=== PATIENT | female | born 1945 | race Caucasian/White ===

== ENCOUNTER 2020-03-27 12:41 | Outpatient (CLI) | payer MEDICARE, MEDICAID, SELFPAY ==
[2020-03-27] MEDS: DENOSUMAB 60 MG/ML SYRINGE SUB-Q (13:00)
== END 2020-03-27 12:42 | disposition home or self-care (01) ==
LOC: CHSTREATRM 12:44
PROVIDERS: PCP Internal Medicine; Visit Provider Internal Medicine
DX: M81.0 Age-related osteoporosis without current pathological fracture (principal)
CPT/HCPCS: 96372; J0897

== ENCOUNTER 2020-07-29 11:09 | Outpatient (CLI) | payer MEDICARE, MEDICAID, SELFPAY ==
[2020-07-29 11:20] VITALS: BP 120/70; PULSE 72; RESP 14; TEMP 36.6; O2SAT 97
[2020-07-29] MEDS: DENOSUMAB 60 MG/ML SYRINGE SUB-Q (11:30)
--- NOTE | 2020-07-29 11:31 | PC.NURSE ---
Patient here for Prolia injection. Patient had this 6 months ago and did well with it. Prolia injection administered see DEC. Tolerated injection well. Encouraged to drink good amount of fluids next few days. Safe exit of hospital.
== END 2020-07-29 11:10 | disposition home or self-care (01) ==
PROVIDERS: PCP Internal Medicine; Visit Provider Internal Medicine
DX: M81.0 Age-related osteoporosis without current pathological fracture (principal)
CPT/HCPCS: 96372; J0897

== ENCOUNTER 2020-10-14 12:37 | Outpatient (CLI) | payer MEDICARE, SELFPAY ==
[2020-10-14 13:23] LABS: SARS-CoV-2 Ag Positive (Negative)
== END 2020-10-14 12:38 | disposition home or self-care (01) ==
LOC: CHSLAB 12:39
PROVIDERS: PCP Internal Medicine; Visit Provider Internal Medicine
DX: U07.1 COVID-19 (principal)
CPT/HCPCS: 87426

== ENCOUNTER 2020-12-21 08:03 | Outpatient (CLI) | payer MEDICARE, MEDICAID, SELFPAY ==
--- NOTE | ~2020-12-21 | MR_ITS ---
EXAMINATION: MR brain IAC wo con EXAM DATE: 12/21/2020 09:32 INDICATION: Left temporal headache for months. Dizziness. TECHNIQUE: Multi-sequential, multiplanar MR images of the brain, brainstem, internal auditory canals were obtained without contrast. Whole brain sagittal T1, axial diffusion, gradient echo (T2*), T1, T 2, FLAIR sequences obtained. High resolution coronal 3-D FIESTA, coronal T1 FSE, axial T1 FSPGR of t he internal auditory canals. There is no prior study for comparison. FINDINGS: No evidence of mastoid or middle ear opacification. The 7th/8th cranial nerve complexes a re symmetric, normal in course and caliber. No cerebellopontine angle masses. Posterior fossa unrem arkable. There are no areas of restricted diffusion to suggest acute infarction. There is no acute hemorrhage seen on the T2*, a hemosiderin sensitive sequence. No intraparenchymal brain mass lesion. There is mild periventricular and subcortical T2/FLAIR signal hyperintensity, nonspecific but probably related to small vessel ischemic disease (microangiopathy). There are no extra-axial collections. Flow vo ids are seen in the cerebral arteries on the T2-weighted sequences consistent with their expected pat ency. Patient has had bilateral ocular lens surgery. Soft tissue is unremarkable. IMPRESSION: 1. No acute intracranial findings. 2. Mild microangiopathy. Reviewed, dictated and finalized at location A. S SHOP SUPERVISOR
== END 2020-12-21 08:04 | disposition home or self-care (01) ==
LOC: CHSIMG 08:05
PROVIDERS: PCP Internal Medicine; Visit Provider Internal Medicine
DX: R42 Dizziness and giddiness (principal); R51.9 Headache, unspecified
CPT/HCPCS: 70551

== ENCOUNTER 2021-01-03 12:44 | Outpatient (CLI) | payer MEDICARE, MEDICAID, SELFPAY ==
--- NOTE | ~2021-01-03 | DEXA_ITS ---
Bone Density Report Name: Rhiannon Hurst Age: 75 Sex: Female Ethnicity: White Date of : 1945 Indication: postmenopausal osteoporosis; monitoring treatment; asthma or emphysema; hysterectomy; Referring Provider: Orly Coronado Study: Bone densitometry was performed. Exam Date: January 03, 2021 Accession number: [id number] Bone Density: Region BMD T-score Z-score Classification AP Spine(L2, L3, L4) 0.971 -1.0 1.5 Normal Femoral Neck (Left) 0.590 -2.3 -0.3 Osteopenia Total Hip (Left) 0.668 -2.2 -0.5 Osteopenia Femoral Neck (Right) 0.645 -1.8 0.2 Osteopenia Total Hip (Right) 0.655 -2.4 -0.6 Osteopenia Femoral Neck Mean 0.618 -2.1 0.0 Osteopenia Total Hip Mean 0.661 -2.3 -0.6 Osteopenia World Health Organization criteria for BMD impression classify patients as: Normal (T-score at or above -1.0), Osteopenia (T-score between -1.0 and -2.5), or Osteoporosis (T-score at or below -2.5). 10-year Fracture Risk: FRAX not reported because: Treated for osteoporosis Previous Exams: Region Exam Age BMD T-score BMD Change BMD Change Date g/cm2 vs Baseline vs Previous AP Spine (L2-L4) 01/03/2021 75 0.971 -1.0 0.025 (2.6%)# 0.002 (0.2%)# 11/11/2018 73 0.970 -1.0 0.023 (2.4%)*! -0.050 (-4.9%) 06/14/2015 69 1.020 -0.5 0.073 (7.7%)*! 0.143 (16.3%)* 11/25/2012 67 0.877 -1.8 -0.070 (-7.4%) 0.013 (1.5%) 05/16/2010 64 0.864 -2.0 -0.082 (-8.7%) -0.082 (-8.7%) 03/07/2007 61 0.947 -1.2 Total Hip(Left) 01/03/2021 75 0.668 -2.2 -0.011 (-1.6%) 0.022 (3.3%)# 11/11/2018 73 0.646 -2.4 -0.032 (-4.8%) -0.013 (-1.9%) 06/14/2015 69 0.659 -2.3 -0.020 (-2.9%) 0.044 (7.1%)* 11/25/2012 67 0.615 -2.7 -0.063 (-9.3%) -0.008 (-1.2%) 05/16/2010 64 0.623 -2.6 -0.056 (-8.2%) -0.056 (-8.2%) 03/07/2007 61 0.679 -2.2 Total Hip(Right) 01/03/2021 75 0.655 -2.4 0.020 (3.2%)# 0.070 (12.0%)# 11/11/2018 73 0.585 -2.9 -0.050 (-7.9%) -0.002 (-0.4%) 11/25/2012 67 0.587 -2.9 -0.048 (-7.5%) -0.007 (-1.2%) 05/16/2010 64 0.594 -2.9 -0.040 (-6.4%) -0.040 (-6.4%) 03/07/2007 61 0.635 -2.5 *Denotes significance at 95% confidence level, LSC for AP Spine = 0.022 g/cm2, LSC for Total Hip = 0.027 g/cm2 # Denotes dissimilar scan types or analysis methods Clinical Information Provided by Patient: Is being treated for osteoporosis Has used the following medications: Vitamin D Has the following medical conditions: Asthma or Emphysema, Hy
== END 2021-01-03 12:45 | disposition home or self-care (01) ==
LOC: CHSIMG 12:45
PROVIDERS: PCP Internal Medicine; Visit Provider Internal Medicine
DX: M81.0 Age-related osteoporosis without current pathological fracture (principal)
CPT/HCPCS: 77080

== ENCOUNTER 2021-02-13 12:17 | Outpatient (CLI) | payer MEDICARE, MEDICAID, SELFPAY ==
--- NOTE | ~2021-02-13 | MM_ITS ---
EXAMINATION: MM screening drew BI w rodriguez HISTORY: Screening mammogram TECHNIQUE: Craniocaudal and mediolateral oblique 3-D tomosynthesis images were obtained and synthetic 2-D images were generated. CAD analysis was submitted and interpreted. COMPARISON: 11/11/2018, 10/06/2016, 06/06/2015 bilateral digital screening mammogram examinations BREAST PARENCHYMAL COMPOSITION: There are scattered areas of fibroglandular density. FINDINGS: Stable benign circumscribed intramammary upper outer quadrant right lymph node since 019, stable circumscribed skin lesion at the posterior lower inner left breast diminished in size sin ce 10/14/2016. There is no evidence of suspicious mass, calcification, or architectural distortion to suggest malign marino in either breast. There has been no suspicious interval change. IMPRESSION: 1. No mammographic evidence of malignancy. 2. Recommend routine screening mammography in one year. BI-RADS Category 0: Incomplete: Needs additional imaging evaluation. Reviewed, dictated and finalized at location A.
[2021-02-13 12:52] VITALS: BMI 25.5
--- NOTE | 2021-02-13 12:53 | PC.NURSE ---
Patient here for q 6 month Prolia injection. Education on medication reviewed. No concerns. Safe exit of hospital.
[2021-02-13] MEDS: DENOSUMAB 60 MG/ML SYRINGE SUB-Q (13:00)
== END 2021-02-13 12:18 | disposition home or self-care (01) ==
PROVIDERS: PCP Internal Medicine; Visit Provider Internal Medicine
DX: M81.0 Age-related osteoporosis without current pathological fracture (principal); Z12.31 Encounter for screening mammogram for malignant neoplasm of breast
CPT/HCPCS: 77063; 77067; 96372; J0897

== ENCOUNTER 2021-04-05 18:40 | Emergency (ER) | payer MEDICARE, MEDICAID, SELFPAY ==
--- NOTE | ~2021-04-05 | XR_ITS ---
XR chest 2V DATE: 04/05/2021 19:13 INDICATION: Cough for one day. History of COPD. TECHNIQUE: 2 views COMPARISON: 10/13/2019 2 view chest FINDINGS: Normal heart size. Aortic arch calcification. No hilar or mediastinal mass lesion or lympha denopathy is evident. Mild bilateral hyperinflation. No pulmonary infiltrate or consolidation, pleural effusion or pulmonar y vascular congestion or pneumothorax. Diffuse osteopenia. IMPRESSION: Mild bilateral hyperinflation; no active cardiac pulmonary disease or significant change since 10/13/2019 Reviewed, dictated and finalized at location A.
--- NOTE | 2021-04-05 18:48 | ED.URI ---
HPI - URI/Sore Throat General Chief Complaint: Upper Respiratory Infection Stated Complaint: coughing Source: patient and RN notes reviewed Mode of arrival: ambulatory Limitations: no limitations History of Present Illness MD elicited complaint: cough Pertinent past history: COPD and other ( patient had COVID September 2020, has had 2 vaccinations for COVID also) Onset (ago): day(s) (1) Consistency: intermittent Severity: moderate Description of mucous: clear Able to tolerate fluids by mouth: Yes Exacerbating factors: exertion Relieving factors: nothing Associated symptoms: denies other symptoms Treatments prior to arrival: none Related Data Home Medications Medication Instructions Recorded Confirmed albuterol sulfate [ProAir HFA] 2 puff INHALATION Q4-6H PRN 10/13/19 04/05/21 aspirin 81 mg PO DAILY 10/13/19 04/05/21 cholecalciferol (vitamin D3) 1,000 unit PO DAILY 10/13/19 04/05/21 [Vitamin D3] fluticasone furoate-vilanterol 1 inh INHALATION DAILY 10/13/19 04/05/21 [Breo Ellipta] lisinopril-hydrochlorothiazide 1 tablet PO DAILY 10/13/19 04/05/21 montelukast 10 mg PO DAILY 10/13/19 04/05/21 potassium chloride 10 meq PO DAILY 10/13/19 04/05/21 Allergies Allergy/AdvReac Type Severity Reaction Status Date / Time No Known Allergies Allergy Verified 10/13/19 17:35 Review of Systems Review of Systems: All systems reviewed & are unremarkable except as noted in HPI and below Constitutional: Constitutional: Denies chills and Denies fever(s) Cardiovascular: Cardiovascular: Denies chest pain Respiratory: Respiratory: Reports chest congestion, Denies dyspnea and Reports wheezing Gastrointestinal: Gastrointestinal: Denies nausea and Denies vomiting PMF Past Medical History Medical History (Updated 04/05/21 @ 19:24 by Kev Christian MD) COPD (chronic obstructive pulmonary disease) Hypertension Surgical History Surgical History (Updated 04/05/21 @ 19:22 by Kev Christian MD) H/O: hysterectomy History of appendectomy Social History Social History (Updated 04/05/21 @ 19:03 by Kev Christian MD) Smoking status: Former smoker Alcohol intake: current Alcohol use details: occasional Substance use: never Exam Const: General: healthy appearing, no acute distress and alert Nutritional Appearance: well nourished Orientation/consciousness: patient oriented x3 HENMT: Head: normal to inspection Ears: external ears normal Eyes: Conjunctivae: conjunctivae normal Pupils: Equal, round and reactive pupils present EOM: EOMs intact bilaterally Neck: Neck: normal visual inspection Resp: Effort & Inspection: normal respiratory effort Auscultation: rhonchi right lower and wheezes expiratory wheezes, anterior, posterior and throughout Cardio: Rate: regular rate Rhythm: regular rhythm GI: GI Palp: Yes Soft to palpation and No Tenderness to palpation present (GI) Auscultation: normal bowel sounds Back/Spine/Pelvis: Cervical Spine: cervical ROM normal Thoracic/Lumbar Spine: thoraco-lumbar ROM normal Skin: General skin exam: normal color Rashes: no rashes Neuro: General: patient oriented x3, moves all extremities, no meningeal signs and no focal motor deficits Speech: normal speech Gait exam (Neuro): Normal gait present Extrem: General: normal to inspection and no clubbing, cyanosis or edema Psych: Appearance: grossly normal and well kempt Mental Status: mental status grossly normal Affect: normal affect Attitude: cooperative Thought content: Yes Normal thought content present Discharge Plan Discharge Clinical Impression: COPD (chronic obstructive pulmonary disease) Qualifiers: COPD type: COPD with acute exacerbation Qualified Code(s): J44.1 - Chronic obstructive pulmonary disease with (acute) exacerbation Patient Disposition: Home, Self-Care Condition: Improved Instructions: Antibiotic Form, COPD (Chronic Obstructive Pulmonary Disease) (ED) Additional Instructions: Co
[2021-04-05 18:54] VITALS: BP 139/73; PULSE 103; RESP 22; TEMP 37.7; O2SAT 94
[2021-04-05] MEDS: IPRATROPIUM 0.5 MG/ALBUTEROL SULFATE 2.5 MG AMPUL.NEB 3 ML INHALATION (19:13)
[2021-04-05 19:15] VITALS: PULSE 103; RESP 22; O2SAT 94
[2021-04-05 19:25] VITALS: PULSE 100; RESP 20; O2SAT 96
[2021-04-05] MEDS: methylPREDNISolone SOD SUCC 125 MG VIAL IM (19:25)
[2021-04-05 19:27] VITALS: PULSE 100; RESP 20; O2SAT 96
== END 2021-04-05 19:28 | disposition home or self-care (01) ==
PROVIDERS: Emergency Provider Emergency Medicine; PCP Internal Medicine
DX: J44.1 Chronic obstructive pulmonary disease with (acute) exacerbation (principal); I10 Essential (primary) hypertension
CPT/HCPCS: 71046; 94640; 96372; 99283; J2930

== ENCOUNTER 2021-05-15 00:34 | Day surgery (SDC) | payer MEDICARE, MEDICAID, SELFPAY ==
[2021-05-09 09:58] VITALS: BMI 25.0
[2021-05-15 08:37] VITALS: BP 149/73; PULSE 85; RESP 18; TEMP 36.6; O2SAT 97; BMI 24.5
[2021-05-15] MEDS: LACTATED RINGERS 1,000 ML 30 ML IV CONT (08:48)
--- NOTE | 2021-05-15 08:51 | WPDANESEPPF ---
Anes - Initial Pre Proc Eval Procedure: Operation Date: 05/15/21 09:00 Proposed Procedures p Colonoscopy - Amari Lugo DO Date/Time: 05/15/21 08:51 Surgeon: Amari Lugo DO Pre Op Diagnosis: melena Patient Data Age: 75 Gender: F Height: 1.6 m Weight: 62.9 kg Last Vital Signs Temp 36.6 C 05/15/21 08:37 Pulse 85 05/15/21 08:37 Resp 18 05/15/21 08:37 BP 149/73 H 05/15/21 08:37 Pulse Ox 97 05/15/21 08:37 Allergies Allergy/AdvReac Type Severity Reaction Status Date / Time No Known Allergies Allergy Verified 05/15/21 08:36 Home Medications Medication Instructions Recorded Confirmed Type albuterol sulfate [ProAir HFA] 2 puff INHALATION Q4-6H PRN 10/13/19 05/15/21 History aspirin 81 mg PO DAILY 10/13/19 05/09/21 History lisinopril-hydrochlorothiazide 1 tablet PO DAILY 10/13/19 05/09/21 History montelukast 10 mg PO DAILY 10/13/19 05/09/21 History potassium chloride 10 meq PO DAILY 10/13/19 05/09/21 History cholecalciferol (vitamin D3) 2,000 unit PO DAILY 05/09/21 05/09/21 History [Vitamin D3] denosumab [Prolia] 60 mg SUBCUT [id number] 05/09/21 05/09/21 History fluticasone furoate-vilanterol 1 inh INHALATION DAILY 05/09/21 05/09/21 History [Breo Ellipta] ipratropium-albuterol [Combivent 4 puff INHALATION QID 05/09/21 05/09/21 History Respimat] Patient hx anesthesia problems: none Family hx anesthesia problems: none PMFSH Past Medical History Medical History COPD (chronic obstructive pulmonary disease) Hypertension Surgical History Surgical History H/O: hysterectomy History of appendectomy Social History Social History Smoking packs per day: 1 Smoking cigarettes per day: 20.0 Years smoked: 49 Smoking pack-years: 49.00 Smoking status: Current every day smoker Tobacco type: cigarettes Alcohol intake: current Alcohol use details: occasional Substance use: never Substance use type: does not use Living arrangements: alone Spiritual care concerns: No Anes - Eval Final PreProcedure Day of Procedure 05/15/21 08:51 Patient weight: normal Heart: regular rate and rhythm Lungs: clear to auscultation Airway: Mallampati scale class II Neurological: alert and oriented Last oral intake: >/= 8 hours ASA classification: III Emergent: no Anesthetic plan: proceed Anesthesia type and monitoring: general GIVS and standard monitoring Informed Consent: The patient's anesthetic plan and its attendant risks and benefits were discussed with the patient/family/POA. Questions were solicited and answers provided to the satisfaction of the patient/family/POA.
--- NOTE | 2021-05-15 09:42 | PM.IMHP ---
H&P: HPI History of Present Illness Date/Time: 05/15/21 09:42 Chief Complaint: blood in stool Narrative: this is a 75-year-old woman who presents for colonoscopy. She has never had a colonoscopy before. She has noticed blood when wiping. She denies any blood mixed in stool or blood dripping into the toilet. There is no family history of colon cancer. Review of Systems Review of Systems: All systems reviewed & are unremarkable except as noted in HPI and below Constitutional: Constitutional: Denies chills, Denies fever(s), Denies headache(s) and Denies weight loss Eyes: Eyes: Denies change in vision ENT: Denies dizziness, Denies headache(s), Denies neck mass and Denies throat swelling Cardiovascular: Cardiovascular: Denies chest pain, Denies lightheadedness and Denies dyspnea Respiratory: Respiratory: Denies cough, Denies dyspnea and Denies wheezing Gastrointestinal: Gastrointestinal: Denies abdominal pain, Denies change in bowel habits, Denies nausea and Denies vomiting Genitourinary: Genitourinary: Denies hematuria and Denies dysuria Musculoskeletal: Musculoskeletal: Reports as per HPI Integumentary/Breasts: Skin/Breast: Reports as per HPI Neurologic: Denies dizziness and Denies headache(s) Allergic/Immunologic: Allergic/Immunologic: Denies throat swelling and Denies wheezing PMFSH Past Medical History Medical History COPD (chronic obstructive pulmonary disease) Hypertension Surgical History Surgical History H/O: hysterectomy History of appendectomy Social History Social History Smoking packs per day: 1 Smoking cigarettes per day: 20.0 Years smoked: 49 Smoking pack-years: 49.00 Smoking status: Current every day smoker Tobacco type: cigarettes Alcohol intake: current Alcohol use details: occasional Substance use: never Substance use type: does not use Living arrangements: alone Spiritual care concerns: No Meds Home Medications and Allergies Home Medications Medication Instructions Recorded Confirmed Type albuterol sulfate [ProAir HFA] 2 puff INHALATION Q4-6H PRN 10/13/19 05/15/21 History aspirin 81 mg PO DAILY 10/13/19 05/09/21 History lisinopril-hydrochlorothiazide 1 tablet PO DAILY 10/13/19 05/09/21 History montelukast 10 mg PO DAILY 10/13/19 05/09/21 History potassium chloride 10 meq PO DAILY 10/13/19 05/09/21 History cholecalciferol (vitamin D3) 2,000 unit PO DAILY 05/09/21 05/09/21 History [Vitamin D3] denosumab [Prolia] 60 mg SUBCUT [id number] 05/09/21 05/09/21 History fluticasone furoate-vilanterol 1 inh INHALATION DAILY 05/09/21 05/09/21 History [Breo Ellipta] ipratropium-albuterol [Combivent 4 puff INHALATION QID 05/09/21 05/09/21 History Respimat] Allergies Allergy/AdvReac Type Severity Reaction Status Date / Time No Known Allergies Allergy Verified 05/15/21 08:36 Vital Signs Vital Signs - 24 hr 05/15/21 08:37 Temperature 36.6 C Pulse Rate 85 Respiratory Rate 18 Blood Pressure 149/73 H Pulse Oximetry 97 Exam Const: General: no acute distress and alert Orientation/consciousness: patient oriented x3 HENMT: Head: normocephalic and atraumatic Ears: hearing grossly normal bilaterally General nose exam: Normal nares present Mouth: Yes Normal oral and palatal mucosa present Eyes: Periorbital: periorbital findings normal Sclera: sclerae normal EOM: EOMs intact bilaterally Neck: Neck: normal visual inspection, no lymphadenopathy and trachea midline Chest: Chest palpation & inspection: normal inspection of the chest Resp: Effort & Inspection: normal respiratory effort Auscultation: clear to auscultation bilaterally Cardio: Jugular venous distension: no JVD Rate: regular rate Rhythm: regular rhythm Heart sounds: S1 normal heart sound present and S2 normal hear
[2021-05-15 10:16] VITALS: BP 121/64; PULSE 75; RESP 19; O2SAT 100
[2021-05-15 10:26] VITALS: BP 123/78; PULSE 74; RESP 23; O2SAT 100
[2021-05-15 10:36] VITALS: BP 134/67; PULSE 72; RESP 19; O2SAT 100
== END 2021-05-15 10:48 | disposition home or self-care (01) ==
PROVIDERS: PCP Internal Medicine; Visit Provider Surgery
PROC: 0DJD8ZZ Inspection of Lower Intestinal Tract, Via Natural or Artificial Opening Endoscopic (ICD-10-PCS; CPT 45378; principal; 2021-05-15 09:00)
DX: K62.5 Hemorrhage of anus and rectum (principal); K57.30 Diverticulosis of large intestine without perforation or abscess without bleeding; J44.9 Chronic obstructive pulmonary disease, unspecified; I10 Essential (primary) hypertension; F17.210 Nicotine dependence, cigarettes, uncomplicated; Z79.51 Long term (current) use of inhaled steroids; Z79.82 Long term (current) use of aspirin
CPT/HCPCS: 45378; J7120

== ENCOUNTER 2021-08-13 11:05 | Outpatient (CLI) | payer MEDICARE, SELFPAY ==
[2021-08-13 12:14] LABS: SARS-CoV-2 RNA PCR Negative (Negative)
== END 2021-08-13 11:06 | disposition home or self-care (01) ==
LOC: CHSLAB 11:11
PROVIDERS: PCP Internal Medicine; Visit Provider Internal Medicine
DX: J06.9 Acute upper respiratory infection, unspecified (principal); Z20.822 Contact with and (suspected) exposure to COVID-19
CPT/HCPCS: C9803; U0003; U0005

== ENCOUNTER 2021-08-14 16:25 | Outpatient (CLI) | payer MEDICARE, SELFPAY ==
--- NOTE | ~2021-08-14 | XR_ITS ---
EXAMINATION: XR chest 2V 08/14/2021 16:46 INDICATION: Wheezing. Emphysema. PROCEDURE: 2 view chest COMPARISON: Comparison to multiple prior studies sequentially, with oldest reviewed study dated 12/29. FINDINGS: The lungs are clear. The cardiomediastinal silhouette is within normal limits. There are no pleural effusions. There is no pneumothorax suspected. IMPRESSION: 1: NO ACUTE CARDIOPULMONARY DISEASE. Reviewed, dictated and finalized at location A.
[2021-08-14 17:03] LABS: Basophils Absolute Auto 0.04 K/mm3 (0.00-0.10); Basophils Percent Auto 0.5 % (0.0-1.0); Eosinophils Absolute Auto 0.16 K/mm3 (0.02-0.50); Eosinophils Percent Auto 2.1 % (1.0-6.0); Hematocrit 42.4 % (35.0-42.0); Hemoglobin 14.2 g/dL (11.7-13.8); Immature Granulocyte Absolute 0.02 K/mm3 (0.00-0.00); Immature Granulocyte Percent A 0.3 % (0.0-0.0); Lymphocytes Absolute Auto 1.51 K/mm3 (1.10-4.50); Lymphocytes Percent Auto 19.7 % (18.0-42.0); Mean Corpuscular HGB Conc 33.5 g/dL (32.0-36.0); Mean Corpuscular Hemoglobin 29.7 pg (27.0-31.0); Mean Corpuscular Volume 88.7 fL (78.0-102.0); Mean Platelet Volume 9.1 fl (9.2-11.8); Monocytes Absolute Auto 0.77 K/mm3 (0.10-0.90); Monocytes Percent Auto 10.1 % (2.0-11.0); Neutrophils Absolute Auto 5.2 K/mm3 (1.7-7.2); Neutrophils Percent Auto 67.3 % (50.0-70.0); Platelet Count Result 260 K/mm3 (150-420); Red Blood Count 4.78 M/mm3 (4.20-5.40); Red Cell Distribution Width 13.2 % (11.6-14.4); White Blood Count 7.7 K/mm3 (4.8-10.8)
[2021-08-14 17:25] LABS: Alanine Aminotransferase 23 U/L (14-59); Albumin Level 4.4 g/dL (3.4-5.0); Alkaline Phosphatase 54 U/L (46-116); Anion Gap 11 mmol/L (8-16); Aspartate Amino Transferase 23 U/L (15-37); Bilirubin,Total 0.6 mg/dL (0.00-1.00); Blood Urea Nitrogen 15 mg/dL (7-18); Calcium 9.6 mg/dL (8.5-10.1); Carbon Dioxide 29 mmol/L (21-32); Chloride 96 mmol/L (98-108); Estimated Glomerular Filt Rate > 60; Glucose 95 mg/dL (70-99); Osmolality Calculated 282 mOsm/kg (285-295); Potassium 3.6 mmol/L (3.5-5.1); Sodium 136 mmol/L (136-145); Total Protein 7.3 g/dL (6.4-8.2)
== END 2021-08-14 16:26 | disposition home or self-care (01) ==
LOC: CHSLAB 16:27
PROVIDERS: PCP Internal Medicine; Visit Provider Internal Medicine
DX: J44.1 Chronic obstructive pulmonary disease with (acute) exacerbation (principal)
CPT/HCPCS: 36415; 71046; 80053; 85025

== ENCOUNTER 2021-08-26 17:12 | Emergency (ER) | payer OTHER, SELFPAY ==
--- NOTE | ~2021-08-26 | CT_ITS ---
EXAMINATION: CT abdomen pelvis w con EXAM DATE: 08/26/2021 19:28 INDICATION: Abdominal Pain central abd pain x 2 days with n/v/d. TECHNIQUE: Spiral CT of the abdomen and pelvis was performed following intravenous injection of 100 m L Omnipaque 350. Axial, coronal and sagittal images of the abdomen and pelvis were reviewed. The do se-length product (DLP) for this examination was 352.16 mGy-cm. The exposure was tailored according to patient size (auto mA exposure control), and iterative reconstruction (ASIR) was used as additiona l dose reduction technique. There is no prior study for comparison. FINDINGS: The liver, spleen, adrenal glands and pancreas are unremarkable. Gallbladder is unremarkab le. No biliary obstruction. Portal and splenic veins are patent. Kidneys enhance symmetrically. T here is no hydronephrosis. The uterus is not identified and has likely been surgically resected. T he bladder is unremarkable. There is no retroperitoneal or pelvic lymphadenopathy. There is modera te scattered arteriosclerotic disease. There are no findings to suggest appendicitis. There is moderate sigmoid predominant colonic divertic ulosis. There is no adjacent inflammatory change to suggest diverticulitis. The stomach and small arlet wel are unremarkable. There is expected amount of colonic stool. No free intraperitoneal gas. Th e heart is normal in size. There are no pericardial or pleural effusions. There is mild emphysema. T he lung bases are unremarkable. There are no osteoblastic or osteolytic lesions identified. IMPRESSION: 1. No acute intra-abdominal findings. 2. Moderate sigmoid predominant diverticulosis. 3. Mild emphysema. Reviewed, dictated and finalized at location A. PRODUCTION COOK
[2021-08-26 17:24] VITALS: BP 136/88; PULSE 88; RESP 16; TEMP 37; O2SAT 98
--- NOTE | 2021-08-26 17:31 | ED.ABDPAIN ---
HPI - Abdominal Pain General Chief Complaint: Abdominal Pain Stated Complaint: lower abd pain Time Seen by Provider: 08/26/21 17:31 Source: patient Mode of arrival: ambulatory Limitations: no limitations History of Present Illness HPI narrative: 76-year-old female, smoker with a history of hypertension, COPD with recent exacerbation for which she was on steroids and Zithromax, GI bleeding secondary to multiple diverticulosis presents to the ER with a 3 day history of -- abdominal pain. Pain is epigastric in location. It is intermittent. No exacerbating or relieving factors. -- Nausea with vomiting which resolved 2 days ago. -- Multiple soft bowel movements. No diarrhea. No hematemesis no melena. MD elicited complaint: abdominal pain Pertinent past history: diverticulitis ( History of diverticulosis.) Onset (ago): day(s) ( Started 3 days ago) Pain Consistency: intermittent Location: diffuse and epigastric Severity: moderate Pain scale (0-10): 7 Quality: aching Radiation: epigastric Migration to: no migration Exacerbating factors: nothing Relieving factors: nothing Associated symptoms: denies other symptoms Related Data Home Medications Medication Instructions Recorded Confirmed albuterol sulfate [ProAir HFA] 2 puff INHALATION Q4-6H PRN 10/13/19 08/26/21 aspirin 81 mg PO DAILY 10/13/19 08/26/21 lisinopril-hydrochlorothiazide 1 tablet PO DAILY 10/13/19 08/26/21 montelukast 10 mg PO DAILY 10/13/19 08/26/21 potassium chloride 10 meq PO DAILY 10/13/19 08/26/21 Breo Ellipta 1 inh INHALATION DAILY 05/09/21 08/26/21 Combivent Respimat 4 puff INHALATION QID 05/09/21 08/26/21 cholecalciferol (vitamin D3) 2,000 unit PO DAILY 05/09/21 08/26/21 [Vitamin D3] Allergies Allergy/AdvReac Type Severity Reaction Status Date / Time No Known Allergies Allergy Verified 05/15/21 08:36 Review of Systems Review of Systems: All systems reviewed & are unremarkable except as noted in HPI and below Constitutional: Constitutional: Reports as per HPI and Reports chills Eyes: Eyes: Reports as per HPI and Reports no additional eye complaints ENT: Reports system reviewed and no additional complaints, except as documented and Reports as per HPI Cardiovascular: Cardiovascular: Reports no additional cardiovascular complaints Respiratory: Respiratory: Reports cough, Reports dyspnea and Reports other ( has chronic cough and shortness of breath. Finished Zithromax 3 days ago) Gastrointestinal: Gastrointestinal: Reports abdominal pain, Reports tenesmus, Reports nausea and Reports vomiting Genitourinary: Genitourinary: Reports no additional female genitourinary complaints and Reports as per HPI Musculoskeletal: Musculoskeletal: Reports no additional musculoskeletal complaints Integumentary/Breasts: Skin/Breast: Reports system reviewed and no additional complaints, except as docu and Reports as per HPI Neurologic: Reports system reviewed and no additional complaints, except as documented and Reports as per HPI Psychiatric: Psychiatric: Reports no additional psychiatric complaints and Reports as per HPI Endocrine: Endocrine: Reports no additional endocrine complaints Hematologic/Lymphatic: Hematologic/Lymphatic: Reports no additional hematologic/lymphatic complaints and Reports as per HPI Allergic/Immunologic: Allergic/Immunologic: Reports no additional allergic/immunologic complaints PMF Past Medical History Medical History (Updated 08/26/21 @ 17:43 by Servando Biswas MD) COPD (chronic obstructive pulmonary disease) Diverticulosis Hypertension Surgical History Surgical History H/O: hysterectomy History of appendectomy Social History Social History Smoking packs per day: 1 Smoking cigarettes per day: 20.0 Years smoked: 49 Smoking pack-years: 49.00 Smoking status: Current every day smoker Tobacco type:
[2021-08-26 18:00] LABS: Basophils Absolute Auto 0.05 K/mm3 (0.00-0.10); Basophils Percent Auto 0.4 % (0.0-1.0); Eosinophils Absolute Auto 0.26 K/mm3 (0.02-0.50); Eosinophils Percent Auto 1.9 % (1.0-6.0); Hematocrit 41.6 % (35.0-42.0); Hemoglobin 13.8 g/dL (11.7-13.8); Immature Granulocyte Absolute 0.08 K/mm3 (0.00-0.00); Immature Granulocyte Percent A 0.6 % (0.0-0.0); Lymphocytes Absolute Auto 1.54 K/mm3 (1.10-4.50); Lymphocytes Percent Auto 11.4 % (18.0-42.0); Mean Corpuscular HGB Conc 33.2 g/dL (32.0-36.0); Mean Corpuscular Hemoglobin 29.6 pg (27.0-31.0); Mean Corpuscular Volume 89.1 fL (78.0-102.0); Mean Platelet Volume 9.1 fl (9.2-11.8); Monocytes Absolute Auto 0.81 K/mm3 (0.10-0.90); Neutrophils Absolute Auto 10.8 K/mm3 (1.7-7.2); Neutrophils Percent Auto 79.7 % (50.0-70.0); Platelet Count Result 256 K/mm3 (150-420); Red Blood Count 4.67 M/mm3 (4.20-5.40); Red Cell Distribution Width 13.8 % (11.6-14.4); White Blood Count 13.5 K/mm3 (4.8-10.8)
[2021-08-26 18:14] LABS: Prothrombin Time 10.4 Seconds (9.50-12.10)
[2021-08-26 18:23] LABS: Alanine Aminotransferase 18 U/L (14-59); Albumin Level 3.7 g/dL (3.4-5.0); Alkaline Phosphatase 60 U/L (46-116); Anion Gap 5 mmol/L (8-16); Aspartate Amino Transferase 11 U/L (15-37); Bilirubin Direct 0.1 mg/dL (0-0.2); Bilirubin,Total 0.4 mg/dL (0.00-1.00); Blood Urea Nitrogen 21 mg/dL (7-18); Calcium 9.5 mg/dL (8.5-10.1); Carbon Dioxide 31 mmol/L (21-32); Chloride 102 mmol/L (98-108); Estimated CRCL calculation 40 ml/min; Estimated Glomerular Filt Rate 59; Glucose 137 mg/dL (70-99); Lipase 125 U/L (73-393); Osmolality Calculated 291 mOsm/kg (285-295); Potassium 3.8 mmol/L (3.5-5.1); Sodium 138 mmol/L (136-145); Total Protein 6.1 g/dL (6.4-8.2); Troponin I 6.1 ng/L (0.00-60.4)
--- NOTE | 2021-08-26 18:38 | PC.NURSE ---
requested two more times for UA, patient cont to refuse to try, states I don't need to.
[2021-08-26] MEDS: LACTATED RINGERS 1,000 ML 999 ML IV CONT (19:27)
[2021-08-26] MEDS: PANTOPRAZOLE SODIUM IV 40 MG VIAL IV PUSH (19:28)
[2021-08-26] MEDS: ONDANSETRON INJ 4 MG/2 ML VIAL IV PUSH (19:28)
--- NOTE | 2021-08-26 20:26 | PC.NURSE ---
cont to decline to give UA
[2021-08-26 20:36] VITALS: BP 120/80; PULSE 70; RESP 18; TEMP 36.4; O2SAT 98
== END 2021-08-26 20:37 | disposition home or self-care (01) ==
PROVIDERS: Emergency Provider Internal Medicine Critical Care Medicine; PCP Internal Medicine
DX: K57.90 Diverticulosis of intestine, part unspecified, without perforation or abscess without bleeding (principal); R10.9 Unspecified abdominal pain; J44.9 Chronic obstructive pulmonary disease, unspecified; I10 Essential (primary) hypertension; F17.200 Nicotine dependence, unspecified, uncomplicated
CPT/HCPCS: 36415; 74177; 80048; 80076; 83605; 83690; 84484; 85025; 85610; 96361; 96374; 96375; 99283; 99284; C9113; J2405; J7120; Q9967

== ENCOUNTER 2021-12-16 10:18 | Outpatient (CLI) | payer OTHER, SELFPAY ==
[2021-12-16 10:29] VITALS: BMI 24.0
[2021-12-16 10:30] VITALS: BP 112/57; PULSE 87; RESP 18; TEMP 35.9; O2SAT 96
[2021-12-16] MEDS: DENOSUMAB 60 MG/ML SYRINGE SUB-Q (10:32)
--- NOTE | 2021-12-16 10:40 | PC.NURSE ---
pt here for Prolia injection (had previous), tolerated well, no concerns voiced. Safe exit out of hospital.
== END 2021-12-16 10:19 | disposition home or self-care (01) ==
LOC: CHSTREATRM 10:20
PROVIDERS: PCP Internal Medicine; Visit Provider Internal Medicine
DX: M81.0 Age-related osteoporosis without current pathological fracture (principal)
CPT/HCPCS: 96372; J0897

== ENCOUNTER 2022-05-06 13:14 | Outpatient (CLI) | payer OTHER, SELFPAY ==
[2022-05-06 14:13] LABS: SARS-CoV-2 RNA PCR Positive (Negative)
== END 2022-05-06 13:15 | disposition home or self-care (01) ==
LOC: CHSLAB 13:16
PROVIDERS: PCP Internal Medicine; Visit Provider Internal Medicine
DX: U07.1 COVID-19 (principal)
CPT/HCPCS: C9803; U0003; U0005

== ENCOUNTER 2022-07-08 10:01 | Outpatient (CLI) | payer OTHER, SELFPAY ==
[2022-07-08 10:15] VITALS: BMI 24.0
[2022-07-08 10:16] VITALS: BP 126/69; PULSE 70; RESP 14; TEMP 35.7; O2SAT 96
[2022-07-08] MEDS: DENOSUMAB 60 MG/ML SYRINGE SUB-Q (10:18)
--- NOTE | 2022-07-08 10:26 | PC.NURSE ---
patient here for her every 6 month Prolia injection, reports no problems with the last one, Prolia injection administrated See MAR, tolerated well, safe exit out of the hospital.
== END 2022-07-08 10:02 | disposition home or self-care (01) ==
LOC: CHSTREATRM 10:05
PROVIDERS: PCP Internal Medicine; Visit Provider Internal Medicine
DX: M81.0 Age-related osteoporosis without current pathological fracture (principal)
CPT/HCPCS: 96372; J0897

== ENCOUNTER 2022-09-16 11:49 | Outpatient (CLI) | payer OTHER, SELFPAY ==
--- NOTE | ~2022-09-16 | XR_ITS ---
EXAMINATION: XR chest 2V 09/16/2022 12:09 INDICATION: Wheezing. PROCEDURE: 2 view chest COMPARISON: Comparison to multiple prior studies sequentially, with oldest reviewed study dated 01/05. FINDINGS: The lungs are clear. The cardiomediastinal silhouette is within normal limits. There are no pleural effusions. There is no pneumothorax suspected. IMPRESSION: 1: NO ACUTE CARDIOPULMONARY DISEASE. Reviewed, dictated and finalized at location A. DIRECTOR INTELLIGENCE OFFICER
--- NOTE | ~2022-09-16 | MM_ITS ---
EXAMINATION: MM screening [facility] BI w rodriguez HISTORY: Screening mammogram TECHNIQUE: Craniocaudal and mediolateral oblique 3-D tomosynthesis images were obtained and synthetic 2-D images were generated. CAD analysis was submitted and interpreted. COMPARISON: 02/13/2021, 11/11/2018, 10/14/2016 BREAST PARENCHYMAL COMPOSITION: There are scattered areas of fibroglandular density. FINDINGS: No suspicious mass, calcification, or architectural distortion are identified in either jamila ast to suggest malignancy. There has been no suspicious interval change. IMPRESSION: 1. No mammographic evidence of malignancy. 2. Recommend routine screening mammography in one year. BI-RADS Category 1: Negative Reviewed, dictated and finalized at location A. RATORY SUPERVISOR
== END 2022-09-16 11:50 | disposition home or self-care (01) ==
LOC: CHSIMG 11:52
PROVIDERS: PCP Internal Medicine; Visit Provider Internal Medicine
DX: R06.2 Wheezing (principal); Z12.31 Encounter for screening mammogram for malignant neoplasm of breast
CPT/HCPCS: 71046; 77063; 77067

== ENCOUNTER 2022-09-18 11:40 | Outpatient (CLI) | payer OTHER, SELFPAY ==
[2022-09-18 12:01] LABS: Basophils Absolute Auto 0.05 K/mm3 (0.00-0.10); Basophils Percent Auto 0.4 % (0.0-1.0); Eosinophils Absolute Auto 0.12 K/mm3 (0.02-0.50); Hematocrit 39.2 % (35.0-42.0); Hemoglobin 12.8 g/dL (11.7-13.8); Immature Granulocyte Absolute 0.04 K/mm3 (0.00-0.00); Immature Granulocyte Percent A 0.3 % (0.0-0.0); Lymphocytes Absolute Auto 1.26 K/mm3 (1.10-4.50); Lymphocytes Percent Auto 10.8 % (18.0-42.0); Mean Corpuscular HGB Conc 32.7 g/dL (32.0-36.0); Mean Corpuscular Hemoglobin 29.4 pg (27.0-31.0); Mean Corpuscular Volume 89.9 fL (78.0-102.0); Mean Platelet Volume 8.9 fl (9.2-11.8); Monocytes Absolute Auto 0.91 K/mm3 (0.10-0.90); Monocytes Percent Auto 7.8 % (2.0-11.0); Neutrophils Absolute Auto 9.3 K/mm3 (1.7-7.2); Neutrophils Percent Auto 79.7 % (50.0-70.0); Platelet Count Result 251 K/mm3 (150-420); Red Blood Count 4.36 M/mm3 (4.20-5.40); Red Cell Distribution Width 13.9 % (11.6-14.4); White Blood Count 11.7 K/mm3 (4.8-10.8)
[2022-09-18 12:36] LABS: Influenza A QL RT-PCR Negative (Negative); Influenza B QL RT-PCR Negative (Negative); SARS-CoV-2 RNA PCR Negative (Negative)
== END 2022-09-18 11:41 | disposition home or self-care (01) ==
LOC: CHSLAB 11:42
PROVIDERS: PCP Internal Medicine; Visit Provider Internal Medicine
DX: R05.1 Acute cough (principal)
CPT/HCPCS: 36415; 85025; 87636

== ENCOUNTER 2022-10-28 18:54 | Emergency (ER) | payer OTHER, SELFPAY ==
--- NOTE | ~2022-10-28 | XR_ITS ---
EXAMINATION: XR chest 2V Exam Date/Time: 10/28/2022 20:05 ROUTE INSPECTOR HISTORY: increased cough, sob, sore throat today hx COPD Comparison: 09/16/2022. RESULT: Lines, tubes, and devices: None. Lungs and pleura: Clear. Senescent change. Cardiomediastinal silhouette: Stable. Dilated central pulmonary arteries as can be seen with pulmona ry arterial hypertension Other: No acute osseous or upper abdominal finding. IMPRESSION: No acute cardiopulmonary process. Reviewed, dictated and finalized at location K. E INSPECTOR
[2022-10-28 19:07] VITALS: BP 135/75; PULSE 110; RESP 18; TEMP 37.9; O2SAT 95
[2022-10-28 19:08] VITALS: BP 135/75; PULSE 117; RESP 20; TEMP 37.9; O2SAT 95
--- NOTE | 2022-10-28 19:37 | ED.SOB ---
HPI - SOB/Dyspnea General Chief Complaint: Shortness of Breath/Dyspnea Stated Complaint: trouble breathing Time Seen by Provider: 10/28/22 19:25 History of Present Illness HPI Narrative: 77-year-old female pressure with known history of COPD and hypertension is here with complaints of sore throat and nasal congestion that started around 3:00 p.m. today and has been progressively getting worse. She has not noticed any fever or chills. She has had a little bit more cough than usual. Patient has taken her breathe well uptight as well as her routine medications. She has not felt the need to increase the rescue inhaler use age. She is fully vaccinated for COVID and reports no known exposure. Patient has been an ex-smoker and has not smoked for the last 10 years. Related Data Home Medications Medication Instructions Recorded Confirmed albuterol sulfate 90 mcg/actuation 2 puff inhalation Q4-6H PRN 10/13/19 07/08/22 aerosol inhaler (ProAir HFA) Shortness Of Breath aspirin 81 mg tablet,delayed 81 mg PO DAILY 10/13/19 07/08/22 release lisinopril 20 1 tablet PO DAILY 10/13/19 07/08/22 mg-hydrochlorothiazide 25 mg tablet montelukast 10 mg tablet 10 mg PO DAILY 10/13/19 07/08/22 potassium chloride 10 mEq 10 meq PO DAILY 10/13/19 07/08/22 capsule,extended release cholecalciferol (vitamin D3) 25 2,000 unit PO DAILY 05/09/21 07/08/22 mcg (1,000 unit) capsule (Vitamin D3) fluticasone furoate 200 1 inh inhalation DAILY 05/09/21 07/08/22 mcg-vilanterol 25 mcg/dose inhalation powder (Breo Ellipta) ipratropium 20 mcg-albuterol 100 4 puff inhalation QID 05/09/21 07/08/22 mcg/actuation mist for inhalation (Combivent Respimat) Allergies Allergy/AdvReac Type Severity Reaction Status Date / Time No Known Allergies Allergy Verified 05/15/21 08:36 Review of Systems Review of Systems: All systems reviewed & are unremarkable except as noted in HPI and below Constitutional: Constitutional: Reports no additional constitutional complaints, Denies chills, Denies fatigue, Denies fever(s) and Denies weakness Eyes: Eyes: Reports no additional eye complaints ENT: Reports system reviewed and no additional complaints, except as documented Cardiovascular: Cardiovascular: Reports no additional cardiovascular complaints Respiratory: Respiratory: Denies chest congestion, Reports cough, Denies dyspnea and Denies wheezing Gastrointestinal: Gastrointestinal: Reports no additional gastrointestinal complaints Genitourinary: Genitourinary: Reports no additional female genitourinary complaints Musculoskeletal: Musculoskeletal: Reports no additional musculoskeletal complaints Integumentary/Breasts: Skin/Breast: Reports system reviewed and no additional complaints, except as docu Neurologic: Reports system reviewed and no additional complaints, except as documented Psychiatric: Psychiatric: Reports no additional psychiatric complaints Endocrine: Endocrine: Reports no additional endocrine complaints Hematologic/Lymphatic: Hematologic/Lymphatic: Reports no additional hematologic/lymphatic complaints Allergic/Immunologic: Allergic/Immunologic: Reports no additional allergic/immunologic complaints PMF Past Medical History Medical History COPD (chronic obstructive pulmonary disease) Diverticulosis Hypertension Surgical History Surgical History H/O: hysterectomy History of appendectomy Social History Social History (Updated 10/28/22 @ 20:46 by Thelma Zamora MD) Smoking packs per day: 1 Smoking cigarettes per day: 20.0 Years smoked: 49 Smoking pack-years: 49.00 Smoking status: Former smoker Tobacco type: cigarettes Smoking end date: 11/13/11 Alcohol intake: current Alcohol use details: occasional Substance use: never Substance use type: does not use Spiritual care concerns: No Exam Titi
[2022-10-28 20:25] LABS: Strep Group A RT-PCR NOT DETECTED (Negative)
[2022-10-28 20:35] VITALS: BP 145/77; PULSE 96; RESP 20; TEMP 37.8; O2SAT 95
[2022-10-28 20:36] LABS: Influenza A QL RT-PCR Positive (Negative); Influenza B QL RT-PCR Negative (Negative); RSV RNA, RT-PCR Negative (Negative); SARS-CoV-2 RNA PCR Negative (Negative)
[2022-10-28] MEDS: ACETAMINOPHEN 325 MG TABLET 650 MG PO (20:56)
[2022-10-28 21:06] VITALS: BP 139/89; PULSE 69; RESP 20; TEMP 37.6; O2SAT 100
== END 2022-10-28 21:11 | disposition home or self-care (01) ==
PROVIDERS: Emergency Provider Emergency Medicine; PCP Internal Medicine
DX: J10.1 Influenza due to other identified influenza virus with other respiratory manifestations (principal); J44.9 Chronic obstructive pulmonary disease, unspecified; I10 Essential (primary) hypertension; Z87.891 Personal history of nicotine dependence; Z79.82 Long term (current) use of aspirin; Z79.51 Long term (current) use of inhaled steroids; Z20.822 Contact with and (suspected) exposure to COVID-19
CPT/HCPCS: 71046; 87637; 87651; 99283; A9270

== ENCOUNTER 2022-11-03 14:04 | Outpatient (CLI) | payer OTHER, SELFPAY ==
[2022-11-03 15:01] LABS: NT Pro B Type Natriuretic Pept 174 pg/mL (0-450)
== END 2022-11-03 14:05 | disposition home or self-care (01) ==
LOC: CHSLAB 14:06
PROVIDERS: PCP Internal Medicine; Visit Provider Internal Medicine
DX: R06.09 Other forms of dyspnea (principal)
CPT/HCPCS: 36415; 83880

== ENCOUNTER 2023-01-05 08:48 | Outpatient (CLI) | payer OTHER, SELFPAY ==
[2023-01-05 08:54] VITALS: BMI 24.0
[2023-01-05 08:56] VITALS: BP 135/89; PULSE 80; RESP 14; TEMP 36.6; O2SAT 97
[2023-01-05] MEDS: DENOSUMAB 60 MG/ML SYRINGE SUB-Q (09:03)
--- NOTE | 2023-01-05 09:04 | PC.NURSE ---
Patient here for q 6 month Prolia injection. Reports no problems with getting Prolia injections. Education given. No concerns voiced. Prolia injection administered. SEE MAR. Tolerated well. Safe exit of hospital. Will return have to return around for next injection. Will need new order and auth approval prior.
== END 2023-01-05 08:49 | disposition home or self-care (01) ==
LOC: CHSTREATRM 08:50
PROVIDERS: PCP Internal Medicine; Visit Provider Internal Medicine
DX: M81.0 Age-related osteoporosis without current pathological fracture (principal)
CPT/HCPCS: 96372; J0897

== ENCOUNTER 2023-02-22 12:19 | Outpatient (CLI) | payer OTHER, SELFPAY ==
--- NOTE | ~2023-02-22 | DEXA_ITS ---
Bone Density Report Name: DELMAR ZAPATA Age: 77 Sex: Female Ethnicity: White Date of : 1945 Indication: postmenopausal; screening for osteoporosis; height loss; asthma or emphysema; hysterectomy; Referring Provider: Orly Coronado Study: Bone densitometry was performed. Exam Date: February 22, 2023 Accession number: [id number] Bone Density: Region BMD T-score Z-score Classification AP Spine(L2, L3, L4) 1.018 -0.6 2.0 Normal Femoral Neck (Left) 0.621 -2.1 0.1 Osteopenia Total Hip (Left) 0.685 -2.1 -0.2 Osteopenia Femoral Neck (Right) 0.646 -1.8 0.3 Osteopenia Total Hip (Right) 0.665 -2.3 -0.4 Osteopenia Femoral Neck Mean 0.634 -1.9 0.2 Osteopenia Total Hip Mean 0.675 -2.2 -0.3 Osteopenia World Health Organization criteria for BMD impression classify patients as: Normal (T-score at or above -1.0), Osteopenia (T-score between -1.0 and -2.5), or Osteoporosis (T-score at or below -2.5). 10-year Fracture Risk: FRAX not reported because: Treated for osteoporosis Clinical Information Provided by Patient: Is being treated for osteoporosis Has used the following medications: Fosamax (i.e. alendronate), Prolia (i.e. denosumab), Vitamin D Has the following medical conditions: Asthma or Emphysema, Hysterectomy Patient maximum height was 64 Menopause Age: 51 No regular weight bearing exercise Drinks caffeinated beverages Onset of menses at age 16 Number of children 5 Impression: The patient has low bone mass, based on the Right Total Hip T-score. Discussion: It is important to ask patients whether they are taking their medications and to encourage continued and appropriate compliance with their osteoporosis therapies to reduce fracture risk. It is also important to review their risk factors and encourage appropriate calcium and vitamin D intakes, exercise, fall prevention and other lifestyle measures. Follow-Up: Consider a repeat BMD and Vertebral Fracture Assessment (VFA) exam in 2 years or sooner if medically necessary, to reassess this patient's status. Reported by: Dr. Torin Armijo on 02/22/2023 12:44:00 PM. Reviewed, dictated and finalized at location Marie MEYERS
== END 2023-02-22 12:20 | disposition home or self-care (01) ==
LOC: CHSIMG 12:20
PROVIDERS: PCP Internal Medicine; Visit Provider Internal Medicine
DX: Z78.0 Asymptomatic menopausal state (principal); M85.89 Other specified disorders of bone density and structure, multiple sites
CPT/HCPCS: 77080

== ENCOUNTER 2023-06-17 07:43 | Emergency (ER) | payer OTHER, SELFPAY ==
[2023-06-17 07:43] VITALS: BP 148/70; PULSE 81; RESP 20; TEMP 37.2; O2SAT 97
--- NOTE | 2023-06-17 08:03 | ECG_ITS ---
Measurements Intervals [place] Rate: 63 P: 80 ME: 162 QRS: 74 QRSD: 111 T: 72 QT: 402 QTc: 413 Interpretive Statements SINUS RHYTHM INCOMPLETE RIGHT BUNDLE BRANCH BLOCK [90+ ms QRS DURATION, TERMINAL R IN V1/V2, 40+ ms S IN I/aVL/V4/V5/V6] ABNORMAL ECG NO PREVIOUS ECG AVAILABLE FOR COMPARISON Electronically Signed On 06-17-2023 9:46:30 CDT by David Cruz M.D.
--- NOTE | 2023-06-17 08:08 | ED.CHESTPAIN ---
HPI - Chest Pain General Chief Complaint: Shortness of Breath/Dyspnea Stated Complaint: shortness of breath Time Seen by Provider: 06/17/23 07:55 Source: patient Mode of arrival: ambulatory Limitations: no limitations History of Present Illness HPI narrative: This is a 77-year-old female with history of COPD states that she was having chest pain earlier this morning after she did some heavy lifting the pain is reproducible left upper chest area with palpation currently the pain has resolved patient states that it is aggravated with movement and palpation, does have a history of COPD, but currently not short of breath no cough no wheezing no nausea or vomiting no diaphoresis no history of CAD or heart disease. MD complaint: chest discomfort Pertinent past history: other Onset (ago): hour(s) Timing of current episode: now resolved Prior episodes: No Onset: during exertion Pain location: left chest Related Data Home Medications Medication Instructions Recorded Confirmed albuterol sulfate 90 mcg/actuation 2 puff inhalation Q4-6H PRN 10/13/19 01/05/23 aerosol inhaler (ProAir HFA) Shortness Of Breath aspirin 81 mg tablet,delayed 81 mg PO DAILY 10/13/19 01/05/23 release lisinopril 20 1 tablet PO DAILY 10/13/19 01/05/23 mg-hydrochlorothiazide 25 mg tablet montelukast 10 mg tablet 10 mg PO DAILY 10/13/19 01/05/23 potassium chloride 10 mEq 10 meq PO DAILY 10/13/19 01/05/23 capsule,extended release cholecalciferol (vitamin D3) 25 2,000 unit PO DAILY 05/09/21 01/05/23 mcg (1,000 unit) capsule (Vitamin D3) fluticasone furoate 200 1 inh inhalation DAILY 05/09/21 01/05/23 mcg-vilanterol 25 mcg/dose inhalation powder (Breo Ellipta) ipratropium 20 mcg-albuterol 100 4 puff inhalation QID 05/09/21 01/05/23 mcg/actuation mist for inhalation (Combivent Respimat) Allergies Allergy/AdvReac Type Severity Reaction Status Date / Time No Known Allergies Allergy Verified 05/15/21 08:36 Review of Systems Review of Systems: All systems reviewed & are unremarkable except as noted in HPI and below PMFSH Past Medical History Medical History COPD (chronic obstructive pulmonary disease) Diverticulosis Hypertension Surgical History Surgical History H/O: hysterectomy History of appendectomy Social History Social History Smoking packs per day: 1 Smoking cigarettes per day: 20.0 Years smoked: 49 Smoking pack-years: 49.00 Smoking status: Former smoker Tobacco type: cigarettes Smoking end date: 11/13/11 Alcohol intake: current Alcohol use details: occasional Substance use: never Substance use type: does not use Living arrangements: alone Spiritual care concerns: No Exam Const: General: healthy appearing Nutritional Appearance: well nourished Orientation/consciousness: patient oriented x3 Limitations: no limitations HENMT: Head: normal to inspection Eyes: Conjunctivae: conjunctivae normal EOM: EOMs intact bilaterally Neck: Neck: normal visual inspection Resp: Effort & Inspection: normal respiratory effort Auscultation: clear to auscultation bilaterally Cardio: Rate: regular rate Rhythm: regular rhythm GI: GI Palp: Yes Soft to palpation Auscultation: normal bowel sounds Skin: General skin exam: normal color Rashes: no rashes Wounds: no wounds Neuro: General: patient oriented x3, moves all extremities and no meningeal signs Extrem: Other: Reproducible chest pain with palpation Psych: Mental Status: mental status grossly normal Course Course Emergency Course: EKG and troponin both reviewed and within normal limits the patient symptoms have subsequently resolved currently no chest pain, it is reproducible with palpation to the left upper chest area with no shortness of breath her lungs ar
[2023-06-17 08:41] LABS: Troponin I 4.1 ng/L (0.00-60.4)
[2023-06-17 09:05] VITALS: BP 120/63; PULSE 65; RESP 18; TEMP 36.6; O2SAT 97
== END 2023-06-17 09:02 | disposition home or self-care (01) ==
PROVIDERS: Emergency Provider Emergency Medicine; PCP Internal Medicine
DX: R07.89 Other chest pain (principal); J44.9 Chronic obstructive pulmonary disease, unspecified; I10 Essential (primary) hypertension; Z87.891 Personal history of nicotine dependence
CPT/HCPCS: 36415; 84484; 93005; 99283

== ENCOUNTER 2023-07-20 09:52 | Outpatient (CLI) | payer OTHER, SELFPAY ==
[2023-07-20 10:13] VITALS: BP 103/69; PULSE 78; RESP 14; TEMP 36.6; O2SAT 97; BMI 21.9
[2023-07-20] MEDS: DENOSUMAB 60 MG/ML SYRINGE SUB-Q (10:17)
--- NOTE | 2023-07-20 10:20 | PC.NURSE ---
Patient here for q 6 month Prolia injection. Education given. No concerns voiced. Has been getting this for years now without problems. Injection administered see MAR. Tolerated well. Safe exit of hospital. Will return in 6 mon for next injection. Will call patient closer to time.
== END 2023-07-20 09:53 | disposition home or self-care (01) ==
PROVIDERS: PCP Internal Medicine; Visit Provider Internal Medicine
DX: M81.0 Age-related osteoporosis without current pathological fracture (principal)
CPT/HCPCS: 96372; J0897

== ENCOUNTER 2023-09-17 12:31 | Outpatient (CLI) | payer OTHER, SELFPAY ==
--- NOTE | ~2023-09-17 | MM_ITS ---
EXAMINATION: MM screening [place] BI w rodriguez HISTORY: Screening mammogram TECHNIQUE: Craniocaudal and mediolateral oblique 3-D tomosynthesis images were obtained and synthetic 2-D images were generated. CAD analysis was submitted and interpreted. COMPARISON: 09/16/2022, 02/13/2021, 11/11/2018 bilateral screening mammogram examinations BREAST PARENCHYMAL COMPOSITION: There are scattered areas of fibroglandular density. FINDINGS: There is no evidence of suspicious mass, calcification, or architectural distortion to sugg est malignancy in either breast. There has been no suspicious interval change. IMPRESSION: 1. No mammographic evidence of malignancy. 2. Recommend routine screening mammography in one year. BI-RADS Category 1: Negative Reviewed, dictated and finalized at location A. REPAIRER
== END 2023-09-17 12:32 | disposition home or self-care (01) ==
LOC: CHSIMG 12:32
PROVIDERS: PCP Internal Medicine; Visit Provider Internal Medicine
DX: Z12.31 Encounter for screening mammogram for malignant neoplasm of breast (principal)
CPT/HCPCS: 77063; 77067

== ENCOUNTER 2023-11-25 16:15 | Outpatient (CLI) | payer OTHER, SELFPAY ==
--- NOTE | ~2023-11-25 | XR_ITS ---
EXAMINATION: XR chest 2V DATE: 11/25/2023 16:44 INDICATION: Cough TECHNIQUE: Frontal and lateral views of the chest are obtained COMPARISON: 10/28/2022 FINDINGS: The lungs are free of acute opacities. No pleural effusion or pneumothorax. The cardiomedia stinal silhouette is normal. There is mild thoracic spondylosis. IMPRESSION: 1. No acute cardiopulmonary abnormality. Reviewed, dictated and finalized at location L. DING DISMANTLER
[2023-11-25 16:44] LABS: Basophils Absolute Auto 0.05 K/mm3 (0.00-0.10); Basophils Percent Auto 0.7 % (0.0-1.0); Eosinophils Absolute Auto 0.12 K/mm3 (0.02-0.50); Eosinophils Percent Auto 1.8 % (1.0-6.0); Hematocrit 38.9 % (35.0-42.0); Hemoglobin 12.8 g/dL (11.7-13.8); Immature Granulocyte Absolute 0.01 K/mm3 (0.00-0.00); Immature Granulocyte Percent A 0.1 % (0.0-0.0); Lymphocytes Percent Auto 11.9 % (18.0-42.0); Mean Corpuscular HGB Conc 32.9 g/dL (32.0-36.0); Mean Corpuscular Hemoglobin 28.9 pg (27.0-31.0); Mean Corpuscular Volume 87.8 fL (78.0-102.0); Mean Platelet Volume 9.1 fl (9.2-11.8); Monocytes Absolute Auto 0.67 K/mm3 (0.10-0.90); Neutrophils Absolute Auto 5.1 K/mm3 (1.7-7.2); Neutrophils Percent Auto 75.5 % (50.0-70.0); Platelet Count Result 231 K/mm3 (150-420); Red Blood Count 4.43 M/mm3 (4.20-5.40); Red Cell Distribution Width 13.9 % (11.6-14.4); White Blood Count 6.7 K/mm3 (4.8-10.8)
[2023-11-25 17:01] LABS: Alanine Aminotransferase 19 U/L (14-59); Alkaline Phosphatase 44 U/L (46-116); Anion Gap 8 mmol/L (8-16); Aspartate Amino Transferase 19 U/L (15-37); Bilirubin,Total 0.5 mg/dL (0.00-1.00); Blood Urea Nitrogen 17 mg/dL (7-18); Calcium 9.8 mg/dL (8.5-10.1); Carbon Dioxide 32 mmol/L (21-32); Chloride 100 mmol/L (98-108); Estimated Glomerular Filt Rate > 60; Glucose 96 mg/dL (70-99); Osmolality Calculated 291 mOsm/kg (285-295); Potassium 3.7 mmol/L (3.5-5.1); Sodium 140 mmol/L (136-145); Total Protein 6.9 g/dL (6.4-8.2)
[2023-11-25 17:12] LABS: Strep Group A RT-PCR Not Detected (Negative)
[2023-11-25 17:26] LABS: Influenza A QL RT-PCR Negative (Negative); Influenza B QL RT-PCR Negative (Negative); RSV RNA, RT-PCR Negative (Negative); SARS-CoV-2 RNA PCR Negative (Negative)
== END 2023-11-25 16:16 | disposition home or self-care (01) ==
LOC: CHSLAB 16:17
PROVIDERS: PCP Internal Medicine; Visit Provider Internal Medicine
DX: R05.9 Cough, unspecified (principal); J45.909 Unspecified asthma, uncomplicated
CPT/HCPCS: 36415; 71046; 80053; 85025; 87637; 87651

== ENCOUNTER 2023-12-06 15:42 | Outpatient (CLI) | payer OTHER, SELFPAY ==
--- NOTE | ~2023-12-06 | XR_ITS ---
EXAMINATION: XR chest 2V Exam Date/Time: 12/06/2023 15:48 HUMAN RESOURCES CONSULTANT HISTORY: COPD exacerbation dyspnea Comparison: 11/25/2023. RESULT: Lines, tubes, and devices: None. Lungs and pleura: Clear. Cardiomediastinal silhouette: Stable. Other: No acute osseous or upper abdominal finding. IMPRESSION: No acute cardiopulmonary process. Reviewed, dictated and finalized at location K. N RESOURCES CONSULTANT
[2023-12-06 16:20] LABS: Basophils Absolute Auto 0.06 K/mm3 (0.00-0.10); Basophils Percent Auto 0.5 % (0.0-1.0); Eosinophils Absolute Auto 0.24 K/mm3 (0.02-0.50); Eosinophils Percent Auto 2.1 % (1.0-6.0); Hematocrit 42.4 % (35.0-42.0); Immature Granulocyte Absolute 0.04 K/mm3 (0.00-0.00); Immature Granulocyte Percent A 0.3 % (0.0-0.0); Lymphocytes Absolute Auto 1.42 K/mm3 (1.10-4.50); Lymphocytes Percent Auto 12.3 % (18.0-42.0); Mean Corpuscular Hemoglobin 29.2 pg (27.0-31.0); Mean Corpuscular Volume 88.5 fL (78.0-102.0); Mean Platelet Volume 8.8 fl (9.2-11.8); Monocytes Absolute Auto 0.99 K/mm3 (0.10-0.90); Monocytes Percent Auto 8.6 % (2.0-11.0); Neutrophils Absolute Auto 8.8 K/mm3 (1.7-7.2); Neutrophils Percent Auto 76.2 % (50.0-70.0); Platelet Count Result 314 K/mm3 (150-420); Red Blood Count 4.79 M/mm3 (4.20-5.40); Red Cell Distribution Width 14.2 % (11.6-14.4); White Blood Count 11.5 K/mm3 (4.8-10.8)
[2023-12-06 16:26] LABS: D Dimer 0.45 mg/L (0.19-0.50)
[2023-12-06 16:33] LABS: Alanine Aminotransferase 16 U/L (14-59); Albumin Level 3.9 g/dL (3.4-5.0); Alkaline Phosphatase 56 U/L (46-116); Anion Gap 9 mmol/L (8-16); Aspartate Amino Transferase 16 U/L (15-37); Bilirubin,Total 0.5 mg/dL (0.00-1.00); Blood Urea Nitrogen 14 mg/dL (7-18); Calcium 8.7 mg/dL (8.5-10.1); Carbon Dioxide 28 mmol/L (21-32); Chloride 101 mmol/L (98-108); Estimated Glomerular Filt Rate > 60; Glucose 98 mg/dL (70-99); Osmolality Calculated 286 mOsm/kg (285-295); Potassium 3.6 mmol/L (3.5-5.1); Sodium 138 mmol/L (136-145)
== END 2023-12-06 15:43 | disposition home or self-care (01) ==
LOC: CHSLAB 15:43
PROVIDERS: PCP Internal Medicine; Visit Provider Internal Medicine
DX: J44.1 Chronic obstructive pulmonary disease with (acute) exacerbation (principal); R06.00 Dyspnea, unspecified
CPT/HCPCS: 36415; 71046; 80053; 85025; 85380

== ENCOUNTER 2024-02-08 09:10 | Outpatient (CLI) | payer OTHER, SELFPAY ==
[2024-02-08 09:23] VITALS: BP 137/71; PULSE 78; RESP 16; TEMP 36.5; O2SAT 98; BMI 22.6
[2024-02-08] MEDS: DENOSUMAB 60 MG/ML SYRINGE SUB-Q (09:32)
--- NOTE | 2024-02-08 09:33 | PC.NURSE ---
Patient here for Prolia injection. Education given. No concerns voiced. Reports has had this many times without problems. Injection administered. SEE MAR. Tolerated well. Safe exit of hospital per self/ambulatory.
== END 2024-02-08 09:37 | disposition home or self-care (01) ==
PROVIDERS: PCP Internal Medicine; Visit Provider Internal Medicine
DX: M81.0 Age-related osteoporosis without current pathological fracture (principal)
CPT/HCPCS: 96372; J0897

== ENCOUNTER 2024-03-17 21:58 | Observation (INO) | payer OTHER, SELFPAY ==
[2024-03-17] VITALS (14 sets, daily range): BP systolic 120–168; BP diastolic 65–92; PULSE 98–129; RESP 20–26; TEMP 36.4; O2SAT 89–97
--- NOTE | ~2024-03-17 | XR_ITS ---
EXAMINATION: XR chest 1V portable Exam Date/Time: 03/17/2024 22:10 CDT HISTORY: sob/HX OF COPD Comparison: 12/06/2023. RESULT: Lines, tubes, and devices: None. Lungs and pleura: Emphysematous changes, otherwise clear. Cardiomediastinal silhouette: Stable. Other: No acute osseous or upper abdominal finding. IMPRESSION: No acute cardiopulmonary process. Reviewed, dictated and finalized at location K.
--- NOTE | 2024-03-17 22:01 | ECG_ITS ---
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 Measurements Intervals [place] Rate: 103 P: 83 [place]: 166 QRS: 77 QRSD: 97 T: 77 QT: 311 QTc: 407 Interpretive Statements SINUS TACHYCARDIA INCOMPLETE RIGHT BUNDLE BRANCH BLOCK [90+ ms QRS DURATION, TERMINAL R IN V1/V2, 40+ ms S IN I/aVL/V4/V5/V6] MODERATE ST DEPRESSION [0.05+ mV ST DEPRESSION] INTERPRETATION BASED ON A DEFAULT AGE OF 40 YEARS No previous ECG available for comparison Electronically Signed On 03-21-2024 14:10:31 CDT by Dav Bess M.D.
--- NOTE | 2024-03-17 22:03 | ED.SOB ---
HPI - SOB/Dyspnea General Chief Complaint: Shortness of Breath/Dyspnea Stated Complaint: SOB Time Seen by Provider: 03/17/24 22:00 Source: patient Mode of arrival: ambulatory Limitations: no limitations History of Present Illness HPI Narrative: Patient is a 78-year-old female with shortness of breath and COPD known as a baseline. This started last night. She has had a relatively good day that is turned worse this evening with shortness of breath. No particular chest pain. MD elicited complaint: shortness of breath Pertinent past history: COPD Onset (ago): day(s) (1) Context: other ( Patient stop smoking cigarettes 10 years ago) Timing: intermittent Severity: moderate Exacerbating factors: exertion Relieving factors: nothing Known history of: COPD Associated symptoms: denies other symptoms Treatment prior to arrival: bronchodilator Related Data Home oxygen amount: none Home Medications Medication Instructions Recorded Confirmed albuterol sulfate 90 mcg/actuation 2 puff inhalation Q4-6H PRN 10/13/19 03/17/24 aerosol inhaler (ProAir HFA) Shortness Of Breath aspirin 81 mg tablet,delayed 81 mg PO DAILY 10/13/19 03/17/24 release lisinopril 20 1 tablet PO DAILY 10/13/19 03/17/24 mg-hydrochlorothiazide 25 mg tablet montelukast 10 mg tablet 10 mg PO DAILY 10/13/19 03/17/24 potassium chloride 10 mEq 10 meq PO DAILY 10/13/19 03/17/24 capsule,extended release cholecalciferol (vitamin D3) 25 2,000 unit PO DAILY 05/09/21 03/17/24 mcg (1,000 unit) capsule (Vitamin D3) fluticasone furoate 200 1 inh inhalation DAILY 05/09/21 03/17/24 mcg-vilanterol 25 mcg/dose inhalation powder (Breo Ellipta) ipratropium 20 mcg-albuterol 100 4 puff inhalation QID 05/09/21 03/17/24 mcg/actuation mist for inhalation (Combivent Respimat) Allergies Allergy/AdvReac Type Severity Reaction Status Date / Time No Known Allergies Allergy Verified 05/15/21 08:36 Review of Systems Review of Systems: All systems reviewed & are unremarkable except as noted in HPI and below Constitutional: Constitutional: Reports no additional constitutional complaints Eyes: Eyes: Reports no additional eye complaints ENT: Reports system reviewed and no additional complaints, except as documented Cardiovascular: Cardiovascular: Reports no additional cardiovascular complaints Respiratory: Respiratory: Reports no additional respiratory complaints Gastrointestinal: Gastrointestinal: Reports no additional gastrointestinal complaints Genitourinary: Genitourinary: Reports no additional female genitourinary complaints Musculoskeletal: Musculoskeletal: Reports no additional musculoskeletal complaints Integumentary/Breasts: Skin/Breast: Reports system reviewed and no additional complaints, except as docu Neurologic: Reports system reviewed and no additional complaints, except as documented Psychiatric: Psychiatric: Reports no additional psychiatric complaints Endocrine: Endocrine: Reports no additional endocrine complaints Hematologic/Lymphatic: Hematologic/Lymphatic: Reports no additional hematologic/lymphatic complaints Allergic/Immunologic: Allergic/Immunologic: Reports no additional allergic/immunologic complaints PMFSH Past Medical History Medical History COPD (chronic obstructive pulmonary disease) Diverticulosis Hypertension Surgical History Surgical History H/O: hysterectomy History of appendectomy Social History Social History Smoking packs per day: 1 Smoking cigarettes per day: 20.0 Years smoked: 49 Smoking pack-years: 49.00 Smoking status: Former smoker Tobacco type: cigarettes Smoking end date: 11/13/11 Alcohol intake: current Alcohol use details: occasional Substance use: never Substance use type: does not use Living arrangements:
[2024-03-17] MEDS: IPRATROPIUM 0.5 MG/ALBUTEROL SULFATE 2.5 MG AMPUL.NEB 3 ML INHALATION (22:09)
--- NOTE | 2024-03-17 22:09 | PC.NURSE ---
Cardiopulmonary at the bedside. Lab at the bedside. Xray at the bedside
[2024-03-17 22:25] LABS: Basophils Absolute Auto 0.02 K/mm3 (0.00-0.10); Basophils Percent Auto 0.2 % (0.0-1.0); Eosinophils Absolute Auto 0.03 K/mm3 (0.02-0.50); Eosinophils Percent Auto 0.2 % (1.0-6.0); Hematocrit 37.5 % (35.0-42.0); Hemoglobin 12.3 g/dL (11.7-13.8); Immature Granulocyte Absolute 0.06 K/mm3 (0.00-0.00); Immature Granulocyte Percent A 0.5 % (0.0-0.0); Lymphocytes Absolute Auto 0.74 K/mm3 (1.10-4.50); Lymphocytes Percent Auto 5.7 % (18.0-42.0); Mean Corpuscular HGB Conc 32.8 g/dL (32-36); Mean Corpuscular Hemoglobin 29.4 pg (27.0-31.0); Mean Corpuscular Volume 89.5 fL (78.0-102.0); Mean Platelet Volume 8.9 fl (9.2-11.8); Monocytes Percent Auto 6.9 % (2.0-11.0); Neutrophils Absolute Auto 11.21 K/mm3 (1.70-7.20); Neutrophils Percent Auto 86.5 % (50.0-70.0); Platelet Count Result 222 K/mm3 (150-420); Red Blood Count 4.19 M/mm3 (4.20-5.40); Red Cell Distribution Width 13.9 % (11.6-14.4)
[2024-03-17] MEDS: methylPREDNISolone SOD SUCC 125 MG VIAL IV PUSH (22:29)
[2024-03-17] MEDS: SODIUM CHLORIDE 0.9% IV 1,000 ML 999 ML IV CONT (22:29)
[2024-03-17] MEDS: CEFEPIME 2 GM/NS 50 ML 2 GM/50 ML BAG IVPB (22:36)
[2024-03-17 22:44] LABS: Lactic Acid Reflex 1.4 mmol/L (0.4-2.0)
[2024-03-17 22:45] LABS: Alanine Aminotransferase 12 U/L (14-59); Albumin Level 3.9 g/dL (3.4-5.0); Alkaline Phosphatase 55 U/L (46-116); Anion Gap 10 mmol/L (4-12); Aspartate Amino Transferase 15 U/L (15-37); Bilirubin,Total 0.9 mg/dL (0.00-1.00); Blood Urea Nitrogen 14 mg/dL (7-18); Calcium 9.6 mg/dL (8.5-10.1); Carbon Dioxide 29 mmol/L (21-32); Chloride 96 mmol/L (98-108); Estimated CRCL calculation 47 ml/min; Estimated Glomerular Filt Rate > 60; Glucose 130 mg/dL (70-99); NT Pro B Type Natriuretic Pept 741 pg/mL (0-450); Osmolality Calculated 282 mOsm/kg (285-295); Potassium 3.4 mmol/L (3.5-5.1); Sodium 135 mmol/L (136-145); Troponin I 14.1 ng/L (0.00-60.4)
--- NOTE | 2024-03-17 22:50 | PC.NURSE ---
family member went home. patient requested that the lights be turned off. im gonna try and get some sleep . call light in reach.
--- NOTE | 2024-03-17 23:10 | PC.NURSE ---
patient reports that she is starting to feel better. oxygen turned off at this time. wob non labored. call light in reach
[2024-03-17] MEDS: POTASSIUM CHLORIDE 20 MEQ ER TABLET 40 MEQ PO (23:34)
--- NOTE | 2024-03-17 23:48 | PC.NURSE ---
ER provider notified of sspo2 reading of 90%. ER provider wants patient placed back on 2 liters. done
[2024-03-18] VITALS (12 sets, daily range): BP systolic 108–142; BP diastolic 51–80; PULSE 74–96; RESP 16–18; TEMP 36.1–36.7; O2SAT 93–98; BMI 22.9
--- NOTE | 2024-03-18 00:52 | ECG_ITS ---
[address] Test Date: 2024-03-18 Pat Name: Rhiannon Hurst Department: Room: Gender: F Drafter Tool Design: PONCE : 1945 Requested By: Gibson Tripp Order Number: [id number] Reading MD: Dav Bess M.D. Measurements Intervals [place] Rate: 92 P: 84 ND: 157 QRS: 79 QRSD: 109 T: 78 QT: 349 QTc: 433 Interpretive Statements SINUS RHYTHM INCOMPLETE RIGHT BUNDLE BRANCH BLOCK [90+ ms QRS DURATION, TERMINAL R IN V1/V2, 40+ ms S IN I/aVL/V4/V5/V6] INTERPRETATION BASED ON A DEFAULT AGE OF 40 YEARS No previous ECG available for comparison Electronically Signed On 03-18-2024 14:13:18 CDT by Dav Bess M.D.
--- NOTE | 2024-03-18 01:34 | PC.NURSE ---
floor notified of admission
--- NOTE | 2024-03-18 01:53 | PC.NURSE ---
Report received from Emma by this nurse. Awaiting patient arrival.
[2024-03-18 02:15] LABS: Troponin I 19.7 ng/L (0.00-60.4)
[2024-03-18] MEDS: SODIUM CHLORIDE 0.9% IV 1,000 ML 100 ML IV CONT (03:00)
[2024-03-18] MEDS: methylPREDNISolone SOD SUCC 125 MG VIAL 80 MG IV PUSH (05:24)
[2024-03-18 05:53] LABS: Basophils Absolute Auto 0.02 K/mm3 (0.00-0.10); Basophils Percent Auto 0.1 % (0.0-1.0); Hematocrit 35.9 % (35.0-42.0); Hemoglobin 11.6 g/dL (11.7-13.8); Immature Granulocyte Absolute 0.08 K/mm3 (0.00-0.00); Immature Granulocyte Percent A 0.6 % (0.0-0.0); Lymphocytes Absolute Auto 0.49 K/mm3 (1.10-4.50); Lymphocytes Percent Auto 3.5 % (18.0-42.0); Mean Corpuscular HGB Conc 32.3 g/dL (32-36); Mean Corpuscular Hemoglobin 29.2 pg (27.0-31.0); Mean Corpuscular Volume 90.4 fL (78.0-102.0); Mean Platelet Volume 8.9 fl (9.2-11.8); Monocytes Absolute Auto 0.23 K/mm3 (0.10-0.90); Monocytes Percent Auto 1.7 % (2.0-11.0); Neutrophils Absolute Auto 13.06 K/mm3 (1.70-7.20); Neutrophils Percent Auto 94.1 % (50.0-70.0); Platelet Count Result 203 K/mm3 (150-420); Red Blood Count 3.97 M/mm3 (4.20-5.40); Red Cell Distribution Width 13.8 % (11.6-14.4); White Blood Count 13.9 K/mm3 (4.8-10.8)
[2024-03-18] MEDS: IPRATROPIUM 0.5 MG/ALBUTEROL SULFATE 2.5 MG AMPUL.NEB 3 ML INHALATION ×2 (05:59→08:51)
[2024-03-18 06:09] LABS: Alanine Aminotransferase 11 U/L (14-59); Albumin Level 3.4 g/dL (3.4-5.0); Alkaline Phosphatase 42 U/L (46-116); Anion Gap 9 mmol/L (4-12); Aspartate Amino Transferase 13 U/L (15-37); Bilirubin,Total 0.7 mg/dL (0.00-1.00); Blood Urea Nitrogen 13 mg/dL (7-18); Calcium 9.1 mg/dL (8.5-10.1); Carbon Dioxide 28 mmol/L (21-32); Chloride 101 mmol/L (98-108); Estimated CRCL calculation 45 ml/min; Estimated Glomerular Filt Rate > 60; Glucose 186 mg/dL (70-99); Osmolality Calculated 291 mOsm/kg (285-295); Potassium 4.4 mmol/L (3.5-5.1); Sodium 138 mmol/L (136-145); Total Protein 6.7 g/dL (6.4-8.2)
[2024-03-18 06:38] LABS: Troponin I 15.3 ng/L (0.00-60.4)
--- NOTE | 2024-03-18 08:20 | PM.SD2 ---
Same Day Admit/Disch: HPI History of Present Illness Chief complaint: PNA HYPOXIA COPD EX Narrative: Rhiannon Hurst is a 78 year old female \[place] [address] Emergency Room Visit Note Signed Patient: Rhiannon Hurst MR#: [id number] : 1945 Acct:[id number] Age: 78 ADM Date: 03/17/24 Loc: [facility] Attending Dr: cc: Orly Coronado MD; Gibson Graves MD~ HPI - SOB/Dyspnea General Chief Complaint: Shortness of Breath/Dyspnea Stated Complaint: SOB Time Seen by Provider: 03/17/24 22:00 Source: patient Mode of arrival: ambulatory Limitations: no limitations History of Present Illness HPI Narrative: ? Patient is a 78-year-old female with shortness of breath and COPD known as a baseline.? This started last night.? She has had a relatively good day that is turned worse this evening with shortness of breath.? No particular chest pain. MD elicited complaint: shortness of breath Pertinent past history: COPD Onset (ago): day(s) (1) Context: other (? Patient stop smoking cigarettes 10 years ago) Timing: intermittent Severity: moderate Exacerbating factors: exertion Relieving factors: nothing Known history of: COPD Associated symptoms: denies other symptoms Treatment prior to arrival: bronchodilator Related Data Home oxygen amount: none PMFSH Past Medical History Medical History COPD (chronic obstructive pulmonary disease) Diverticulosis Hypertension Surgical History Surgical History H/O: hysterectomy History of appendectomy Social History Social History Smoking packs per day: 2 Smoking cigarettes per day: 40.0 Years smoked: 45 Smoking pack-years: 90.00 Smoking status: Former smoker Tobacco type: cigarettes Second hand tobacco smoke exposure: No Smoking end date: 10/18/13 Alcohol intake: former Alcohol use details: occasional Substance use: never Substance use type: does not use Do You Feel Safe in your Home?: Yes Lack of Transportation: No Lack of Food: Never True Current Housing: I Have Housing Concerned About Future Housing: No Difficulty Paying Gas/Electric Bills: No Difficulty Paying for Meds: No Currently Unemployed: No Education: Grade School Difficulty w/ Childcare or Family Care: No Living arrangements: alone Spiritual care concerns: No Same Day Admit/Disch: Med Pre-admit Medications Home Medications Medication Instructions Recorded Confirmed Type albuterol sulfate 90 mcg/actuation 2 puff inhalation Q4-6H PRN 10/13/19 03/17/24 History aerosol inhaler (ProAir HFA) Shortness Of Breath aspirin 81 mg tablet,delayed 81 mg PO DAILY 10/13/19 03/17/24 History release lisinopril 20 1 tablet PO DAILY 10/13/19 03/17/24 History mg-hydrochlorothiazide 25 mg tablet montelukast 10 mg tablet 10 mg PO DAILY 10/13/19 03/17/24 History potassium chloride 10 mEq 10 meq PO DAILY 10/13/19 03/17/24 History capsule,extended release cholecalciferol (vitamin D3) 25 2,000 unit PO DAILY 05/09/21 03/17/24 History mcg (1,000 unit) capsule (Vitamin D3) fluticasone furoate 200 1 inh inhalation DAILY 05/09/21 03/17/24 History mcg-vilanterol 25 mcg/dose inhalation powder (Breo Ellipta) ipratropium 20 mcg-albuterol 100 4 puff inhalation QID 05/09/21 03/17/24 History mcg/actuation mist for inhalation (Combivent Respimat) azithromycin 250 mg tablet See Rx Instructions PO .COMPLEX #6 03/18/24 Rx (Zithromax) tabs methylprednisolone 4 mg tablets in See Rx Instructions PO .COMPLEX 03/18/24 Rx a dose pack (Medrol (John)) #21 ea Review of Systems Review of Systems shortness of breath All systems reviewed & are unremarkable except as noted
[2024-03-18] MEDS: MONTELUKAST SODIUM 10 MG TABLET PO (08:51)
[2024-03-18] MEDS: POTASSIUM CHLORIDE 10 MEQ ER TABLET PO (08:51)
[2024-03-18] MEDS: ASPIRIN 81 MG ENTERIC TABLET PO (08:51)
[2024-03-18] MEDS: hydroCHLOROthiazide 25 MG TABLET PO (08:51)
[2024-03-18] MEDS: lisinopriL 20 MG TABLET PO (08:51)
--- NOTE | 2024-03-18 10:35 | PC.NURSE ---
Discharge instructions reviewed with patient and her daughter. all questions answered. Pt ambuulated independently out of hospital.
[2024-03-19 05:30] VITALS: O2SAT 97
--- NOTE | 2024-03-21 09:21 | PC.NURSE ---
Discharge call back completed, doing well, got inhaler and antibiotic
== END 2024-03-18 10:35 | disposition home or self-care (01) ==
LOC: CHSED 03-18 01:22 → CHS2ND 03-18 08:26
PROVIDERS: Admitting Provider Internal Medicine; Emergency Provider Emergency Medicine; PCP Internal Medicine; Visit Provider Internal Medicine
DX: J44.0 Chronic obstructive pulmonary disease with (acute) lower respiratory infection (principal); J18.9 Pneumonia, unspecified organism; J44.1 Chronic obstructive pulmonary disease with (acute) exacerbation; I10 Essential (primary) hypertension; Z87.891 Personal history of nicotine dependence; Z79.51 Long term (current) use of inhaled steroids; Z79.82 Long term (current) use of aspirin
CPT/HCPCS: 36415; 71045; 80053; 83605; 83880; 84484; 85025; 87040; 93005; 94640; 96365; 96375; 96376; 99285; A9270; G0378; J0692; J2919; J7030

== ENCOUNTER 2024-07-25 16:10 | Outpatient (CLI) | payer OTHER, SELFPAY ==
[2024-07-25 16:57] LABS: SARS-CoV-2 RNA PCR Negative (Negative)
[2024-07-25 16:58] LABS: Influenza A QL RT-PCR Negative (Negative); Influenza B QL RT-PCR Negative (Negative); RSV RNA, RT-PCR Negative (Negative)
== END 2024-07-25 16:11 | disposition home or self-care (01) ==
PROVIDERS: PCP Internal Medicine; Visit Provider Internal Medicine
DX: J06.9 Acute upper respiratory infection, unspecified (principal)
CPT/HCPCS: 87637

== ENCOUNTER 2024-07-29 17:28 | Emergency (ER) | payer OTHER, SELFPAY ==
[2024-07-29] VITALS (13 sets, daily range): BP systolic 132–188; BP diastolic 80–92; PULSE 95–114; RESP 17–22; TEMP 36.7; O2SAT 91–100
--- NOTE | 2024-07-29 17:33 | ED.SOB ---
HPI - SOB/Dyspnea General Chief Complaint: Shortness of Breath/Dyspnea Stated Complaint: SOB Time Seen by Provider: 07/29/24 17:32 Source: patient Mode of arrival: wheelchair Limitations: no limitations History of Present Illness HPI Narrative: This is a 78-year-old female, with history of COPD and hypertension, who presents to the emergency department complaining of shortness of breath for the past week, worsened in the past day. The patient states she was recently on a cruise, when she developed a cough. She was seen by her primary care doctor approximately 5 days ago and started a Zithromax. In the past day, her shortness of breath has worsened though her cough has improved. This has persisted despite use of home albuterol and nebulizers. She has no other complaints at this time. Related Data Home Medications Medication Instructions Recorded Confirmed albuterol sulfate 90 mcg/actuation 2 puff inhalation Q4-6H PRN 10/13/19 07/29/24 aerosol inhaler (ProAir HFA) Shortness Of Breath aspirin 81 mg tablet,delayed 81 mg PO DAILY 10/13/19 07/29/24 release lisinopril 20 1 tablet PO DAILY 10/13/19 07/29/24 mg-hydrochlorothiazide 25 mg tablet montelukast 10 mg tablet 10 mg PO DAILY 10/13/19 07/29/24 potassium chloride 10 mEq 10 meq PO DAILY 10/13/19 07/29/24 capsule,extended release cholecalciferol (vitamin D3) 25 2,000 unit PO DAILY 05/09/21 07/29/24 mcg (1,000 unit) capsule (Vitamin D3) fluticasone furoate 200 1 inh inhalation DAILY 05/09/21 07/29/24 mcg-vilanterol 25 mcg/dose inhalation powder (Breo Ellipta) ipratropium 20 mcg-albuterol 100 4 puff inhalation QID 05/09/21 07/29/24 mcg/actuation mist for inhalation (Combivent Respimat) Allergies Allergy/AdvReac Type Severity Reaction Status Date / Time No Known Allergies Allergy Verified 07/29/24 17:35 Review of Systems Review of Systems: All systems reviewed & are unremarkable except as noted in HPI and below PMFSH Past Medical History Medical History COPD (chronic obstructive pulmonary disease) Diverticulosis Hypertension Surgical History Surgical History H/O: hysterectomy History of appendectomy Social History Social History Smoking packs per day: 2 Smoking cigarettes per day: 40.0 Years smoked: 45 Smoking pack-years: 90.00 Smoking status: Former smoker Tobacco type: cigarettes Second hand tobacco smoke exposure: No Smoking end date: 10/18/13 Alcohol intake: former Alcohol use details: occasional Substance use: never Substance use type: does not use Do You Feel Safe in your Home?: Yes Lack of Transportation: No Lack of Food: Never True Current Housing: I Have Housing Concerned About Future Housing: No Difficulty Paying Gas/Electric Bills: No Difficulty Paying for Meds: No Currently Unemployed: No Education: Grade School Difficulty w/ Childcare or Family Care: No Living arrangements: alone Spiritual care concerns: No Exam Narrative: GENERAL: Well-developed, well-nourished, and in no acute distress. HEAD: Normocephalic, atraumatic. EYES: PERRLA and EOMI. CHEST: Diminished aeration with expiratory wheeze noted in the bilateral posterior lung ramírez. No respiratory distress. No rales or rhonchi HEART: Regular rate and rhythm. No murmur heard. Normal peripheral pulses. ABDOMEN: Soft, nontender, nondistended, normal active bowel sounds. EXTREMITIES: Normal range of motion. No edema. SKIN: Warm, dry, no rash. NEURO: Alert and oriented x3. No focal deficit. Moving all 4 limbs spontaneously PSYCH: Normal mood and affect. Course Course Emergency Course: 18:08 - On re-evaluation after DuoNeb, the patient states she feels improved and is interested in discharge. An ambulation trial, though elicited wheezi
[2024-07-29] MEDS: IPRATROPIUM 0.5 MG/ALBUTEROL SULFATE 2.5 MG AMPUL.NEB 3 ML 6 ML INHALATION (17:36)
[2024-07-29] MEDS: predniSONE 20 MG TABLET 60 MG PO (17:39)
[2024-07-29] MEDS: ALBUTEROL SULFATE NEB 2.5 MG/3 ML INH 10 MG INHALATION (18:11)
--- NOTE | 2024-07-30 10:43 | PC.NURSE ---
PER Dr. De Los Santos report, patient is to have round of steroids. medication was not ordered. Per Dr. Dumont prescription for prednisone 40mg 1 tablet by mouth daily x5 days. #5, 0 refill. Prescription sent to pharmacy of patients choosing. Prescription called to [facility].
== END 2024-07-29 20:00 | disposition home or self-care (01) ==
PROVIDERS: Emergency Provider Preventive Medicine Aerospace Medicine; PCP Internal Medicine
DX: J44.1 Chronic obstructive pulmonary disease with (acute) exacerbation (principal); I10 Essential (primary) hypertension; Z79.899 Other long term (current) drug therapy; Z87.891 Personal history of nicotine dependence
CPT/HCPCS: 94640; 99283; J7512

== ENCOUNTER 2024-08-04 19:31 | Inpatient (IN) | payer OTHER, SELFPAY ==
[2024-08-04] VITALS (10 sets, daily range): BP systolic 147–160; BP diastolic 84–95; PULSE 95–108; RESP 14–22; TEMP 36.6–36.7; O2SAT 91–96; BMI 21.7
--- NOTE | ~2024-08-04 | XR_ITS ---
XR chest 1V portable Ordering provider: Aura Clifton MD History: 78 years Female with . COUGHING. SHORTNESS OF BREATH. . Comparison: March 17, 2024 FINDINGS: MEDIASTINUM: The cardiac silhouette is not enlarged. LUNGS: No effusions or pneumothorax. Prominent markings seen in the perihilar areas and in the lower lobes with possible infiltrate suggestive of early pneumonia. Follow-up advised. OTHER: No free air under the diaphragm. IMPRESSION: Prominent markings in the lower lobes with minimal infiltrate suggestive of early bronchopneumonia. F ollow-up advised. Reviewed, dictated and finalized at location A. IMPRESSION: Prominent markings in the lower lobes with minimal infiltrate suggestive of ear ly bronchopneumonia. Follow-up advised.
--- NOTE | 2024-08-04 19:39 | ECG_ITS ---
Test Date: 2024-08-04 19:52:58 Measurements Intervals [place] Rate: 99 P: 86 NH: 140 QRS: 70 QRSD: 88 T: 72 QT: 328 QTc: 423 Interpretive Statements SINUS RHYTHM INCOMPLETE RIGHT BUNDLE BRANCH BLOCK RIGHT ATRIAL ENLARGEMENT ABNORMAL ECG Compared to ECG 03/18/2024 01:06:25 NO DIFFERENCE Electronically Signed On 08-05-2024 09:54:07 CDT by Khalif Castaneda M.D.
--- NOTE | 2024-08-04 19:40 | ED.SOB ---
HPI - SOB/Dyspnea General Chief Complaint: Shortness of Breath/Dyspnea Stated Complaint: short of breath Time Seen by Provider: 08/04/24 19:38 Source: patient Mode of arrival: ambulatory Limitations: no limitations History of Present Illness HPI Narrative: 78 YEARS OLD WHITE FEMALE DROVE HERSELF TO THE EMERGENCY ROOM COMPLAINING OF SHORTNESS OF BREATH ON EXERTION FOR THE LAST 6 DAYS. PATIENT REPORTS FLU-LIKE SYMPTOMS 2 WEEKS AGO WAS SEEN BY HER FAMILY PHYSICIAN AT THAT TIME. THEN WAS SEEN BY ANOTHER PHYSICIAN 6 DAYS AGO AND STARTED ON PREDNISONE AND BREATHING TREATMENT. WITHOUT IMPROVEMENT. HISTORY OF COPD, NOT ON OXYGEN. PATIENT REPORT PRODUCTIVE COUGH OF CLEAR SPUTUM , A RASPY VOICE, POSTNASAL DISCHARGE, PATIENT WAS TESTED NEGATIVE FOR COVID, FLU AND RSV 6 DAYS AGO CURRENTLY SHE DENIES ANY FEVER OR CHILLS. Pertinent past history: COPD Related Data Home Medications Medication Instructions Recorded Confirmed albuterol sulfate 90 mcg/actuation 2 puff inhalation Q4-6H PRN 10/13/19 08/04/24 aerosol inhaler (ProAir HFA) Shortness Of Breath aspirin 81 mg tablet,delayed 81 mg PO DAILY 10/13/19 08/04/24 release lisinopril 20 1 tablet PO DAILY 10/13/19 08/04/24 mg-hydrochlorothiazide 25 mg tablet montelukast 10 mg tablet 10 mg PO DAILY 10/13/19 08/04/24 potassium chloride 10 mEq 10 meq PO DAILY 10/13/19 08/04/24 capsule,extended release cholecalciferol (vitamin D3) 25 2,000 unit PO DAILY 05/09/21 08/04/24 mcg (1,000 unit) capsule (Vitamin D3) fluticasone furoate 200 1 inh inhalation DAILY 05/09/21 08/04/24 mcg-vilanterol 25 mcg/dose inhalation powder (Breo Ellipta) ipratropium 20 mcg-albuterol 100 4 puff inhalation QID 05/09/21 08/04/24 mcg/actuation mist for inhalation (Combivent Respimat) Allergies Allergy/AdvReac Type Severity Reaction Status Date / Time No Known Allergies Allergy Verified 07/29/24 17:35 Review of Systems Review of Systems: All systems reviewed & are unremarkable except as noted in HPI and below PMFSH Past Medical History Medical History COPD (chronic obstructive pulmonary disease) Diverticulosis Hypertension Surgical History Surgical History H/O: hysterectomy History of appendectomy Social History Social History Smoking packs per day: 2 Smoking cigarettes per day: 40.0 Years smoked: 45 Smoking pack-years: 90.00 Smoking status: Former smoker Tobacco type: cigarettes Second hand tobacco smoke exposure: No Smoking end date: 10/18/13 Alcohol intake: former Alcohol use details: occasional Substance use: never Substance use type: does not use Do You Feel Safe in your Home?: Yes Lack of Transportation: No Lack of Food: Never True Current Housing: I Have Housing Concerned About Future Housing: No Difficulty Paying Gas/Electric Bills: No Difficulty Paying for Meds: No Currently Unemployed: No Education: Grade School Difficulty w/ Childcare or Family Care: No Living arrangements: alone Spiritual care concerns: No Exam Narrative: GENERAL APPEARANCE: WELL-DEVELOPED, WELL-NOURISHED SKIN: NORMAL COLOR HEAD: NORMOCEPHALIC, NONTRAUMATIC EYES: CLEAR CONJUNCTIVA ENT: OROPHARYNX NORMAL, EARS NORMAL, NOSE NORMAL NECK: SUPPLE, NONTENDER CHEST AND RESPIRATORY: AIRWAY PATENT, SLIGHT LABORED BREATHING, SCATTERED RHONCHI AND WHEEZING BILATERALLY HEART: REGULAR RATE/RHYTHM ABDOMEN: SOFT, NONTENDER, NO ORGANOMEGALY, QUIET BOWEL SOUNDS VASCULAR: NORMAL PERIPHERAL PULSES, NORMAL CAPILLARY REFILL. MUSCULOSKELETAL: NORMAL RANGE OF MOTION, NONTENDER BACK NEUROLOGIC: ALERT AND ORIENTED ?3, INFRASTRUCTURE TECHNICIAN IS NORMAL TESTED, NO GROSS MOTOR DEFICIT
[2024-08-04 19:57] LABS: Basophils Absolute Auto 0.03 K/mm3 (0.00-0.10); Basophils Percent Auto 0.2 % (0.0-1.0); Hematocrit 42.6 % (35.0-42.0); Hemoglobin 14.6 g/dL (11.7-13.8); Immature Granulocyte Absolute 0.09 K/mm3 (0.00-0.00); Immature Granulocyte Percent A 0.6 % (0.0-0.0); Lymphocytes Absolute Auto 1.03 K/mm3 (1.10-4.50); Lymphocytes Percent Auto 6.3 % (18.0-42.0); Mean Corpuscular HGB Conc 34.3 g/dL (32-36); Mean Corpuscular Hemoglobin 29.5 pg (27.0-31.0); Mean Corpuscular Volume 86.1 fL (78.0-102.0); Mean Platelet Volume 8.3 fl (9.2-11.8); Monocytes Absolute Auto 0.89 K/mm3 (0.10-0.90); Monocytes Percent Auto 5.5 % (2.0-11.0); Neutrophils Absolute Auto 14.25 K/mm3 (1.70-7.20); Neutrophils Percent Auto 87.4 % (50.0-70.0); Platelet Count Result 477 K/mm3 (150-420); Red Blood Count 4.95 M/mm3 (4.20-5.40); White Blood Count 16.3 K/mm3 (4.8-10.8)
[2024-08-04 19:58] LABS: Base Excess ABG 3.8 mmol/L (0-2); Device ROOM AIR; HCO3 ABG 27.2 mmol/L (23-29); Modified Allen's Test Pass; Oxygen Content ABG 19.3 %vol (16.0-22.0); Oxygen Saturation ABG 90.7 % (95-97); PCO2 ABG 37.3 mmHg (35-45); PO2 ABG 57.2 mmHg (75-85); Site Drawn RIGHT RADIAL; pH ABG 7.48 (7.35-7.45)
[2024-08-04] MEDS: IPRATROPIUM 0.5 MG/ALBUTEROL SULFATE 2.5 MG AMPUL.NEB 3 ML INHALATION ×3 (20:06→20:20)
[2024-08-04 20:17] LABS: Lactic Acid Reflex 0.8 mmol/L (0.4-2.0)
[2024-08-04 20:24] LABS: Partial Thromboplastin Time 27.7 Sec (23.9-30.70); Prothrombin Time 10.5 Seconds (9.50-12.1)
[2024-08-04 20:26] LABS: Alanine Aminotransferase 14 U/L (14-59); Albumin Level 4.2 g/dL (3.4-5.0); Alkaline Phosphatase 63 U/L (46-116); Anion Gap 11 mmol/L (4-12); Aspartate Amino Transferase 14 U/L (15-37); Bilirubin,Total 0.6 mg/dL (0.00-1.00); Blood Urea Nitrogen 23 mg/dL (7-18); Calcium 10.5 mg/dL (8.5-10.1); Carbon Dioxide 30 mmol/L (21-32); Chloride 93 mmol/L (98-108); Estimated CRCL calculation 41 ml/min; Estimated Glomerular Filt Rate > 60; Glucose 118 mg/dL (70-99); Magnesium 2.2 mg/dL (1.8-2.4); NT Pro B Type Natriuretic Pept 160 pg/mL (0-450); Osmolality Calculated 282 mOsm/kg (285-295); Potassium 3.9 mmol/L (3.5-5.1); Sodium 134 mmol/L (136-145); Total Protein 7.5 g/dL (6.4-8.2); Troponin I 6.8 ng/L (0.00-60.4)
[2024-08-04] MEDS: methylPREDNISolone SOD SUCC 125 MG VIAL IV PUSH (20:37)
--- NOTE | 2024-08-04 20:53 | PC.NURSE ---
Pt resting and states she is feeling better after neb tx, still noted some tachypnea at rest, VSS. POC for admit discussed w/ pt by ERP Dr Clifton.
[2024-08-04] MEDS: AZITHROMYCIN 500 MG/NS 250 ML 500 MG/250 ML BAG 250 MG IVPB (21:22)
--- NOTE | 2024-08-04 21:29 | PC.NURSE ---
Call placed to floor, spoke w/ slot technician Miguel, pt will go to Rm [id number]
[2024-08-04] MEDS: SODIUM CHLORIDE 0.9% IV 1,000 ML 100 ML IV CONT (21:42)
--- NOTE | 2024-08-04 22:50 | ADMGEN ---
This patient, Rhiannon Hurst, was admitted to 2nd Floor Room 226-1. Patient/family oriented to hospital policies and general routines including ID bracelet, bed and alarms, visiting hours, pain management, procedures, bathroom and other care routines, personal items, smoking policy, room service/diet, and visiting hours. Information on how to activate the Rapid Response Team has been discussed. Patient/Family are encouraged to report perceived risks to care and to ask questions if they do not understand what they are told or what they should do.
[2024-08-05] VITALS (12 sets, daily range): BP systolic 125–154; BP diastolic 65–91; PULSE 92–113; RESP 16–19; TEMP 36.2–36.5; O2SAT 95–100
[2024-08-05] MEDS: IPRATROPIUM 0.5 MG/ALBUTEROL SULFATE 2.5 MG AMPUL.NEB 3 ML INHALATION ×3 (00:16→11:52)
[2024-08-05] MEDS: SALMET XINAFT/FLUTIC PROPIN 500 MCG/50 MCG INH CAP 1 PUFF INHALATION ×2 (06:17→17:40)
[2024-08-05] MEDS: SODIUM CHLORIDE 0.9% IV 1,000 ML 100 ML IV CONT (07:15)
--- NOTE | 2024-08-05 07:35 | PM.IMHP ---
H&P: HPI History of Present Illness Date/Time: 08/05/24 07:35 Chief Complaint: shortness of breaths Narrative: this is a 78-year-old female with a past medical history significant for COPD not on oxygen, hypertension, and diverticulosis who presented to the emergency room with complaints of shortness of breath over the last 1 week. The patient provides the following history. Last Wednesday she was seen in the emergency room for complaints of shortness of breath. she was treated with nebulizers and discharged home with a course of prednisone for presumed COPD exacerbation. The patient states she took 5 days of prednisone and was feeling pretty well until she finished her prescription. She then had increased shortness of breath, increased cough, and increased sputum production of clear white sputum. She denies fever, chills, chest pain, abdominal pain, nausea, vomiting, diarrhea, or constipation. She does report some lightheadedness with position changes and she has had a poor appetite as of the last week. In the emergency room labs were significant for leukocytosis 16.3, hemoglobin 14.6, sodium 134, calcium 10.5, and a negative quad viral screen. ABG showed a pH of 7.48 with pCO2 37.3, PO2 57.2, and HC03 27.2. BNP was normal at 160 and lactic acid normal 0.8. Vitals on arrival showed a tachycardia of 114, respiratory rate 18, pulse ox 92% on room air, and blood pressure 150/90. Chest x-ray showed prominent markings in the lower lobes with minimal infiltrate suggestive of early bronchopneumonia. Blood cultures were drawn and are pending. EKG showed a sinus rhythm rate of 99. The patient was admitted in this setting for further observation workup respiratory symptoms. Review of Systems Review of Systems: All systems reviewed & are unremarkable except as noted in HPI and below PMFSH Past Medical History Medical History COPD (chronic obstructive pulmonary disease) Diverticulosis Hypertension Surgical History Surgical History H/O: hysterectomy History of appendectomy Social History Social History Smoking packs per day: 1 Smoking cigarettes per day: 20.0 Years smoked: 40 Smoking pack-years: 40.00 Smoking status: Former smoker Tobacco type: cigarettes Second hand tobacco smoke exposure: No Smoking end date: 10/18/12 Alcohol intake: former Alcohol use details: occasional Substance use: never Substance use type: does not use Do You Feel Safe in your Home?: Yes Lack of Transportation: No Lack of Food: Never True Current Housing: I Have Housing Concerned About Future Housing: No Difficulty Paying Gas/Electric Bills: No Difficulty Paying for Meds: No Currently Unemployed: No Education: Grade School Difficulty w/ Childcare or Family Care: No Living arrangements: alone Spiritual care concerns: No Meds Home Medications and Allergies Home Medications Medication Instructions Recorded Confirmed Type albuterol sulfate 90 mcg/actuation 2 puff inhalation Q4-6H PRN 10/13/19 08/04/24 History aerosol inhaler (ProAir HFA) Shortness Of Breath aspirin 81 mg tablet,delayed 81 mg PO DAILY 10/13/19 08/04/24 History release lisinopril 20 1 tablet PO DAILY 10/13/19 08/04/24 History mg-hydrochlorothiazide 25 mg tablet montelukast 10 mg tablet 10 mg PO DAILY 10/13/19 08/04/24 History potassium chloride 10 mEq 10 meq PO DAILY 10/13/19 08/04/24 History capsule,extended release cholecalciferol (vitamin D3) 25 2,000 unit PO DAILY 05/09/21 08/04/24 History mcg (1,000 unit) capsule (Vitamin D3) fluticasone furoate 200 1 inh inhalation DAILY 05/09/21 08/04/24 History mcg-vilanterol 25 mcg/dose inhalation powder (Breo Ellipta) ipratropium 20 mcg-albuterol 100 4 puff inhalation QID 05/09/21 08/04/24 Hist
[2024-08-05 08:12] LABS: Basophils Absolute Auto 0.01 K/mm3 (0.00-0.10); Basophils Percent Auto 0.1 % (0.0-1.0); Hematocrit 37.7 % (35.0-42.0); Hemoglobin 12.6 g/dL (11.7-13.8); Immature Granulocyte Absolute 0.08 K/mm3 (0.00-0.00); Immature Granulocyte Percent A 0.7 % (0.0-0.0); Lymphocytes Absolute Auto 0.65 K/mm3 (1.10-4.50); Lymphocytes Percent Auto 5.7 % (18.0-42.0); Mean Corpuscular HGB Conc 33.4 g/dL (32-36); Mean Corpuscular Hemoglobin 28.8 pg (27.0-31.0); Mean Corpuscular Volume 86.1 fL (78.0-102.0); Mean Platelet Volume 8.3 fl (9.2-11.8); Monocytes Absolute Auto 0.37 K/mm3 (0.10-0.90); Monocytes Percent Auto 3.2 % (2.0-11.0); Neutrophils Absolute Auto 10.31 K/mm3 (1.70-7.20); Neutrophils Percent Auto 90.3 % (50.0-70.0); Platelet Count Result 376 K/mm3 (150-420); Red Blood Count 4.38 M/mm3 (4.20-5.40); White Blood Count 11.4 K/mm3 (4.8-10.8)
[2024-08-05] MEDS: CHOLECALCIFEROL 1,000 UNITS TABLET 2000 UNITS PO (08:12)
[2024-08-05] MEDS: methylPREDNISolone SOD SUCC 125 MG VIAL 62.5 MG IV PUSH ×3 (08:12→17:43)
[2024-08-05] MEDS: ASPIRIN 81 MG ENTERIC TABLET PO (08:13)
[2024-08-05] MEDS: MONTELUKAST SODIUM 10 MG TABLET PO (08:13)
[2024-08-05] MEDS: lisinopriL 20 MG TABLET PO (08:13)
[2024-08-05] MEDS: POTASSIUM CHLORIDE 10 MEQ ER TABLET PO (08:13)
[2024-08-05] MEDS: hydroCHLOROthiazide 25 MG TABLET PO (08:13)
[2024-08-05 08:40] LABS: Alanine Aminotransferase 12 U/L (14-59); Albumin Level 3.5 g/dL (3.4-5.0); Alkaline Phosphatase 48 U/L (46-116); Anion Gap 10 mmol/L (4-12); Aspartate Amino Transferase 10 U/L (15-37); Bilirubin,Total 0.5 mg/dL (0.00-1.00); Blood Urea Nitrogen 18 mg/dL (7-18); Calcium 9.2 mg/dL (8.5-10.1); Carbon Dioxide 28 mmol/L (21-32); Chloride 97 mmol/L (98-108); Estimated CRCL calculation 50 ml/min; Estimated Glomerular Filt Rate > 60; Glucose 147 mg/dL (70-99); Osmolality Calculated 284 mOsm/kg (285-295); Potassium 3.7 mmol/L (3.5-5.1); Sodium 135 mmol/L (136-145); Total Protein 6.3 g/dL (6.4-8.2)
[2024-08-05] MEDS: ENOXAPARIN 40 MG/0.4 ML SYRINGE SUB-Q (10:33)
[2024-08-05] MEDS: SODIUM CHLORIDE 0.9% IV 1,000 ML 75 ML IV CONT (17:43)
[2024-08-05] MEDS: guaiFENesin 12 HR 600 MG TABCR 1200 MG PO (20:45)
[2024-08-05] MEDS: AZITHROMYCIN 500 MG/NS 250 ML 500 MG/250 ML BAG 250 MG IVPB (21:48)
[2024-08-06] VITALS: BP 166/89; PULSE 96; RESP 20; TEMP 36.2
[2024-08-06 04:00] VITALS: PULSE 90
[2024-08-06] MEDS: SALMET XINAFT/FLUTIC PROPIN 500 MCG/50 MCG INH CAP 1 PUFF INHALATION ×2 (05:58→17:39)
[2024-08-06 07:17] LABS: Basophils Absolute Auto 0.02 K/mm3 (0.00-0.10); Basophils Percent Auto 0.2 % (0.0-1.0); Hematocrit 41.8 % (35.0-42.0); Hemoglobin 13.2 g/dL (11.7-13.8); Immature Granulocyte Absolute 0.12 K/mm3 (0.00-0.00); Immature Granulocyte Percent A 0.9 % (0.0-0.0); Lymphocytes Absolute Auto 0.84 K/mm3 (1.10-4.50); Lymphocytes Percent Auto 6.4 % (18.0-42.0); Mean Corpuscular HGB Conc 31.6 g/dL (32-36); Mean Corpuscular Hemoglobin 29.5 pg (27.0-31.0); Mean Corpuscular Volume 93.3 fL (78.0-102.0); Mean Platelet Volume 9.6 fl (9.2-11.8); Monocytes Absolute Auto 0.75 K/mm3 (0.10-0.90); Monocytes Percent Auto 5.7 % (2.0-11.0); Neutrophils Absolute Auto 11.37 K/mm3 (1.70-7.20); Neutrophils Percent Auto 86.8 % (50.0-70.0); Platelet Count Result 133 K/mm3 (150-420); Red Blood Count 4.48 M/mm3 (4.20-5.40); Red Cell Distribution Width 14.6 % (11.6-14.4); White Blood Count 13.1 K/mm3 (4.8-10.8)
[2024-08-06 07:27] LABS: Alanine Aminotransferase 14 U/L (14-59); Albumin Level 3.4 g/dL (3.4-5.0); Alkaline Phosphatase 48 U/L (46-116); Anion Gap 9 mmol/L (4-12); Aspartate Amino Transferase 17 U/L (15-37); Bilirubin,Total 0.6 mg/dL (0.00-1.00); Blood Urea Nitrogen 19 mg/dL (7-18); Carbon Dioxide 27 mmol/L (21-32); Chloride 99 mmol/L (98-108); Estimated CRCL calculation 52 ml/min; Estimated Glomerular Filt Rate > 60; Glucose 107 mg/dL (70-99); Osmolality Calculated 282 mOsm/kg (285-295); Potassium 4.1 mmol/L (3.5-5.1); Sodium 135 mmol/L (136-145); Total Protein 5.9 g/dL (6.4-8.2)
[2024-08-06 08:00] VITALS: BP 157/76; PULSE 86; PULSE 88; PULSE 90; RESP 17; RESP 20; TEMP 36.2; O2SAT 99
[2024-08-06] MEDS: guaiFENesin 12 HR 600 MG TABCR 1200 MG PO ×2 (08:06→20:44)
[2024-08-06] MEDS: lisinopriL 20 MG TABLET PO (08:06)
[2024-08-06] MEDS: methylPREDNISolone SOD SUCC 125 MG VIAL 62.5 MG IV PUSH (08:06)
[2024-08-06] MEDS: CHOLECALCIFEROL 1,000 UNITS TABLET 2000 UNITS PO (08:06)
[2024-08-06] MEDS: hydroCHLOROthiazide 25 MG TABLET PO (08:06)
[2024-08-06] MEDS: MONTELUKAST SODIUM 10 MG TABLET PO (08:06)
[2024-08-06] MEDS: POTASSIUM CHLORIDE 10 MEQ ER TABLET PO (08:06)
[2024-08-06] MEDS: ASPIRIN 81 MG ENTERIC TABLET PO (08:06)
[2024-08-06] MEDS: ENOXAPARIN 40 MG/0.4 ML SYRINGE SUB-Q (08:07)
[2024-08-06] MEDS: SODIUM CHLORIDE 0.9% IV 1,000 ML 75 ML IV CONT ×2 (08:10→21:52)
--- NOTE | 2024-08-06 10:51 | PM.IMPN ---
Progress Note: A&P Assessment and Plan (1) COPD (chronic obstructive pulmonary disease): Qualifiers: COPD type: COPD with acute lower respiratory infection Qualified Code(s): J44.0 - Chronic obstructive pulmonary disease with (acute) lower respiratory infection Code(s): J44.9 - Chronic obstructive pulmonary disease, unspecified Status: Acute Assessment and Plan: patient has history of COPD not on oxygen at baseline. She presented to the emergency room with complaints of shortness of breath and worsening dyspnea with exertion accompanied by increased sputum production of clear, white sputum. she has recently been treated for with 5 days of prednisone and 5 days of azithromycin. White blood cell count elevated at 16 on arrival. Elevation could be from her recent prednisone use but she also has a questionable developing pneumonia. Given her lack of improvement with outpatient steroids and azithromycin will treat this as a COPD exacerbation with likely bacterial pneumonia underlying. Patient was started on DuoNebs scheduled q.6 patient received methylprednisone 125 mg once and was started on IV meth Pred 62.5 mg t.i.d.. decrease IV steroids to 40 mg t.i.d.. She was started on Rocephin and azithromycin Blood cultures With no growth to date, urine Legionella and pneumococcal antigen pending, mycoplasma IgM pending quad viral screen was negative Mucinex b.i.d., montelukast daily continue home inhaler sinus tachycardia on telemetry. tachycardia could be from albuterol. Currently not hypoxic and on room air so suspicion for PE is low. If she develops hypoxia will obtain CTA PE. (2) Pneumonia: Qualifiers: Lung location: lower lobe of lung Pneumonia type: due to unspecified organism Code(s): J18.9 - Pneumonia, unspecified organism Status: Acute Assessment and Plan: see above Plan anticipate discharge tomorrow Subjective Date/time seen: 08/06/24 10:51 Interval history: no acute events overnight. She feels like her breathing is about the same but her exam is improving. She has less expiratory wheeze. She states yesterday she desaturated with ambulation. Nursing reports oxygen dropped to 88% with activity but improved to greater than 90% with deep inspiration. Review of Systems Review of Systems: All systems reviewed & are unremarkable except as noted in HPI and below Exam Narrative: General: appears comfortable, in no acute distress On room air Respiratory: breathing is unlabored with even chest rise/fall, lungs with Resolving expiratory wheeze. wheezing more prevalent To bilateral lower lobe. Cardiovascular: Rate and rhythm regular, normal s1s2, no murmur, tachycardic rate of 100 With occasional PVC Abdomen: Soft, round, non-tender, active bowel sounds Extremities: No cyanosis, edema, clubbing. Pulses 2/2 Neuro: A&O x 4 Skin: Warm, dry, intact Objective Data Vital Signs Vital Signs: Vital Signs - 24 hr 08/05/24 11:50 08/05/24 12:08 08/05/24 12:00 Temperature Pulse Rate 97 98 94 Respiratory Rate 18 18 Blood Pressure Pulse Oximetry 95 100 Oxygen Delivery Oxygen Flow Rate 0 0 08/05/24 16:00 08/05/24 16:00 08/05/24 20:00 Temperature 97.7 F Pulse Rate 97 97 106 H Respiratory Rate 17 Blood Pressure 125/65 Pulse Oximetry 95 Oxygen Delivery Room Air Oxygen Flow Rate 08/06/24 00:00 08/06/24 00:00 08/06/24 04:00 Temperature 97.2 F L Pulse Rate 96 96 90 Respiratory Rate 20 Blood Pressure 166/89 H Pulse Oximetry Oxygen Delivery Room Air Oxygen Flow Rate 08/06/24 08:00 08/06/24 08:00 08/06/24 08:00 Temperature 97.1 F L Pulse Rate 88 90 86 Respiratory Rate 20 17 Blood Pressure 157/76 H Pulse Oximetry 99 99 Oxygen Delivery Room Air Room Air Oxygen Flow Rate Intake/Output Intake/Output: Intake & Output 08/03/24 08/04/24 08/05/24
[2024-08-06 12:00] VITALS: PULSE 90
[2024-08-06] MEDS: methylPREDNISolone SOD SUCC 40 MG VIAL IV PUSH ×2 (12:03→17:39)
[2024-08-06 16:00] VITALS: BP 177/91; PULSE 88; RESP 17; TEMP 36.1; O2SAT 97
[2024-08-06 19:24] VITALS: PULSE 90
[2024-08-06] MEDS: AZITHROMYCIN 500 MG/NS 250 ML 500 MG/250 ML BAG 250 MG IVPB (21:55)
[2024-08-07] VITALS (12 sets, daily range): BP systolic 157–162; BP diastolic 73–89; PULSE 79–101; RESP 18; TEMP 36–36.6; O2SAT 94–97
[2024-08-07 05:22] LABS: Basophils Absolute Auto 0.01 K/mm3 (0.00-0.10); Basophils Percent Auto 0.1 % (0.0-1.0); Hematocrit 38.2 % (35.0-42.0); Hemoglobin 12.6 g/dL (11.7-13.8); Immature Granulocyte Absolute 0.11 K/mm3 (0.00-0.00); Lymphocytes Absolute Auto 0.74 K/mm3 (1.10-4.50); Lymphocytes Percent Auto 6.7 % (18.0-42.0); Mean Platelet Volume 8.6 fl (9.2-11.8); Monocytes Absolute Auto 0.78 K/mm3 (0.10-0.90); Monocytes Percent Auto 7.1 % (2.0-11.0); Neutrophils Absolute Auto 9.37 K/mm3 (1.70-7.20); Neutrophils Percent Auto 85.1 % (50.0-70.0); Platelet Count Result 343 K/mm3 (150-420); Red Blood Count 4.34 M/mm3 (4.20-5.40); Red Cell Distribution Width 14.2 % (11.6-14.4)
[2024-08-07 05:41] LABS: Alanine Aminotransferase 15 U/L (14-59); Albumin Level 3.2 g/dL (3.4-5.0); Alkaline Phosphatase 43 U/L (46-116); Anion Gap 7 mmol/L (4-12); Aspartate Amino Transferase < 10 U/L (15-37); Bilirubin,Total 0.5 mg/dL (0.00-1.00); Blood Urea Nitrogen 20 mg/dL (7-18); Calcium 8.8 mg/dL (8.5-10.1); Carbon Dioxide 29 mmol/L (21-32); Chloride 100 mmol/L (98-108); Estimated CRCL calculation 53 ml/min; Estimated Glomerular Filt Rate > 60; Glucose 105 mg/dL (70-99); Osmolality Calculated 284 mOsm/kg (285-295); Potassium 3.5 mmol/L (3.5-5.1); Sodium 136 mmol/L (136-145); Total Protein 5.8 g/dL (6.4-8.2)
[2024-08-07] MEDS: SALMET XINAFT/FLUTIC PROPIN 500 MCG/50 MCG INH CAP 1 PUFF INHALATION (05:53)
[2024-08-07] MEDS: ENOXAPARIN 40 MG/0.4 ML SYRINGE SUB-Q (08:04)
[2024-08-07] MEDS: hydroCHLOROthiazide 25 MG TABLET PO (08:05)
[2024-08-07] MEDS: POTASSIUM CHLORIDE 10 MEQ ER TABLET PO (08:05)
[2024-08-07] MEDS: ASPIRIN 81 MG ENTERIC TABLET PO (08:05)
[2024-08-07] MEDS: lisinopriL 20 MG TABLET PO (08:05)
[2024-08-07] MEDS: CHOLECALCIFEROL 1,000 UNITS TABLET 2000 UNITS PO (08:06)
[2024-08-07] MEDS: MONTELUKAST SODIUM 10 MG TABLET PO (08:06)
[2024-08-07] MEDS: guaiFENesin 12 HR 600 MG TABCR 1200 MG PO (08:06)
[2024-08-07] MEDS: AZITHROMYCIN 250 MG TABLET 500 MG PO (08:19)
--- NOTE | 2024-08-07 08:47 | PC.NURSE ---
Telemetry monitoring and IV access discontinued in anticipation of discharge.
--- NOTE | 2024-08-07 08:54 | PM.DS ---
DS: Admitting Diagnosis Discharge Date 08/07 Admitting Diagnosis Shortness a breath DS: Discharge Diagnosis Discharge Diagnosis (1) COPD (chronic obstructive pulmonary disease): Qualifiers: COPD type: COPD with acute lower respiratory infection Qualified Code(s): J44.0 - Chronic obstructive pulmonary disease with (acute) lower respiratory infection Code(s): J44.9 - Chronic obstructive pulmonary disease, unspecified Status: Acute Assessment and Plan: patient has history of COPD not on oxygen at baseline. She presented to the emergency room with complaints of shortness of breath and worsening dyspnea with exertion accompanied by increased sputum production of clear, white sputum. she has recently been treated for with 5 days of prednisone and 5 days of azithromycin. White blood cell count elevated at 16 on arrival. Elevation could be from her recent prednisone use but she also has a questionable developing pneumonia. Given her lack of improvement with outpatient steroids and azithromycin will treat this as a COPD exacerbation with likely bacterial pneumonia underlying. Patient was started on DuoNebs scheduled q.6 patient received methylprednisone 125 mg once and was started on IV meth Pred 62.5 mg t.i.d.. decrease IV steroids to 40 mg t.i.d.. She was started on Rocephin and azithromycin Blood cultures With no growth to date, urine Legionella and pneumococcal antigen pending, mycoplasma IgM pending quad viral screen was negative Mucinex b.i.d., montelukast daily continue home inhaler sinus tachycardia on telemetry. tachycardia could be from albuterol. Currently not hypoxic and on room air so suspicion for PE is low. If she develops hypoxia will obtain CTA PE. (2) Pneumonia: Qualifiers: Lung location: lower lobe of lung Pneumonia type: due to unspecified organism Code(s): J18.9 - Pneumonia, unspecified organism Status: Acute Assessment and Plan: see above Plan anticipate discharge tomorrow DS: Summary Hospital Course Reason for hospitalization: COPD exacerbation, pneumonia Hospital Course: this is a pleasant 78-year-old female with a past medical history significant for COPD not on oxygen, hypertension, and diverticulosis who presented to the emergency room with complaints of shortness of breath over the last 1 week. The patient provides the following history. Last Wednesday she was seen in the emergency room for complaints of shortness of breath. she was treated with nebulizers and discharged home with a course of prednisone for presumed COPD exacerbation. The patient states she took 5 days of prednisone and was feeling pretty well until she finished her prescription. She then had increased shortness of breath, increased cough, and increased sputum production of clear white sputum. She denies fever, chills, chest pain, abdominal pain, nausea, vomiting, diarrhea, or constipation. She does report some lightheadedness with position changes and she has had a poor appetite as of the last week. In the emergency room labs were significant for leukocytosis 16.3, hemoglobin 14.6, sodium 134, calcium 10.5, and a negative quad viral screen. ABG showed a pH of 7.48 with pCO2 37.3, PO2 57.2, and HC03 27.2. BNP was normal at 160 and lactic acid normal 0.8. Vitals on arrival showed a tachycardia of 114, respiratory rate 18, pulse ox 92% on room air, and blood pressure 150/90. Chest x-ray showed prominent markings in the lower lobes with minimal infiltrate suggestive of early bronchopneumonia. Blood cultures were drawn and are pending. EKG showed a sinus rhythm rate of 99. The patient was admitted in this setting for further observation workup respiratory symptoms. during her hospitalization she received IV steroids, nebulizer treatments, and IV antibiotics for community-acquired pneumonia superimposed on COPD exacerbation. On these therapies he
--- NOTE | 2024-08-07 09:57 | HOMEO2EVAL ---
Evaluation was performed at [facility] Home Oxygen Evaluation RC: Home Oxygen (O2) Evaluation Start: 08/07/24 08:54 Freq: ONCE Status: Active Protocol: RPE Activity Type Activity Date Activity User E-sign Co-sign Detail Recorded Client Recorded Date Recorded By Document 08/07/24 09:34 RES [id number] 08/07/24 09:51 RES Document 08/07/24 09:35 RES [id number] 08/07/24 09:53 RES Document 08/07/24 09:36 RES [id number] 08/07/24 09:53 RES Document 08/07/24 09:37 RES [id number] 08/07/24 09:57 RES Document 08/07/24 09:38 RES [id number] 08/07/24 09:57 RES Document 08/07/24 09:39 RES [id number] 08/07/24 09:57 RES Document 08/07/24 09:40 RES [id number] 08/07/24 09:57 RES Document 08/07/24 09:41 RES [id number] 08/07/24 09:57 RES Document 08/07/24 09:42 RES [id number] 08/07/24 09:57 RES Document 08/07/24 09:43 RES [id number] 08/07/24 09:57 RES 08/07/24 08/07/24 08/07/24 09:34 09:35 09:36 Home O2 Evaluation [Oxygen] -Test Phase Resting Exercise Exercise -Oxygen Delivery Room Air Room Air Room Air -Fraction of Inspired Oxygen (%) [Pulse Oximetry] -Pulse Oximetry (90-100 %) 95 97 96 [Pulse Rate] -Pulse Rate (60-100 beats/min) 94 92 96 [Evaluation] -Activity Tolerance Good Good Good -Rating of Perceived Dyspnea (PD) +1 Mild, +1 Mild, +1 Mild, Noticeable to Noticeable to Noticeable to the Participant the Participant the Participant but Not to an but Not to an but Not to an Observer Observer Observer -Rate of Perceived Exertion (PE) 6 Very, very 6 Very, very 6 Very, very Query Text:Click the Protocol Button light light light to View the RPE Scale [Exercise] -Ambulation Distance (feet) 800 -Ambulation Distance (meters) 243.82 [Charges] -Evaluation Charges O2 Evaluation Charge 08/07/24 08/07/24 08/07/24 09:37 09:38 09:39 Home O2 Evaluation [Oxygen] -Test Phase Exercise Exercise Exercise -Oxygen Delivery Room Air Room Air Room Air -Fraction of Inspired Oxygen (%) [Pulse Oximetry] -Pulse Oximetry (90-100 %) 94 95 96 [Pulse Rate] -Pulse Rate (60-100 beats/min) 89 98 97 [Evaluation] -Activity Tolerance Good Good Good -Rating of Perceived Dyspnea (PD) +1 Mild, +1 Mild, +1 Mild, Noticeable to Noticeable to Noticeable to the Participant the Participant the Participant but Not to an but Not to an but Not to an Observer Observer Observer -Rate of Perceived Exertion (PE) 6 Very, very 6 Very, very 6 Very, very Query Text:Click the Protocol Button light light light to View the RPE Scale [Exercise] -Ambulation Distance (feet) -Ambulation Distance (meters) [Charges] -Evaluation Charges 08/07/24 08/07/24 08/07/24 09:40 09:41 09:42 Home O2 Evaluation [Oxygen] -Test Phase Exercise Exercise Exercise -Oxygen Delivery Room Air Room Air Room Air -Fraction of Inspired Oxygen (%) [Pulse Oximetry] -Pulse Oximetry (90-100 %) 96 95 95 [Pulse Rate] -Pulse Rate (60-100 beats/min) 97 98 101 H [Evaluation] -Activity Tolerance Good Good Good -Rating of Perceived Dyspnea (PD) +1 Mild, +1 Mild, +1 Mild, Noticeable to Noticeable to Noticeable to the Participant the Participant the Participant but Not to an but Not to an but Not to an Observer Observer Observer -Rate of Perceived Exertion (PE) 6 Very, very 6 Very, very 6 Very, very Query Text:Click the Protocol Button light light light to View the RPE Scale [Exercise] -Ambulation Distance (feet) -Ambulation Distance (meters) [Charges] -Evaluation Charges 08/07/24 09:43 Home O2 Evaluation [Oxygen] -Test Phase Resting -Oxygen Delivery Room Air -Fraction of Inspired Oxygen (
[2024-08-07] MEDS: AMOXICILLIN/CLAVULANATE K 875-125 MG TAB 1 TABLET PO (10:38)
--- NOTE | 2024-08-07 11:10 | PC.NURSE ---
Discharge instructions given to patient and patient voiced understanding. Personal items sent home with patient. Patient left unit in w/c, accompanied by nurse. Patient left hospital grounds in privately owned vehicle.
--- NOTE | 2024-08-08 09:07 | PC.NURSE ---
Discharge call back completed, doing real well, taking meds as prescribed, no questions regarding dc instructions
[2024-08-09 16:33] LABS: Pneumococcal Antigen Urine DETECTED
[2024-08-10 00:59] LABS: Legionella pneumophila Ag Ur NOT DETECTED
[2024-08-11 17:13] LABS: Mycoplasma IgM Antibody Titer 63 U/mL
== END 2024-08-07 11:10 | disposition home or self-care (01) | DRG 190 ==
LOC: CHSED 20:31 → CHS2ND 21:30
PROVIDERS: Nurse Practitioner Acute Care; Admitting Provider Internal Medicine; Emergency Provider Emergency Medicine; PCP Internal Medicine; Visit Provider Internal Medicine
DX: J18.9 Pneumonia, unspecified organism (principal); J44.0 Chronic obstructive pulmonary disease with (acute) lower respiratory infection; J96.01 Acute respiratory failure with hypoxia; I10 Essential (primary) hypertension; K57.30 Diverticulosis of large intestine without perforation or abscess without bleeding; Z87.891 Personal history of nicotine dependence; Z79.82 Long term (current) use of aspirin; J44.1 Chronic obstructive pulmonary disease with (acute) exacerbation
CPT/HCPCS: 36415; 36600; 71045; 80053; 82805; 83605; 83735; 83880; 84484; 85018; 85025; 85610; 85730; 86738; 87040; 87449; 87899; 93005; 94618; 94640; 94667; 97161; 97165; 99291; A9270; J0456; J0696; J1650; J2919; J7030

== ENCOUNTER 2024-08-29 09:00 | Outpatient (CLI) | payer OTHER, SELFPAY ==
[2024-08-29 09:13] VITALS: BP 144/74; PULSE 100; RESP 16; TEMP 36.4; O2SAT 97; BMI 21.7
[2024-08-29] MEDS: DENOSUMAB 60 MG/ML SYRINGE SUB-Q (09:15)
--- NOTE | 2024-08-29 09:22 | PC.NURSE ---
Patient here for Prolia injection. Education given. Reports been getting this last few years and haven't had problems. Prolia administered. SEE MAR/patient care notes.
== END 2024-08-29 09:01 | disposition home or self-care (01) ==
PROVIDERS: PCP Internal Medicine; Visit Provider Internal Medicine
DX: M81.0 Age-related osteoporosis without current pathological fracture (principal)
CPT/HCPCS: 96372; J0897

== ENCOUNTER 2024-09-27 11:21 | Outpatient (CLI) | payer OTHER, SELFPAY ==
--- NOTE | ~2024-09-27 | XR_ITS ---
EXAMINATION: XR chest 2V 09/27/2024 11:43 INDICATION: COPD exacerbation. Wheezing, shortness of breath and cough PROCEDURE: 2 view chest COMPARISON: Comparison to multiple prior studies sequentially, with oldest reviewed study dated 07/18. FINDINGS: Right basilar atelectasis. The cardiomediastinal silhouette is within normal limits. There is a small right pleural effusion. The lungs are hyperinflated which is consistent with, but not octavio gnostic of chronic obstructive pulmonary disease. There is no pneumothorax suspected. IMPRESSION: 1: Small right pleural effusion. Underlying compressive atelectasis. Reviewed, dictated and finalized at location B. RMATION SECURITY CONSULTANT
[2024-09-27 11:40] LABS: Basophils Absolute Auto 0.04 K/mm3 (0.00-0.10); Basophils Percent Auto 0.6 % (0.0-1.0); Eosinophils Absolute Auto 0.19 K/mm3 (0.02-0.50); Eosinophils Percent Auto 2.8 % (1.0-6.0); Hematocrit 37.3 % (35.0-42.0); Hemoglobin 12.4 g/dL (11.7-13.8); Immature Granulocyte Absolute 0.01 K/mm3 (0.00-0.00); Immature Granulocyte Percent A 0.1 % (0.0-0.0); Lymphocytes Absolute Auto 0.92 K/mm3 (1.10-4.50); Lymphocytes Percent Auto 13.5 % (18.0-42.0); Mean Corpuscular HGB Conc 33.2 g/dL (32-36); Mean Corpuscular Hemoglobin 29.3 pg (27.0-31.0); Mean Corpuscular Volume 88.2 fL (78.0-102.0); Mean Platelet Volume 8.8 fl (9.2-11.8); Monocytes Absolute Auto 0.62 K/mm3 (0.10-0.90); Monocytes Percent Auto 9.1 % (2.0-11.0); Neutrophils Absolute Auto 5.04 K/mm3 (1.70-7.20); Neutrophils Percent Auto 73.9 % (50.0-70.0); Platelet Count Result 246 K/mm3 (150-420); Red Blood Count 4.23 M/mm3 (4.20-5.40); Red Cell Distribution Width 14.4 % (11.6-14.4); White Blood Count 6.8 K/mm3 (4.8-10.8)
[2024-09-27 12:49] LABS: Anion Gap 12 mmol/L (4-12); Blood Urea Nitrogen 8 mg/dL (7-18); Calcium 8.8 mg/dL (8.5-10.1); Carbon Dioxide 25 mmol/L (21-32); Chloride 102 mmol/L (98-108); Estimated Glomerular Filt Rate > 60; Glucose 86 mg/dL (70-99); Osmolality Calculated 285 mOsm/kg (285-295); Potassium 3.8 mmol/L (3.5-5.1); Sodium 139 mmol/L (136-145)
== END 2024-09-27 11:22 | disposition home or self-care (01) ==
PROVIDERS: PCP Internal Medicine; Visit Provider Nurse Practitioner Family
DX: J44.1 Chronic obstructive pulmonary disease with (acute) exacerbation (principal); R06.2 Wheezing; J90 Pleural effusion, not elsewhere classified; J98.11 Atelectasis
CPT/HCPCS: 36415; 71046; 80048; 80053; 85025

== ENCOUNTER 2024-10-12 10:42 | Outpatient (CLI) | payer OTHER, SELFPAY ==
--- NOTE | ~2024-10-12 | XR_ITS ---
XR chest 2V Ordering provider: Estelle Chambers, LINUX CONSULTANT History: 79 years Female with . COPD, SOB, Pneumonia F/U X 1 month ago . Comparison: September 27, 2024 FINDINGS: MEDIASTINUM: The cardiac silhouette is not enlarged. LUNGS: No infiltrates, effusions or pneumothorax. OTHER: No free air under the diaphragm. IMPRESSION: No acute cardiopulmonary pathology. Reviewed, dictated and finalized at location A. RITY INFRASTRUCTURE ENGINEER
== END 2024-10-12 10:43 | disposition home or self-care (01) ==
LOC: CHSIMG 10:46
PROVIDERS: PCP Internal Medicine; Visit Provider Nurse Practitioner Family
DX: J44.9 Chronic obstructive pulmonary disease, unspecified (principal)
CPT/HCPCS: 71046

== ENCOUNTER 2024-10-19 13:13 | Outpatient (CLI) | payer OTHER, SELFPAY ==
--- NOTE | ~2024-10-19 | MM_ITS ---
EXAMINATION: MM screening drew BI w rodriguez HISTORY: Screening mammogram, family history of breast cancer in her daughter. TECHNIQUE: Craniocaudal and mediolateral oblique 3-D tomosynthesis images were obtained and synthetic 2-D images were generated. CAD analysis was submitted and interpreted. COMPARISON: 09/17/2023: 3022, 02/04/2021 BREAST PARENCHYMAL COMPOSITION:Not Dense. There are scattered areas of fibroglandular density. FINDINGS: No suspicious mass, calcification, or architectural distortion are identified in either jamila ast to suggest malignancy. There has been no suspicious interval change. IMPRESSION: No mammographic evidence of malignancy. Recommend routine screening mammography in one year. BI-RADS Category 1: Negative Reviewed, dictated and finalized at location . ER FITTER HELPER
== END 2024-10-19 13:14 | disposition home or self-care (01) ==
LOC: CHSIMG 13:15
PROVIDERS: PCP Internal Medicine; Visit Provider Internal Medicine
DX: Z12.31 Encounter for screening mammogram for malignant neoplasm of breast (principal)
CPT/HCPCS: 77063; 77067

== ENCOUNTER 2024-11-07 14:43 | Outpatient (CLI) | payer OTHER, SELFPAY ==
--- NOTE | ~2024-11-07 | XR_ITS ---
EXAMINATION: XR chest 2V 11/07/2024 15:08 INDICATION: COPD exacerbation. PROCEDURE: 2 view chest COMPARISON: Comparison to multiple prior studies sequentially, with oldest reviewed study dated 03/17. FINDINGS: The lungs are clear. The cardiomediastinal silhouette is within normal limits. There are no pleural effusions. There is no pneumothorax suspected. The lungs are hyperinflated which is cons istent with, but not diagnostic of chronic obstructive pulmonary disease. IMPRESSION: 1: NO ACUTE CARDIOPULMONARY DISEASE. Reviewed, dictated and finalized at location A. TS BROADCASTING INTERNSHIP
[2024-11-07 15:01] LABS: Basophils Absolute Auto 0.05 K/mm3 (0.00-0.10); Basophils Percent Auto 0.3 % (0.0-1.0); Eosinophils Absolute Auto 0.02 K/mm3 (0.02-0.50); Eosinophils Percent Auto 0.1 % (1.0-6.0); Hematocrit 40.8 % (35.0-42.0); Hemoglobin 13.2 g/dL (11.7-13.8); Immature Granulocyte Absolute 0.05 K/mm3 (0.00-0.00); Immature Granulocyte Percent A 0.3 % (0.0-0.0); Lymphocytes Absolute Auto 1.25 K/mm3 (1.10-4.50); Lymphocytes Percent Auto 8.1 % (18.0-42.0); Mean Corpuscular HGB Conc 32.4 g/dL (32-36); Mean Corpuscular Hemoglobin 27.2 pg (27.0-31.0); Mean Corpuscular Volume 84.1 fL (78.0-102.0); Mean Platelet Volume 8.9 fl (9.2-11.8); Monocytes Absolute Auto 1.24 K/mm3 (0.10-0.90); Neutrophils Percent Auto 83.2 % (50.0-70.0); Platelet Count Result 368 K/mm3 (150-420); Red Blood Count 4.85 M/mm3 (4.20-5.40); Red Cell Distribution Width 13.7 % (11.6-14.4); White Blood Count 15.4 K/mm3 (4.8-10.8)
[2024-11-07 15:25] LABS: Alanine Aminotransferase 14 U/L (14-59); Albumin Level 3.8 g/dL (3.4-5.0); Alkaline Phosphatase 67 U/L (46-116); Anion Gap 7 mmol/L (4-12); Aspartate Amino Transferase 12 U/L (15-37); Bilirubin,Total 0.9 mg/dL (0.00-1.00); Blood Urea Nitrogen 17 mg/dL (7-18); Calcium 9.5 mg/dL (8.5-10.1); Carbon Dioxide 31 mmol/L (21-32); Chloride 93 mmol/L (98-108); Estimated Glomerular Filt Rate 50; Glucose 108 mg/dL (70-99); Osmolality Calculated 274 mOsm/kg (285-295); Potassium 3.2 mmol/L (3.5-5.1); Sodium 131 mmol/L (136-145); Total Protein 7.1 g/dL (6.4-8.2)
[2024-11-07 15:33] LABS: Strep Group A RT-PCR NOT DETECTED (Negative)
[2024-11-07 15:39] LABS: SARS-CoV-2 RNA PCR Negative (Negative)
[2024-11-07 15:42] LABS: Influenza A QL RT-PCR Negative (Negative); Influenza B QL RT-PCR Negative (Negative); RSV RNA, RT-PCR Negative (Negative)
== END 2024-11-07 14:44 | disposition home or self-care (01) ==
PROVIDERS: PCP Internal Medicine; Visit Provider Internal Medicine
DX: J44.1 Chronic obstructive pulmonary disease with (acute) exacerbation (principal)
CPT/HCPCS: 36415; 71046; 80053; 85025; 87637; 87651

== ENCOUNTER 2024-11-15 14:48 | Outpatient (CLI) | payer OTHER, SELFPAY ==
--- NOTE | ~2024-11-15 | DEXA_ITS ---
Bone Density Report Name: DELMAR ZAPATA Age: 79 Sex: Female Ethnicity: White Date of : 1945 Indication: osteopenia; monitoring treatment; height loss; asthma or emphysema; Referring Provider: Orly Coronado Study: Bone densitometry was performed. Exam Date: November 15, 2024 Accession number: [id number] Bone Density: Region BMD T-score Z-score Classification AP Spine(L2, L3, L4) 1.072 -0.1 2.6 Normal Femoral Neck (Left) 0.605 -2.2 0.0 Osteopenia Total Hip (Left) 0.741 -1.6 0.3 Osteopenia Femoral Neck (Right) 0.666 -1.7 0.6 Osteopenia Total Hip (Right) 0.735 -1.7 0.3 Osteopenia Femoral Neck Mean 0.635 -1.9 0.3 Osteopenia Total Hip Mean 0.738 -1.7 0.3 Osteopenia World Health Organization criteria for BMD impression classify patients as: Normal (T-score at or above -1.0), Osteopenia (T-score between -1.0 and -2.5), or Osteoporosis (T-score at or below -2.5). 10-year Fracture Risk: FRAX not reported because: Treated for osteoporosis Previous Exams: Region Exam Age BMD T-score BMD Change BMD Change Date g/cm2 vs Baseline vs Previous AP Spine (L2-L4) 11/15/2024 79 1.072 -0.1 0.101 (10.4%)* 0.101 (10.4%)* 01/03/2021 75 0.971 -1.0 Total Hip(Left) 11/15/2024 79 0.741 -1.6 0.073 (11.0%)* 0.073 (11.0%)* 01/03/2021 75 0.668 -2.2 Total Hip(Right) 11/15/2024 79 0.735 -1.7 0.070 (10.5%)* 0.070 (10.5%)* 02/22/2023 77 0.665 -2.3 *Denotes significance at 95% confidence level, LSC for AP Spine = 0.022 g/cm2, LSC for Total Hip = 0.027 g/cm2 Clinical Information Provided by Patient: Is being treated for osteoporosis Has used the following medications: Prolia (i.e. denosumab), Vitamin D, multivitamins Has the following medical conditions: Asthma or Emphysema Patient maximum height was 64 Menopause Age: 51 No regular weight bearing exercise Does not regularly consume dairy products Drinks caffeinated beverages Onset of menses at age 17 Number of children 5 Impression: The patient has low bone mass, based on the Left Femoral Neck T-score. No significant bone loss was observed. Discussion: PATIENT UNDER TREATMENT WITH NO SIGNIFICANT BMD LOSS SINCE LAST EXAM. In an untreated patient, BMD typically declines with age. A lack of decline or gain is usually a sign that treatment is efficacious and fracture risk is reduced. It is important to ask patients whether they are taking their medications and to encourage continued and appropriate compliance with their osteoporosis therapies to reduce fracture risk. It is also important to review their risk factors and encourage appropriate calcium and vitamin D intakes, exercise, fall prevention and other lifestyle measures. Follow-Up: Consider a repeat BMD and Vertebral Fracture Assessment (VFA) exam in 2 years or sooner if medically necessary, to reassess this patient's status. Reported by: VANESSA on 11/15/2024 3:11:00 PM. Reviewed, dictated and finalized at location A.
--- OUTSIDE RECORDS SUMMARY | 2024-11-15 15:34 | XMS_ITS | Encounter Summary ---
Author Organization [facility] Address [address] [place] [address]. [place] [address] [place] [address] Care Team Providers Care Ballroom Dance Instructor Name Role Phone Orly Coronado MD Primary Care Provider [phone] Encounter Details Date Type Department Care Team (Late st Contact Info) Description 01/01/2018 Abstract [facility] CONVERSION [address] [place] [address] , Generic Conversion, Social History Tobacco Use Types Packs/Day Years Used Date Smoking Tobacco: Never Assessed Comments Unknown Sex and Gender Information Value Date Recorded Sex Assigned at Not on file Legal Sex Female 1:26 AM CDT Gender Identity Not on file Sexual Orientation Not on file documented as of this encounter Plan of Treatment Not on file documented as of this encounter Visit Diagnoses Not on filedocumented in this encounter Care Teams Ballroom Dance Instructor Relationship Specialty Start Date End Date Orly Coronado MD [address] [place] [address] PCP - General INTERNAL MEDICINE 10/22/20 documented as of this encounter
--- OUTSIDE RECORDS SUMMARY | 2024-11-15 15:34 | XMS_ITS | Clinical Summary ---
Author Organization [facility] Address [address] [place] [address]. [place] [address] [place] [address] Care Team Providers Care Vehicle Safety Inspector Name Role Phone Orly Coronado MD Primary Care Provider [phone] Allergies No known active allergies Medications albuterol sulfate HFA (PROAIR HFA) 108 (90 Base) MCG/ACT inhaler Inhale 2 puffs into the lungs every 6 (six) hours as needed for Wheezing. Active ipratropium-alb uterol 20-100 MCG/ACT inhaler Inhale 1 puff into the lungs 4 (four) times daily. Please provide assembled. Active fluticasone furoate-vilante rol 100-25 MCG/INH inhaler Inhale 1 puff into the lungs daily. Active lisinopril-hydr oCHLOROthiazide 20-12.5 MG tablet Take 1 tablet by mouth daily. Active vitamin D3, cholecalciferol , 5000 UNITS capsule Take 1 capsule by mouth daily. Active potassium chloride CR 10 MEQ tablet Take by mouth daily. Active aspirin 81 MG chewable tablet Chew 81 mg by mouth daily. Active montelukast 10 MG tablet Take 10 mg by mouth nightly at bedtime. Active Family History Medical History Relation Comments Heart Disease Brother Hyperlipidemia Brother Hypertension Brother Liver Disease Father Heart Disease Mother Hyperlipidemia Mother Hypertension Mother Heart Disease Sister Hyperlipidemia Sister Hypertension Sister Relation Status Comments Brother Father Mother Sister Social History Tobacco Use Types Packs/Day Years Used Date Smoking Tobacco: Former Cigarettes Q uit: 2010 Smokeless Tobacco: Never Alcohol Use Standard Drinks/Week Comments Not Currently 0 (1 standard drink = 0.6 oz pur e alcohol) Comments No Sex and Gender Information Value Date Recorded Sex Assigned at Not on file Legal Sex Female 1:26 AM CDT Gender Identity Not on file Sexual Orientation Not on file Last Filed Vital Signs Vital Sign Reading Time Taken Comments Blood Pressure 110/83 10/23/2020 12:30 AM MACHINE MAINTENANCE REPAIRER Pulse 70 10/23/2020 12:30 AM MACHINE MAINTENANCE REPAIRER Temperature 36.1 ??C (97 ??F) 10/23/2020 12:17 AM MACHINE MAINTENANCE REPAIRER Respiratory Rate 13 10/23/2020 12:30 AM MACHINE MAINTENANCE REPAIRER Oxygen Saturation 94% 10/23/2020 12:30 AM MACHINE MAINTENANCE REPAIRER Inhaled Oxygen Concentration - - Weight 65.3 kg (144 lb) 10/22/2020 9:24 PM MACHINE MAINTENANCE REPAIRER Height 162.6 cm (5' 4 ) 10/22/2020 9:24 PM MACHINE MAINTENANCE REPAIRER Body Mass Index 24.72 10/22/2020 9:24 PM MACHINE MAINTENANCE REPAIRER Plan of Treatment Health Maintenance Due Date Last Done Comments Hepatitis C 1963 DTaP, Tdap and Td Vaccines ( 1 - Tdap) 1964 Annual Medicare Wellness Visit 2011 Dexa Scan (General) 2011 Zoster Vaccines (2 of 3) 03/02/2013 01/05/2013 Pneumococcal Vaccine: 65+ Ye ars (2 of 2 - PPSV23 or PCV20) 04/15/2016 04/15/2015 RSV Immunization or 60+ Years (1 - 1-dose 75+ series) 2021 COVID-19 Vaccine ( - 2023-2 5 season) 2024 Influenza Adult (#1) 2024 Meningococcal B Vaccine Aged Out No l onger eligible based on patient's age to complete this topic Meningococcal Vaccine Aged Out No zara nito eligible based on patient's age to complete this topic RSV Immunizations Under 20 Months Aged Out No longer eligible based on patient's age to complete this topic Insurance MEDICARE MEDICAID Care Teams Vehicle Safety Inspector Relationship Specialty Start Date End Date Orly Coronado MD [address] [place] [id number] PCP - General INTERNAL MEDICINE 10/22/20
== END 2024-11-15 14:49 | disposition home or self-care (01) ==
LOC: CHSIMG 14:50
PROVIDERS: PCP Internal Medicine; Visit Provider Internal Medicine
DX: Z78.0 Asymptomatic menopausal state (principal); M85.89 Other specified disorders of bone density and structure, multiple sites
CPT/HCPCS: 77080

== ENCOUNTER 2024-11-24 08:52 | Emergency (ER) | payer OTHER, SELFPAY ==
[2024-11-24 09:00] VITALS: BP 156/72; PULSE 79; RESP 16; TEMP 37; O2SAT 100
--- NOTE | 2024-11-24 09:05 | ED.GENADULT ---
HPI - General Adult General Chief complaint: Shortness of Breath/Dyspnea Stated complaint: sob Time Seen by Provider: 11/24/24 09:05 History of Present Illness HPI narrative: 79 years old white female came to the ED by ambulance from home because was not able to cough up her phlegm. Patient is telling me she keep temperature inside her house at 76 degree, no hematuria 5 year, was diagnosed of COPD exacerbation 1 week ago and started on prednisone and antibiotic, patient is telling me that her coughing is getting better but this morning was talking to her daughter on the phone and coughing at the same time. Her daughter got anxious and called 911. On arrival to the ED patient feeling much better, denying any Fever, chills, nausea, vomiting, chest pain, shortness of breath or even coughing. Related Data Home Medications ?Medication ?Instructions ?Recorded ?Confirmed ?Last Taken ?Type albuterol sulfate 90 mcg/actuation 2 puff inhalation Q4-6H PRN 10/13/19 08/29/24 05/14/21 History aerosol inhaler (ProAir HFA) Shortness Of Breath aspirin 81 mg tablet,delayed 81 mg PO DAILY 10/13/19 08/29/24 Unknown History release lisinopril 20 1 tablet PO DAILY 10/13/19 08/29/24 Unknown History mg-hydrochlorothiazide 25 mg tablet montelukast 10 mg tablet 10 mg PO DAILY 10/13/19 08/29/24 Unknown History potassium chloride 10 mEq 10 meq PO DAILY 10/13/19 08/29/24 Unknown History capsule,extended release cholecalciferol (vitamin D3) 25 2,000 unit PO DAILY 05/09/21 08/29/24 Unknown History mcg (1,000 unit) capsule (Vitamin D3) fluticasone furoate 200 1 inh inhalation DAILY 05/09/21 08/29/24 Unknown History mcg-vilanterol 25 mcg/dose inhalation powder (Breo Ellipta) ipratropium 20 mcg-albuterol 100 4 puff inhalation QID 05/09/21 08/29/24 Unknown History mcg/actuation mist for inhalation (Combivent Respimat) Allergies Allergy/AdvReac Type Severity Reaction Status Date / Time No Known Allergies Allergy Verified 07/29/24 17:35 Review of Systems Review of Systems: All systems reviewed & are unremarkable except as noted in HPI and below PMFSH Past Medical History Medical History Diverticulosis Hypertension COPD (chronic obstructive pulmonary disease) Surgical History Surgical History History of appendectomy H/O: hysterectomy Social History Social History Smoking packs per day: 1 Smoking cigarettes per day: 20.0 Years smoked: 40 Smoking pack-years: 40.00 Smoking status: Former smoker Tobacco type: cigarettes Second hand tobacco smoke exposure: No Smoking end date: 10/18/12 Alcohol intake: former Alcohol use details: occasional Substance use: never Substance use type: does not use Do You Feel Safe in your Home?: Yes Lack of Transportation: No Lack of Food: Never True Current Housing: I Have Housing Concerned About Future Housing: No Difficulty Paying Gas/Electric Bills: No Difficulty Paying for Meds: No Currently Unemployed: No Education: Grade School Difficulty w/ Childcare or Family Care: No Living arrangements: alone Spiritual care concerns: No Exam Narrative: General appearance: Well-developed, well-nourished Skin: Normal color Head: Normocephalic, nontraumatic Eyes: Clear conjunctiva ENT: Oropharynx normal, ears normal, nose normal Neck: Supple, nontender Chest and respiratory: Airway patent, no respiratory distress, no accessory muscle use Heart: Regular rate/rhythm Abdomen: Soft, nontender, no organomegaly, quiet bowel sounds Musculoskeletal: Normal range of motion, nontender back Neurologic: Alert and oriented ?3, MANAGER STATISTICAL PROGRAMMING is normal as tested, no gross motor deficit Medical Decision Making MDM Narrative Medical decision making narrative: Patient have excessive coughing today to get rid of her dry phlegm. Got better on arrival to the ED. discharged home, continue home medication, get a humidifier air to keep the inside the house moist No labs or imaging are required at this time diagnosis Dry phlegm cough Critical Care Time Critical Care Time Critical Care Time: No Discharge Plan Discharge Clinical Impression: Cough Patient Disposition: Home, Self-Care Condition: Stable Instructions: Chronic Cough (ED) Additional Instructions: discharge instructions, Return if symptoms are worsening , call your family physician for appointment, take Tylenol as as needed for aches and pain, continue home medications. Get a humidifier Air to keep the air moist In case of another episode of dry phlegm cough inhale hot water vapor Patient Language: Turkish Prescriptions: No Action potassium chloride 10 mEq Capsule, Extended Release 10 meq PO DAILY Patient Comments: Does not know dose of medication aspirin 81 mg tablet,delayed release (DR/EC) 81 mg PO DAILY lisinopril-hydrochlorothiazide 20-25 mg Tablet 1 tablet PO DAILY montelukast 10 mg tablet 10 mg PO DAILY albuterol sulfate [ProAir HFA] 90 mcg/actuation HFA aerosol inhaler 2 puff INHALATION Q4-6H PRN (Reason: Shortness Of Breath) guaifenesin [Mucus Relief ER] 600 mg Tablet Extended Release 12hr 600 mg PO Q12HR Qty: 10 0RF cholecalciferol (vitamin D3) [Vitamin D3] 25 mcg (1,000 unit) Capsule 2,000 unit PO DAILY fluticasone furoate-vilanterol [Breo Ellipta] 200-25 mcg/dose blister with device 1 inh INHALATION DAILY Combivent Respimat 20-100 mcg/actuation mist 4 puff INHALATION QID Patient Comments: TAKES USUALLY UP TO 2 TIMES A DAY-SELDOM NEEDS MORE Follow-up/Referrals: Orly Coronado MD [Primary Care Provider] -
--- OUTSIDE RECORDS SUMMARY | 2024-11-24 09:12 | XMS_ITS | Clinical Summary ---
Author Organization [facility] Address [facility] [place] [address] Care Team Providers Care Storage Garage Manager Name Role Phone Orly Coronado MD Primary Care Provider [phone] Allergies No known active allergies Medications albuterol [...] Comments Blood Pressure 110/83 10/23/2020 12:30 AM CABLE TOOL OPERATOR Pulse 70 10/23/2020 12:30 AM CABLE TOOL OPERATOR Temperature 36.1 C (97 F) 10/23/2020 12:17 AM CABLE TOOL OPERATOR Respiratory Rate 13 10/23/2020 12:30 AM CABLE TOOL OPERATOR Oxygen Saturation 94% 10/23/2020 12:30 AM CABLE TOOL OPERATOR Inhaled Oxygen Concentration - - Weight 65.3 kg (144 lb) 10/22/2020 9:24 PM CABLE TOOL OPERATOR Height 162.6 cm (5' 4 ) 10/22/2020 9:24 PM CABLE TOOL OPERATOR Body Mass Index 24.72 10/22/2020 9:24 PM CABLE TOOL OPERATOR Plan of Treatment Health Maintenance Due Date [...] - 1-dose 75+ series) 2021 COVID-19 Vaccine (1 - 2023-2 5 season) 2024 Influenza Adult [...] this topic Insurance MEDICARE MEDICAID Care Teams Storage Garage Manager Relationship Specialty Start Date End Date Orly Coronado MD [address] [place] [id number] PCP - General INTERNAL MEDICINE 10/22/20
--- OUTSIDE RECORDS SUMMARY | 2024-11-24 09:12 | XMS_ITS | Encounter Summary ---
Author Organization [facility] Address [facility] [place] [address] Care Team Providers Care Replenishment Analyst Name Role Phone Orly Coronado MD Primary Care Provider [phone] Encounter Details Date Type Department Care Team (Late st Contact Info) Description 01/01/2018 Abstract [facility] CONVERSION [address] [place] [address] , Generic Conversion, Social History Tobacco Use [...] on filedocumented in this encounter Care Teams Replenishment Analyst Relationship Specialty Start Date End Date Orly Coronado MD [address] [place] [address] PCP - General INTERNAL MEDICINE 10/22/20 documented as of this encounter
--- OUTSIDE RECORDS SUMMARY | 2024-11-24 10:03 | XMS_ITS | Encounter Summary ---
Author Organization [facility] Address [facility] [place] [address] Care Team Providers Care Rn Digestive Name Role Phone Orly Coronado MD Primary Care Provider [phone] Encounter Details Date Type Department Care Team (Late st Contact Info) Description 01/01/2018 Abstract [facility] CONVERSION [address] [place] [address] , Generic Conversion, Social History Tobacco Use [...] on filedocumented in this encounter Care Teams Rn Digestive Relationship Specialty Start Date End Date Orly Coronado MD [address] [place] [address] PCP - General INTERNAL MEDICINE 10/22/20 documented as of this encounter
--- OUTSIDE RECORDS SUMMARY | 2024-11-24 10:03 | XMS_ITS | Clinical Summary ---
Author Organization [facility] Address [facility] [place] [address] Care Team Providers Care Electrolysis Operator Name Role Phone Orly Coronado MD Primary Care Provider [phone] Allergies No known active allergies Medications albuterol [...] Comments Blood Pressure 110/83 10/23/2020 12:30 AM VULCANIZING MACHINE OPERATOR Pulse 70 10/23/2020 12:30 AM VULCANIZING MACHINE OPERATOR Temperature 36.1 C (97 F) 10/23/2020 12:17 AM VULCANIZING MACHINE OPERATOR Respiratory Rate 13 10/23/2020 12:30 AM VULCANIZING MACHINE OPERATOR Oxygen Saturation 94% 10/23/2020 12:30 AM VULCANIZING MACHINE OPERATOR Inhaled Oxygen Concentration - - Weight 65.3 kg (144 lb) 10/22/2020 9:24 PM VULCANIZING MACHINE OPERATOR Height 162.6 cm (5' 4 ) 10/22/2020 9:24 PM VULCANIZING MACHINE OPERATOR Body Mass Index 24.72 10/22/2020 9:24 PM VULCANIZING MACHINE OPERATOR Plan of Treatment Health Maintenance Due [...] this topic Insurance MEDICARE MEDICAID Care Teams Electrolysis Operator Relationship Specialty Start Date End Date Orly Coronado MD [address] [place] [id number] PCP - General INTERNAL MEDICINE 10/22/20
== END 2024-11-24 09:32 | disposition home or self-care (01) ==
LOC: CHSED 09:30
PROVIDERS: Emergency Provider Emergency Medicine; PCP Internal Medicine
DX: R05.9 Cough, unspecified (principal); I10 Essential (primary) hypertension; J44.9 Chronic obstructive pulmonary disease, unspecified; Z87.891 Personal history of nicotine dependence
CPT/HCPCS: 99281

== ENCOUNTER 2024-12-14 14:16 | Outpatient (CLI) | payer OTHER, SELFPAY ==
[2024-12-14 14:47] LABS: Basophils Absolute Auto 0.07 K/mm3 (0.00-0.10); Basophils Percent Auto 0.9 % (0.0-1.0); Eosinophils Absolute Auto 0.16 K/mm3 (0.02-0.50); Eosinophils Percent Auto 2.1 % (1.0-6.0); Hematocrit 41.4 % (35.0-42.0); Hemoglobin 13.2 g/dL (11.7-13.8); Immature Granulocyte Absolute 0.03 K/mm3 (0.00-0.00); Immature Granulocyte Percent A 0.4 % (0.0-0.0); Lymphocytes Absolute Auto 1.22 K/mm3 (1.10-4.50); Lymphocytes Percent Auto 16.1 % (18.0-42.0); Mean Corpuscular HGB Conc 31.9 g/dL (32-36); Mean Corpuscular Volume 84.7 fL (78.0-102.0); Mean Platelet Volume 8.9 fl (9.2-11.8); Monocytes Absolute Auto 0.63 K/mm3 (0.10-0.90); Monocytes Percent Auto 8.3 % (2.0-11.0); Neutrophils Absolute Auto 5.46 K/mm3 (1.70-7.20); Neutrophils Percent Auto 72.2 % (50.0-70.0); Platelet Count Result 353 K/mm3 (150-420); Red Blood Count 4.89 M/mm3 (4.20-5.40); Red Cell Distribution Width 16.3 % (11.6-14.4); White Blood Count 7.6 K/mm3 (4.8-10.8)
[2024-12-14 15:06] LABS: Alanine Aminotransferase 19 U/L (14-59); Alkaline Phosphatase 74 U/L (46-116); Anion Gap 11 mmol/L (4-12); Aspartate Amino Transferase 16 U/L (15-37); Bilirubin,Total 0.4 mg/dL (0.00-1.00); Blood Urea Nitrogen 12 mg/dL (7-18); Calcium 9.1 mg/dL (8.5-10.1); Carbon Dioxide 28 mmol/L (21-32); Chloride 102 mmol/L (98-108); Estimated Glomerular Filt Rate > 60; Glucose 102 mg/dL (70-99); NT Pro B Type Natriuretic Pept 130 pg/mL (0-450); Osmolality Calculated 291 mOsm/kg (285-295); Potassium 3.6 mmol/L (3.5-5.1); Sodium 141 mmol/L (136-145)
[2024-12-14 15:10] LABS: RSV RNA, RT-PCR Negative (Negative)
== END 2024-12-14 14:17 | disposition home or self-care (01) ==
LOC: CHSLAB 14:17
PROVIDERS: PCP Internal Medicine; Visit Provider Internal Medicine
DX: R06.00 Dyspnea, unspecified (principal); R05.9 Cough, unspecified
CPT/HCPCS: 36415; 71046; 80053; 83880; 85025; 87634

== ENCOUNTER 2024-12-25 15:34 | Outpatient (CLI) | payer OTHER, SELFPAY ==
--- NOTE | ~2024-12-25 | XR_ITS ---
EXAMINATION: XR foot LT min 3V DATE: 12/25/2024 16:11 INDICATION: Left foot pain. TECHNIQUE: 4 views of left foot were obtained. COMPARISON: None. FINDINGS: Alignment is normal. No fracture. There is mild osteoarthritis of first metatarsophalangeal joint and some of the interphalangeal joints. There are enthesophytes at the posterior and plantar a spects of calcaneal tuberosity. IMPRESSION: 1. Mild polyarticular osteoarthritis. Reviewed, dictated and finalized at location B.
--- NOTE | ~2024-12-25 | XR_ITS ---
EXAMINATION: XR foot RT min 3V DATE: 12/25/2024 16:11 INDICATION: Right foot pain. TECHNIQUE: 4 views of right foot were obtained. COMPARISON: None. FINDINGS: Alignment is normal. No fracture. There is mild osteoarthritis of some of the interphalange al joints. There are enthesophytes at the posterior and plantar aspects of calcaneal tuberosity. IMPRESSION: 1. Mild polyarticular osteoarthritis. Reviewed, dictated and finalized at location B.
[2024-12-25 15:53] LABS: Basophils Absolute Auto 0.06 K/mm3 (0.00-0.10); Basophils Percent Auto 0.5 % (0.0-1.0); Eosinophils Absolute Auto 0.29 K/mm3 (0.02-0.50); Eosinophils Percent Auto 2.2 % (1.0-6.0); Hematocrit 39.8 % (35.0-42.0); Hemoglobin 12.5 g/dL (11.7-13.8); Immature Granulocyte Absolute 0.06 K/mm3 (0.00-0.00); Immature Granulocyte Percent A 0.5 % (0.0-0.0); Lymphocytes Absolute Auto 1.18 K/mm3 (1.10-4.50); Mean Corpuscular HGB Conc 31.4 g/dL (32-36); Mean Corpuscular Hemoglobin 26.6 pg (27.0-31.0); Mean Corpuscular Volume 84.7 fL (78.0-102.0); Mean Platelet Volume 8.5 fl (9.2-11.8); Monocytes Absolute Auto 0.89 K/mm3 (0.10-0.90); Monocytes Percent Auto 6.8 % (2.0-11.0); Platelet Count Result 388 K/mm3 (150-420); Red Cell Distribution Width 16.6 % (11.6-14.4); White Blood Count 13.1 K/mm3 (4.8-10.8)
[2024-12-25 16:22] LABS: Anion Gap 7 mmol/L (4-12); Blood Urea Nitrogen 12 mg/dL (7-18); CRP 6.1 mg/dL (0.0-0.9); Carbon Dioxide 33 mmol/L (21-32); Chloride 102 mmol/L (98-108); Estimated Glomerular Filt Rate > 60; Glucose 101 mg/dL (70-99); NT Pro B Type Natriuretic Pept 364 pg/mL (0-450); Osmolality Calculated 293 mOsm/kg (285-295); Potassium 3.6 mmol/L (3.5-5.1); Sodium 142 mmol/L (136-145)
[2024-12-25 16:40] LABS: Rheumatoid Factor Screen Negative (Negative)
[2024-12-25 16:54] LABS: Erythrocyte Sedimentation Rate 16 mm/hr (0-20)
--- OUTSIDE RECORDS SUMMARY | 2024-12-25 18:14 | XMS_ITS | Data Portability ---
Author Organization [facility], Main Office Address [address] [place] [address] Care Team Providers Care Asbestos Microscopist Name Role Phone LUCINA RYAN Primary Care Provider Assessment No assessment recorded. Plan of Treatment Reminders Order Date Submit Date Provider Last Modified By Organization Details Last Modified Time Details Appointments None record ed. Lab None record ed. Referral None record ed. Procedures None record ed. Surgeries None record ed. Imaging None record ed. Medication Orders None record ed. Patient TargetsNo targets recorded. Patient Instructions Encounter Date Encounter Id Patient Instructions Last Modified By Organization Details Last Modified Time 11/02/2024 [id number] she has improved and will return as needed [email or web address] Not available 11/02/2024 14:50:07 Reason for Referral None Reported. Problems Name Problem SNOMED Code Status Onset Date Resolution Date Notes Provider Name and Address Organization Details Recorded Time Dysphonia 07191138 Active 025 Ras Roa MD [address] [place] [address], [phone] , [facility] [employer] 14:50:00 Problem Notes None recorded. Procedures Surgical History Date Name Laterality Status Provider Name and Address Organization Details Recorded Time Appendectomy completed Sobeida mack RN [facility] [employer] 11/02/2024 08:59:48 Hysterectomy completed Sobeida mack RN [place] [employer] 11/02/2024 08:59:55 Imaging Results None recorded. Procedure Notes None recorded. Medical Equipment None Reported. Allergies No known drug allergies Medications Name Sig Start Date Stop Date Status Note LastModified by Organization Details LastModified Time fluconazole 100 mg tablet active Not Available Not Available Not Available clotrimazol e 10 mg pooja Take 1 tablet 5 times a day by oral route. active Not Available Not Available No t Available nystatin 100,000 unit/mL oral suspension Take 5 mL 4 times a day by oral route. active Not Available Not Available No t Available prednisone 10 mg tablet 11/02 completed Not Available Not Available Not Available ipratropium 0.5 mg-albutero l 3 mg (2.5 mg base)/3 mL nebulizatio n soln Inhale 3 mL 4 times a day by nebulizat ion route. active Not Available Not Available No t Available azithromyci n 250 mg tablet active Not Available Not Available Not Available lisinopril 20 mg tablet Take 1 tablet every day by oral route. active Not Available Not Available No t Available prednisone 20 mg tablet active Not Available Not Available Not Available potassium chloride ER 10 mEq tablet,exte nded release active Not Available Not Available Not Available alprazolam 0.25 mg tablet Take 1 tablet 3 times a day by oral route. active Not Available Not Available No t Available prednisone 50 mg tablet active Not Available Not Available Not Available indapamide 1.25 mg tablet active Not Available Not Available Not Available lisinopril 20 mg-hydrochl orothiazide 25 mg tablet active Not Available Not Available Not Available montelukast 10 mg tablet Take 1 tablet every day by oral route. active Not Available Not Available No t Available levofloxaci n 500 mg tablet active Not Available Not Available Not Available methylpredn isolone 4 mg tablets in a dose pack active Not Available Not Available Not Available albuterol sulfate HFA 90 mcg/actuati on aerosol inhaler active Not Available Not Available Not Available losartan 100 mg tablet active Not Available Not Available Not Available fluticasone propionate 50 mcg/actuati on nasal spray,suspe nsion [place] 1 spray every day by intranasa l route. active Not Available Not Available No t Available amoxicillin 875 mg-potassiu m clavulanate 125 mg tablet active Not Available Not Available Not Available Mucinex 600 mg tablet, extended release active Not Available Not Available Not Available cetirizine- pseudoephed rine active Not Available Not Available Not Available Prolia 60 mg/mL subcutaneou s syringe Inject 1 mL by subcutane ous route. active Not Available Not Available No t Available Combivent Respimat 20 mcg-100 mcg/actuati on solution for inhalation Inhale 1 puff 4 times a day by inhalatio n route. active Not Available Not Available No t Available albuterol sulfate 90 mcg/actuati on breath activated powder inhaler Inhale 2 puffs every 4 hours by inhalatio n route. active Not Available Not Available No t Available Breo Ellipta 200 mcg-25 mcg/dose powder for inhalation Inhale 1 puff every day by inhalatio n route. active Not Available Not Available No t Available Vitals Date Recorded Body height Body mass index (BMI) Body weight Body temperature Provider Name and Address Organization Details Last Updated DateTime 11/02/2024 162.56 cm 21.3 kg/m2 14092.17 g 97.9 [degF] Sobeida Dexter RN [facility] [employer] 11/02/2024 14:46:11 Social History Question Answer Notes LastModified by Organizat ion Details LastModified Time Tobacco Smoking Status Never Smoker QUIT 11 YEARS AGO Sobeida Dexter RN null, [employer] 11/02/2024 14:45:08 What Is Your Level Of Alcohol Consumption? Occasional [email or web address] Information not available 11/02/2024 Sex: Unknown Functional Status None recorded. Mental Status None recorded. Family History Nothing Reported Notes:NO ENT Medical History Condition Response COPD Y HYPERTENSION Y HIGH CHOLESTEROL / HYPERLIPIDEMIA Y Gynecological HistoryNo gynecological history recorded. Obstetrics History GPAL:G 0 P 0 0 0 0 Past Encounters Encounter ID Performer Location Encounter Start Date Encounter Closed Date Diagnosis/Indication Diagnosis SNOMED-CT Code Diagnosis ICD10 Code Diagnosis Note [id number] Ras Roa MD [facility] [place] [address] [place] [address] 11/02/2024 14:33:38 11/03/2024 09:51:16 Dysphonia 00283864 R49.9 Health Concerns Section Related Observation LastModified by Organization Detai ls LastModified Time None Recorded Concern Status LastModified by Organization Details LastModified Time None Recorded Advance Directives Directive None Recorded Payers Encounter Date Sequence Insurance Name Policy Number Policy Meza Covered Member ID Meza Member ID Guarantor Name 11/02/2024 1 [facility] ON OR AFTER 04/17/21 (MEDICAID REPLACEMENT - HMO) [id number] Rhiannon Hurst [id number] Rhiannon Hurst Notes Date Note Type Note Provider Name and Address Organization Details Recorded Time 11/02/2024 text/html patient had some rhinitis and dysphonia but reports that she has spontaneously improved on feeling well she is on Flonase Atrovent and montelukast Ras Roa MD [address] [place] [address], [place], [address], [place] [facility] [employer] 11/02/2024 14:50:29 OBGyn Episode No OBEpisode recorded.
--- OUTSIDE RECORDS SUMMARY | 2024-12-25 18:14 | XMS_ITS | Encounter Summary ---
Author Organization [facility] Address [facility] [place] [address] Care Team Providers Care Waste Oil Pumper Name Role Phone Orly Coronado MD Primary Care Provider [phone] Encounter Details Date Type Department Care Team (Late st Contact Info) Description 01/01/2018 Abstract [facility] CONVERSION [address] [place] [address] , Generic Conversion, Social History Tobacco Use [...] on filedocumented in this encounter Care Teams Waste Oil Pumper Relationship Specialty Start Date End Date Orly Coronado MD [address] [place] [address] PCP - General INTERNAL MEDICINE 10/22/20 documented as of this encounter
--- OUTSIDE RECORDS SUMMARY | 2024-12-25 18:14 | XMS_ITS | Clinical Summary ---
Author Organization [facility] Address [facility] [place] [address] Care Team Providers Care Literacy Education Professor Name Role Phone Orly Coronado MD Primary Care Provider [phone] Allergies No known active allergies Medications albuterol [...] Comments Blood Pressure 110/83 10/23/2020 12:30 AM HEEL VARNISHER Pulse 70 10/23/2020 12:30 AM HEEL VARNISHER Temperature 36.1 C (97 F) 10/23/2020 12:17 AM HEEL VARNISHER Respiratory Rate 13 10/23/2020 12:30 AM HEEL VARNISHER Oxygen Saturation 94% 10/23/2020 12:30 AM HEEL VARNISHER Inhaled Oxygen Concentration - - Weight 65.3 kg (144 lb) 10/22/2020 9:24 PM HEEL VARNISHER Height 162.6 cm (5' 4 ) 10/22/2020 9:24 PM HEEL VARNISHER Body Mass Index 24.72 10/22/2020 9:24 PM HEEL VARNISHER Plan of Treatment Health Maintenance Due Date [...] this topic Insurance MEDICARE MEDICAID Care Teams Literacy Education Professor Relationship Specialty Start Date End Date Orly Coronado MD [address] [place] [id number] PCP - General INTERNAL MEDICINE 10/22/20
[2024-12-27 17:03] LABS: Cyclic Citrullinated Peptide <16 UNITS
== END 2024-12-25 15:35 | disposition home or self-care (01) ==
PROVIDERS: PCP Internal Medicine; Visit Provider Internal Medicine
DX: M79.671 Pain in right foot (principal); M79.672 Pain in left foot; R06.00 Dyspnea, unspecified; M79.89 Other specified soft tissue disorders; I73.9 Peripheral vascular disease, unspecified; M19.072 Primary osteoarthritis, left ankle and foot; M19.071 Primary osteoarthritis, right ankle and foot
CPT/HCPCS: 36415; 73630; 80048; 83880; 84550; 85025; 85652; 86140; 86200; 86430

== ENCOUNTER 2024-12-28 13:44 | Outpatient (CLI) | payer OTHER, SELFPAY ==
--- NOTE | ~2024-12-28 | US_ITS ---
EXAMINATION: US arterial ankle brachial ind DATE: 12/28/2024 14:14 INDICATION: Peripheral arterial disease. TECHNIQUE: Segmental pressures and plethysmographic and Doppler waveforms of the brachial and lower e xtremity arteries were obtained. COMPARISON: None. FINDINGS: Right and left brachial artery pressures of 145 mm Hg and 137 mm Hg, respectively, are concordant (no rmal difference <= 30 mmHg). The right ankle-brachial index (ANNE-MARIE) is 1.10 (normal >= 0.9-1.0). The right great toe-brachial index (TBI) is 0.54 (normal >= 0.65). Arterial Doppler waveforms are monophasic at the ankle. The left ANNE-MARIE is 1.10. The left TBI is 0.46. Arterial Doppler waveforms are monophasic in dorsalis ped is and biphasic in posterior tibial artery. IMPRESSION: 1. Decreased TBIs and normal ABIs, consistent with arterial occlusive disease. Note that ABIs may be overestimated if arteries are calcified. Reviewed, dictated and finalized at location L.
--- OUTSIDE RECORDS SUMMARY | 2024-12-28 15:29 | XMS_ITS | Encounter Summary ---
Author Organization [facility] Address [facility] [place] [address] Care Team Providers Care Data Center Engineer Name Role Phone Orly Coronado MD Primary Care Provider [phone] Encounter Details Date Type Department Care Team (Late st Contact Info) Description 01/01/2018 Abstract [facility] CONVERSION [address] [place] [address] , Generic Conversion, Social History Tobacco Use [...] on filedocumented in this encounter Care Teams Data Center Engineer Relationship Specialty Start Date End Date Orly Coronado MD [address] [place] [address] PCP - General INTERNAL MEDICINE 10/22/20 documented as of this encounter
--- OUTSIDE RECORDS SUMMARY | 2024-12-28 15:29 | XMS_ITS | Clinical Summary ---
Author Organization [facility] Address [facility] [place] [address] Care Team Providers Care Cash Posting Specialist Name Role Phone Orly Coronado MD Primary Care Provider [phone] Allergies No known active allergies Medications albuterol [...] Comments Blood Pressure 110/83 10/23/2020 12:30 AM ADMINISTRATIVE RESIDENT Pulse 70 10/23/2020 12:30 AM ADMINISTRATIVE RESIDENT Temperature 36.1 C (97 F) 10/23/2020 12:17 AM ADMINISTRATIVE RESIDENT Respiratory Rate 13 10/23/2020 12:30 AM ADMINISTRATIVE RESIDENT Oxygen Saturation 94% 10/23/2020 12:30 AM ADMINISTRATIVE RESIDENT Inhaled Oxygen Concentration - - Weight 65.3 kg (144 lb) 10/22/2020 9:24 PM ADMINISTRATIVE RESIDENT Height 162.6 cm (5' 4 ) 10/22/2020 9:24 PM ADMINISTRATIVE RESIDENT Body Mass Index 24.72 10/22/2020 9:24 PM ADMINISTRATIVE RESIDENT Plan of Treatment Health Maintenance Due Date [...] this topic Insurance MEDICARE MEDICAID Care Teams Cash Posting Specialist Relationship Specialty Start Date End Date Orly Coronado MD [address] [place] [phone] PCP - General INTERNAL MEDICINE 10/22/20
== END 2024-12-28 13:45 | disposition home or self-care (01) ==
LOC: CHSIMG 13:45
PROVIDERS: PCP Internal Medicine; Visit Provider Internal Medicine
DX: M79.672 Pain in left foot (principal); M79.671 Pain in right foot; I73.9 Peripheral vascular disease, unspecified
CPT/HCPCS: 93922

== ENCOUNTER 2025-01-02 08:33 | Outpatient (CLI) | payer OTHER, SELFPAY ==
[2025-01-02] VITALS (9 sets, daily range): PULSE 111–124; O2SAT 91–96
--- NOTE | ~2025-01-02 | CT_ITS ---
CT Scan of the Chest without Contrast: Clinical Indication: Chronic cough, dyspnea Technique: Contiguous sections were acquired throughout the chest without intravenous contrast. Dose reduction technique was used on this scan by utilizing automated exposure control and iterative recon struction technique. The dose-length product (DLP) was 134.63 mGy-cm. Findings: There is no evidence of any significant mediastinal, hilar or axillary lymphadenopathy. There are ext ensive atherosclerotic calcifications aorta and coronary. There is no evidence of pleural or pericardial effusion. 4 mm right upper lobe pulmonary nodule present with adjacent scarring. There is moderate to advanced emphysema. Patchy bibasilar consolidation suspicious for pneumonia. Images through the upper abdomen reveal no abnormalities. Impression: Patchy bibasilar consolidation is suspicious for pneumonia. Follow-up exam after interval therapy rec ommended. 4 mm right upper lobe pulmonary nodule. Moderate to advanced emphysema. Reviewed, dictated and finalized at [facility]. Impression: Patchy bibasilar consolidation is suspicious for pneumonia. Follow-up exam afte r interval therapy recommended. 4 mm right upper lobe pulmonary nodule. Moderate to advanced emphysema.
--- NOTE | ~2025-01-02 | CT_ITS ---
Procedure: CTA abd aorta runoff Ordering provider: Orly Coronado MD History: . PA, tachycardia,BLE SWELLING, SMOKER . Comparison: None. Technique: CT angiogram abdomen and pelvis was performed following timed intravenous injection of con trast. Thin slice axial images and reformatted coronal images were obtained. Three dimensional reform atted images were also obtained using a Vitrea workstation. Radiation reduction technique utilized.The dose-length product was 580.92 mGy-cm. FINDINGS: Visualized lower chest: Bilateral basal atelectasis versus pneumonia seen posteriorly. UPPER ABDOMINAL ORGANS: Liver: Fat infiltration. Gallbladder: Normal. Spleen: Normal. Stomach: Normal. Pancreas: Normal. Adrenals: Normal. Kidneys: Left kidney upper pole simple cyst measuring 1.2 cm. PELVIC ORGANS: The bladder is normal. BOWEL AND MESENTERY: Colon: No evidence of diverticulitis. Appendix is not demonstrated. Small Bowel: Normal. No obstruction. Peritoneum/mesentery: No free air or free fluid. No mesenteric lymphadenopathy. RETROPERITONEUM: No retroperitoneal lymphadenopathy. ABDOMINAL AORTA: Atherosclerotic changes. Normal in caliber. No dissection. ILIAC ARTERIES AND BRANCHING VESSELS: Atherosclerotic changes with mild stenosis. RENAL ARTERIES: Atherosclerotic changes with severe narrowing of the origin of the left renal artery. OTHER BRANCHING VESSELS OF THE ABDOMINAL AORTA AND THE MESENTERIC ARTERIES: Shows atherosclerotic remy nges at the origin. The superficial soft tissues of the abdomen and pelvis are normal. Age appropriate degenerative browne es of the spine. LOWER EXTREMITIES: COMMON FEMORAL ARTERIES: Atherosclerotic changes with mild stenosis. FEMORAL ARTERIES: Atherosclerotic changes with moderate narrowing distally in both sides.. BILATERAL PROFUNDA FEMORA: Atherosclerotic changes with moderate to severe stenosis bilaterally. POPLITEAL ARTERIES: Atherosclerotic changes with slight narrowing on the right side TRIFURCATION AND THE POSTERIOR/ANTERIOR TIBIAL AND PERONEAL ARTERIES: Atherosclerotic changes. FLOW TO THE FOOT: Patent dorsalis pedis. Flow demonstrated within the anterior and posterior tibial a rteries below the ankle. BONES AND SOFT TISSUES: Unremarkable. IMPRESSION: Moderate narrowing of the distal SFA bilaterally. Moderate to severe narrowing of the profunda femoris arteries. Severe narrowing at the origin of the left renal artery. Reviewed, dictated and finalized at location A.
--- OUTSIDE RECORDS SUMMARY | 2025-01-02 08:50 | XMS_ITS | Encounter Summary ---
Author Organization [facility] Address [facility] [place] [address] Care Team Providers Care Ring Attacher Name Role Phone Orly Coronado MD Primary Care Provider [phone] Encounter Details Date Type Department Care Team (Late st Contact Info) Description 01/01/2018 Abstract [facility] CONVERSION [address] [place] [address] , Generic Conversion, Social History Tobacco Use [...] on filedocumented in this encounter Care Teams Ring Attacher Relationship Specialty Start Date End Date Orly Coronado MD [address] [place] [address] PCP - General INTERNAL MEDICINE 10/22/20 documented as of this encounter
--- OUTSIDE RECORDS SUMMARY | 2025-01-02 08:50 | XMS_ITS | Data Portability ---
Author Organization [facility], Main Office Address [address] [place] [address] Care Team Providers Care Hair Spring Winder Name Role Phone LUCINA RYAN Primary Care [...] By Organization Details Last Modified Time 11/02/2024 [id number] she has improved and will return as needed [email or web address] Not available 11/02/2024 14:50:07 Reason for Referral None Reported. Problems Name Problem SNOMED Code Status Onset Date Resolution Date Notes Provider Name and Address Organization Details Recorded Time Dysphonia 82538515 Active 025 Ras Roa MD [address] [place] [address], [phone] , [facility] [email or web address] 14:50:00 Problem Notes None recorded. Procedures Surgical History Date Name Laterality Status Provider Name and Address Organization Details Recorded Time Appendectomy completed Sobeida mack RN [facility] [employer] 11/02/2024 08:59:48 Hysterectomy completed Sobeida mack RN CT [email or web address] 11/02/2024 08:59:55 Imaging Results None recorded. Procedure [...] propionate 50 mcg/actuati on nasal spray,suspe nsion [place] 1 spray every day by intranasa l [...] Updated DateTime 11/02/2024 162.56 cm 21.3 kg/m2 74698.17 g 97.9 [degF] Sobeida Dexter RN [facility] [employer] 11/02/2024 14:46:11 Social History Question Answer Notes LastModified by Organizat ion Details LastModified Time Tobacco Smoking Status Never Smoker QUIT 11 YEARS AGO Sobeida Dexter RN null, [facility] [employer] 11/02/2024 14:45:08 What Is Your Level Of Alcohol Consumption? Occasional [email or web address] Information not available 11/02/2024 Sex: Unknown Functional Status None recorded. Mental Status None recorded. Family History Nothing Reported Notes:NO ENT Medical History Condition Response HYPERTENSION Y COPD Y HIGH CHOLESTEROL / HYPERLIPIDEMIA Y Gynecological HistoryNo gynecological history recorded. Obstetrics History GPAL:G 0 P 0 0 0 0 Past Encounters Encounter ID Performer Location Encounter Start Date Encounter Closed Date Diagnosis/Indication Diagnosis SNOMED-CT Code Diagnosis ICD10 Code Diagnosis Note [id number] Ras Roa MD [facility] [place] [address] [place] [address] 11/02/2024 14:33:38 11/03/2024 09:51:16 Dysphonia 45002489 R49.9 Health Concerns Section Related Observation LastModified by Organization Detai ls LastModified Time None Recorded Concern Status LastModified by Organization Details LastModified Time None Recorded Advance Directives Directive None Recorded Payers Encounter Date Sequence Insurance Name Policy Number Policy Meza Covered Member ID Meza Member ID Guarantor Name 11/02/2024 1 [facility] ON OR AFTER 04/17/21 (MEDICAID REPLACEMENT - HMO) [id number] Rhiannon Hurst [id number] Rhiannon Hurst Notes Date Note Type Note Provider Name and Address Organization Details Recorded Time 11/02/2024 text/html patient had some rhinitis and dysphonia but reports that she has spontaneously improved on feeling well she is on Flonase Atrovent and montelukast Ras Roa MD [address] [place] [address], [place], [address], [place] [facility] [employer] 11/02/2024 14:50:29 OBGyn Episode No OBEpisode recorded.
--- OUTSIDE RECORDS SUMMARY | 2025-01-02 08:50 | XMS_ITS | Clinical Summary ---
Author Organization [facility] Address [facility] [place] [address] Care Team Providers Care Metal Molder Name Role Phone Orly Coronado MD Primary Care Provider [phone] Allergies No known active allergies Medications albuterol [...] Comments Blood Pressure 110/83 10/23/2020 12:30 AM TRACK LAMINATING MACHINE TENDER Pulse 70 10/23/2020 12:30 AM TRACK LAMINATING MACHINE TENDER Temperature 36.1 C (97 F) 10/23/2020 12:17 AM TRACK LAMINATING MACHINE TENDER Respiratory Rate 13 10/23/2020 12:30 AM TRACK LAMINATING MACHINE TENDER Oxygen Saturation 94% 10/23/2020 12:30 AM TRACK LAMINATING MACHINE TENDER Inhaled Oxygen Concentration - - Weight 65.3 kg (144 lb) 10/22/2020 9:24 PM TRACK LAMINATING MACHINE TENDER Height 162.6 cm (5' 4 ) 10/22/2020 9:24 PM TRACK LAMINATING MACHINE TENDER Body Mass Index 24.72 10/22/2020 9:24 PM TRACK LAMINATING MACHINE TENDER Plan of Treatment Health Maintenance Due Date [...] this topic Insurance MEDICARE MEDICAID Care Teams Metal Molder Relationship Specialty Start Date End Date Orly Coronado MD [address] [place] [phone] PCP - General INTERNAL MEDICINE 10/22/20
--- NOTE | 2025-01-02 11:05 | HOMEO2EVAL ---
Evaluation was performed at [facility] Home Oxygen Evaluation RC: Home Oxygen (O2) Evaluation Start: 01/02/25 10:40 Freq: Status: Active Protocol: RPE Activity Type Activity Date Activity User E-sign Co-sign Detail Recorded Client Recorded Date Recorded By Document 01/02/25 09:19 RES [id number] 01/02/25 10:53 RES Document 01/02/25 09:20 RES [id number] 01/02/25 10:53 RES Document 01/02/25 09:21 RES [id number] 01/02/25 10:53 RES Document 01/02/25 09:22 RES [id number] 01/02/25 10:53 RES Document 01/02/25 09:23 RES [id number] 01/02/25 11:05 RES Document 01/02/25 09:24 RES [id number] 01/02/25 11:05 RES Document 01/02/25 09:25 RES [id number] 01/02/25 11:05 RES Document 01/02/25 09:26 RES [id number] 01/02/25 11:05 RES Document 01/02/25 09:27 RES [id number] 01/02/25 11:05 RES 01/02/25 01/02/25 01/02/25 09:19 09:20 09:21 Home O2 Evaluation [Oxygen] -Test Phase Resting Resting Exercise -Oxygen Delivery Room Air Room Air Room Air -Fraction of Inspired Oxygen (%) 21 21 21 [Pulse Oximetry] -Pulse Oximetry (90-100 %) 93 95 96 [Pulse Rate] -Pulse Rate (60-100 beats/min) 111 H 118 H 112 H [Evaluation] -Activity Tolerance Good Good Good -Rating of Perceived Dyspnea (PD) +2 Mild, Some +2 Mild, Some +2 Mild, Some Difficulty, Difficulty, Difficulty, Noticeable to Noticeable to Noticeable to the Observer the Observer the Observer -Rate of Perceived Exertion (PE) 9 Very light 9 Very light 9 Very light Query Text:Click the Protocol Button to View the RPE Scale [Exercise] -Ambulation Distance (feet) -Ambulation Distance (meters) [Charges] -Evaluation Charges O2 Evaluation Charge 01/02/25 01/02/25 01/02/25 09:22 09:23 09:24 Home O2 Evaluation [Oxygen] -Test Phase Exercise Exercise Exercise -Oxygen Delivery Room Air Room Air Room Air -Fraction of Inspired Oxygen (%) 21 21 21 [Pulse Oximetry] -Pulse Oximetry (90-100 %) 94 93 92 [Pulse Rate] -Pulse Rate (60-100 beats/min) 119 H 120 H 118 H [Evaluation] -Activity Tolerance Good Good Good -Rating of Perceived Dyspnea (PD) +2 Mild, Some +2 Mild, Some +2 Mild, Some Difficulty, Difficulty, Difficulty, Noticeable to Noticeable to Noticeable to the Observer the Observer the Observer -Rate of Perceived Exertion (PE) 11 Fairly light 12 12 Query Text:Click the Protocol Button to View the RPE Scale [Exercise] -Ambulation Distance (feet) -Ambulation Distance (meters) [Charges] -Evaluation Charges 01/02/25 01/02/25 01/02/25 09:25 09:26 09:27 Home O2 Evaluation [Oxygen] -Test Phase Exercise Exercise Resting -Oxygen Delivery Room Air Room Air Room Air -Fraction of Inspired Oxygen (%) 21 21 21 [Pulse Oximetry] -Pulse Oximetry (90-100 %) 91 92 91 [Pulse Rate] -Pulse Rate (60-100 beats/min) 121 H 124 H 118 H [Evaluation] -Activity Tolerance Good Good Good -Rating of Perceived Dyspnea (PD) +2 Mild, Some +2 Mild, Some +2 Mild, Some Difficulty, Difficulty, Difficulty, Noticeable to Noticeable to Noticeable to the Observer the Observer the Observer -Rate of Perceived Exertion (PE) 12 12 11 Fairly light Query Text:Click the Protocol Button to View the RPE Scale [Exercise] -Ambulation Distance (feet) 600 -Ambulation Distance (meters) 182.87 [Charges] -Evaluation Charges
--- NOTE | 2025-01-02 14:52 | ECHO_ITS ---
Patient Info Name: Rhiannon Hurst Age: 79 years : 1945 Gender: Female Ht: 64 in Wt: 117 lbs BSA: 1.55 m2 HR: 87 bpm BP: 138 / 73 mmHg Heart Rhythm: Sinus Rhythm Technical Quality: Fair Exam Date: 01/02/2025 2:12 PM Exam Location: Echo Lab Patient Status: Outpatient Admit Date: 01/02/2025 Staff Ordering Physician: Orly Coronado MD Supportability Engineer: Lamar Michelle RDCS Attending Provider: Orly Coronado MD Referring Physician: Cliff DIEHL; Exam Type: CA echo doppler color flow Study Info Indications - Tachycardia - Dyspnea - Cough Complete two-dimensional, color flow and Doppler transthoracic echocardiogram is performed. Summary 1. Complete two-dimensional, color flow and Doppler transthoracic echocardiogram is performed. 2. Left ventricular chamber dimension is normal. 3. Left ventricular systolic function is normal, estimated at 60-65%. 4. The left ventricular diastolic function is abnormal. 5. E/e' 15 is elevated. 6. Left atrial chamber dimension is mildly enlarged. 7. The aortic valve is not well visualized. Cannot determine number of aortic valve leaflets. 8. There is mild aortic valve stenosis based on a peak velocity of 195 cm/s, mean gradient of 9 mmHg, and aortic valve area of 1.7 cm2. 9. There is moderate aortic valve sclerosis. 10. The mitral valve has moderately calcified annulus. 11. There is mild mitral valve regurgitation. 12. There is trace tricuspid valve regurgitation. 13. No pulmonary hypertension, estimated pulmonary arterial systolic pressure is 27 mmHg. Left Ventricle E/e' 15 is elevated. Left ventricular chamber dimension is normal. Left ventricular systolic function is normal, estimated at 60-65%. The left ventricular diastolic function is abnormal. Right Ventricle Right ventricular systolic function is normal and with normal TAPSE 2.3 cm. Right ventricular chamber dimension is normal. Left Atria Left atrial chamber dimension is mildly enlarged. Right Atria Right atrial chamber dimension is normal. Aortic Valve The aortic valve is not well visualized. Cannot determine number of aortic valve leaflets. There is mild aortic valve stenosis based on a peak velocity of 195 cm/s, mean gradient of 9 mmHg, and aortic valve area of 1.7 cm2. There is moderate aortic valve sclerosis. There is no aortic valve regurgitation. Pulmonic Valve There is no pulmonic regurgitation. Mitral Valve The mitral valve has moderately calcified annulus. There is no mitral valve stenosis. There is mild mitral valve regurgitation. Tricuspid Valve There is trace tricuspid valve regurgitation. No pulmonary hypertension, estimated pulmonary arterial systolic pressure is 27 mmHg. Pericardium/Pleural There is no pericardial effusion. Inferior Vena Cava Normal inferior vena cava with >50% collapse upon inspiration consistent with normal right atrial pressure, 5 mmHg. Aorta The aortic root size at the sinus of Valsalva is normal. Left Ventricular Outflow Tract Name Value Normal LVOT 2D LVOT Diameter 2.0 cm LVOT Doppler LVOT Peak Velocity 123 cm/s LVOT Peak Gradient 6 mmHg LVOT Mean Gradient 0 mmHg LVOT VTI 26 cm LVOT VTI/AV VTI Ratio 0.6 LVOT Stroke Volume 77 ml Pulmonic Valve Name Value Normal RVOT Doppler RVOT Peak Gradient 2 mmHg PV Doppler PV Peak Velocity 98 cm/s PV Peak Gradient 4 mmHg Mitral Valve Name Value Normal MV Doppler MV Decel [place] 531 cm/s2 MV PHT 57 ms MV Area (PHT) 3.9 cm2 4.0-5.0 MV Diastolic Function MV E Peak Velocity 105 cm/s MV A Peak Velocity 99 cm/s MV E/A 1.1 MV Decel Time 197 ms Tricuspid Valve Name Value Normal TV Regurgitation Doppler TR Peak Velocity 232 cm/s TR Peak Gradient 19 mmHg Estimated PAP/RSVP RA Pressure 5 mmHg <=5 PA Systolic Pressure 27 mmHg <36 RV Systolic Pressure 27 mmHg <36 Aortic Valve Name Value Normal AV Doppler AV Peak Velocity 195 cm/s AV Peak Gradient 15 mmHg AV Mean Gradient 9 mmHg AV VTI 45 cm AV Area (Cont Eq VTI) 1.7 cm2 >=3.0 AV Area (Cont Eq Domingo) 1.9 cm2 AV V1/V2 Ratio 0.63 AV Regurgitation 2D LVOT Area 3.0 cm2 Ventricles Name Value Normal LV Dimensions 2D/MM IVS Diastolic Thickness (2D) 1.0 cm 0.6-1.0 LVID Diastole (2D) 3.8 cm 3.8-5.2 LVIW Diastolic Thickness (2D) 1.1 cm 0.6-0.9 LVID Systole (2D) 2.4 cm 2.2-3.5 LVOT Diameter 2.0 cm LV Mass (2D Cubed) 121.23 g 67.00-162.00 LV Mass Index (2D Cubed) 78 g/m2 43-95 Relative Wall Thickness (2D) 0.58 LV Fractional Shortening/Ejection Fraction 2D/MM LV Fractional Shortening (2D) 37 % 27-45 LV EF (2D Teicholz) 68 % 54-74 LV Diastolic Volume (4C MOD) 78 ml LV EF (4C MOD) 62 % LV Diastolic Volume (2C MOD) 108 ml LV EF (2C MOD) 69 % LV Diastolic Volume (BP MOD) 102 ml 46-106 LV Diastolic Volume Index (BP MOD) 66 ml/m2 29-61 LV Systolic Volume (BP MOD) 35 ml 14-42 LV Systolic Volume Index (BP MOD) 22 ml/m2 8-24 LV EF (BP MOD) 66 % 54-74 LV Diastolic Length (4C) 6.1 cm LV Systolic Length (4C) 5.0 cm LV Stroke Volume (4C MOD) 49 ml Atria Name Value Normal LA Dimensions LA Volume (4C A-L) 55 ml LA Volume (BP A-L) 56 ml RA Dimensions RA Area (4C) 11.7 cm2 <=18.0 Report Signatures
== END 2025-01-02 08:34 | disposition home or self-care (01) ==
PROVIDERS: PCP Internal Medicine; Visit Provider Internal Medicine
DX: I73.9 Peripheral vascular disease, unspecified (principal); R05.9 Cough, unspecified; R06.00 Dyspnea, unspecified; R00.0 Tachycardia, unspecified; I08.0 Rheumatic disorders of both mitral and aortic valves; R91.8 Other nonspecific abnormal finding of lung field; J43.9 Emphysema, unspecified
CPT/HCPCS: 71250; 75635; 93306; 94060; 94618; 94726; 94729; Q9967

== ENCOUNTER 2025-01-03 08:20 | Outpatient (CLI) | payer OTHER, SELFPAY ==
--- NOTE | ~2025-01-03 | CT_ITS ---
CT scan of the Neck Technique: 2.5 mm axial scans were obtained through the neck after intravenous administration of 75 c c Omnipaque 350. Coronal and sagittal reconstructions of the neck were obtained. Dose reduction techn ique was used on this scan by utilizing automated exposure control and iterative reconstruction techn ique. The dose-length product (DLP) was 279.55 mGy-cm. Clinical History: Laryngitis Findings: There is no evidence of any significant cervical lymphadenopathy. Several small, nonenlarged jugulo- digastric and posterior cervical lymph nodes are noted bilaterally. Parapharyngeal spaces appear norm al bilaterally. The parotid and submandibular glands appear normal. The pharyngeal mucosal spaces appear normal. No soft tissue masses are seen in the neck. The thyroid gland appears normal. Images of the lung apices reveal moderate to advanced emphysema. Th ere is degenerative spondylosis of the cervical spine with mild reversal normal cervical lordosis. Impression: Moderate to advanced emphysema at the lung apices. No other significant abnormality seen in the neck. Reviewed, dictated and finalized at [facility]. Impression: Moderate to advanced emphysema at the lung apices. No other significant abnormality seen in the neck.
--- OUTSIDE RECORDS SUMMARY | 2025-01-03 08:41 | XMS_ITS | Encounter Summary ---
Author Organization [facility] Address [facility] [place] [address] Care Team Providers Care Rn Acls Name Role Phone Orly Coronado MD Primary Care Provider [phone] Encounter Details Date Type Department Care Team (Late st Contact Info) Description 01/01/2018 Abstract SJS CONVERSION [address] [place] [address] , Generic Conversion, Social History Tobacco Use [...] filedocumented in this encounter Care Teams Rn Acls Relationship Specialty Start Date End Date Orly Coronado MD [address] [place] [address] PCP - General INTERNAL MEDICINE 10/22/20 documented as of this encounter
--- OUTSIDE RECORDS SUMMARY | 2025-01-03 08:41 | XMS_ITS | Clinical Summary ---
Author Organization [facility] Address Formerly [facility] [place] [address] Care Team Providers Care Documentation Specialist Name Role Phone Orly Coronado MD Primary Care Provider [phone] Allergies No known active allergies Medications albuterol [...] Comments Blood Pressure 110/83 10/23/2020 12:30 AM WIRE DRAWER Pulse 70 10/23/2020 12:30 AM WIRE DRAWER Temperature 36.1 C (97 F) 10/23/2020 12:17 AM WIRE DRAWER Respiratory Rate 13 10/23/2020 12:30 AM WIRE DRAWER Oxygen Saturation 94% 10/23/2020 12:30 AM WIRE DRAWER Inhaled Oxygen Concentration - - Weight 65.3 kg (144 lb) 10/22/2020 9:24 PM WIRE DRAWER Height 162.6 cm (5' 4 ) 10/22/2020 9:24 PM WIRE DRAWER Body Mass Index 24.72 10/22/2020 9:24 PM WIRE DRAWER Plan of Treatment Health Maintenance Due Date [...] this topic Insurance MEDICARE MEDICAID Care Teams Documentation Specialist Relationship Specialty Start Date End Date Orly Coronado MD [address] [place] [id number] PCP - General INTERNAL MEDICINE 10/22/20
== END 2025-01-03 08:21 | disposition home or self-care (01) ==
LOC: CHSIMG 08:22
PROVIDERS: PCP Internal Medicine; Visit Provider Internal Medicine
DX: R49.0 Dysphonia (principal); J43.9 Emphysema, unspecified
CPT/HCPCS: 70491; Q9967

== ENCOUNTER 2025-01-19 10:43 | Outpatient (CLI) | payer OTHER, SELFPAY ==
--- NOTE | ~2025-01-19 | XR_ITS ---
Left ankle Technique: AP, oblique, and lateral views were obtained. Clinical History: Pain Findings: No acute fracture or dislocation is seen. Osseous alignment is anatomic. Ankle mortise and other visualized joint spaces are preserved. Soft tissues are otherwise unremarkable. Impression: Unremarkable left ankle. Reviewed, dictated and finalized at location . Impression: Unremarkable left ankle.
[2025-01-19 11:13] LABS: Hematocrit 37.8 % (35.0-42.0); Hemoglobin 11.7 g/dL (11.7-13.8); Mean Corpuscular Hemoglobin 25.4 pg (27.0-31.0); Mean Corpuscular Volume 82.2 fL (78.0-102.0); Mean Platelet Volume 8.5 fl (9.2-11.8); Platelet Count Result 434 K/mm3 (150-420); Red Cell Distribution Width 16.1 % (11.6-14.4)
--- OUTSIDE RECORDS SUMMARY | 2025-01-19 11:25 | XMS_ITS | Encounter Summary ---
Author Organization [facility] Address [facility] [place] [address] Care Team Providers Care Barrel Assembler Helper Name Role Phone Orly Coronado MD Primary Care Provider [phone] Encounter Details Date Type Department Care Team (Late st Contact Info) Description 01/01/2018 Abstract SJS CONVERSION [address] [place] [address] , Generic Conversion, Social History Tobacco Use [...] on filedocumented in this encounter Care Teams Barrel Assembler Helper Relationship Specialty Start Date End Date Orly Coronado MD [address] [place] [address] PCP - General INTERNAL MEDICINE 10/22/20 documented as of this encounter
--- OUTSIDE RECORDS SUMMARY | 2025-01-19 11:26 | XMS_ITS | Clinical Summary ---
Author Organization [facility] Address [facility] [place] [address] Care Team Providers Care Central Aisle Cashier Name Role Phone Orly Coronado MD Primary Care Provider Allergies No known active allergies Medications albuterol [...] Comments Blood Pressure 110/83 10/23/2020 12:30 AM HOUSE CARPENTER Pulse 70 10/23/2020 12:30 AM HOUSE CARPENTER Temperature 36.1 C (97 F) 10/23/2020 12:17 AM HOUSE CARPENTER Respiratory Rate 13 10/23/2020 12:30 AM HOUSE CARPENTER Oxygen Saturation 94% 10/23/2020 12:30 AM HOUSE CARPENTER Inhaled Oxygen Concentration - - Weight 65.3 kg (144 lb) 10/22/2020 9:24 PM HOUSE CARPENTER Height 162.6 cm (5' 4 ) 10/22/2020 9:24 PM HOUSE CARPENTER Body Mass Index 24.72 10/22/2020 9:24 PM HOUSE CARPENTER Plan of Treatment Health Maintenance Due Date [...] Vaccine (1 - 2023-2 5 season) 2024 Meningococcal B Vaccine Aged Out No l onger eligible based on patient's age to complete this topic Meningococcal Vaccine Aged Out No zara nito eligible based on patient's age to complete this topic RSV Immunizations Under 20 Months Aged Out No longer eligible based on patient's age to complete this topic Insurance MEDICARE MEDICAID Care Teams Central Aisle Cashier Relationship Specialty Start Date End Date Orly Coronado MD [address] [place] [address] PCP - General INTERNAL MEDICINE 10/22/20
[2025-01-19 11:30] LABS: Anion Gap 11 mmol/L (4-12); Blood Urea Nitrogen 13 mg/dL (7-18); Carbon Dioxide 25 mmol/L (21-32); Chloride 100 mmol/L (98-108); Estimated Glomerular Filt Rate > 60; Glucose 92 mg/dL (70-99); Osmolality Calculated 282 mOsm/kg (285-295); Potassium 4.2 mmol/L (3.5-5.1); Sodium 136 mmol/L (136-145); Uric Acid 3.8 mg/dL (2.6-6.0)
[2025-01-19 11:38] LABS: Band Neutrophils Percent 2 % (0-6); Basophils Absolute Manual 0.11 K/mm3 (0-0.1); Basophils Percent Manual 1 % (0-1); Eosinophils Absolute Manual 0.22 K/mm3 (0.02-0.50); Eosinophils Percent Manual 2 % (1-6); Lymphocytes Percent Manual 10 % (18-44); Monocytes Absolute Manual 0.55 K/mm3 (0.1-0.90); Monocytes Percent Manual 5 % (3-9); Neutrophils Absolute Manual 9.02 K/mm3 (1.7-7.2); Neutrophils Percent Manual 80 % (46-73); Total Cells Counted 100
[2025-01-19 11:39] LABS: Anisocytosis 1+; Hypochromasia 1+; Microcytosis 1+ (NORMAL); Platelet Estimate Increased (Adequate); Schistocytes None Seen
[2025-01-19 11:54] LABS: Rheumatoid Factor Screen Negative (Negative)
[2025-01-19 12:16] LABS: Erythrocyte Sedimentation Rate 21 mm/hr (0-20)
[2025-01-22 17:09] LABS: Cyclic Citrullinated Peptide <16 UNITS
== END 2025-01-19 10:44 | disposition home or self-care (01) ==
PROVIDERS: PCP Internal Medicine; Visit Provider Internal Medicine
DX: M79.672 Pain in left foot (principal)
CPT/HCPCS: 36415; 73610; 73630; 80048; 84550; 85025; 85652; 86140; 86200; 86430

== ENCOUNTER 2025-01-24 14:54 | Outpatient (CLI) | payer OTHER, SELFPAY ==
--- NOTE | 2025-01-24 15:00 | ECG_ITS ---
Test Date: 2025-01-24 15:18:52 Measurements Intervals [place] Rate: 90 P: 84 RI: 147 QRS: 80 QRSD: 97 T: 82 QT: 336 QTc: 412 Interpretive Statements SINUS RHYTHM WITH SINUS ARRHYTHMIA INCOMPLETE RIGHT BUNDLE BRANCH BLOCK BASELINE ARTIFACT- I, AVL BORDERLINE ECG Compared to ECG 08/04/2024 19:52:58 NO SIGNIFICANT CHANGE Electronically Signed On 01-24-2025 15:36:30 CDT by Boogie Cardona D.O.
--- OUTSIDE RECORDS SUMMARY | 2025-01-24 16:26 | XMS_ITS | Encounter Summary ---
Author Organization [facility] Address [facility] [place] [address] Care Team Providers Care Manager Ship Name Role Phone Orly Coronado MD Primary Care Provider [phone] Encounter Details Date Type Department Care Team (Late st Contact Info) Description 01/01/2018 Abstract SJS CONVERSION [address] [place] [address] , Generic Conversion, Social History Tobacco Use [...] on filedocumented in this encounter Care Teams Manager Ship Relationship Specialty Start Date End Date Orly Coronado MD [address] [place] [address] PCP - General INTERNAL MEDICINE 10/22/20 documented as of this encounter
--- OUTSIDE RECORDS SUMMARY | 2025-01-24 16:26 | XMS_ITS | Clinical Summary ---
Author Organization [facility] Address [facility] [place] [address] Care Team Providers Care Dead Mail Checker Name Role Phone Orly Coronado MD Primary Care Provider [phone] Allergies No known active allergies Medications albuterol [...] Comments Blood Pressure 110/83 10/23/2020 12:30 AM PHOTOTYPESETTING EQUIPMENT MONITOR Pulse 70 10/23/2020 12:30 AM PHOTOTYPESETTING EQUIPMENT MONITOR Temperature 36.1 C (97 F) 10/23/2020 12:17 AM PHOTOTYPESETTING EQUIPMENT MONITOR Respiratory Rate 13 10/23/2020 12:30 AM PHOTOTYPESETTING EQUIPMENT MONITOR Oxygen Saturation 94% 10/23/2020 12:30 AM PHOTOTYPESETTING EQUIPMENT MONITOR Inhaled Oxygen Concentration - - Weight 65.3 kg (144 lb) 10/22/2020 9:24 PM PHOTOTYPESETTING EQUIPMENT MONITOR Height 162.6 cm (5' 4 ) 10/22/2020 9:24 PM PHOTOTYPESETTING EQUIPMENT MONITOR Body Mass Index 24.72 10/22/2020 9:24 PM PHOTOTYPESETTING EQUIPMENT MONITOR Plan of Treatment Health Maintenance Due Date [...] this topic Insurance MEDICARE MEDICAID Care Teams Dead Mail Checker Relationship Specialty Start Date End Date Orly Coronado MD [address] [place] [address] PCP - General INTERNAL MEDICINE 10/22/20
--- OUTSIDE RECORDS SUMMARY | 2025-01-24 16:26 | XMS_ITS | Clinical Summary ---
Author Organization [facility] Address [address] [facility] [place] [address] Care Team Providers Care Chief Meter Reader Name Role Phone Orly Coronado MD Primary Care Provider [phone] Social History Tobacco Use Types Packs/Day Years Used Date Smoking Tobacco: Never Assessed Comments Unknown Sex and Gender Information Value Date Recorded Sex Assigned at Not on file Legal Sex Female 11:30 AM CDT Gender Identity Not on file Sexual Orientation Not on file Plan of Treatment Upcoming Encounters Date Type Department Care Team (Late st Contact Info) Description 02/20/2025 3:30 PM CDT Office Visit [facility] - Cardiology [facility] [address] [place] [id number] Stuart Ruiz MD [address] [address] Health Maintenance Due Date Last Done Comments DEXA Bone Density 1945 Hepatitis C Virus (HCV) Screening 1945 Zoster Immunization (2 of 3) 03/02/2013 01/05/2013 SARS-COV-2 Immunization ( season) 2025 07/06/2024, 08/27/2023, 08/04/2021, Additional history exists Pneumococcal Immunization (50+ years) Completed 11/17/2018, 04/15/2015 TdaP Immunization Completed 04/02/2022 Respiratory Syncytial Virus (RSV) Immunization (Adult) Completed 11/10/2023 Influenza Immunization Completed , 08/03/2023, 08/03/2022, Additional history exists Hepatitis B Immunization Aged Out No longer eligible based on patient's age to complete this topic Meningococcal Immunization (ACWY) Aged Out No longer eligible based on patient's age to complete this topic Rotavirus Immunization Aged Out No lo nger eligible based on patient's age to complete this topic Insurance MEDICARE [facility] Care Teams Chief Meter Reader Relationship Specialty Start Date End Date Orly Coronado MD [address] [place] [address] PCP - General Internal Medicine 01/19/25
--- OUTSIDE RECORDS SUMMARY | 2025-01-24 16:26 | XMS_ITS | Data Portability ---
Author Organization [email or web address], Main Office Address [address] [place] [address] Care Team Providers Care Water Plant Pump Operator Supervisor Name Role Phone LUCINA RYAN Primary Care [...] By Organization Details Last Modified Time 11/02/2024 [id number] she has improved and will return as needed [email or web address] Not available 11/02/2024 14:50:07 Reason for Referral None Reported. Problems Name Problem SNOMED Code Status Onset Date Resolution Date Notes Provider Name and Address Organization Details Recorded Time Dysphonia [id number] Active 025 Ras Roa MD [address] [place] [address], [id number] , [facility] [employer] 14:50:00 Problem Notes None recorded. Procedures Surgical History Date Name Laterality Status Provider Name and Address Organization Details Recorded Time Appendectomy completed Sobeida mack RN [facility] [employer] 11/02/2024 08:59:48 Hysterectomy completed Sobeida mack RN [place] [employer] 11/02/2024 08:59:55 Imaging Results None recorded. Procedure [...] propionate 50 mcg/actuati on nasal spray,suspe nsion [place] 1 spray every day by intranasa l [...] Updated DateTime 11/02/2024 162.56 cm 21.3 kg/m2 84873.17 g 97.9 [degF] Sobeida Dexter RN [facility] [employer] 11/02/2024 14:46:11 Social History Question Answer Notes LastModified by Organizat ion Details LastModified Time Tobacco Smoking Status Never Smoker QUIT 11 YEARS AGO Sobeida Dexter RN null, [employer] 11/02/2024 14:45:08 What Is Your Level Of [...] SNOMED-CT Code Diagnosis ICD10 Code Diagnosis Note [id number] Ras Roa MD [facility] [place] [address] [place] [address] 11/02/2024 14:33:38 11/03/2024 09:51:16 Dysphonia [id number] R49.9 Health Concerns Section Related Observation LastModified by Organization Detai ls LastModified Time None Recorded Concern Status LastModified by Organization Details LastModified Time None Recorded Advance Directives Directive None Recorded Payers Encounter Date Sequence Insurance Name Policy Number Policy Meza Covered Member ID Meza Member ID Guarantor Name 11/02/2024 1 [facility] ON OR AFTER 04/17/21 (MEDICAID REPLACEMENT - HMO) [id number] Rhiannon Hurst [id number] Rhiannon Hurst Notes Date Note Type Note Provider Name and Address Organization Details Recorded Time 11/02/2024 text/html patient had some rhinitis and dysphonia but reports that she has spontaneously improved on feeling well she is on Flonase Atrovent and montelukast Ras Roa MD [address] [place] [address], [place], [address], [place] [facility] [employer] 11/02/2024 14:50:29 OBGyn Episode No OBEpisode recorded.
== END 2025-01-24 14:55 | disposition home or self-care (01) ==
PROVIDERS: PCP Internal Medicine; Visit Provider Internal Medicine
DX: R00.2 Palpitations (principal); I49.8 Other specified cardiac arrhythmias; I45.19 Other right bundle-branch block
CPT/HCPCS: 93005; 93246

== ENCOUNTER 2025-03-01 09:03 | Outpatient (CLI) | payer OTHER, SELFPAY ==
--- OUTSIDE RECORDS SUMMARY | 2025-03-01 09:10 | XMS_ITS | Data Portability ---
Author Organization [employer], Main Office Address [address] [place] [address] Care Team Providers Care Licensed Psychologist Name Role Phone LUCINA RYAN Primary Care Provider [phone] Assessment No assessment recorded. Plan of Treatment [...] By Organization Details Last Modified Time 11/02/2024 [id number] she has improved and will return as needed [email or web address] Not available 11/02/2024 14:50:07 Reason for Referral None Reported. Problems Name Problem SNOMED Code Status Onset Date Resolution Date Notes Provider Name and Address Organization Details Recorded Time Dysphonia 78805920 Active 025 Ras Roa MD [address] [place] [address], [id number] , [facility] 14:50:00 Problem Notes None recorded. Procedures Surgical History Date Name Laterality Status Provider Name and Address Organization Details Recorded Time Appendectomy completed Sobeida mack RN [facility] 11/02/2024 08:59:48 Hysterectomy completed Sobeida mack RN PA [email or web address] 11/02/2024 08:59:55 Imaging Results None recorded. Procedure [...] propionate 50 mcg/actuati on nasal spray,suspe nsion Irmo 1 spray every day by intranasa l [...] Updated DateTime 11/02/2024 162.56 cm 21.3 kg/m2 38803.17 g 97.9 [degF] Sobeida [place] RN [place] [facility] 11/02/2024 14:46:11 Social History None recorded. Functional Status Question Answer Note LastModified by Organizat ion Details LastModified Time What is your level of alcohol consumption? Occasional [email or web address] Information not available 11/02/2024 Mental Status None recorded. Family History Nothing Reported Notes:NO ENT Medical History Condition Response COPD Y HYPERTENSION Y HIGH CHOLESTEROL / HYPERLIPIDEMIA Y Gynecological HistoryNo gynecological history recorded. Obstetrics History GPAL:G 0 P 0 0 0 0 Past Encounters Encounter ID Performer Location Encounter Start Date Encounter Closed Date Diagnosis/Indication Diagnosis SNOMED-CT Code Diagnosis ICD10 Code Diagnosis Note [id number] Ras Roa MD [facility] [place] [address] [place] [address] 11/02/2024 14:33:38 11/03/2024 09:51:16 Dysphonia 29910120 R49.9 Health Concerns Section Related Observation LastModified by Organization Detai ls LastModified Time None Recorded Concern Status LastModified by Organization Details LastModified Time None Recorded Advance Directives Directive None Recorded Payers Encounter Date Sequence Insurance Name Policy Number Policy Meza Covered Member ID Meza Member ID Guarantor Name 11/02/2024 1 [facility] ON OR AFTER 04/17/21 (MEDICAID REPLACEMENT - HMO) [id number] Rhiannon Hurst [id number] Rhiannon Hurst Notes Date Note Type Note Provider Name and Address Organization Details Recorded Time 11/02/2024 text/html patient had some rhinitis and dysphonia but reports that she has spontaneously improved on feeling well she is on Flonase Atrovent and montelukast Ras Roa MD [address] [facility], [facility] [address], [place], [address], [place] [facility] 11/02/2024 14:50:29 OBGyn Episode No OBEpisode recorded.
--- OUTSIDE RECORDS SUMMARY | 2025-03-01 09:10 | XMS_ITS | Clinical Summary ---
Author Organization [facility] Address [address] [place] [address] Care Team Providers Care Tube Cutter Operator Name Role Phone Orly Coronado MD Primary Care Provider [phone] Ernesto Milton MD Unavailable Stuart Ruiz MD Unavailable [phone] Allergies No known active allergies Medications Denosumab (Prolia) 60 MG/ML Solution Prefilled Syringe 60 mg by Subcutaneous route once. Active Ipratropium-Al buterol (COMBIVENT IN) take by inhalation. Active montelukast (SINGULAIR) 10 MG Tablet Take 10 mg by mouth every evening. Active ALBUTEROL IN take by inhalation. Active Fluticasone Furoate-Vilant ross (Breo Ellipta) 200-25 MCG/ACT AEROSOL POWDER, BREATH ACTIVATED take 1 Puff by inhalation daily. Active ipratropium-al buterol (DUO-NEB) 0.5-2.5 (3) MG/3ML Solution by Nebulization route 4 times daily. Active amLODIPine (NORVASC) 10 MG Tablet Take 10 mg by mouth daily. Active cilostazol (PLETAL) 50 MG Tablet Take 100 mg by mouth 2 times daily. Active ARLENE ASPIRIN PO Take 81 mg by mouth once. Active VITAMIN D PO Take by mouth. Ac tive Multiple Vitamins-Insulation Batting Machine Operator als (CENTRUM PO) Take by mouth. Activ e spironolactone (ALDACTONE) 50 MG Tablet Take 50 mg by mouth daily. Active nystatin (MYCOSTATIN) 943462 UNIT/ML Suspension Take 5 mL by mouth 4 times daily. Apply to inside of each cheek. Discontin ued(Med List Clean Up) ALPRAZolam (XANAX) 0.25 MG Tablet Take 0.25 mg by mouth. Discontin ued(Med List Clean Up) fluticasone (FLONASE) 50 MCG/ACT Suspension 1 [place] by Nasal route daily. Use in each nostril as directed. Discontin ued(Med List Clean Up) losartan (COZAAR) 100 MG Tablet Take 100 mg by mouth daily. Discontin ued(Med List Clean Up) potassium chloride SA (KLORCON M) 10 MEQ Tablet Controlled Release Take 10 mEq by mouth daily. Discontin ued(Med List Clean Up) Active Problems Problem Noted Date Diagnosed Date Other emphysema 02/20/2025 Encounters Date Type Department Care Team Description 02/20/2025 3:30 PM CDT Office Visit [facility] Medical [facility] - Cardiology [facility] [address] [place] [address] Stuart Ruiz MD Nonrheumatic aortic valve stenosis (Primary Dx); Bilateral carotid bruits; Other emphysema (HCC); SOB (shortness of breath); Primary hypertension; PAD (peripheral artery disease) (HCC); Dyslipidemia Discharge Disposition: Discharged to home or Selfcare 02/20/2025 2:00 PM CDT Office Visit [facility] - Pulmonology & Sleep Medicine [facility] [address] [place] [address] Ernesto Milton MD Other emphysema (HCC) (Primary Dx); Nodule of upper lobe of right lung; Personal history of tobacco use, presenting hazards to health Discharge Disposition: Discharged to home or Selfcare 02/20/2025 Travel from Last 3 Months Social History Tobacco Use Types Packs/Day Years Used Date Smoking Tobacco: Former Cigarettes Smokeless Tobacco: Never Tobacco Cessation:Counseling Given: Not Answered Alcohol Use Standard Drinks/Week Comments Not Currently 0 (1 standard drink = 0.6 oz pur e alcohol) Comments Unknown Sex and Gender Information Value Date Recorded Sex Assigned at Not on file Legal Sex Female 11:30 AM CDT Gender Identity Not on file Sexual Orientation Not on file Last Filed Vital Signs Vital Sign Reading Time Taken Comments Blood Pressure 130/58 02/20/2025 3:33 PM CDT Pulse 102 02/20/2025 3:33 PM CDT Temperature 36.3 C (97.3 F) 02/20/2025 3:33 PM CDT Respiratory Rate 16 02/20/2025 3:33 PM CDT Oxygen Saturation 89% 02/20/2025 3:33 PM CDT Inhaled Oxygen Concentration - - Weight 54.9 kg (121 lb) 02/20/2025 3:33 PM CDT Height 161.3 cm (5' 3.5 ) 02/20/2025 3:33 PM CDT Body Mass Index 21.1 02/20/2025 3:33 PM CDT Plan of Treatment Upcoming Encounters Date Type Department Care Team (Late st Contact Info) Description 03/07/2025 9:00 AM CDT Appointment [facility] [address] [place] [address] Stuart Ruiz MD [address] [address] Discharge Disposition: Discharged to home or Selfcare 03/07/2025 9:15 AM CDT Appointment [facility] Nuclear Medicine [address] [place] [address] Stuart Ruiz MD [address] [address] Discharge Disposition: Discharged to home or Selfcare 03/07/2025 9:30 AM CDT Appointment [facility] Cardiology [facility] [address] [place] [address] Stuart Ruiz MD [address] [address] Discharge Disposition: Discharged to home or Selfcare 03/07/2025 10:00 AM CDT Appointment [facility] [address] [place] [address] Stuart Ruiz MD [address] [place] [address] Discharge Disposition: Discharged to home or Selfcare 03/21/2025 11:30 AM CDT Office Visit [facility] - Cardiology - [place] [address] [facility] [place] [phone] Frances Berrios APRN, ANALYTICAL SCIENCES DIRECTOR [address] [place] [address] 05/22/2025 10:30 AM CDT [facility] [address] [facility] [place] [address] Ernesto Milton MD [address] [place] [address] Health Maintenance Due Date Last Done Comments [...] on patient's age to complete this topic Human Papillomavirus (HPV) Immunization Aged Out No longer eligible based on patient's age to complete this topic Meningococcal Immunization (ACWY) Aged Out No longer eligible based on patient's age to complete this topic Rotavirus Immunization Aged Out No lo nger eligible based on patient's age to complete this topic Insurance MEDICARE C [facility] Care Teams Tube Cutter Operator Relationship Specialty Start Date End Date Orly Coronado MD [address] [place] [address] PCP - General Internal Medicine 01/19/25 Ernesto Milton MD [address] [place] [address] Consulting Physician Pulmonary Disease 02/20/25 Stuart Ruiz MD [address] [address] Consulting Physician Interventional Cardiology 02/21/25
--- OUTSIDE RECORDS SUMMARY | 2025-03-01 09:10 | XMS_ITS | Clinical Summary ---
Author Organization [facility] Address [facility] [place] [address] Care Team Providers Care Patternmaker All Around Name Role Phone Orly Coronado MD Primary [...] Comments Blood Pressure 110/83 10/23/2020 12:30 AM MIXING OPERATOR Pulse 70 10/23/2020 12:30 AM MIXING OPERATOR Temperature 36.1 C (97 F) 10/23/2020 12:17 AM MIXING OPERATOR Respiratory Rate 13 10/23/2020 12:30 AM MIXING OPERATOR Oxygen Saturation 94% 10/23/2020 12:30 AM MIXING OPERATOR Inhaled Oxygen Concentration - - Weight 65.3 kg (144 lb) 10/22/2020 9:24 PM MIXING OPERATOR Height 162.6 cm (5' 4 ) 10/22/2020 9:24 PM MIXING OPERATOR Body Mass Index 24.72 10/22/2020 9:24 PM MIXING OPERATOR Plan of Treatment Health Maintenance Due Date Last Done Comments Hepatitis C 1963 DTaP, Tdap and Td Vaccines ( 1 - Tdap) 1964 Annual Medicare Wellness Visit 2011 Dexa Scan (General) 2011 Zoster Vaccines (2 of 3) 03/02/2013 01/05/2013 Pneumococcal Vaccine: 50+ Ye ars (2 of 2 - PPSV23) 04/15/2016 04/15/2015 RSV Immunization or 60+ Years [...] this topic Insurance MEDICARE MEDICAID Care Teams Patternmaker All Around Relationship Specialty Start Date End Date Orly Coronado MD [address] [place] [phone] PCP - General INTERNAL MEDICINE 10/22/20
--- OUTSIDE RECORDS SUMMARY | 2025-03-01 09:10 | XMS_ITS | Encounter Summary ---
Author Organization [facility] Address [facility] [place] [address] Care Team Providers Care Automatic Typewriter Inspector Name Role Phone Orly Coronado MD Primary Care Provider [phone] Encounter Details Date Type Department Care Team (Late st Contact Info) Description 01/01/2018 Abstract [facility] CONVERSION [address] [place] [address] , Generic Conversion, Social History Tobacco Use [...] on filedocumented in this encounter Care Teams Automatic Typewriter Inspector Relationship Specialty Start Date End Date Orly Coronado MD [address] [place] [address] PCP - General INTERNAL MEDICINE 10/22/20 documented as of this encounter
[2025-03-01 09:45] LABS: Cholesterol 146 mg/dL (0-200); HDL Direct 66 mg/dL; LDL Cholesterol Calculated 63 mg/dL (<130); Triglycerides 86 mg/dL (<150)
== END 2025-03-01 09:04 | disposition home or self-care (01) ==
PROVIDERS: PCP Internal Medicine
DX: E78.5 Hyperlipidemia, unspecified (principal)
CPT/HCPCS: 36415; 80061

== ENCOUNTER 2025-03-16 10:03 | Outpatient (CLI) | payer OTHER, SELFPAY ==
[2025-03-16 10:15] VITALS: BP 130/78; PULSE 92; RESP 16; TEMP 36.4; O2SAT 97; BMI 19.8
--- OUTSIDE RECORDS SUMMARY | 2025-03-16 10:16 | XMS_ITS | Clinical Summary ---
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 Active ARLENE ASPIRIN PO Take 81 mg by mouth once. Active VITAMIN D PO Take by mouth. Ac tive Multiple Vitamins-Lytle als (CENTRUM PO) Take by mouth. Activ e spironolactone (ALDACTONE) 50 MG Tablet Take 50 mg by mouth daily. Active metoprolol Succinate (TOPROL-XL) 25 MG TABLET SR 24 HR 5 Active cilostazol (PLETAL) 50 MG Tablet Take 50 mg by mouth 2 times daily. Active atorvastatin (LIPITOR) 40 MG Tablet Take 1 Tablet by mouth daily for 90 days. 90 Tablet 5 025 Active clopidogrel (PLAVIX) 75 MG Tablet Take 1 Tablet by mouth daily. 90 Tablet 5 Active nystatin (MYCOSTATIN) 050649 UNIT/ML Suspension Take 5 mL by mouth 4 times daily. Apply to inside of each cheek. 025 Discontin ued(Med List Clean Up) ALPRAZolam (XANAX) 0.25 MG Tablet Take 0.25 mg by mouth. 025 Discontin ued(Med List Clean Up) fluticasone (FLONASE) 50 MCG/ACT Suspension 1 [place] by Nasal route daily. Use in each nostril as directed. 025 Discontin ued(Med List Clean Up) losartan (COZAAR) 100 MG Tablet Take 100 mg by mouth daily. 025 Discontin ued(Med List Clean Up) potassium chloride SA (KLORCON M) 10 MEQ Tablet Controlled Release Take 10 mEq by mouth daily. 025 Discontin ued(Med List Clean Up) cilostazol (PLETAL) 50 MG Tablet Take 100 mg by mouth 2 times daily. 025 Discontin ued(Dose adjustmen t) Active Problems Problem Noted Date Diagnosed Date CAD (coronary artery disease) 03/08/2025 Other emphysema 02/20/2025 Nonrheumatic aortic (valve) stenosis Hypertension Chronic obstructive pulmonary disease (COPD) Resolved Problems Problem Noted Date Diagnosed Date Resolved Date Unstable angina 03/07/2025 03/08/2025 Encounters Date Type Department Care Team Description 03/08/2025 11:10 AM CDT - 03/08/2025 12:35 PM CDT Surgery [facility] Cardiac Dog Behaviorist [address] [place] [phone] Yeny Thomason MD CARDIAC CATH 03/08/2025 [facility] - [place] [address] [place] [phone] Ernesto Milton MD 03/07/2025 11:37 AM CDT - 03/08/2025 6:54 PM CDT Hospital Encounter [facility] Med Surg [address] [address] Jr Rees MD Patel, Satyen V, MD Unstable angina (HCC) Discharge Disposition: Discharged to home or Selfcare 03/07/2025 9:15 AM CDT - 03/07/2025 11:36 AM CDT Hospital Encounter [facility] Nuclear Medicine [address] [place] [address] Stuart Ruiz MD Discharge Disposition: Discharged to home or Selfcare 03/07/2025 9:00 AM CDT - 03/07/2025 9:14 AM CDT Hospital Encounter [facility] Nuclear Medicine [address] [place] [phone] Stuart Ruiz MD Discharge Disposition: Discharged to home or Selfcare 03/07/2025 8:51 AM CDT - 03/07/2025 8:59 AM CDT Hospital Encounter [facility] Cardiology Stress [address] [place] [address] Stuart Ruiz MD Discharge Disposition: Discharged to home or Selfcare 03/07/2025 Travel 02/20/2025 3:30 PM CDT Office Visit [facility] Medical [facility] - Cardiology [facility] [address] [place] [address] Stuart Ruiz MD Nonrheumatic aortic valve stenosis (Primary Dx); Bilateral carotid bruits; Other emphysema (HCC); SOB (shortness of breath); Primary hypertension; PAD (peripheral artery disease) (HCC); Dyslipidemia Discharge Disposition: Discharged to home or Selfcare 02/20/2025 2:00 PM CDT Office Visit [facility] - Pulmonology & Sleep Medicine [facility] [address] [place] [phone] Ernesto Milton MD Other emphysema (HCC) (Primary [...] drink = 0.6 oz pur e alcohol) [facility] Utilities Answer Date Recorded In the past 12 months has e electric, gas, oil, or water [employer] threatened to shut off services in your home? Patient declined 03/07/2025 Social Connection and Isolation Panel [NHANES] A nswer Date Recorded In a typical week, how many times do you talk on the phone with family, friends, or neighbors? Patient declined 03/07/2025 How often do you get togethe r with friends or relatives? Patient declined 03/07/2025 How often do you attend judaism or adventism serv ices? Patient declined 03/07/2025 Do you belong to any clubs o r organizations such as judaism groups, unions, fraternal or athletic groups, or school groups? Patient declined 03/07/2025 How often do you attend meet ings of the clubs or organizations you belong to? Patient declined 03/07/2025 Are you , , di vorced, , never , or living with a partner? Patient declined 03/07/2025 AUDIT-C Answer Date Recorded Q1: How often do you have a drink containing alc ohol? Patient declined 03/07/2025 Q2: How many drinks containi ng alcohol do you have on a typical day when you are drinking? Patient declined 03/07/2025 Q3: How often do you have si x or more drinks on one occasion? Patient declined 03/07/2025 Overall Financial Resource Strain (CARDIA) Answe r Date Recorded How hard is it for you to pa y for the very basics like food, housing, medical care, and heating? Patient declined 03/07/2025 [facility] Occupat ional Health - Occupational Stress Questionnaire Answer Date Recorded Do you feel stress - tense, restless, nervous, or anxious, or unable to sleep at night because your mind is troubled all the time - these days? Patient declined 03/07/2025 Exercise Vital Sign Answer Date Recorde d On average, how many days pe r week do you engage in moderate to strenuous exercise (like a brisk walk)? Patient declined On average, how many minutes do you engage in exercise at this level? Patient declined 03/07/2025 Hunger Vital Sign Answer Date Recorded Within the past 12 months, y ou worried that your food would run out before you got the money to buy more. Patient declined Within the past 12 months, t he food you bought just didn't last and you didn't have money to get more. Patient declined PRAPARE - Transportation Answer Date Re corded In the past 12 months, has l ack of transportation kept you from medical appointments or from getting medications? Patient declined 03/07/2025 In the past 12 months, has l ack of transportation kept you from meetings, work, or from getting things needed for daily living? Patient declined 03/07/2025 Housing Stability Vital Sign Answer Alcides e Recorded In the last 12 months, was t here a time when you were not able to pay the mortgage or rent on time? Patient declined 03/07/20 25 In the past 12 months, how m any times have you moved where you were living? 0 03/07/2025 At any time in the past 12 m [facility], were you homeless or living in a alf (including now)? Patient declined 03/07/2025 Comments No Sex and Gender Information Value Date Recorded Sex Assigned at Not on file Legal Sex Female 11:30 AM CDT Gender Identity Not on file Sexual Orientation Not on file Last Filed Vital Signs Vital Sign Reading Time Taken Comments Blood Pressure 168/80 03/08/2025 4:00 PM CDT Pulse 86 03/08/2025 12:30 PM CDT Temperature 36.4 C (97.5 F) 03/08/2025 4:00 PM CDT Respiratory Rate 18 03/08/2025 4:00 PM CDT Oxygen Saturation 95% 03/08/2025 4:00 PM CDT Inhaled Oxygen Concentration - - Weight 53.1 kg (117 lb) 03/07/2025 5:07 PM CDT Height 160 cm (5' 3) 03/07/2025 5:07 PM CDT Body Mass Index 20.73 03/07/2025 5:07 PM CDT Plan of Treatment Upcoming Encounters Date Type Department Care Team (Late st Contact Info) Description 03/21/2025 11:30 AM CDT Office Visit [facility] Medical Group - Cardiology - [place] [address] [place] [phone] Frances Berrios APRN, [employer] [address] [place] [phone] 05/22/2025 10:30 AM CDT Office Visit [facility] Medical [facility] - Pulmonology & Sleep Medicine - [place] [address] [place] [address] Ernesto Milton MD [address] [place] [address] Health Maintenance Due Date Last Done Comments [...] on patient's age to complete this topic Procedures Procedure Name Priority Date/Time Associated Diagnosis Comments ADULT TRANS THORACIC ECHO 2D COMPLETE Routine 03/08/2025 2:19 PM CDT CARDIAC CATH Routine 03/08/2025 12:25 PM CDT CBC WITH AUTO DIFFERENTIAL Routine 03/08/2025 5:05 AM CDT COMPLETE BLOOD COUNT (CBC) WITH DIFF Routine 03/08/2025 5:05 AM CDT BASIC METABOLIC PANEL W/ CALCIUM TOTAL Routine 03/08/2025 5:05 AM CDT MDI TREATMENT RT-INITIAL Routine 03/08/2025 1:03 AM CDT AEROSOL NEBULIZER-INITIAL Routine 03/08/2025 1:03 AM CDT RHYTHM STRIP 03/08/2025 12:00 AM CDT RHYTHM STRIP 03/08/2025 12:00 AM CDT LIPID PANEL Routine 03/07/2025 2:13 PM CDT TROPONIN I, HIGH SENSITIVITY (HSTRP) STAT 03/07/2025 2:13 PM CDT XR CHEST SINGLE VIEW PORTABLE STAT 03/07/2025 12:06 PM CDT CBC WITH AUTO DIFFERENTIAL STAT 03/07/2025 11:50 AM CDT APTT (PTT) STAT 03/07/2025 11:50 AM CDT PROTIME (PT) (PROTHROMBIN TIME) STAT 03/07/2025 11:50 AM CDT B-TYPE NATRIURETIC PEPTIDE (BNP) STAT 03/07/2025 11:50 AM CDT TROPONIN I, HIGH SENSITIVITY (HSTRP) STAT 03/07/2025 11:50 AM CDT CMP (COMPREHENSIVE METABOLIC PANEL) STAT 03/07/2025 11:50 AM CDT COMPLETE BLOOD COUNT (CBC) WITH DIFF STAT 03/07/2025 11:50 AM CDT EKG 12 LEAD STAT 03/07/2025 11:37 AM CDT ADULT CV STRESS PHARMACOLOGIC W NUC MED Routine 03/07/2025 11:31 AM CDT SOB (shortness of breath) NM CARD MULTI SPECT WITH WALL MOTION AND EJECTION FRACTION Routine 03/07/2025 9:30 AM CDT SOB (shortness of breath) RHYTHM STRIP 03/07/2025 12:00 AM CDT RHYTHM STRIP 03/07/2025 12:00 AM CDT EKG SCAN 03/07/2025 12:00 AM CDT from Last 3 Months Results * ADULT TRANS THORACIC ECHO 2D COMPLETE (03/08/2025 2:19 PM CDT) AV Peak Grad mmHg 15.84 mmHg RESULTING AGENCY Mean Aortic Valve Gradient (MAVG) 8 mmHg RESULTING AGENCY LV end octavio diam cm 4.8 cm RESULTING AGENCY LV end sys diam cm 3 cm RESULTING AGENCY Aortic Root Diam cm 3.1 cm RESULTING AGENCY LA vol index ml/m2 30 ml/m2 RESULTING AGENCY LVOT Peak Domingo m/sec 1.18 m/sec RESULTING AGENCY AV Peak Domingo m/sec 1.99 m/sec RESULTING AGENCY MV Mean Grad mmHg 3 mmHg RESULTING AGENCY E/A Ratio 0.95 RESULTING AGENCY E/E' 8 RESULTING AGENCY AV Area (VTI) cm2 1.59 cm2 RESULTING AGENCY SEPTUM DIASTOLIC CM 0.9 cm RESULTING AGENCY PW DIASTOLIC CM 0.8 cm RESU LTING AGENCY LA VOLUME 45.7 ml RESULTING AGENCY LV EF(estimated)% 53 RESULTING AGENCY Anatomical Region Laterality Modality CARDIO N/A Ultrasound Narrative 03/08/2025 7:01 PM CDT Transthoracic Echocardiography Report (TTE) Patient name JODI JACOBSEN Dorothy 1945 Patient ID (UPI) [id number] Indications: Abnormal Stress Test and Chest pain. Study Date03/08/2025 Technical quality: Adequate Limitation Reason: COPD/Emphysema Type of Study: TTE procedure: Adult Trans Thoracic Echo 2D Complete. Priority:RoutineHR: 85 bpmBP: 111/76 mmHg Conclusions Summary The left ventricle is normal in size. Wall thickness is normal. LV function is normal. There are no regional wall motion abnormalities. LV EF 50-55%. Grade I diastolic dysfunction. The aortic valve is trileaflet with normal leaflet excursion. Mild aortic stenosis. There is no significant aortic valve insufficiency. Findings Mitral Valve The mitral valve is normal. There is no evidence of mitral stenosis. Mild mitral regurgitation is present. Aortic Valve The aortic valve is trileaflet with normal leaflet excursion. Mild aortic stenosis. There is no significant aortic valve insufficiency. Tricuspid Valve The tricuspid valve is normal. There is no evidence of tricuspid stenosis. There is no significant tricuspid regurgitation. There is no evidence of pulmonary hypertension. Pulmonic Valve The pulmonic valve structure appears normal. There is no evidence of pulmonic stenosis. There is no significant pulmonic valve regurgitation. Left Atrium The left atrium size is normal. Left Ventricle The left ventricle is normal in size. Wall thickness is normal. LV function is normal. There are no regional wall motion abnormalities. LV EF 50-55%. Grade I diastolic dysfunction. Right Atrium The right atrium size is normal. Right Ventricle Normal right ventricular cavity size and normal systolic function. Pericardial Effusion The pericardium is normal. There is no pericardial effusion visualized. Miscellaneous Aortic root and proximal ascending aorta are normal in size. Atrial septum appears intact. IVC is normal in size and respiratory response. Aortic arch appears normal. Valves Mitral Valve Peak E-Wave: 1.18 m/s Area (continuity): 2.08 cm^2 Peak A-Wave: 1.24 m/s Mean Velocity: 0.83 m/s Peak Gradient: 5.57 mmHg Mean Gradient: 3 mmHg Deceleration Time: 165 msec Tissue Doppler E' Velocity: 0.08 m/s E/E':8 E/A Ratio: 0.95 E/Lat E': 8 E/Med E':14.3 Aortic Valve Area (continuity): 1.59 cm^2 Mean Velocity: 1.34 m/s Area (VTI):1.73 cm^2 Mean Gradient: 8 mmHg Peak Velocity: 1.99 m/s AV VTI: 43 cm Peak Gradient: 15.84 mmHg Tricuspid Valve Peak E-Wave: 0.59 m/s Peak Gradient: 1.42 mmHg Pulmonic Valve Peak Velocity: 1.21 m/s Mean Velocity: 0.84 m/s Peak Gradient: 5.86 mmHg Mean Gradient: 3 mmHg LVOT Peak Velocity: 1.18 m/s Mean Velocity: 0.81 m/s Peak Gradient: 6 mmHg Mean Gradient: 3 mmHg LVOT Diameter: 1.9 cm LVOT VTI: 26.3 cm Stroke Volume: 75 ml Stroke Volume Index: 48.7 ml/m^2 Structures Left Ventricle Diastolic Dimension: 4.8 cm Systolic Dimension: 3 cm Septum Diastolic: 0.9 cm Septum Systolic: 1.1 cm PW Diastolic: 0.8 cm PW Systolic: 1.2 cm Diastolic Length: 21.5 cm Systolic Length: 9.96 cm CO: 6.34 l/min CI: 4.12 l/min*m^2 RWT: 0.33 FS: 37.5 % LV EDV: 73.1 ml LV Length: 6.44 cm LV EDV Index: 47 m^2 LVOT Diameter: 1.9 cm Right Ventricle RVOT (PLAX) diameter:2.8 cm Tissue Doppler RV S': 15.3 TAPSE: 2.05 cm Left Atrium LA Systolic Pressure: 12.03 mmHg LA Area: 21 cm^2 LA Volume: 45.7 ml LA Index: 30ml/m^2 Right Atrium RA Area: 10.1 cm^2 Great Vessels Aorta Ascending Aorta: 2.7 cm Aorta Root:3.1 cm Ascending Aorta Index:1.75 cm/m^2 Demographics Age 79 Gender Female Race Height 62.99 in. Weight 117.07 lbs. BMI (BSA) 20.74 kg/m^2 (1.54 m^2) Manufacturing Maintenance Technician Eduardo Haylie R Room 240-01 Interpreting Paddy Referring Physician Yeny Physician Procedure Note Yeny Thomason MD - 03/08/2025 Transthoracic Echocardiography Report (TTE) Patient name JODI De La Cruz 1945 Patient ID (UP) [id number] Indications: Abnormal Stress Test and Chest pain. Study Date03/08/2025 Technical quality: Adequate Limitation Reason: COPD/Emphysema Type of Study: TTE procedure: Adult Trans Thoracic Echo 2D Complete. Priority:RoutineHR: 85 bpmBP: 111/76 mmHg Conclusions Summary The left ventricle is normal in size. Wall thickness is normal. LV function is normal. There are no regional wall motion abnormalities. LV EF 50-55%. Grade I diastolic dysfunction. The aortic valve is trileaflet with normal leaflet excursion. Mild aortic stenosis. There is no significant aortic valve insufficiency. Findings Mitral Valve The mitral valve is normal. There is no evidence of mitral stenosis. Mild mitral regurgitation is present. Aortic Valve The aortic valve is trileaflet with normal leaflet excursion. Mild aortic stenosis. There is no significant aortic valve insufficiency. Tricuspid Valve The tricuspid valve is normal. There is no evidence of tricuspid stenosis. There is no significant tricuspid regurgitation. There is no evidence of pulmonary hypertension. Pulmonic Valve The pulmonic valve structure appears normal. There is no evidence of pulmonic stenosis. There is no significant pulmonic valve regurgitation. Left Atrium The left atrium size is normal. Left Ventricle The left ventricle is normal in size. Wall thickness is normal. LV function is normal. There are no regional wall motion abnormalities. LV EF 50-55%. Grade I diastolic dysfunction. Right Atrium The right atrium size is normal. Right Ventricle Normal right ventricular cavity size and normal systolic function. Pericardial Effusion The pericardium is normal. There is no pericardial effusion visualized. Miscellaneous Aortic root and proximal ascending aorta are normal in size. Atrial septum appears intact. IVC is normal in size and respiratory response. Aortic arch appears normal. Valves Mitral Valve Peak E-Wave: 1.18 m/s Area (continuity): 2.08 cm^2 Peak A-Wave: 1.24 m/s Mean Velocity: 0.83 m/s Peak Gradient: 5.57 mmHg Mean Gradient: 3 mmHg Deceleration Time: 165 msec Tissue Doppler E' Velocity: 0.08 m/s E/E':8 E/A Ratio: 0.95 E/Lat E': 8 E/Med E':14.3 Aortic Valve Area (continuity): 1.59 cm^2 Mean Velocity: 1.34 m/s Area (VTI):1.73 cm^2 Mean Gradient: 8 mmHg Peak Velocity: 1.99 m/s AV VTI: 43 cm Peak Gradient: 15.84 mmHg Tricuspid Valve Peak E-Wave: 0.59 m/s Peak Gradient: 1.42 mmHg Pulmonic Valve Peak Velocity: 1.21 m/s Mean Velocity: 0.84 m/s Peak Gradient: 5.86 mmHg Mean Gradient: 3 mmHg LVOT Peak Velocity: 1.18 m/s Mean Velocity: 0.81 m/s Peak Gradient: 6 mmHg Mean Gradient: 3 mmHg LVOT Diameter: 1.9 cm LVOT VTI: 26.3 cm Stroke Volume: 75 ml Stroke Volume Index: 48.7 ml/m^2 Structures Left Ventricle Diastolic Dimension: 4.8 cm Systolic Dimension: 3 cm Septum Diastolic: 0.9 cm Septum Systolic: 1.1 cm PW Diastolic: 0.8 cm PW Systolic: 1.2 cm Diastolic Length: 21.5 cm Systolic Length: 9.96 cm CO: 6.34 l/min CI: 4.12 l/min*m^2 RWT: 0.33 FS: 37.5 % LV EDV: 73.1 ml LV Length: 6.44 cm LV EDV Index: 47 m^2 LVOT Diameter: 1.9 cm Right Ventricle RVOT (PLAX) diameter:2.8 cm Tissue Doppler RV S': 15.3 TAPSE: 2.05 cm Left Atrium LA Systolic Pressure: 12.03 mmHg LA Area: 21 cm^2 LA Volume: 45.7 ml LA Index: 30ml/m^2 Right Atrium RA Area: 10.1 cm^2 Great Vessels Aorta Ascending Aorta: 2.7 cm Aorta Root:3.1 cm Ascending Aorta Index:1.75 cm/m^2 Demographics Age 79 Gender Female Race Height 62.99 in. Weight 117.07 lbs. BMI (BSA) 20.74 kg/m^2 (1.54 m^2) Manufacturing Maintenance Technician Eduardo Stallings Room 240-01 Interpreting Paddy Referring Physician Yeny Physician Frances Berrios APRN, CNP IMG ECHO ORDER LIZZ Edited Result - Final * CARDIAC CATH (03/08/2025 12:25 PM CDT) Anatomical Region Laterality Modality CARDIO N/A X-Ray Angiograph y Addenda Addendum by Yeny Thomason MD on 03/09/2025 10:50 PM CDT Date of procedure was 03/08/2025 Narrative 03/09/2025 10:48 PM CDT Cardiac Catheterization intervention Post-procedure note Date of Procedure: 03/07/25 Surgeon(s): Yeny Thomason MD Procedure(s): Cardiac Cath Pre-operative Diagnosis: Progressive angina Post-operative Diagnosis: Severe 2 vessel disease Access: radial Estimated Blood Loss: Minimal Procedure details: Access obtained from the right radial artery with a 6 Montenegrin sheath. Heparin and Nitroglycerine was used for anticoagulation and as an antispasmodic. A JR4 catheter was passed into the left ventricle across aortic valve. LVEDP was documented. The catheter was then pulled back and placed in the right coronary artery. Angiographic report contrast injection in multiple planes. The catheter was then removed and a JL 3.5 catheter was placed at the left coronary ostium. Angiography performed in multiple planes. The catheter was then removed. Sedation: 18 minutes(1153 to 1211) of moderate sedation was provided under my direct supervision by a trained observer in the manager cardiac cath. Findings: Hemodynamics: Heart rate: 97 , BPM Blood pressure:146/77 mmHg, LVEDP: 12 mmHg Coronary anatomy: Left main: Ostial LM has 40-50% stenosis and distal LM has 60% stenosis with aneurysmal dilation at the bifurcation. Leison is Minor (1,1,0-LM, LAD, Lcx) LAD: ostial to proximal LAD has eccentric 90% calcified stenosis. Otherwise tortuous and mild diffuse disease was noted. Left circumflex: Large caliber artery. Proximal Lcx-OM bifurcation has 90% calcified stenosis (Minor 1,1,1) RCA: Relatively medium caliber but dominant without any significant stenosis. Dominance: Right Sedation: 1 mg Versed, 50 Mcg Fentanyl. Fluroscopy: Air Kerma: 83 mgy. Fluoro time: 3 Min Contrast Use: 45 Ml Complications: None Impression/assessment /plan Severe 2 vessel coronary artery disease with Syntax score of 25 (LM-LAD and Lcx as mentioned above) CABG vs high risk PCI discussion with patient and family. Outpatient discussion and intervention. Continue with aspirin 81 mg daily Continue with high intensity statin Plan was discussed with Dr. Ruiz(primary senior clinical data manager) Signed: Yeny Thomason MD, 03/09/2025, 10:38 PM CDT us Yeny Thomason MD IMG CARDIAC CATH Edited Resu lt - Final * (ABNORMAL) CBC with Auto Differential (03/08/2025 5:05 AM CDT) Only the most recent of2 resultswithin the time period is included. WBC 6.08 4.00 - 12.00 10(3)/mcL 03/08/2025 5:14 AM CDT [facility] RBC 4.25 3.80 - 5.30 10(6)/mcL 03/08/2025 5:14 AM CDT [facility] HEMOGLOBIN (HGB) 10.9(L) 12.0 - 15.8 g/dL 03/08/2025 5:14 AM CDT [facility] HEMATOCRIT (HCT) 34.5(L) 36.0 - 47.0 % 03/08/2025 5:14 AM CDT [facility] MCV 81.2(L) 82.0 - 96.0 fL 03/08/2025 5:14 AM CDT [facility] MCH 25.6(L) 26.0 - 34.0 pg 03/08/2025 5:14 AM CDT [facility] MCHC 31.6 31.0 - 36.0 g/dL 03/08/2025 5:14 AM CDT [facility] PLATELET COUNT 264 140 - 440 10(3)/mcL 03/08/2025 5:14 AM CDT [facility] RDW 15.6(H) 11.8 - 15.5 % 03/08/2025 5:14 AM CDT [facility] MPV 8.7(L) 9.7 - 12.4 fL 03/08/2025 5:14 AM CDT [facility] NEUTROPHILS 66.6 47.0 - 73.0 % 03/08/2025 5:14 AM CDT [facility] LYMPHOCYTES 14.8(L) 18.0 - 42.0 % 03/08/2025 5:14 AM CDT [facility] MONOCYTES 10.7 4.0 - 12.0 % 03/08/2025 5:14 AM CDT [facility] EOSINOPHILS 6.7(H) 0.0 - 5.0 % 03/08/2025 5:14 AM CDT [facility] BASOPHIL[facility] 1.2(H) 0.0 - 1.0 % 03/08/2025 5:14 AM CDT [facility] ABSOLUTE NEUTROPHILS 4.05 1.60 - 7.70 10(3)/mcL 03/08/2025 5:14 AM CDT [facility] ABSOLUTE LYMPHOCYTES 0.90(L) 1.30 - 3.20 10(3)/mcL 03/08/2025 5:14 AM CDT [facility] ABSOLUTE MONOCYTES 0.65 0.20 - 1.00 10(3)/mcL 03/08/2025 5:14 AM CDT [facility] ABSOLUTE EOSINOPHIL 0.41(H) 0.00 - 0.40 10(3)/[facility] 03/08/2025 5:14 AM CDT [facility] ABSOLUTE BASOPHILS 0.07 0.00 - 0.10 10(3)/[facility] 03/08/2025 5:14 AM CDT [facility] NRBC PER 100 WBC 0 03/08/20 5:14 AM CDT [facility] Blood Venipuncture / Unknown 03/08/2025 5:05 AM CDT 03/08/2025 5:11 AM CDT us Payal Stone MD HEMATOLOGY ORDERABLES Final R esult [facility] [address] [place] [address] * (ABNORMAL) BMP with Ca, Total (03/08/2025 5:05 AM CDT) SODIUM 138 136 - 145 mmol/L 03/08/2025 5:41 AM CDT [facility] POTASSIUM 3.6 3.5 - 5.1 mmol/L 03/08/2025 5:41 AM CDT [facility] CHLORIDE 109(H) 98 - 107 mmol/L 03/08/2025 5:41 AM CDT [facility] CO2, VENOUS 20(L) 22 - 30 mmol/L 03/08/2025 5:41 AM CDT [facility] ANION GAP 12.6 <18.0 mmol/L 03/08/2025 5:41 AM CDT [facility] GLUCOSE 85 70 - 99 mg/dL 03/08/2025 5:41 AM CDT [facility] BUN 12 10 - 20 mg/dL 03/08/2025 5:41 AM CDT [facility] CREATININE, BLOOD 0.58(L) 0.60 - 1.00 mg/dL 03/08/2025 5:41 AM CDT [facility] BUN/CREATININE RATIO 21(H) 12 - 20 ratio 03/08/2025 5:41 AM CDT [facility] CALCIUM 8.8 8.7 - 10.5 mg/dL 03/08/2025 5:41 AM CDT [facility] GFR, ESTIMATED >60 >=60 03/08/2025 5:41 AM CDT [facility] Comment: Creatinine Clearance is the preferred criteria for selecting drug dose adjustments in renally impaired patients. The GFR is provided as additional pertinent clinical information. GFR is reported in mL/min/1.73 sq m. Calculation based on the Chronic Kidney Disease Epidemiology Collaboration (CKD- EPI) equation refit without adjustment for race. GFR, EST. >60 >=60 025 5:41 AM CDT [facility] GFR, EST. NONAFRICAN >60 >=60 03/08/2025 5:41 AM CDT [facility] Blood Venipuncture / Unknown 03/08/2025 5:05 AM CDT 03/08/2025 5:11 AM CDT us Payal Stone MD CHEMISTRY ORDERABLES Final Re sult Performing Organization Address City/[facility]/ZIP Co de Phone Number [facility] [address] [place] [address] * RHYTHM STRIP (03/08/2025 12:00 AM CDT) Only the most recent of4 resultswithin the time period is included. 03/08/2025 us Provider Scan IMG ECG ORDERABLES Final Result RESULTING AGENCY * TROPONIN I, HIGH SENSITIVITY (HSTRP) (03/07/2025 2:13 PM CDT) Only the most recent of2 resultswithin the time period is included. TROPONIN I, HIGH SENSITIVITY- [place] 3 <=14 ng/L 03/07/2025 2:55 PM CDT [facility] Comment: High-sensitivity troponin I results are reported in ng/L making the result appear to be 1,000 times higher than the contemporary troponin I value which is reported in ng/ml. Results from [place]. Blood Venipuncture / Unknown 03/07/2025 2:13 PM CDT 03/07/2025 2:19 PM CDT us Jr Rees MD CHEMISTRY ORDERABLES Veronica l Result Performing Organization Address City/State/[facility] Co de Phone Number [facility] [address] [place] [address] * Lipid Panel (03/07/2025 2:13 PM CDT) Pathologist [facility] CHOLESTEROL 157 <200 mg/dL 03/07/2025 9:05 PM CDT [facility] TRIGLYCERIDES 94 <150 mg/dL 03/07/2025 9:05 PM CDT [facility] HDL CHOLESTEROL 52 >40 mg/dL 9:05 PM CDT [facility] LDL 86 <130 mg/dL 03/07/2025 9:05 PM CDT [facility] VLDL 19 10 - 50 mg/dL 03/07/2025 9:05 PM CDT [facility] CHOL/HDL RATIO 3.0 0.0 - 4.4 03/07/2025 9:05 PM CDT [facility] NON-HDL CHOLESTEROL 105 <130 mg/dL 03/07/2025 9:05 PM CDT [facility] Blood Venipuncture / Unknown 03/07/2025 2:13 PM CDT 03/07/2025 2:19 PM CDT us Frances Berrios APRN, CARLOS CHEMISTRY ORDE RABLES Final Result [facility] [address] [place] [address] * XR CHEST SINGLE VIEW PORTABLE (03/07/2025 12:06 PM CDT) Anatomical Region Laterality Modality Chest N/A Digital Radiogra phy 03/07/2025 1:30 PM CDT Impressions 03/07/2025 1:33 PM CDT IMPRESSION: No acute cardiopulmonary abnormality. Narrative 03/07/2025 1:33 PM CDT EXAM DESCRIPTION: XR CHEST SINGLE VIEW PORTABLE REASON FOR STUDY: sob and copd. TECHNIQUE: 1 radiographic view(s) of the chest. COMPARISON: None FINDINGS: LUNGS: No focal opacity, pleural effusion, or pneumothorax. HEART/MEDIASTINUM: Cardiac silhouette normal in size. Mediastinal and hilar contours appear normal. LINES/TUBES: None. BONES: No acute osseous abnormality. THIS IS AN ELECTRONICALLY VERIFIED FINAL REPORT 03/07/2025 1:30 PM - Electronically signed by Filiberto Schafer M.D. MM: MM Report ID: [id number] Reading Location: [id number] Procedure Note Filiberto Schafer MD - 03/07/2025 EXAM DESCRIPTION: XR CHEST SINGLE VIEW PORTABLE REASON FOR STUDY: sob and copd. TECHNIQUE: 1 radiographic view(s) of the chest. COMPARISON: None FINDINGS: LUNGS: No focal opacity, pleural effusion, or pneumothorax. HEART/MEDIASTINUM: Cardiac silhouette normal in size. Mediastinal and hilar contours appear normal. LINES/TUBES: None. BONES: No acute osseous abnormality. THIS IS AN ELECTRONICALLY VERIFIED FINAL REPORT 03/07/2025 1:30 PM - Electronically signed by Filiberto Schafer M.D. MM: MM Report ID: [id number] Reading Location: [id number] IMPRESSION: No acute cardiopulmonary abnormality. us Jr Rees MD IMG DIAGNOSTIC ORDERABLES Final Result * APTT (PTT) (03/07/2025 11:50 AM CDT) PTT 31 24 - 36 sec 03/07/2025 12:38 PM CDT [facility] Blood Venipuncture / Unknown 03/07/2025 11:50 AM CDT 03/07/2025 12:14 PM CDT Narrative [facility] - 03/07/2025 12:38 PM CDT Therapeutic range for unfractionated heparin at 0.3-0.7 U/mL is an aPTT value in the range of 71-100 seconds. Critical value for the PTT test is >= 122 seconds. Jr Rees MD HEMATOLOGY ORDERABLES Fin al Result Performing Organization Address [facility] Co de Phone Number [facility] [address] [place] [address] * PT / INR (03/07/2025 11:50 AM CDT) PROTIME-PATIENT 12.4 11.6 - 14.8 sec 03/07/2025 12:38 PM CDT [facility] INR 0.9 0.9 - 1.2 03/07/2025 12:38 PM CDT [facility] Comment: Therapeutic Ranges INR = 2.0-3.0: Venous thromb, atrial fib, pul embolism, tissue heart valve, ami. INR = 2.5-3.5: Mechanical heart valve Critical value for INR is >/= 4.5 Blood Venipuncture / Unknown 03/07/2025 11:50 AM CDT 03/07/2025 12:14 PM CDT Jr Rees MD HEMATOLOGY ORDERABLES Fin al Result Performing Organization Address City/[facility]/ZIP Co de Phone Number [facility] [address] [place] [address] * CMP (Comprehensive Metabolic Panel) (03/07/2025 11:50 AM CDT) SODIUM 138 136 - 145 mmol/L 03/07/2025 12:37 PM CDT [facility] POTASSIUM 4.6 3.5 - 5.1 mmol/L 03/07/2025 12:37 PM CDT [facility] CHLORIDE 106 98 - 107 mmol/L 03/07/2025 12:37 PM CDT [facility] CO2, VENOUS 22 22 - 30 mmol/L 03/07/2025 12:37 PM CDT [facility] ANION GAP 14.6 <18.0 mmol/L 03/07/2025 12:37 PM CDT [facility] GLUCOSE 96 70 - 99 mg/dL 03/07/2025 12:37 PM CDT [facility] BUN 10 10 - 20 mg/dL 03/07/2025 12:37 PM CDT [facility] CREATININE, BLOOD 0.62 0.60 - 1.00 mg/dL 03/07/2025 12:37 PM CDT [facility] BUN/CREATININE RATIO 16 12 - 20 ratio 03/07/2025 12:37 PM CDT [facility] TOTAL PROTEIN 7.7 6.0 - 8.0 g/dL 03/07/2025 12:37 PM CDT [facility] ALBUMIN 4.5 3.5 - 5.0 g/dL 03/07/2025 12:37 PM CDT [facility] A/G RATIO 1.4 1.0 - 2.2 03/07/2025 12:37 PM CDT [facility] CALCIUM 9.5 8.7 - 10.5 mg/dL 03/07/2025 12:37 PM CDT [facility] T BILI 0.6 0.2 - 1.2 mg/dL 03/07/2025 12:37 PM CDT [facility] SGOT (AST) 38 <43 U/L 03/07/2025 12:37 PM CDT [facility] Comment: Specimen is hemolyzed. In vitro hemolysis could affect results. Clinical correlation advised. SGPT (ALT) 13 <56 U/L 03/07/2025 12:37 PM CDT [facility] ALKALINE PHOSPHATASE 50 40 - 150 U/L 03/07/2025 12:37 PM CDT [facility] GFR, ESTIMATED >60 >=60 03/07/2025 12:37 PM CDT [facility] Comment: Creatinine Clearance is the preferred criteria for selecting drug dose adjustments in renally impaired patients. The GFR is provided as additional pertinent clinical information. GFR is reported in mL/min/1.73 sq m. Calculation based on the Chronic Kidney Disease Epidemiology Collaboration (CKD- EPI) equation refit without adjustment for race. GFR, EST. >60 >=60 025 12:37 PM CDT [facility] GFR, EST. NONAFRICAN >60 >=60 03/07/2025 12:37 PM CDT [facility] Blood Venipuncture / Unknown 03/07/2025 11:50 AM CDT 03/07/2025 12:14 PM CDT Jr Rees MD CHEMISTRY ORDERABLES Veronica l Result Performing Organization Address City/[facility] Co de Phone Number [facility] [address] [place] [address] * (ABNORMAL) B-Type Natriuretic Peptide (BNP) (03/07/2025 11:50 AM CDT) B TYPE NATRIURETIC PEPTIDE 325(H) <100 pg/mL 03/07/2025 12:56 PM CDT [facility] Blood Venipuncture / Unknown 03/07/2025 11:50 AM CDT 03/07/2025 12:14 PM CDT Jr Rees MD CHEMISTRY ORDERABLES Veronica l Result Performing Organization Address City/State/[facility] Co de Phone Number [facility] [place] [address] * EKG 12 LEAD (03/07/2025 11:37 AM CDT) Ventricular Rate 87 BPM EXTERNAL EKG Atrial Rate 87 BPM EXTERNAL EKG P-R Interval 142 ms EXTERNAL EKG QRS Duration 94 ms EXTERNAL EKG Q-T Duration 366 ms EXTERNAL EKG QTC CALCULATION 440 ms EXTERNAL EKG P [place] -18 degrees EXTERNAL EKG R [place] 3 degrees EXTERNAL EKG T [place] -6 degrees EXTERNAL EKG 03/07/2025 11:3 7 AM CDT Impressions EXTERNAL EKG - 03/07/2025 10:27 PM CDT Normal sinus rhythm Inferior infarct , age undetermined Abnormal ECG No previous ECGs available Confirmed by YENY THOMASON ([id number]) on 03/07/2025 10:27:37 PM Narrative Procedure Note Yeny Thomason MD - 03/07/2025 IMPRESSION: Normal sinus rhythm Inferior infarct , age undetermined Abnormal ECG No previous ECGs available Confirmed by YENY THOMASON ([id number]) on 03/07/2025 10:27:37 PM us Jr Rees MD IMG ECG ORDERABLES Final Result Performing Organization Address [facility] Co de Phone Number EXTERNAL EKG * ADULT CV STRESS PHARMACOLOGIC W NUC MED (03/07/2025 11:31 AM CDT) Anatomical Region Laterality Modality CARDIO N/A Electrocardiogra phy Narrative 03/08/2025 11:11 AM CDT Non-Imaging Stress Test Patient Name JODI JACOBSEN Dorothy 1945 Patient ID (I) [id number] Indications: Chest pain. Study Date03/07/2025 Type of Study: Non-Imaging Stress Test: Pharmacological. Conclusions Summary - Positive for stress induced ischemia as per EKG criteria. - Nuclear images are reported separately. Rest ECG Normal sinus rhythm. Normal ST segment response without evidence of ischemia. No ectopy or arrhythmia. Standing HR:74 bpmStanding BP:155/76 mmHg Results ECG Normal sinus rhythm. ST depression of lead II, III, aVF, V3-V6 with aVR ST elevation Symptoms Shortness of breath. chest pain Stress Stress Type - Protocol:Pharmacologic - Lexiscan Protocol Peak HR: 103 bpm [id number] Peak BP: 169/82 mmHg Predicted HR: 142 bpm % of predicted HR: 73 Test Duration: 23:25 min Reason for Termination: Chest pain Stress Protocol:Pharmacologic - Lexiscan Protocol +-----+--------+-----+------+-----+ +------+--------+--+--------+----+- ----- + !Stage!Stage !Time !Dosage!Heart!Other !Dosage!Blood !CP!Pain !Pain!Pain ! !# !Name ! ! !Rate !Medication! !Pressure! !Location!Type!Action! +-----+--------+-----+------+-----+ +------+--------+--+--------+----+- ----- + !0.0 !PREINFSN!23:25! !78 ! ! !155/76 ! ! ! ! ! ! !SUPINE ! ! ! ! ! ! ! ! ! ! ! +-----+--------+-----+------+-----+ +------+--------+--+--------+----+- ----- + !1.0 !INFUSION!03:00! !101 ! ! !168/86 ! ! ! ! ! ! !DOSE 1 ! ! ! ! ! ! ! ! ! ! ! +-----+--------+-----+------+-----+ +------+--------+--+--------+----+- ----- + !2.0 !INFUSION!06:00! !94 ! ! !161/81 ! ! ! ! ! ! !DOSE 2 ! ! ! ! ! ! ! ! ! ! ! +-----+--------+-----+------+-----+ +------+--------+--+--------+----+- ----- + !3.0 !INFUSION!09:00! !93 ! ! !161/81 ! ! ! ! ! ! !DOSE 3 ! ! ! ! ! ! ! ! ! ! ! +-----+--------+-----+------+-----+ +------+--------+--+--------+----+- ----- + !4.0 !INFUSION!12:00! !98 ! ! ! ! ! ! ! ! ! !DOSE 4 ! ! ! ! ! ! ! ! ! ! ! +-----+--------+-----+------+-----+ +------+--------+--+--------+----+- ----- + !5.0 !INFUSION!15:00! !90 ! ! !166/86 ! ! ! ! ! ! !DOSE 5 ! ! ! ! ! ! ! ! ! ! ! +-----+--------+-----+------+-----+ +------+--------+--+--------+----+- ----- + !6.0 !INFUSION!18:00! !86 ! ! !166/86 ! ! ! ! ! ! !DOSE 6 ! ! ! ! ! ! ! ! ! ! ! +-----+--------+-----+------+-----+ +------+--------+--+--------+----+- ----- + !7.0 !INFUSION!21:00! !88 ! ! !169/82 ! ! ! ! ! ! !DOSE 7 ! ! ! ! ! ! ! ! ! ! ! +-----+--------+-----+------+-----+ +------+--------+--+--------+----+- ----- + !8.0 !INFUSION!22:16! !87 ! ! ! ! ! ! ! ! ! !DOSE 8 ! ! ! ! ! ! ! ! ! ! ! +-----+--------+-----+------+-----+ +------+--------+--+--------+----+- ----- + Demographics Age 79 Gender Female Race Height 63 in. Weight 121 lbs. BMI 21.43 kg/m^2 Stress Hired Hand Nurse Chris Norris Physician Yeny Physician Procedure Note Yeny Thomason MD - 03/08/2025 Non-Imaging Stress Test Patient Name JODI Rivas.O.B. 1945 Patient ID ([facility]) [id number] Indications: Chest pain. Study Date03/07/2025 Type of Study: Non-Imaging Stress Test: Pharmacological. Conclusions Summary - Positive for stress induced ischemia as per EKG criteria. - Nuclear images are reported separately. Rest ECG Normal sinus rhythm. Normal ST segment response without evidence of ischemia. No ectopy or arrhythmia. Standing HR:74 bpmStanding BP:155/76 mmHg Results ECG Normal sinus rhythm. ST depression of lead II, III, aVF, V3-V[address] elevation Symptoms Shortness of breath. chest pain Stress Stress Type - Protocol:Pharmacologic - Lexiscan Protocol Peak HR: 103 bpm [id number] Peak BP: 169/82 mmHg Predicted HR: 142 bpm % of predicted HR: 73 Test Duration: 23:25 min Reason for Termination: Chest pain Stress Protocol:Pharmacologic - Lexiscan Protocol +-----+--------+-----+------+-----+ +------+--------+--+--------+----+- ----- + !Stage!Stage !Time !Dosage!Heart!Other !Dosage!Blood !CP!Pain!Pain!Pain ! !# !Name ! ! !Rate !Medication! !Pressure!!Location!Type!Action! +-----+--------+-----+------+-----+ +------+--------+--+--------+----+- ----- + !0.0 !PREINFSN!23:25! !78 ! ! !155/76 ! ! !! ! ! !SUPINE ! ! ! ! ! ! ! ! !! ! +-----+--------+-----+------+-----+ +------+--------+--+--------+----+- ----- + !1.0 !INFUSION!03:00! !101 ! ! !168/86 ! ! !! ! ! !DOSE 1 ! ! ! ! ! ! ! ! !! ! +-----+--------+-----+------+-----+ +------+--------+--+--------+----+- ----- + !2.0 !INFUSION!06:00! !94 ! ! !161/81 ! ! !! ! ! !DOSE 2 ! ! ! ! ! ! ! ! !! ! +-----+--------+-----+------+-----+ +------+--------+--+--------+----+- ----- + !3.0 !INFUSION!09:00! !93 ! ! !161/81 ! ! !! ! ! !DOSE 3 ! ! ! ! ! ! ! ! !! ! +-----+--------+-----+------+-----+ +------+--------+--+--------+----+- ----- + !4.0 !INFUSION!12:00! !98 ! ! ! ! ! !! ! ! !DOSE 4 ! ! ! ! ! ! ! ! !! ! +-----+--------+-----+------+-----+ +------+--------+--+--------+----+- ----- + !5.0 !INFUSION!15:00! !90 ! ! !166/86 ! ! !! ! ! !DOSE 5 ! ! ! ! ! ! ! ! !! ! +-----+--------+-----+------+-----+ +------+--------+--+--------+----+- ----- + !6.0 !INFUSION!18:00! !86 ! ! !166/86 ! ! !! ! ! !DOSE 6 ! ! ! ! ! ! ! ! !! ! +-----+--------+-----+------+-----+ +------+--------+--+--------+----+- ----- + !7.0 !INFUSION!21:00! !88 ! ! !169/82 ! ! !! ! ! !DOSE 7 ! ! ! ! ! ! ! ! !! ! +-----+--------+-----+------+-----+ +------+--------+--+--------+----+- ----- + !8.0 !INFUSION!22:16! !87 ! ! ! ! ! !! ! ! !DOSE 8 ! ! ! ! ! ! ! ! !! ! +-----+--------+-----+------+-----+ +------+--------+--+--------+----+- ----- + Demographics Age 79 Gender Female Race Height 63 in. Weight 121 lbs. BMI 21.43 kg/m^2 Stress Hired Hand Nurse Chris Hensley Interpreting Thomason Referring Sara Norris Physician Yeny Physician Stuart Ruiz MD IMG STRESS Final Result * NM CARD MULTI SPECT WITH WALL MOTION AND EJECTION FRACTION (03/07/2025 9:30 AM CDT) Anatomical Region Laterality Modality CARDIO N/A Nuclear Medicine 03/07/2025 12:1 4 PM CDT Impressions 03/07/2025 12:17 PM CDT IMPRESSION: 1. Rest only imaging demonstrating a 20% mild severity septal defect. 2. Post-stress imaging not performed. Narrative 03/07/2025 12:17 PM CDT EXAM DESCRIPTION: NM CARD MULTI SPECT WITH WALL MOTION AND EJECTION FRACTION REASON FOR STUDY: Chest pain and shortness of breath and high heart rate for few months. RADIOPHARMACEUTICAL: Rest: 11.2 mCi Tc-99m tetrofosmin via a left antecubital IV site. Stress: 33.4 mCi Tc-99m tetrofosmin via a left antecubital IV site. COMPARISON: None. TECHNIQUE: Standard myocardial perfusion SPECT images were obtained after resting tracer injection. Cardiac stress was performed with the dose of 0.4 mg Lexiscan and a post stress radiotracer dose was injected, however post-stress imaging was not performed as by report the patient had EKG changes and was sent to the ER. FINDINGS: Image quality is adequate at rest. On the rest images there is a 20% mild severity septal defect of uncertain significance. Cardiac post-stress imaging not performed. Gated imaging not performed. THIS IS AN ELECTRONICALLY VERIFIED FINAL REPORT 03/07/2025 12:14 PM - Electronically signed by Jorge Blevins M.D. CH: DIONNE Report ID: [id number] Reading Location: [id number] Procedure Note Jorge Blevins Jr., MD - 03/07/2025 EXAM DESCRIPTION: NM CARD MULTI SPECT WITH WALL MOTION AND EJECTION FRACTION REASON FOR STUDY: Chest pain and shortness of breath and high heart rate for few months. RADIOPHARMACEUTICAL: Rest: 11.2 mCi Tc-99m tetrofosmin via a left antecubital IV site. Stress: 33.4 mCi Tc-99m tetrofosmin via a left antecubital IV site. COMPARISON: None. TECHNIQUE: Standard myocardial perfusion SPECT images were obtained after resting tracer injection. Cardiac stress was performed with the dose of 0.4 mg Lexiscan and a post stress radiotracer dose was injected, however post-stress imaging was not performed as by report the patient had EKG changes and was sent to the ER. FINDINGS: Image quality is adequate at rest. On the rest images there is a 20% mild severity septal defect of uncertain significance. Cardiac post-stress imaging not performed. Gated imaging not performed. THIS IS AN ELECTRONICALLY VERIFIED FINAL REPORT 03/07/2025 12:14 PM - Electronically signed by Jorge Blevins M.D. CH: DIONNE Report ID: [id number] Reading Location: [id number] IMPRESSION: 1. Rest only imaging demonstrating a 20% mild severity septal defect. 2. Post-stress imaging not performed. Stuart Ruiz MD IMG NM CARDIAC NI ORDERABLES Final Result * EKG SCAN (03/07/2025 12:00 AM CDT) 03/07/2025 us Provider Scan IMG ECG ORDERABLES Final Result RESULTING AGENCY from Last 3 Months Insurance MEDICARE C [place] Advance Directives * Full Code (Latest Code Status on File) Date Activated Date Inactivated Comments 03/07/2025 4:26 PM CPR-Full Treat ment: FULL ARREST: Attempt Resuscitation/CPR wit intubation and mechanical ventilation. PRE-ARREST: Use entire range of life support measures to stabilize the patient. Care Teams Amusement Park Entertainer Relationship Specialty Start Date End Date Orly Coronado MD [address] [place] [address] PCP - General Internal Medicine 01/19/25 Ernesto Milton MD [address] [place] [address] Consulting Physician Pulmonary Disease 02/20/25 Stuart Ruiz MD [address] [address] Consulting Physician Interventional Cardiology 02/21/25
--- OUTSIDE RECORDS SUMMARY | 2025-03-16 10:16 | XMS_ITS | Clinical Summary ---
Author Organization [facility] Address [address] [place] [address] Care Team Providers Care Mental Health Program Director Name Role Phone Unavailable Primary Care Provider Unavailabl e Source Comments [facility],non-owned Affiliates and Associated Physician Practices is amultiple site organization consisting of ambulatory clinics and hospital sitesin [place], [place], [place] and [place]. This disclosure is being madepursuant to the Care Everywhere program and may not contain all information available regarding this patient. 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 03/14/2025 Encounters Date Type Department Care Team Description 03/14/2025 Orders Only [facility] - Cardiac [employer] [address] [place] [phone] Yeny Thomason MD Coronary artery disease involving [place] tribe coronary artery of chickahominy indian tribe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 (HCC) from Last 3 Months Social History Tobacco Use Types Packs/Day Years Used Date Smoking Tobacco: Never Assessed Comments Unknown Sex and Gender Information Value Date Recorded Sex Assigned at Not on file Legal Sex Female 1:34 PM CDT Gender Identity Not on file Sexual Orientation Not on file Plan of Treatment Upcoming Encounters Date Type Department Care Team (Late st Contact Info) Description 03/30/2025 7:15 AM CDT Hospital Encounter [facility] [address] [place] [phone] Yeny Thomason MD [address] [place] [address] OF [address]ARDIOLOGY [address] [place] [id number] Cardiac Catheterization 03/30/2025 7:15 AM CDT - 03/30/2025 9:33 AM CDT Surgery [facility] - Cardiac [employer] [address] [place] [phone] Yeny Thomason MD [address] [facility] OF CARDIOLOGY [address] [place] [address] Percutaneous Coronary Intervention Health Maintenance Due Date Last Done Comments BONE DENSITY TESTING 1945 HEPATITIS C SCREENING 08/16/1964 DTAP/TDAP/TD VACCINES (1 - Tdap) 1965 PNEUMOCOCCAL VACCINE 50+ (1 of 1 - PCV) 1996 ZOSTER VACCINE (1 of 2) 1996 Respiratory Syncytial Virus (RSV) Vaccine Pt: or over 60 yrs (1 - 1-dose 75+ series) 2021 COVID-19 VACCINE ( - 2023-2 5 season) 2024 DEPRESSION SCREENING 10/18/2024 INFLUENZA VACCINE (Season Ended) 2025 HEPATITIS B VACCINE Aged Out No longe r eligible based on patient's age to complete this topic HIB VACCINE Aged Out No longer eligi ble based on patient's age to complete this topic HPV VACCINE Aged Out No longer eligi ble based on patient's age to complete this topic MENINGOCOCCAL (Group B) VACC INE SHARED DECISION-MAKING Aged Out No longer eligibl e based on patient's age to complete this topic MENINGOCOCCAL GROUPS A/C/Y/W VACCINE Aged Out No longer eligible b ased on patient's age to complete this topic Insurance MEDICARE MANAGED CARE PLAN GENERIC MEDICARE ADV
--- OUTSIDE RECORDS SUMMARY | 2025-03-16 10:16 | XMS_ITS | Data Portability ---
Author Organization [facility], Main Office Address [address] [place] [address] Care Team Providers Care Rib Builder Name Role Phone LUCINA RYAN Primary Care [...] By Organization Details Last Modified Time 11/02/2024 [id number] she has improved and will return as needed [email or web address] Not available 11/02/2024 14:50:07 Reason for Referral None Reported. Problems Name Problem SNOMED Code Status Onset Date Resolution Date Notes Provider Name and Address Organization Details Recorded Time Dysphonia 60091109 Active 025 Ras Roa MD [address] [place] [address], [id number] , [facility] 14:50:00 Problem Notes None recorded. Procedures Surgical History Date Name Laterality Status Provider Name and Address Organization Details Recorded Time Appendectomy completed Sobeida mack RN [facility] 11/02/2024 08:59:48 Hysterectomy completed Sobeida mack RN [place] [facility] 11/02/2024 08:59:55 Imaging Results None recorded. Procedure [...] propionate 50 mcg/actuati on nasal spray,suspe nsion [place] 1 spray every day by intranasa l [...] Updated DateTime 11/02/2024 162.56 cm 21.3 kg/m2 53220.17 g 97.9 [degF] Sobeida Dexter RN [place] [facility] 11/02/2024 14:46:11 Social History [...] SNOMED-CT Code Diagnosis ICD10 Code Diagnosis Note [id number] Ras Roa MD [facility] [place] [address] [place] [address] 11/02/2024 14:33:38 11/03/2024 09:51:16 Dysphonia 24002139 R49.9 Health Concerns Section Related Observation LastModified by Organization Detai ls LastModified Time None Recorded Concern Status LastModified by Organization Details LastModified Time None Recorded Advance Directives Directive None Recorded Payers Encounter Date Sequence Insurance Name Policy Number Policy Meza Covered Member ID Meza Member ID Guarantor Name 11/02/2024 1 [facility] ON OR AFTER 04/17/21 (MEDICAID REPLACEMENT - HMO) [id number] Rhiannon Hurst [id number] Rhiannon Hurst Notes Date Note Type Note Provider Name and Address Organization Details Recorded Time 11/02/2024 text/html patient had some rhinitis and dysphonia but reports that she has spontaneously improved on feeling well she is on Flonase Atrovent and montelukast Ras Roa MD [address] [facility], [place], [address], [place] [facility] 11/02/2024 14:50:29 OBGyn Episode No OBEpisode recorded.
[2025-03-16] MEDS: DENOSUMAB 60 MG/ML SYRINGE SUB-Q (10:20)
== END 2025-03-16 10:04 | disposition home or self-care (01) ==
PROVIDERS: PCP Internal Medicine; Visit Provider Internal Medicine
DX: M81.0 Age-related osteoporosis without current pathological fracture (principal)
CPT/HCPCS: 96372; J0897

== ENCOUNTER 2025-05-21 12:18 | Outpatient (CLI) | payer OTHER, SELFPAY ==
--- NOTE | ~2025-05-21 | XR_ITS ---
XR chest 2V 05/21/2025 12:45 Indication: Emergency open heart surgery Procedure: 2 view chest Comparison: Comparison to multiple prior studies sequentially, with oldest reviewed study dated 09/17. Findings: Status post median sternotomy for CABG. There is extensive subcutaneous gas in the right ne ck and chest wall. Prominent nipple shadow on the right. Small right pleural effusion. No pneumothora x. Left lung clear. Heart size normal. Impression: 1: Small right pleural effusion with right basilar atelectasis. 2: Subcutaneous emphysema right chest wall, consistent with recent surgery. Surgical clips present ri t upper anterior chest. Reviewed, dictated and finalized at location A. Impression: 1: Small right pleural effusion with right basilar atelectasis. 2: Subcutaneous emphysema right chest wall, consistent with recent surgery. Hector gical clips present right upper anterior chest.
--- OUTSIDE RECORDS SUMMARY | 2025-05-21 12:23 | XMS_ITS | Encounter Summary ---
Author Organization [facility] Address [facility] [place] [address] Care Team Providers Care Business Leader Name Role Phone Orly Coronado MD Primary Care Provider [phone] Encounter Details Date Type Department Care Team (Late st Contact Info) Description 01/01/2018 Abstract [facility] CONVERSION [address] [place] [address] , Generic Conversion, Social History Tobacco Use [...] on filedocumented in this encounter Care Teams Business Leader Relationship Specialty Start Date End Date Orly Coronado MD [address] [place] [address] PCP - General INTERNAL MEDICINE 10/22/20 documented as of this encounter
--- OUTSIDE RECORDS SUMMARY | 2025-05-21 12:24 | XMS_ITS | Encounter Summary ---
Author Organization [facility] Address [address] [place] [address] Phone Care Team Providers Care I&C Technician Name Role Phone Orly Coronado MD Primary Care Provider [phone] Ernesto [place] MD Unavailable Stuart Ruiz MD Unavailable [phone] Reason for Referral * Other (Routine) - Authorized Specialty Diagnoses / Procedures Referred By Contac t Referred To Contact Pulmonology Diagnoses Other emphysema (HCC) Procedures COMPLETE PFT W + W/O BRONCHODILATOR Ernesto [place] MD [address] [place] [address] Phone: tel: fax: Referral ID Status Reason Start Date Expiration Date V isits Requested Visits Authorized [id number] Authorized 04/18/2025 1 1 Encounter Details Date Type Department Care Team (Late st Contact Info) Description 04/17/2025 Results Follow-Up [facility] Adult Pediatric Inpatient Virtual [address] [place] [address] Ernesto [place] MD [address] [place] [address] Complete PFT W + W/O Bronchodilator Social History Tobacco Use Types Packs/Day Years Used Date Smoking Tobacco: Former Cigarettes 1.5 23 1 990 - 2012 Smokeless Tobacco: Never Alcohol Use Standard Drinks/Week Comments Not Currently 0 (1 standard drink = 0.6 oz pur e alcohol) [facility] Utilities Answer Date Recorded In the past 12 months has th e electric, gas, oil, or water company threatened to shut off services in your home? Patient declined 03/07/2025 Social Connection and Isolation Panel Answer Date Recorded In a typical week, how many times do you talk on the phone with family, friends, or neighbors? Patient declined 03/07/2025 How often do you get togethe r with friends or relatives? Patient declined 03/07/2025 How often do you attend mandaen or christianity serv ices? Patient declined 03/07/2025 Do you belong to any clubs o r organizations such as mandaen groups, unions, fraternal or athletic groups, or [...] medical care, and heating? Patient declined 03/07/2025 [facility] - Occupational Stress [...] any time in the past 12 m [facility], were you homeless or living in a skilled nursing (including now)? Patient declined 03/07/2025 Sexually Active Control Partners Comments Not Currently Post-menopausal Comments No Sex and Gender Information Value Date Recorded Sex Assigned at Not on file Legal Sex Female 11:30 AM CDT Gender Identity Not on file Sexual Orientation Not on file documented as of this encounter Plan of Treatment Scheduled Orders Name Type Priority Associated Diagnoses Orde r Schedule COMPLETE PFT W + W/O BRONCHODILATOR PFT Routine Other emphysema (HCC) Expected: 04/18/2026, Expires: 07/17/2026 documented as of this encounter Visit Diagnoses Diagnosis Other emphysema (HCC)- Primary Other emphysema documented in this encounter Care Teams I&C Technician Relationship Specialty Start Date End Date Orly Coronado MD [address] [place] [address] PCP - General Internal Medicine 01/19/25 Ernesto [place] MD [address] [place] [address] Consulting Physician Pulmonary Disease 02/20/25 Stuart Ruiz MD [address] [address] Consulting Physician Interventional Cardiology 02/21/25 documented as of this encounter
--- OUTSIDE RECORDS SUMMARY | 2025-05-21 12:24 | XMS_ITS | Clinical Summary ---
Author Organization [facility] [employer] Address [address] [place] [address] Care Team Providers Care Education Program Coordinator Name Role Phone Orly Coronado MD Primary Care Provider [phone] [facility] [employer],non-owned Affiliates and Associated Physician Practices is amultiple site organization consisting of ambulatory clinics and hospital sitesin [place], [place], [place] and [place]. This disclosure is being madepursuant to the Care Everywhere program and may not contain all information available regarding this patient. Last updated 18.[facility] [employer] Allergies No known active allergies Medications * Be aware that medications may not be up to date on this document. Alwaysverify current medications with the patient. albuterol HFA (Proventil; Ventolin; Proair) 108 (90 Base) MCG/ACT inhaler Inhale 2 (two) puffs by mouth every 6 hours as needed Active aspirin (Aspirin) 81 MG chew tablet Take 1 (one) tablet by mouth once daily Active atorvastatin (Lipitor) 40 MG tablet Take 1 (one) tablet by mouth once daily 03/08/20 25 025 Active clopidogrel (plaVIX) 75 MG tablet Take 1 (one) tablet by mouth once daily 03/08/20 25 Active fluticasone-vi lanterol (Breo Ellipta) 200-25 MCG/ACT inhaler Inhale 1 (one) puff by mouth once daily Active albuterol-ipra tropium (Duo-Neb) 0.5-2.5 (3) MG/3ML nebulizer solution Inhale by mouth 4 times daily Active albuterol-ipra tropium (Combivent Respimat) 20-100 MCG/ACT inhaler Inhale 1 (one) puff by mouth 4 times daily Active montelukast (Singulair) 10 MG tablet Take 1 (one) tablet by mouth every evening Active potassium chloride ER 10 MEQ tablet 04/09/20 25 Active Nutritional Supplement LIQD Take 1 container by mouth 3 times daily Low Calorie High Protein Supplement Examples: Ensure High Protein/Boost High Protein/Premier Protein High Calorie High Protein Supplement Examples: Ensure Enlive/Ensure Plus/Boost Plus/Equate Plus Diabetic Supplement Examples: Ensure High Protein/Glucerna/ Boost Glucose Control/Enterex Diabetic Renal Supplement Examples: Nepro/Novosource Renal Clear Liquid Supplement Examples: Ensure Clear/Premier Protein Clear/Resource Boost Breeze/Prosource High Protein Gelatin Vegan or Milk Free Supplement Examples: Ensure Plant/Orgain 05/09/20 25 Active acetaminophen (Tylenol) 325 MG tablet Take 2 (two) tablets by mouth every 6 hours as needed Maximum allowable Acetaminophen amount = 4 Grams (4000 mg) / 24 hours. 05/16/20 25 Active amiodarone (Cordarone) 200 MG tablet Take 1 (one) tablet by mouth once daily 05/17/20 25 Active atorvastatin (Lipitor) 40 MG tablet Take 1 (one) tablet by mouth at bedtime 05/16/20 25 Active spironolactone (Aldactone) 25 MG tablet Take 0.5 (one-half) tablet by mouth once daily 05/17/20 25 Active senna-docusate (Senokot-S) 8.6-50 MG tablet Take 1 (one) tablet by mouth once daily 05/17/20 25 Active famotidine (Pepcid) 20 MG tablet Take 1 (one) tablet by mouth once daily 05/17/20 25 Active amLODIPine (Norvasc) 5 MG tablet 04/03/20 25 025 Discontin ued(Clini alee Decision) Cholecalcifero l 50 MCG (1999 [place]) Take 50 mcg by mouth once daily 025 Discontin ued(Clini alee Decision) cilostazol (Pletal) 50 MG tablet Take 1 (one) tablet by mouth 2 times daily 025 Discontin ued(Clini alee Decision) Mucinex 600 MG tablet 10/21/20 24 025 Discontin ued(Clini alee Decision) spironolactone (Aldactone) 50 MG tablet Take 1 (one) tablet by mouth once daily 025 Discontin ued(Clini alee Decision) Active Problems Problem Noted Date Diagnosed Date Coronary artery disease invo lving [place] coronary artery of [place] heart with angina pectoris 05/01/2025 Coronary artery disease invo lving [place] coronary artery of [place]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 03/14/2025 Encounters Date Type Department Care Team Description 05/05/2025 11:07 AM CDT Anesthesia Event [facility] [address] [place] [address] Fransico Tidwell MD Hiermandi, Suhail, DO 05/05/2025 10:35 AM CDT - 05/05/2025 2:43 PM CDT Surgery [facility] [address] [place] [address] Yg Lorenzo MD CORONARY EXPLORATION, POSSIBLE CLOSURE 05/04/2025 6:15 PM CDT - 05/05/2025 1:34 AM CDT Surgery [facility] [address] [place] [address] Fer Rose MD BYPASS GRAFT CORONARY ARTERY (CABG) LEVEL 1 @ 1712 05/04/2025 5:41 PM CDT Anesthesia Event [facility] [address] [place] [address] Chuck Talbot DO Caravana, Elizabeth, DO 05/04/2025 10:26 AM CDT - 05/04/2025 12:44 PM CDT Surgery [facility] - Cardiac Forklift Technician [address] [place] [address] Allie Thomason MD Percutaneous Coronary Intervention 05/04/2025 8:52 AM CDT - 05/16/2025 4:24 PM CDT Hospital Encounter [facility] [address] [place] [address] Thomason, Shilpkumar, MD Nelly Esparza MD Maniar, Hersh S, MD Cardiac Catheterization Discharge Disposition: Home Health Care Svc 05/01/2025 Orders Only [facility] - Cardiac Forklift Technician [address] [place] [address] Allie Thomason MD Coronary artery disease involving [place] coronary artery of [place] heart with angina pectoris 04/30/2025 10:30 AM CDT Office Visit [facility] - Cardiothoracic Surgery [address] [place] [address], [place] [address] Nelly Esparza MD Bilateral carotid artery disease, unspecified type (Primary Dx) 04/30/2025 Travel 04/25/2025 2:31 PM CDT - 04/25/2025 11:59 PM CDT Hospital Encounter [facility] - CT Scan [address], [address] [place] [address] Nelly Esparza MD Discharge Disposition: Home or Self Care 04/25/2025 1:07 PM CDT - 04/25/2025 2:30 PM CDT Hospital Encounter [facility] [address] [place] [address] Nelly Esparza MD Discharge Disposition: Home or Self Care 04/25/2025 1:07 PM CDT - 04/25/2025 2:30 PM CDT Hospital Encounter [facility] [address] [place] [address] Nelly Esparza MD Discharge Disposition: Home or Self Care 04/23/2025 11:00 AM CDT Office Visit [facility] - Cardiothoracic Surgery [address] [place] [phone] Nelly Esparza MD Nonrheumatic aortic valve stenosis (Primary Dx); Coronary artery disease involving [place] coronary artery of [place] heart without angina pectoris; Pre-op evaluation 04/23/2025 Travel 04/19/2025 11:55 AM CDT - 04/19/2025 11:59 PM CDT Hospital Encounter [facility] - Outside Imaging Nelly Esparza MD Discharge Disposition: Home or Self Care 04/19/2025 11:55 AM CDT - 04/19/2025 11:59 PM CDT Hospital Encounter [facility] - Outside Imaging Nelly Esparza MD Discharge Disposition: Home or Self Care 04/19/2025 Orders Only [facility] - Cardiothoracic Surgery [address] [place] [address] Ladonna Singh RN Hx of cardiac cath ; Hx of echocardiogram 03/14/2025 Orders Only [facility] - Cardiac Forklift Technician [address] [place] [phone] Allie Thomason MD Coronary artery disease involving [place] coronary artery of [place]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 (HCC) from Last 3 Months Social History Tobacco Use Types Packs/Day Years Used Date Smoking Tobacco: Never Passive Smoke Exposure: Never Smokeless Tobacco: Never Alcohol Use Standard Drinks/Week Comments Not Currently 0 (1 standard drink = 0.6 oz pur e alcohol) AUDIT-C Answer Date Recorded Q1: How often do you have a drink containing alcohol? Never 05/04/2025 Q2: How many drinks containi ng alcohol do you have on a typical day when you are drinking? Patient does not drink Q3: How often do you have si x or more drinks on one occasion? Never 05/04/2025 Overall Financial Resource Strain (CARDIA) Answe r Date Recorded How hard is it for you to pa y for the very basics like food, housing, medical care, and heating? Not very hard 05/09/2025 [facility] - Occupational Stress Questionnaire Answer Date Recorded Do you feel stress - tense, restless, nervous, or anxious, or unable to sleep at night because your mind is troubled all the time - these days? Not at all 05/09/2025 Hunger Vital Sign Answer Date Recorded Within the past 12 months, y ou worried that your food would run out before you got the money to buy more. Never true 05/09/20 25 Within the past 12 months, t he food you bought just didn't last and you didn't have money to get more. Never true 05/09/2025 PRAPARE - Transportation Answer Date Re corded In the past 12 months, has l ack of transportation kept you from medical appointments or from getting medications? No 04/18 In the past 12 months, has l ack of transportation kept you from meetings, work, or from getting things needed for daily living? No 05/09/2025 Housing Stability Vital Sign Answer Alcides e Recorded In the last 12 months, was t here a time when you were not able to pay the mortgage or rent on time? No 05/09/2025 In the past 12 months, how m any times have you moved where you were living? 1 05/09/2025 At any time in the past 12 m [facility], were you homeless or living in a senior living (including now)? No 05/09/2025 Comments No Sex and Gender Information Value Date Recorded Sex Assigned at Not on file Legal Sex Female 1:34 PM CDT Gender Identity Not on file Sexual Orientation Not on file Last Filed Vital Signs Vital Sign Reading Time Taken Comments Blood Pressure 104/57 05/16/2025 11:09 AM CDT Pulse 85 05/16/2025 11:09 AM CDT Temperature 36.6 C (97.8 F) 05/16/2025 11:09 AM CDT Respiratory Rate 20 05/16/2025 12:44 PM CDT Oxygen Saturation 99% 05/16/2025 11:09 AM CDT Inhaled Oxygen Concentration 21% 05/14/2025 3 :41 AM CDT Weight 51.4 kg (113 lb 6.4 oz) 05/16/2025 5:25 A M CDT Height 160 cm (5' 3) 05/11/2025 8:17 AM CDT Body Mass Index 20.09 05/11/2025 8:17 AM CDT Plan of Treatment Upcoming Encounters Date Type Department Care Team (Late st Contact Info) Description 05/24/2025 2:30 PM CDT Office Visit [facility] - Cardiothoracic Surgery [facility] [facility] [place] [phone] Yg Lorenzo MD [address] [place] [phone] Health Maintenance Due Date Last Done Comments BONE DENSITY TESTING 1945 HEPATITIS C SCREENING 08/16/1964 DTAP/TDAP/TD VACCINES (1 - Tdap) 1965 PNEUMOCOCCAL VACCINE 50+ (1 of 2 - PCV) 1965 ZOSTER VACCINE (1 of 2) 1996 Respiratory Syncytial Virus (RSV) Vaccine Pt: or over 60 yrs (1 - 1-dose 75+ series) 2021 COVID-19 VACCINE (1 - 2023-2 5 season) 2024 DEPRESSION SCREENING 10/18/2024 INFLUENZA VACCINE (#1) 2025 HEPATITIS B VACCINE Aged Out No [...] on patient's age to complete this topic Medical Devices Implanted Type Area Tester [employer] Packages Device Identifier Shelf Expiration Date Model / Serial / Lot Sys Cor Stent Sng Xd Mr 3mm 28mm Dlv Sys - [id number] Implanted:Qty: 1 on 05/04/2025 by Allie Thomason MD at [facility] [employer] [id number] 08/07/2026 [id number] / [id number] / [id number] Kit Impella Intro Shrt 14fr Strl Ltx - [id number] Implanted:Qty: 1 on 05/04/2025 by Allie Thomason MD at [facility] [employer] [id number] 08/18/2027 [id number] / [id number] / [id number] Set Vntrc Ast 17.4x13.8in Impella Cp 9.3 - [id number] Implanted:Qty: 1 on 05/04/2025 by Allie Thomason MD at [facility] [employer] 02/14/2027 [id number] / [id number] / [id number] Set Vntrc Ast 17.4x13.8in Impella Cp 9.3 - [id number] Implanted:Qty: 1 on 05/04/2025 at [facility] [employer] 02/14/[id number] / [id number] / [id number] Patch Srg 4x2in Slnt Evarrest Fbrn - [id number] Implanted:Qty: 1 on 05/04/2025 by Fer Rose MD at [facility] [employer] 02/12/2027 [id number] / [id number] / Procedures Procedure Name Priority Date/Time Associated Diagnosis Comments APHERESIS/TRANSFUSION ORDER 05/17/2025 11:19 AM CDT EKG 12-LEAD Routine 05/16/2025 3:01 PM CDT S/P CABG (coronary artery bypass graft) GLUCOSE - POINT OF CARE Routine 05/16/2025 11:09 AM CDT GLUCOSE - POINT OF CARE Routine 05/16/2025 7:34 AM CDT XR CHEST 1VW PORTABLE Routine 05/16/2025 4:42 AM CDT Coronary artery disease involving [place] coronary artery of [place] heart with angina pectoris PHOSPHORUS BLOOD Routine 05/16/2025 1:35 AM CDT Coronary artery disease involving [place] coronary artery of [place]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 (HCC) MAGNESIUM BLOOD Routine 05/16/2025 1:35 AM CDT Coronary artery disease involving [place] coronary artery of [place]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 (HCC) CBC W/O DIFFERENTIAL Routine 05/16/2025 1:35 AM CDT Coronary artery disease involving [place] coronary artery of [place]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 (HCC) BASIC METABOLIC PANEL (CALCIUM TOTAL) Routine 05/16/2025 1:35 AM CDT Coronary artery disease involving [place] coronary artery of [place]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 (HCC) GLUCOSE - POINT OF CARE Routine 05/15/2025 8:51 PM CDT GLUCOSE - POINT OF CARE Routine 05/15/2025 4:10 PM CDT ECHO LIMITED W CONTRAST COLOR AND DOPPLER Routine 05/15/2025 3:30 PM CDT S/P CABG (coronary artery bypass graft) EKG 12-LEAD Routine 05/15/2025 2:01 PM CDT Coronary artery disease involving [place] coronary artery of [place] heart with angina pectoris GLUCOSE - POINT OF CARE Routine 05/15/2025 12:21 PM CDT GLUCOSE - POINT OF CARE Routine 05/15/2025 8:11 AM CDT PHOSPHORUS BLOOD Routine 05/15/2025 1:53 AM CDT Coronary artery disease involving [place] coronary artery of [place]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 (HCC) MAGNESIUM BLOOD Routine 05/15/2025 1:53 AM CDT Coronary artery disease involving [place] coronary artery of [place]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 (HCC) CBC W/O DIFFERENTIAL Routine 05/15/2025 1:53 AM CDT Coronary artery disease involving [place] coronary artery of [place]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 (HCC) BASIC METABOLIC PANEL (CALCIUM TOTAL) Routine 05/15/2025 1:53 AM CDT Coronary artery disease involving [place] coronary artery of [place]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 (HCC) GLUCOSE - POINT OF CARE Routine 05/14/2025 9:08 PM CDT GLUCOSE - POINT OF CARE Routine 05/14/2025 3:32 PM CDT GLUCOSE - POINT OF CARE Routine 05/14/2025 11:34 AM CDT GLUCOSE - POINT OF CARE Routine 05/14/2025 9:03 AM CDT XR CHEST 1VW PORTABLE STAT 05/14/2025 5:24 AM CDT Coronary artery disease involving [place] coronary artery of [place]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 (HCC) PHOSPHORUS BLOOD Routine 05/14/2025 3:29 AM CDT Coronary artery disease involving [place] coronary artery of [place]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 (HCC) MAGNESIUM BLOOD Routine 05/14/2025 3:29 AM CDT Coronary artery disease involving [place] coronary artery of [place]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 (HCC) CBC W/O DIFFERENTIAL Routine 05/14/2025 3:29 AM CDT Coronary artery disease involving [place] coronary artery of [place]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 (HCC) BASIC METABOLIC PANEL (CALCIUM TOTAL) Routine 05/14/2025 3:29 AM CDT Coronary artery disease involving [place] coronary artery of [place]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 (HCC) GLUCOSE - POINT OF CARE Routine 05/13/2025 9:34 PM CDT GLUCOSE - POINT OF CARE Routine 05/13/2025 6:52 PM CDT XR CHEST 1VW PORTABLE STAT 05/13/2025 2:15 PM CDT Postprocedural pneumothorax EKG 12-LEAD Routine 05/13/2025 1:48 PM CDT Coronary artery disease involving [place] coronary artery of [place]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 (HCC) GLUCOSE - POINT OF CARE Routine 05/13/2025 1:10 PM CDT GLUCOSE - POINT OF CARE Routine 05/13/2025 8:34 AM CDT EKG 12-LEAD STAT 05/13/2025 7:18 AM CDT Coronary artery disease involving [place] coronary artery of [place]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 (HCC) XR CHEST 1VW PORTABLE Routine 05/13/2025 4:29 AM CDT Coronary artery disease involving [place] coronary artery of [place]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 (HCC) PHOSPHORUS BLOOD Routine 05/13/2025 4:01 AM CDT Coronary artery disease involving [place] coronary artery of [place]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 (HCC) MAGNESIUM BLOOD Routine 05/13/2025 4:01 AM CDT Coronary artery disease involving [place] coronary artery of [place]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 (HCC) CBC W/O DIFFERENTIAL Routine 05/13/2025 4:01 AM CDT Coronary artery disease involving [place] coronary artery of [place]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 (HCC) BASIC METABOLIC PANEL (CALCIUM TOTAL) Routine 05/13/2025 4:01 AM CDT Coronary artery disease involving [place] coronary artery of [place]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 (HCC) TRANSFUSE RED BLOOD CELL LEUKOREDUCED UNIT(S) Routine 05/13/2025 12:03 AM CDT XR FOOT LEFT 3VW OR MORE Routine 05/12/2025 7:15 PM CDT Coronary artery disease involving [place] coronary artery of [place]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 (HCC) CBC W/O DIFFERENTIAL Routine 05/12/2025 5:31 PM CDT BASIC METABOLIC PANEL (CALCIUM TOTAL) Routine 05/12/2025 5:31 PM CDT GLUCOSE - POINT OF CARE Routine 05/12/2025 5:15 PM CDT XR CHEST 1VW PORTABLE STAT 05/12/2025 2:10 PM CDT Coronary artery disease involving [place] coronary artery of [place]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 (HCC) GLUCOSE - POINT OF CARE Routine 05/12/2025 11:03 AM CDT TRANSFUSE RED BLOOD CELL LEUKOREDUCED UNIT(S) Routine 05/12/2025 10:27 AM CDT EKG 12-LEAD STAT 05/12/2025 9:02 AM CDT S/P CABG (coronary artery bypass graft) GLUCOSE - POINT OF CARE Routine 05/12/2025 8:12 AM CDT XR CHEST 1VW PORTABLE Routine 05/12/2025 8:00 AM CDT S/P CABG (coronary artery bypass graft) PHOSPHORUS BLOOD Routine 05/12/2025 3:11 AM CDT Coronary artery disease involving [place] coronary artery of [place]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 (HCC) MAGNESIUM BLOOD Routine 05/12/2025 3:11 AM CDT Coronary artery disease involving [place] coronary artery of [place]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 (HCC) CBC W/O DIFFERENTIAL Routine 05/12/2025 3:11 AM CDT Coronary artery disease involving [place] coronary artery of [place]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 (HCC) BASIC METABOLIC PANEL (CALCIUM TOTAL) Routine 05/12/2025 3:11 AM CDT Coronary artery disease involving [place] coronary artery of [place]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 (HCC) GLUCOSE - POINT OF CARE Routine 05/11/2025 10:19 PM CDT BASIC METABOLIC PANEL (CALCIUM TOTAL) Timed 05/11/2025 7:51 PM CDT CBC W/O DIFFERENTIAL Timed 05/11/2025 7:51 PM CDT GLUCOSE - POINT OF CARE Routine 05/11/2025 6:33 PM CDT TRANSFUSE RED BLOOD CELL LEUKOREDUCED UNIT(S) Routine 05/11/2025 3:41 PM CDT PREPARE RBC LEUKOREDUCED UNIT Routine 05/11/2025 1:34 PM CDT Coronary artery disease involving [place] coronary artery of [place]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 (HCC) PREPARE RBC LEUKOREDUCED UNIT Routine 05/11/2025 1:34 PM CDT PREPARE RBC LEUKOREDUCED UNIT Routine 05/11/2025 1:34 PM CDT Coronary artery disease involving [place] coronary artery of [place]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 (HCC) TYPE + SCREEN PANEL Routine 05/11/2025 1 :34 PM CDT Coronary artery disease involving [place] coronary artery of [place]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 (HCC) XR CHEST 1VW PORTABLE Routine 05/11/2025 1:29 PM CDT Coronary artery disease involving [place] coronary artery of [place]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 (HCC) EKG 12-LEAD STAT 05/11/2025 1:18 PM CDT Coronary artery disease involving [place] coronary artery of [place]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 (HCC) ECHO LIMITED OR FOLLOWUP STAT 05/11/2025 12:58 PM CDT Coronary artery disease involving [place] coronary artery of [place]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 (HCC) GLUCOSE - POINT OF CARE Routine 05/11/2025 12:01 PM CDT BASIC METABOLIC PANEL (CALCIUM TOTAL) STAT 05/11/2025 11:49 AM CDT Coronary artery disease involving [place] coronary artery of [place]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 (HCC) CBC W/O DIFFERENTIAL STAT 05/11/2025 11:49 AM CDT Coronary artery disease involving [place] coronary artery of [place]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 (HCC) FIBRINOGEN ACTIVITY STAT 05/11/2025 11:49 AM CDT Coronary artery disease involving [place] coronary artery of [place]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 (HCC) PTT STAT 05/11/2025 11:49 AM CDT Coronary artery disease involving [place] coronary artery of [place]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 (HCC) PT-INR STAT 05/11/2025 11:49 AM CDT Coronary artery disease involving [place] coronary artery of [place]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 (HCC) GLUCOSE - POINT OF CARE Routine 05/11/2025 7:40 AM CDT CBC W/O DIFFERENTIAL Routine 05/11/2025 3:53 AM CDT BASIC METABOLIC PANEL (CALCIUM TOTAL) Routine 05/11/2025 3:53 AM CDT PHOSPHORUS BLOOD Routine 05/11/2025 3:53 AM CDT Coronary artery disease involving [place] coronary artery of [place]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 (HCC) MAGNESIUM BLOOD Routine 05/11/2025 3:53 AM CDT Coronary artery disease involving [place] coronary artery of [place]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 (HCC) GLUCOSE - POINT OF CARE Routine 05/10/2025 10:28 PM CDT BASIC METABOLIC PANEL (CALCIUM TOTAL) STAT 05/10/2025 10:26 PM CDT Coronary artery disease involving [place] coronary artery of [place]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 (HCC) CBC W/O DIFFERENTIAL STAT 05/10/2025 10:26 PM CDT Coronary artery disease involving [place] coronary artery of [place]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 (HCC) GLUCOSE - POINT OF CARE Routine 05/10/2025 6:01 PM CDT XR CHEST 1VW PORTABLE STAT 05/10/2025 5:17 PM CDT S/P CABG (coronary artery bypass graft) XR CHEST 1VW PORTABLE Routine 05/10/2025 1:11 PM CDT Postprocedural pneumothorax GLUCOSE - POINT OF CARE Routine 05/10/2025 12:41 PM CDT GLUCOSE - POINT OF CARE Routine 05/10/2025 8:43 AM CDT XR CHEST 1VW PORTABLE Routine 05/10/2025 4:58 AM CDT Postprocedural pneumothorax LACTIC ACID BLOOD Routine 05/10/2025 3:2 2 AM CDT Coronary artery disease involving [place] coronary artery of [place]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 (HCC) CBC W/O DIFFERENTIAL Routine 05/10/2025 3:22 AM CDT Coronary artery disease involving [place] coronary artery of [place]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 (HCC) BLOOD GASES ART + COOX PANEL Routine 05/10/2025 3:22 AM CDT BASIC METABOLIC PANEL (CALCIUM TOTAL) Routine 05/10/2025 3:22 AM CDT Coronary artery disease involving [place] coronary artery of [place]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 (HCC) PHOSPHORUS BLOOD Routine 05/10/2025 3:22 AM CDT Coronary artery disease involving [place] coronary artery of [place]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 (HCC) MAGNESIUM BLOOD Routine 05/10/2025 3:22 AM CDT Coronary artery disease involving [place] coronary artery of [place]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 (HCC) XR CHEST 1VW STAT 05/09/2025 11:26 PM CDT S/P CABG (coronary artery bypass graft) Postprocedural pneumothorax XR CHEST 1VW STAT 05/09/2025 10:46 PM CDT S/P CABG (coronary artery bypass graft) Postprocedural pneumothorax GLUCOSE - POINT OF CARE Routine 05/09/2025 8:01 PM CDT PHOSPHORUS BLOOD Timed 05/09/2025 8:01 PM CDT Coronary artery disease involving [place] coronary artery of [place]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 (HCC) MAGNESIUM BLOOD Timed 05/09/2025 8:01 PM CDT Coronary artery disease involving [place] coronary artery of [place]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 (HCC) CALCIUM IONIZED WHOLE BLOOD Timed 05/09/2025 8:01 PM CDT Coronary artery disease involving [place] coronary artery of [place]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 (HCC) BASIC METABOLIC PANEL (CALCIUM TOTAL) Timed 05/09/2025 8:01 PM CDT Coronary artery disease involving [place] coronary artery of [place]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 (HCC) CBC W/O DIFFERENTIAL Timed 05/09/2025 8:01 PM CDT Coronary artery disease involving [place] coronary artery of [place]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 (HCC) GLUCOSE - POINT OF CARE Routine 05/09/2025 6:10 PM CDT XR CHEST 1VW PORTABLE Routine 05/09/2025 5:45 PM CDT S/P CABG (coronary artery bypass graft) Postprocedural pneumothorax XR CHEST 1VW PORTABLE Routine 05/09/2025 1:39 PM CDT Postprocedural pneumothorax GLUCOSE - POINT OF CARE Routine 05/09/2025 12:46 PM CDT EKG 12-LEAD STAT 05/09/2025 10:42 AM CDT Coronary artery disease involving [place] coronary artery of [place]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 (HCC) XR CHEST 1VW PORTABLE STAT 05/09/2025 10:08 AM CDT S/P CABG (coronary artery bypass graft) GLUCOSE - POINT OF CARE Routine 05/09/2025 9:56 AM CDT SVO2 FOR RECALIBRATION AM Draw 05/09/2025 4:38 AM CDT LACTIC ACID BLOOD Routine 05/09/2025 4:3 8 AM CDT Coronary artery disease involving [place] coronary artery of [place]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 (HCC) CBC W/O DIFFERENTIAL Routine 05/09/2025 4:38 AM CDT Coronary artery disease involving [place] coronary artery of [place]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 (HCC) BLOOD GASES ART + COOX PANEL Routine 05/09/2025 4:38 AM CDT BASIC METABOLIC PANEL (CALCIUM TOTAL) Routine 05/09/2025 4:38 AM CDT Coronary artery disease involving [place] coronary artery of [place]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 (HCC) PHOSPHORUS BLOOD Routine 05/09/2025 4:38 AM CDT Coronary artery disease involving [place] coronary artery of [place]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 (HCC) MAGNESIUM BLOOD Routine 05/09/2025 4:38 AM CDT Coronary artery disease involving [place] coronary artery of [place]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 (HCC) BASIC METABOLIC PANEL (CALCIUM TOTAL) STAT 05/08/2025 8:10 PM CDT S/P CABG (coronary artery bypass graft) GLUCOSE - POINT OF CARE Routine 05/08/2025 5:49 PM CDT BASIC METABOLIC PANEL (CALCIUM TOTAL) Timed 05/08/2025 4:03 PM CDT S/P CABG (coronary artery bypass graft) XR CHEST 1VW PORTABLE STAT 05/08/2025 3:36 PM CDT S/P CABG (coronary artery bypass graft) ECHO LIMITED W CONTRAST STAT 05/08/2025 12:22 PM CDT S/P CABG (coronary artery bypass graft) GLUCOSE - POINT OF CARE Routine 05/08/2025 11:53 AM CDT SVO2 FOR RECALIBRATION STAT 05/08/2025 11:49 AM CDT GLUCOSE - POINT OF CARE Routine 05/08/2025 7:55 AM CDT BASIC METABOLIC PANEL (CALCIUM TOTAL) STAT 05/08/2025 5:35 AM CDT Coronary artery disease involving [place] coronary artery of [place]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 (HCC) EKG 12-LEAD Routine 05/08/2025 5:18 AM CDT S/P CABG (coronary artery bypass graft) XR CHEST 1VW PORTABLE Routine 05/08/2025 4:50 AM CDT S/P CABG (coronary artery bypass graft) LACTIC ACID BLOOD Routine 05/08/2025 4:2 3 AM CDT Coronary artery disease involving [place] coronary artery of [place]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 (HCC) CBC W/O DIFFERENTIAL Routine 05/08/2025 4:23 AM CDT Coronary artery disease involving [place] coronary artery of [place]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 (HCC) BLOOD GASES ART + COOX PANEL Routine 05/08/2025 4:23 AM CDT BASIC METABOLIC PANEL (CALCIUM TOTAL) Routine 05/08/2025 4:23 AM CDT Coronary artery disease involving [place] coronary artery of [place]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 (HCC) PHOSPHORUS BLOOD Routine 05/08/2025 4:23 AM CDT Coronary artery disease involving [place] coronary artery of [place]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 (HCC) MAGNESIUM BLOOD Routine 05/08/2025 4:23 AM CDT Coronary artery disease involving [place] coronary artery of [place]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 (HCC) GLUCOSE - POINT OF CARE Routine 05/07/2025 8:32 PM CDT BASIC METABOLIC PANEL (CALCIUM TOTAL) STAT 05/07/2025 5:36 PM CDT GLUCOSE - POINT OF CARE Routine 05/07/2025 5:26 PM CDT POTASSIUM BLOOD Timed 05/07/2025 2:31 PM CDT GLUCOSE - POINT OF CARE Routine 05/07/2025 12:49 PM CDT VAS ARTERIAL ANKLE ARM INDEX STAT 05/07/2025 11:35 AM CDT Coronary artery disease involving [place] coronary artery of [place]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 (HCC) EKG 12-LEAD Routine 05/07/2025 10:37 AM CDT S/P CABG (coronary artery bypass graft) GLUCOSE - POINT OF CARE Routine 05/07/2025 8:33 AM CDT XR CHEST 1VW PORTABLE Routine 05/07/2025 5:44 AM CDT S/P CABG (coronary artery bypass graft) LACTIC ACID BLOOD Routine 05/07/2025 4:2 4 AM CDT Coronary artery disease involving [place] coronary artery of [place]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 (HCC) CBC W/O DIFFERENTIAL Routine 05/07/2025 4:24 AM CDT Coronary artery disease involving [place] coronary artery of [place]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 (HCC) BLOOD GASES ART + COOX PANEL Routine 05/07/2025 4:24 AM CDT BASIC METABOLIC PANEL (CALCIUM TOTAL) Routine 05/07/2025 4:24 AM CDT Coronary artery disease involving [place] coronary artery of [place]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 (HCC) PHOSPHORUS BLOOD Routine 05/07/2025 4:24 AM CDT Coronary artery disease involving [place] coronary artery of [place]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 (HCC) MAGNESIUM BLOOD Routine 05/07/2025 4:24 AM CDT Coronary artery disease involving [place] coronary artery of [place]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 (HCC) SVO2 FOR RECALIBRATION Routine 05/07/2025 4:24 AM CDT BLOOD GASES ART + COOX PANEL STAT 05/06/2025 9:16 PM CDT S/P CABG (coronary artery bypass graft) GLUCOSE - POINT OF CARE Routine 05/06/2025 9:15 PM CDT GLUCOSE - POINT OF CARE Routine 05/06/2025 6:08 PM CDT GLUCOSE - POINT OF CARE Routine 05/06/2025 4:44 PM CDT CBC W AUTO DIFFERENTIAL Timed 05/06/2025 2:16 PM CDT BLOOD GASES ART + COOX PANEL Timed 05/06/2025 2:16 PM CDT BASIC METABOLIC PANEL (CALCIUM TOTAL) Timed 05/06/2025 2:16 PM CDT GLUCOSE - POINT OF CARE Routine 05/06/2025 1:28 PM CDT LACTIC ACID BLOOD STAT 05/06/2025 12:30 PM CDT Coronary artery disease involving [place] coronary artery of [place]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 (HCC) CK BLOOD STAT 05/06/2025 12:30 PM CDT Coronary artery disease involving [place] coronary artery of [place]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 (HCC) GLUCOSE - POINT OF CARE Routine 05/06/2025 11:10 AM CDT GLUCOSE - POINT OF CARE Routine 05/06/2025 9:18 AM CDT BASIC METABOLIC PANEL (CALCIUM TOTAL) STAT 05/06/2025 9:18 AM CDT Coronary artery disease involving [place] coronary artery of [place]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 (HCC) CBC W/O DIFFERENTIAL STAT 05/06/2025 9:18 AM CDT Coronary artery disease involving [place] coronary artery of [place]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 (HCC) GLUCOSE - POINT OF CARE Routine 05/06/2025 7:01 AM CDT PT-INR STAT 05/06/2025 7:00 AM CDT Coronary artery disease involving [place] coronary artery of [place]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 (HCC) PTT STAT 05/06/2025 7:00 AM CDT Coronary artery disease involving [place] coronary artery of [place]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 (HCC) FIBRINOGEN ACTIVITY STAT 05/06/2025 7 :00 AM CDT Coronary artery disease involving [place] coronary artery of [place]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 (HCC) CBC W/O DIFFERENTIAL Routine 05/06/2025 5:44 AM CDT GLUCOSE - POINT OF CARE Routine 05/06/2025 5:43 AM CDT LACTIC ACID BLOOD STAT 05/06/2025 5:1 6 AM CDT Coronary artery disease involving [place] coronary artery of [place]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 (HCC) CK BLOOD STAT 05/06/2025 5:16 AM CDT Coronary artery disease involving [place] coronary artery of [place]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 (HCC) BLOOD GASES ART + COOX PANEL Routine 05/06/2025 5:16 AM CDT XR CHEST 1VW PORTABLE Routine 05/06/2025 4:15 AM CDT S/P CABG (coronary artery bypass graft) GLUCOSE - POINT OF CARE Routine 05/06/2025 3:16 AM CDT CALCIUM IONIZED WHOLE BLOOD Routine 05/06/2025 3:11 AM CDT BASIC METABOLIC PANEL (CALCIUM TOTAL) Routine 05/06/2025 3:11 AM CDT PHOSPHORUS BLOOD Routine 05/06/2025 3:11 AM CDT Coronary artery disease involving [place] coronary artery of [place]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 (HCC) MAGNESIUM BLOOD Routine 05/06/2025 3:11 AM CDT Coronary artery disease involving [place] coronary artery of [place]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 (HCC) TRIGLYCERIDES BLOOD AM Draw 05/06/2025 3 :11 AM CDT SVO2 FOR RECALIBRATION Routine 05/06/2025 3:11 AM CDT GLUCOSE - POINT OF CARE Routine 05/06/2025 12:04 AM CDT LACTIC ACID BLOOD STAT 05/06/2025 12:03 AM CDT Coronary artery disease involving [place] coronary artery of [place]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 (HCC) CK BLOOD STAT 05/06/2025 12:03 AM CDT Coronary artery disease involving [place] coronary artery of [place]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 (HCC) BASIC METABOLIC PANEL (CALCIUM TOTAL) STAT 05/06/2025 12:03 AM CDT Coronary artery disease involving [place] coronary artery of [place]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 (HCC) CBC W/O DIFFERENTIAL STAT 05/06/2025 12:03 AM CDT Coronary artery disease involving [place] coronary artery of [place]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 (HCC) GLUCOSE - POINT OF CARE Routine 05/05/2025 10:19 PM CDT GLUCOSE - POINT OF CARE Routine 05/05/2025 9:21 PM CDT GLUCOSE - POINT OF CARE Routine 05/05/2025 8:25 PM CDT GLUCOSE - POINT OF CARE Routine 05/05/2025 6:26 PM CDT XR CHEST 1VW PORTABLE STAT 05/05/2025 6:01 PM CDT S/P CABG (coronary artery bypass graft) CALCIUM IONIZED WHOLE BLOOD Routine 05/05/2025 4:18 PM CDT GLUCOSE - POINT OF CARE Routine 05/05/2025 3:57 PM CDT BASIC METABOLIC PANEL (CALCIUM TOTAL) STAT 05/05/2025 3:57 PM CDT Coronary artery disease involving [place] coronary artery of [place]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 (HCC) CBC W/O DIFFERENTIAL STAT 05/05/2025 3:57 PM CDT Coronary artery disease involving [place] coronary artery of [place]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 (HCC) CK BLOOD STAT 05/05/2025 3:57 PM CDT Coronary artery disease involving [place] coronary artery of [place]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 (HCC) LACTIC ACID BLOOD STAT 05/05/2025 3:5 7 PM CDT Coronary artery disease involving [place] coronary artery of [place]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 (HCC) MAGNESIUM BLOOD STAT 05/05/2025 3:57 PM CDT Coronary artery disease involving [place] coronary artery of [place]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 (HCC) PHOSPHORUS BLOOD STAT 05/05/2025 3:57 PM CDT Coronary artery disease involving [place] coronary artery of [place]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 (HCC) DIFFERENTIAL MANUAL Timed 05/05/2025 2 :18 PM CDT CK BLOOD STAT 05/05/2025 2:18 PM CDT Coronary artery disease involving [place] coronary artery of [place]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 (HCC) CBC W AUTO DIFFERENTIAL Timed 05/05/2025 2:18 PM CDT GLUCOSE - POINT OF CARE Routine 05/05/2025 2:17 PM CDT PTT STAT 05/05/2025 1:30 PM CDT PT-INR STAT 05/05/2025 1:30 PM CDT BLOOD GASES ART + COOX PANEL STAT 05/05/2025 1:30 PM CDT COMPREHENSIVE METABOLIC PANEL STAT 05/05/2025 1:30 PM CDT LACTIC ACID BLOOD STAT 05/05/2025 1:3 0 PM CDT GLUCOSE - POINT OF CARE Routine 05/05/2025 1:28 PM CDT PERIPHERAL BLOCK Routine 05/05/2025 1:00 PM CDT GENE FOR ANESTHESIA Routine 05/05/2025 12:58 PM CDT XR CHEST 1VW PORTABLE Routine 05/05/2025 12:46 PM CDT Coronary artery disease involving [place] coronary artery of [place]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 (HCC) BLOOD GAS+COOX+LYTES+METAB ARTERIAL POCT Routine 05/05/2025 11:33 AM CDT BLOOD GASES ART + COOX PANEL Routine 05/05/2025 10:48 AM CDT LACTIC ACID BLOOD STAT 05/05/2025 10:48 AM CDT TRANSFUSE RED BLOOD CELL LEUKOREDUCED UNIT(S) STAT 05/05/2025 10:43 AM CDT WY EXPLOR POSTOP BLEED,INFEC,CLOT-CHST 05/05/2025 10:40 AM CDT Heart failure, unspecified HF chronicity, unspecified heart failure type (HCC) Special Needs ALL CALL NOTIFIED AT 05/04 @ 2131 - CW GLUCOSE - POINT OF CARE Routine 05/05/2025 10:17 AM CDT BLOOD GAS ALONSO+LYTES+METAB+COOX POC NOTIF Routine 05/05/2025 9:50 AM CDT BLOOD GAS ART+LYTES+METAB+COOX POC NOTIF STAT 05/05/2025 9:50 AM CDT PHOSPHORUS BLOOD STAT 05/05/2025 9:29 AM CDT Coronary artery disease involving [place] coronary artery of [place]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 (HCC) MAGNESIUM BLOOD STAT 05/05/2025 9:29 AM CDT Coronary artery disease involving [place] coronary artery of [place]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 (HCC) CBC W/O DIFFERENTIAL STAT 05/05/2025 9:29 AM CDT Coronary artery disease involving [place] coronary artery of [place]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 (HCC) GLUCOSE - POINT OF CARE Routine 05/05/2025 9:27 AM CDT TRANSFUSE RED BLOOD CELL LEUKOREDUCED UNIT(S) STAT 05/05/2025 9:26 AM CDT EKG 12-LEAD Routine 05/05/2025 8:36 AM CDT Coronary artery disease involving [place] coronary artery of [place] heart with angina pectoris EKG 12-LEAD Routine 05/05/2025 8:35 AM CDT Coronary artery disease involving [place] coronary artery of [place] heart with angina pectoris EKG 12-LEAD Routine 05/05/2025 8:34 AM CDT Coronary artery disease involving [place] coronary artery of [place]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 (HCC) BLOOD GASES ART + COOX PANEL STAT 05/05/2025 8:31 AM CDT COMPREHENSIVE METABOLIC PANEL STAT 05/05/2025 8:31 AM CDT GLUCOSE - POINT OF CARE Routine 05/05/2025 8:30 AM CDT GLUCOSE - POINT OF CARE Routine 05/05/2025 6:17 AM CDT TRANSFUSE RED BLOOD CELL LEUKOREDUCED UNIT(S) Routine 05/05/2025 5:08 AM CDT XR CHEST 1VW PORTABLE Routine 05/05/2025 5:02 AM CDT Coronary artery disease involving [place] coronary artery of [place] heart with angina pectoris GLUCOSE - POINT OF CARE Routine 05/05/2025 4:28 AM CDT GLUCOSE - POINT OF CARE Routine 05/05/2025 2:58 AM CDT CALCIUM IONIZED WHOLE BLOOD Routine 05/05/2025 2:57 AM CDT BLOOD GASES ART + COOX PANEL Routine 05/05/2025 2:57 AM CDT LACTIC ACID BLOOD STAT 05/05/2025 2:5 7 AM CDT Coronary artery disease involving [place] coronary artery of [place]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 (HCC) PHOSPHORUS BLOOD STAT 05/05/2025 2:57 AM CDT Coronary artery disease involving [place] coronary artery of [place]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 (HCC) MAGNESIUM BLOOD STAT 05/05/2025 2:57 AM CDT Coronary artery disease involving [place] coronary artery of [place]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 (HCC) BASIC METABOLIC PANEL (CALCIUM TOTAL) STAT 05/05/2025 2:57 AM CDT Coronary artery disease involving [place] coronary artery of [place]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 (HCC) CBC W/O DIFFERENTIAL STAT 05/05/2025 2:57 AM CDT Coronary artery disease involving [place] coronary artery of [place]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 (HCC) HEMOGLOBIN A1C Routine 05/05/2025 2:57 AM CDT GLUCOSE - POINT OF CARE Routine 05/05/2025 2:13 AM CDT GLUCOSE - POINT OF CARE Routine 05/05/2025 12:15 AM CDT EKG 12-LEAD STAT 05/04/2025 11:08 PM CDT Coronary artery disease involving [place] coronary artery of [place] heart with angina pectoris XR CHEST 1VW PORTABLE STAT 05/04/2025 10:34 PM CDT Coronary artery disease involving [place] coronary artery of [place] heart with angina pectoris GLUCOSE - POINT OF CARE Routine 05/04/2025 10:17 PM CDT DIFFERENTIAL MANUAL STAT 05/04/2025 10:17 PM CDT SVO2 FOR RECALIBRATION STAT 05/04/2025 10:17 PM CDT BLOOD GASES ART + COOX PANEL STAT 05/04/2025 10:17 PM CDT PTT STAT 05/04/2025 10:17 PM CDT PT-INR STAT 05/04/2025 10:17 PM CDT PHOSPHORUS BLOOD STAT 05/04/2025 10:17 PM CDT MAGNESIUM BLOOD STAT 05/04/2025 10:17 PM CDT FIBRINOGEN ACTIVITY STAT 05/04/2025 10:17 PM CDT CBC W AUTO DIFFERENTIAL STAT 05/04/2025 10:17 PM CDT CALCIUM IONIZED WHOLE BLOOD STAT 05/04/2025 10:17 PM CDT COMPREHENSIVE METABOLIC PANEL STAT 05/04/2025 10:17 PM CDT OT EVAL AND TREAT Routine 05/04/2025 10:06 PM CDT CENTRAL LINE NOTE Routine 05/04/2025 10:01 PM CDT PULMONARY ARTERY CATHETER NOTE Routine 05/04/2025 9:05 PM CDT PULMONARY ARTERY CATHETER NOTE Routine 05/04/2025 9:05 PM CDT ARTERIAL LINE NOTE Routine 05/04/2025 9: 05 PM CDT BLOOD GAS+COOX+LYTES+METAB ARTERIAL POCT Routine 05/04/2025 9:03 PM CDT TRANSFUSE CRYOPRECIPITATE UNIT(S) STAT 05/04/2025 8:12 PM CDT TRANSFUSE PLATELET PHERESIS UNIT(S) STAT 05/04/2025 8:04 PM CDT ACT PLUS - POCT ([facility]) Routine 05/04/2025 8:03 PM CDT BLOOD GAS+COOX+LYTES+METAB VENOUS POCT Routine 05/04/2025 8:03 PM CDT TRANSFUSE PLATELET PHERESIS UNIT(S) STAT 05/04/2025 7:50 PM CDT TRANSFUSE CRYOPRECIPITATE UNIT(S) STAT 05/04/2025 7:50 PM CDT PT-INR STAT 05/04/2025 7:46 PM CDT Coronary artery disease involving [place] coronary artery of [place]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 (HCC) CBC W/O DIFFERENTIAL STAT 05/04/2025 7:46 PM CDT Coronary artery disease involving [place] coronary artery of [place]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 (HCC) PLATELET COUNT AUTO CITRATED BLOOD STAT 05/04/2025 7:46 PM CDT Coronary artery disease involving [place] coronary artery of [place]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 (HCC) FIBRINOGEN ACTIVITY STAT 05/04/2025 7 :46 PM CDT Coronary artery disease involving [place] coronary artery of [place]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 (HCC) TEG 6 GLOBAL HEMOSTASIS WITH HEPARIN NEUTRALIZATION STAT 05/04/2025 7:42 PM CDT Coronary artery disease involving [place] coronary artery of [place]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 (HCC) BLOOD GAS+COOX+LYTES+METAB ARTERIAL POCT Routine 05/04/2025 7:36 PM CDT ACT PLUS - POCT ([facility]) Routine 05/04/2025 7:34 PM CDT BLOOD GAS+COOX+LYTES+METAB ARTERIAL POCT Routine 05/04/2025 7:00 PM CDT ACT PLUS - POCT ([facility]) Routine 05/04/2025 6:59 PM CDT BLOOD GAS+COOX+LYTES+METAB VENOUS POCT Routine 05/04/2025 6:52 PM CDT TRANSFUSE RED BLOOD CELL LEUKOREDUCED UNIT(S) STAT 05/04/2025 6:42 PM CDT TRANSFUSE RED BLOOD CELL LEUKOREDUCED UNIT(S) STAT 05/04/2025 6:42 PM CDT BLOOD GAS+COOX+LYTES+METAB ARTERIAL POCT Routine 05/04/2025 6:40 PM CDT ACT PLUS - POCT ([facility]) Routine 05/04/2025 6:39 PM CDT ENDOTRACHEAL TUBE NOTE Routine 05/04/2025 6:37 PM CDT ACT PLUS - POCT ([facility]) Routine 05/04/2025 6:20 PM CDT TRANSFUSE RED BLOOD CELL LEUKOREDUCED UNIT(S) STAT 05/04/2025 6:15 PM CDT TRANSFUSE RED BLOOD CELL LEUKOREDUCED UNIT(S) Routine 05/04/2025 6:14 PM CDT BLOOD GAS+COOX+LYTES+METAB VENOUS POCT Routine 05/04/2025 6:13 PM CDT ACT PLUS - POCT ([facility]) Routine 05/04/2025 6:11 PM CDT CCL PERCUTANEOUS CORONARY INTERVENTION Routine 05/04/2025 5:38 PM CDT Coronary artery disease involving [place] coronary artery of [place] heart with angina pectoris BLOOD GAS ALONSO+LYTES+METAB+COOX POC NOTIF Routine 05/04/2025 5:30 PM CDT BLOOD GAS ART+LYTES+METAB+COOX POC NOTIF STAT 05/04/2025 5:30 PM CDT BLOOD GAS+COOX+LYTES+METAB ARTERIAL POCT Routine 05/04/2025 5:23 PM CDT WY CABG, ARTERIAL, THREE 05/04/2025 5:16 PM CDT Cardiac abnormality (HCC) POTASSIUM BLOOD STAT 05/04/2025 5:09 PM CDT Coronary artery disease involving [place] coronary artery of [place] heart with angina pectoris ACT LR - POCT ([facility]) Routine 05/04/2025 5:07 PM CDT BLOOD TYPE VERIFICATION Routine 05/04/2025 4:43 PM CDT PREPARE RBC LEUKOREDUCED UNIT Routine 05/04/2025 4:40 PM CDT PREPARE RBC LEUKOREDUCED UNIT STAT 05/04/2025 4:40 PM CDT PREPARE RBC LEUKOREDUCED UNIT STAT 05/04/2025 4:40 PM CDT PREPARE CRYOPRECIPITATE UNIT(S) STAT 05/04/2025 4:40 PM CDT PREPARE PLATELET PHERESIS UNIT(S) STAT 05/04/2025 4:40 PM CDT PREPARE RBC LEUKOREDUCED UNIT STAT 05/04/2025 4:40 PM CDT PREPARE RBC LEUKOREDUCED UNIT Routine 05/04/2025 4:40 PM CDT PREPARE WHOLE BLOOD UNIT(S) Routine 05/04/2025 4:40 PM CDT TYPE + SCREEN PANEL STAT 05/04/2025 4 :40 PM CDT Coronary artery disease involving [place] coronary artery of [place] heart with angina pectoris PREPARE RBC LEUKOREDUCED UNIT Routine 05/04/2025 4:40 PM CDT Coronary artery disease involving [place] coronary artery of [place] heart with angina pectoris ACT LR - POCT ([facility]) Routine 05/04/2025 4:35 PM CDT ACT LR - POCT ([facility]) Routine 05/04/2025 3:33 PM CDT ACT LR - POCT ([facility]) Routine 05/04/2025 3:18 PM CDT ACT LR - POCT ([facility]) Routine 05/04/2025 1:53 PM CDT ACT LR - POCT ([facility]) Routine 05/04/2025 12:33 PM CDT ACT LR - POCT ([facility]) Routine 05/04/2025 12:23 PM CDT CBC W/O DIFFERENTIAL GREGORY 05/04/2025 9:35 AM CDT Coronary artery disease involving [place] coronary artery of [place]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 (HCC) BASIC METABOLIC PANEL (CALCIUM TOTAL) GREGORY 05/04/2025 9:35 AM CDT Coronary artery disease involving [place] coronary artery of [place]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 (HCC) EKG 12-LEAD Routine 05/04/2025 9:28 AM CDT Coronary artery disease involving [place] coronary artery of [place]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 (HCC) VAS BILATERAL VENOUS MAPPING Routine 04/25/2025 5:21 PM CDT Nonrheumatic aortic valve stenosis Pre-op evaluation VAS CAROTID DUPLEX BILATERAL Routine 04/25/2025 4:37 PM CDT Nonrheumatic aortic valve stenosis Pre-op evaluation CT CHEST WO CONTRAST Routine 04/25/2025 2:39 PM CDT Nonrheumatic aortic valve stenosis Pre-op evaluation ECHO OUTSIDE STUDY Routine 04/19/2025 11:55 AM CDT Hx of echocardiogram CATH OUTSIDE STUDY Routine 04/19/2025 11:55 AM CDT Hx of cardiac cath from Last 3 Months Results * APHERESIS/TRANSFUSION ORDER (05/17/2025 11:19 AM CDT) Narrative 05/17/2025 11:19 AM CDT Ordered by an unspecified provider. us Scanned Document NURSING - VITAL SIGNS AND ASSES SMENT Final Result * (ABNORMAL) GLUCOSE - POINT OF CARE (05/16/2025 11:09 AM CDT) Only the most recent of62 resultswithin the time period is included. Glucose WB/POC 112(H) 70 - 99 mg/dL 05/16/2025 11:13 AM CDT [facility] Specimen Type Arterial/C apillary 05/16/2025 11:13 AM CDT [facility] Blood BLOOD SPECIMEN / Unknown 05/16/2025 11:09 AM CDT 05/16/2025 11:13 AM CDT us Fer Rose MD LAB - POINT OF CARE ORDERABLES Final Result [facility] [address] [place] [id number], [facility] [phone] * XR Chest 1Vw Portable (05/16/2025 4:42 AM CDT) Only the most recent of21 resultswithin the time period is included. Anatomical Region Laterality Modality Chest Digital Radiogra phy 05/17/2025 1:53 AM CDT Impressions 05/17/2025 1:54 AM CDT IMPRESSION: Sternotomy wires and skin jae are demonstrated. Small right pleural effusion with associated atelectatic changes are seen. There is no focal consolidation or visible pneumothorax. Diffuse soft tissue emphysema in the right chest and bilateral soft tissue neck is seen. Cardiomediastinal is stable. Right calcified mediastinal lymph nodes are seen. > Interpreting Provider: Orestes Carr MD on 05/17/2025 1:54 AM Narrative 05/17/2025 1:54 AM CDT PROCEDURE: XR CHEST 1VW PORTABLE DATE/TIME OF EXAM: 05/16/2025 4:52 AM CLINICAL INFORMATION: None relevant/not provided if blank. Indication: I25.119: Coronary artery disease involving [place] coronary artery of [place] heart with angina pectoris Additional History: COMPARISON: 05/14/2025, XR CHEST 1VW PORTABLE Procedure Note Orestes Carr MD - 05/17/2025 PROCEDURE: XR CHEST 1VW PORTABLE DATE/TIME OF EXAM: 05/16/2025 4:52 AM CLINICAL INFORMATION: None relevant/not provided if blank. 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 Small right pleural effusion with associated atelectatic changes areseen. There is no focal consolidation or visible pneumothorax. Diffuse soft tissue emphysema in the right chest and bilateral soft tissue neck isseen. Cardiomediastinal is stable. Right calcified mediastinal lymph nodes are seen. > Interpreting Provider: Oerstes Carr MD on 05/17/2025 1:54 AM Tr Beckie [employer] DIAGNOSTIC IMAGING ORDER LIZZ Final Result * (ABNORMAL) CBC W/O DIFFERENTIAL (05/16/2025 1:35 AM CDT) Only the most recent of23 resultswithin the time period is included. WBC 10.7 4.0 - 10.7 x10E9/L 05/16/2025 2:42 AM CDT [facility] RBC Count 3.79(L) 3.90 - 5.20 x10E12/L 05/16/2025 2:42 AM CDT [facility] Hemoglobin 11.8(L) 11.9 - 15.8 g/dL 05/16/2025 2:42 AM CDT [facility] Hematocrit 35.4 34.8 - 46.1 % 05/16/2025 2:42 AM CDT [facility] MCV 93.4 80.0 - 98.0 fL 05/16/2025 2:42 AM CDT [facility] MCH 31.1 26.7 - 33.6 pg 05/16/2025 2:42 AM T [facility] MCHC 33.3 31.7 - 36.3 g/dL 05/16/2025 2:42 AM T [facility] RDW-CV 18.5(H) 11.3 - 14.8 % 05/16/2025 2:42 AM [facility] Platelet Count 440(H) 150 - 420 x10E9/L 05/16/2025 2:42 AM [facility] MPV 9.3 7.8 - 11.4 fL 05/16/2025 2:42 AM [facility] Blood BLOOD SPECIMEN / Unknown Lab Venipuncture / Unknown 05/16/2025 1:35 AM CDT 05/16/2025 2:25 AM CDT us Amanda Malloy MD LAB - HEMATOLOGY ORDERABLES Fin al Result [facility] [address] [place] [phone], [facility] [phone] * (ABNORMAL) BASIC METABOLIC PANEL (CALCIUM TOTAL) (05/16/2025 1:35 AM CDT) Only the most recent of26 resultswithin the time period is included. BUN 18 7 - 26 mg/dL 05/16/2025 2:59 AM [facility] Creatinine 0.68 0.56 - 0.96 mg/dL 05/16/2025 2:59 AM [facility] Sodium 131(L) 136 - 145 mmol/L 05/16/2025 2:59 AM T [facility] Potassium 4.1 3.5 - 4.5 mmol/L 05/16/2025 2:59 AM [facility] Chloride 96(L) 98 - 107 mmol/L 05/16/2025 2:59 AM [facility] CO2 26 22 - 29 mmol/L 05/16/2025 2:59 AM [facility] Glucose 94 70 - 99 mg/dL 05/16/2025 2:59 AM [facility] Calcium 9.2 8.4 - 10.2 mg/dL 05/16/2025 2:59 AM [facility] Anion Gap 9 6 - 16 05/16/2025 2:59 AM [facility] BUN/Creatinine Ratio 26(H) 7 - 23 05/16/2025 2:59 AM [facility] Osmolality Calculated 274(L) 275 - 295 mOsm/kg 05/16/2025 2:59 AM [facility] eGFR by CKD-EPI 89(L) >=90 mL/min/1.7 3 m2 05/16/2025 2:59 AM [facility] Comment:Estimated Glomerular Filtration Rate (eGFR) calculated using the CKD-EPI Creatinine Equation (2020), per the National Kidney Foundation and [place] [employer]ph[employer] recommendations. Blood BLOOD SPECIMEN / Unknown Lab Venipuncture / Unknown 05/16/2025 1:35 AM CDT 05/16/2025 2:22 AM CDT us Amanda Malloy MD LAB - CHEMISTRY ORDERABLES Veronica l Result [facility] [address] [place] [phone], [facility] [phone] * PHOSPHORUS BLOOD (05/16/2025 1:35 AM CDT) Only the most recent of16 resultswithin the time period is included. Phosphorus 2.9 2.9 - 5.1 mg/dL 05/16/2025 2:59 AM [facility] Blood BLOOD SPECIMEN / Unknown Lab Venipuncture / Unknown 05/16/2025 1:35 AM CDT 05/16/2025 2:22 AM CDT us Fer Rose MD LAB - CHEMISTRY ORDERABLES Fin al Result Performing Organization Address City/[facility]/ZIP Co de Phone Number [address] [phone], [facility] [phone] * MAGNESIUM BLOOD (05/16/2025 1:35 AM CDT) Only the most recent of16 resultswithin the time period is included. Pathologist [facility] Magnesium 1.7 1.6 - 2.6 mg/dL 05/16/2025 2:59 AM CDT [facility] Blood BLOOD SPECIMEN / Unknown Lab Venipuncture / Unknown 05/16/2025 1:35 AM CDT 05/16/2025 2:22 AM CDT Fer Rose MD LAB - CHEMISTRY ORDERABLES Fin al Result Performing Organization Address [facility] Co de Phone Number [address] [phone], [facility] [phone] * ECHO LIMITED W CONTRAST COLOR AND DOPPLER (05/15/2025 3:30 PM CDT) Only the most recent of3 resultswithin the time period is included. Pathologist [facility] LV biplane EF 48.959 % [facility] CV FUJI PACS LV A2C EF 45.962 % [facility] CV FUJ I PACS LV A4C EF 53.209 % [facility] CV FUJ I PACS LV EDV A2C 68.106 ml SSM CV FU JI PACS LV EDV A4C 79.504 ml [facility] CV FU JI PACS LV ESV A2C 36.804 ml [facility]SM CV FU JI PACS LV ESV A4C 37.201 ml [facility] CV FU JI PACS RV-franks basal diam 3.421 cm SSM CV FUJI PACS MV A pk daniel 86.511 cm/s SSM CV F UJI PACS MV E pk daniel 74.423 cm/s SSM CV F UJI PACS MV E' lateral daniel 7.208 cm/s SSM CV FUJI PACS MV mn grad 2.037 mmHg SSM CV FU JI PACS MV VTI 19.67 cm [facility]SM CV FUJ I PACS TAPSE 1.355 cm [facility]SM CV FUJ I PACS TR pk daniel 183.736 cm/s SSM CV FUJ I PACS IVC Diam Expiration 1.775 cm SSM CV FUJI PACS Myocardial strain charge 2 unitless SSM CV FUJI PACS Anatomical Region Laterality Modality Ultrasound 05/15/2025 2:59 PM CDT Narrative 05/15/2025 5:02 PM CDT Summary * The left ventricle is normal in size, with mildly reduced systolic function and an estimated ejection fraction of 49 % by biplane method of disks. Septal wall motion is abnormal consistent with prior CABG. * Right ventricle is not well visualized, but appears grossly normal in size with grossly normal systolic function. * The inferior vena cava is normal in size (< 2.1 cm). * There is no pericardial effusion. Patient Info Name: Rhiannon Zapata Age: 79 years : 1945 Gender: Female Ht: 63 in Wt: 114 lb BSA: 1.51 m2 HR: 92 bpm BP: 99 / 66 mmHg Heart Rhythm: Sinus Rhythm Exam Date: 05/15/2025 2:59 PM Exam Room: 809 Patient Status: I/P [facility] Technical Quality: Adequate Exam Type: ECHO LIMITED W CONTRAST COLOR AND DOPPLER Indications Z95.1 - S/P CABG (coronary artery bypass graft) Procedure(s) * An Ultrasound Enhancing Agent (UEA) was utilized to enhance endocardial definition, opacify the left ventricle and further assess left ventricular function and wall motion. * A limited 2D, color Doppler, spectral Doppler and M-Mode transthoracic echocardiogram was performed with an Ultrasound Enhancing Agent (UEA). Contrast/Agitated Saline Contrast / Saline: Definity Amount: 1.00 ml Administered By: Martina Holbrook Reaction to Contrast: no Reason for Technically Difficult Study: positional limitations, patient supine, lung interference Staff Referring Physician: Tr Butts Ordering Provider: Tr Butts Attending Physician: Tr Butts Fellow: Shade Garcia Manager Research: Martina Holbrook Left Ventricle The left ventricle is normal in size. Left ventricular systolic function is mildly reduced with an estimated ejection fraction of 49 % by biplane method of disks. Left ventricular segmental wall motion is abnormal. The left ventricular diastolic function is indeterminate. Abnormal septal motion consistent with a post-operative state. The apical septal wall, apical inferior wall, apical anterior wall, apical cap, mid anterior wall, and mid anteroseptal wall are akinetic. The anterolateral wall, inferolateral wall, basal inferior wall, mid inferior wall, basal anterior wall, basal inferoseptal wall, mid inferoseptal wall, and basal anteroseptal wall are hypokinetic. Mitral Valve The mitral valve is normal. There is trace mitral valve regurgitation. Inferior Vena Cava The inferior vena cava is normal in size (< 2.1 cm). There is > 50% collapse of the IVC upon inspiration with an estimated right atrial pressure of 3 mmHg. Pericardium/Pleural There is no pericardial effusion. Measurements Mitral Valve Name Value Normal MV Doppler MV Peak Gradient 4 mmHg MV Mean Gradient 2 mmHg MV Diastolic Function MV E Peak Velocity 0.7 m/sec MV A Peak Velocity 0.9 m/sec MV E/A 0.9 MV Decel Time (PW) 150 ms MV A Wave Duration 120 ms MV Annular TDI MV Septal e' Velocity 4 cm/s >=8 MV E/e' (Septal) 17 <=8 MV Lateral e' Velocity 7 cm/s >=10 MV E/e' (Lateral) 10 <=8 MV e' Average 6 cm/s MV E/e' (Average) 14 Tricuspid Valve Name Value Normal TV Regurgitation Doppler TR Peak Velocity 1.8 m/s TR Peak Gradient 14 mmHg Estimated PAP/RSVP RA Pressure 3 mmHg <=5 PA Systolic Pressure 17 mmHg <35 RV Systolic Pressure 17 mmHg <36 TV Annular TDI TV Lateral Audrey s' Velocity 6 cm/s 10-19 Venous Name Value Normal IVC/SVC IVC Diameter 1.8 cm <=2.1 Ventricles Name Value Normal LV Fractional Shortening/Ejection Fraction 2D/MM LV Diastolic Volume (4C MOD) 80 ml LV EF (4C MOD) 53 % LV Diastolic Volume (2C MOD) 68 ml LV EF (2C MOD) 46 % LV Diastolic Volume (BP MOD) 74 ml 46-106 LV Diastolic Volume Index (BP MOD) 49 ml/m2 29-61 LV Systolic Volume (BP MOD) 38 ml 14-42 LV Systolic Volume Index (BP MOD) 25 ml/m2 8-24 LV EF (BP MOD) 49 % 54-74 LV Diastolic Length (4C) 7.0 cm LV Systolic Length (4C) 6.1 cm LV Stroke Volume (4C MOD) 42 ml RV Dimensions 2D/MM RV Basal Diastolic Dimension 3.4 cm 2.5-4.1 RV Diastolic Length (4C) 6.4 cm 5.9-8.3 TAPSE 1.4 cm >=1.7 Report Signatures Finalized by Joseph Dominguez on 05/15/2025 05:02 PM Reviewed by Fellow Shade Garcia on 05/15/2025 04:47 PM Procedure Note Joseph Dominguez MD - 05/15/2025 Summary * The left ventricle is normal in size, with mildly reduced systolic function and an estimated ejection fraction of 49 % by biplane method of disks. Septal wall motion is abnormal consistent with prior CABG. * Right ventricle is not well visualized, but appears grossly normal insize with grossly normal systolic function. * The inferior vena cava is normal in size (< 2.1 cm). * There is no pericardial effusion. Patient Info Name: Rhiannon Zapata Age: 79 years : 1945 Gender: Female Ht: 63 in Wt: 114 lb BSA: 1.51 m2 HR: 92 bpm BP: 99 / 66 mmHg Heart Rhythm: Sinus Rhythm Exam Date: 05/15/2025 2:59 PM Exam Room: 809 Patient Status: I/P Study Site: [facility] Primary Location: [facility] EStud Info Technical Quality: Adequate Exam Type: ECHO LIMITED W CONTRAST COLOR AND DOPPLER Indications Z95.1 - S/P CABG (coronary artery bypass graft) Procedure(s) * An Ultrasound Enhancing Agent (UEA) was utilized to enhanceendocardial definition, opacify the left ventricle and further assess leftventricular function and wall motion. * A limited 2D, color Doppler, spectral Doppler and M-Modetransthoracic echocardiogram was performed with an Ultrasound Enhancing Agent (UEA). Contrast/Agitated Saline Contrast / Saline: Definity Amount: 1.00 ml Administered By: Martina Holbrook Reaction to Contrast: no Reason for Technically Difficult Study: positional limitations,patient supine, lung interference Staff Referring Physician: Tr Butts Ordering Provider: Tr Butts Attending Physician: Tr Butts Fellow: Shade Garcia Manager Research: Martina Holbrook Left Ventricle The left ventricle is normal in size. Left ventricular systolic functionis mildly reduced with an estimated ejection fraction of 49 % by biplanemethod of disks. Left ventricular segmental wall motion is abnormal. The left ventricular diastolic function is indeterminate. Abnormal septal motion consistent with a post-operative state. The apical septal wall, apical inferior wall, apical anterior wall, apical cap, mid anterior wall, andmid anteroseptal wall are akinetic. The anterolateral wall, inferolateralwall, basal inferior wall, mid inferior wall, basal anterior wall, basal inferoseptal wall, mid inferoseptal wall, and basal anteroseptal wallare hypokinetic. Mitral Valve The mitral valve is normal. There is trace mitral valve regurgitation. Inferior Vena Cava The inferior vena cava is normal in size (< 2.1 cm). There is > 50%collapse of the IVC upon inspiration with an estimated right atrial pressure of 3mmHg. Pericardium/Pleural There is no pericardial effusion. Measurements Mitral Valve Name Value Normal MV Doppler MV Peak Gradient 4 mmHg MV Mean Gradient 2 mmHg MV Diastolic Function MV E Peak Velocity 0.7 m/sec MV A Peak Velocity 0.9 m/sec MV E/A 0.9 MV Decel Time (PW) 150 ms MV A Wave Duration 120 ms MV Annular TDI MV Septal e' Velocity 4 cm/s >=8 MV E/e' (Septal) 17 <=8 MV Lateral e' Velocity 7 cm/s >=10 MV E/e' (Lateral) 10 <=8 MV e' Average 6 cm/s MV E/e' (Average) 14 Tricuspid Valve Name Value Normal TV Regurgitation Doppler TR Peak Velocity 1.8 m/s TR Peak Gradient 14 mmHg Estimated PAP/RSVP RA Pressure 3 mmHg <=5 PA Systolic Pressure 17 mmHg <35 RV Systolic Pressure 17 mmHg <36 TV Annular TDI TV Lateral Audrey s' Velocity 6 cm/s 10-19 Venous Name Value Normal IVC/SVC IVC Diameter 1.8 cm <=2.1 Ventricles Name Value Normal LV Fractional Shortening/Ejection Fraction 2D/MM LV Diastolic Volume (4C MOD) 80 ml LV EF (4C MOD) 53 % LV Diastolic Volume (2C MOD) 68 ml LV EF (2C MOD) 46 % LV Diastolic Volume (BP MOD) 74 ml 46-106 LV Diastolic Volume Index (BP MOD) 49 ml/m2 29-61 LV Systolic Volume (BP MOD) 38 ml 14-42 LV Systolic Volume Index (BP MOD) 25 ml/m2 8-24 LV EF (BP MOD) 49 % 54-74 LV Diastolic Length (4C) 7.0 cm LV Systolic Length (4C) 6.1 cm LV Stroke Volume (4C MOD) 42 ml RV Dimensions 2D/MM RV Basal Diastolic Dimension 3.4 cm 2.5-4.1 RV Diastolic Length (4C) 6.4 cm 5.9-8.3 TAPSE 1.4 cm >=1.7 Report Signatures Finalized by Joseph Dominguez on 05/15/2025 05:02 PM Reviewed by Fellow Shade Garcia on 05/15/2025 04:47 PM Tr Butts [employer] [facility] Final Re sult * TRANSFUSE RED BLOOD CELL LEUKOREDUCED UNIT(S) (05/13/2025 2:28 AM CDT) Fer Rose MD NURSING - BLOOD PROD TRANSFUSI ON Final Result * XR Foot Left 3Vw or More (05/12/2025 7:15 PM CDT) Anatomical Region Laterality Modality Ankle / Foot Digital Radiogra phy 05/12/2025 9:26 PM CDT Narrative 05/12/2025 9:28 PM CDT PROCEDURE: XR FOOT LEFT 3VW OR MORE DATE/TIME OF EXAM: 05/12/2025 7:17 PM CLINICAL INFORMATION: None relevant/not provided if blank. Indication: I25.110: Coronary artery disease involving [place] coronary artery of [place]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 (HCC) Additional History: COMPARISON: None. FINDINGS: No acute fractures or dislocations is seen. Bone erosions noted along the medial side of head of first metatarsal associated with soft tissue swelling and minimal soft tissue hyperdensity. Findings are concerning for gout. The joint spaces are preserved. Bone mineral density is within normal limits. No significant soft tissue swelling or joint effusion is seen.Calculus spur and enthesophyte at the attachment of the Achilles tendon are noted. > Interpreting Provider: Crissy Hartman MD on 05/12/2025 9:28 PM Procedure Note Crissy Hartman MD - 05/12/2025 PROCEDURE: XR FOOT LEFT 3VW OR MORE DATE/TIME OF EXAM: 05/12/2025 7:17 PM CLINICAL INFORMATION: None relevant/not provided if blank. Indication: I25.110: Coronary artery disease involving [place] coronary artery of [place]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 (HCC) Additional History: COMPARISON: None. FINDINGS: No acute fractures or dislocations is seen. Bone erosions noted alongthe medial side of head of first metatarsal associated with soft tissue swelling and minimal soft tissue hyperdensity. Findings are concerningfor gout. The joint spaces are preserved. Bone mineral density is withinnormal limits. No significant soft tissue swelling or joint effusion is seen.Calculus spur and enthesophyte at the attachment of the Achilles tendon are noted. > Interpreting Provider: Crissy Hartman MD on 59:28 PM Fer Rose MD DIAGNOSTIC IMAGING ORDERABLES Final Result * TRANSFUSE RED BLOOD CELL LEUKOREDUCED UNIT(S) (05/12/2025 12:40 PM CDT) Result [facility] Tea Lai APRN-[facility] NURSING - BLOOD PROD TRANSFUSION Final Result * TRANSFUSE RED BLOOD CELL LEUKOREDUCED UNIT(S) (05/12/2025 7:04 AM CDT) Fer Rose MD NURSING - BLOOD PROD TRANSFUSI ON Final Result * PREPARE (CROSSMATCH) RBC UNIT(S), 1 Units (05/11/2025 1:34 PM CDT) Only the most recent of9 resultswithin the time period is included. Unit Description AS1 LR PRBC [facility] Unit ABO O [facility] Unit Rh POS [facility] Product Number R44 [facility] B[facility] Unit Donor # [id number] [facility] Unit Status transfused [facility] Product Code [id number] [facility] Blood Type Barcode 5100 [facility] Expiration Date [facility] Blood Bank BLOOD SPECIMEN / Unknown 05/11/2025 1:34 PM CDT 05/11/2025 2:10 PM CDT Result [facility] Fer Rose MD LAB - BLOOD BANK ORDERABLES Fi nal Result Performing Organization Address City/[facility]/ZIP Co de Phone Number [facility] [address] [place] [address], [place] [phone] * TYPE + SCREEN PANEL (05/11/2025 1:34 PM CDT) Only the most recent of2 resultswithin the time period is included. Antibody Screen NEG 2:59 PM CDT [facility] ABO Rh O POS 05/11/2025 2:59 PM CDT [facility] Blood Bank BLOOD SPECIMEN / Unknown Venipuncture / Unknown 05/11/2025 1:34 PM CDT 05/11/2025 2:10 PM CDT Result [facility] Fer Rose MD LAB - BLOOD BANK ORDERABLES Fi nal Result Performing Organization Address [facility]/ZIP Co de Phone Number [facility] [address] [place] [address], [place] [phone] * (ABNORMAL) FIBRINOGEN ACTIVITY (05/11/2025 11:49 AM CDT) Only the most recent of4 resultswithin the time period is included. Fibrinogen Clauss 518(H) 200 - 400 mg/dL 05/11/2025 12:29 PM CDT [facility] Blood BLOOD SPECIMEN / Unknown Venipuncture / Unknown 05/11/2025 11:49 AM CDT 05/11/2025 12:01 PM CDT Result [facility] Fer Rose MD LAB - COAGULATION ORDERABLES F inal Result Performing Organization Address City/[facility]/ZIP Co de Phone Number [facility] [address] [place] [address], [place] [phone] * PTT (05/11/2025 11:49 AM CDT) Only the most recent of4 resultswithin the time period is included. APTT 37.5 23.0 - 38.4 Seconds 05/11/2025 12:29 PM CDT [facility] Comment:Suggested therapeuti c range for full dose I.V. unfractionated heparin therapy for venous thromboembolism is 71 to 109 seconds. Blood BLOOD SPECIMEN / Unknown Venipuncture / Unknown 05/11/2025 11:49 AM CDT 05/11/2025 12:01 PM CDT Fer Rose MD LAB - COAGULATION ORDERABLES F inal Result Performing Organization Address City/[facility]/ZIP Co de Phone Number [address] [address], [place] [phone] * PT-INR (05/11/2025 11:49 AM CDT) Only the most recent of5 resultswithin the time period is included. PT 14.0 12.1 - 14.8 Seconds 05/11/2025 12:29 PM CDT [facility] INR 1.1 See Comment 05/11/2025 12:29 PM CDT [facility] Comment:The suggested therap eutic range for standard coumadin (warfarin) therapy is an INR of 2.0-3.0. For high-risk patients (Mechanical Mitral Valve Prosthesis, etc.), the suggested prophylactic therapeutic range is an INR of 2.5-3.5. Blood BLOOD SPECIMEN / Unknown Venipuncture / Unknown 05/11/2025 11:49 AM CDT 05/11/2025 12:01 PM CDT Result [facility] us Fer Rose MD LAB - COAGULATION ORDERABLES F inal Result Performing Organization Address [facility]/ZIP Co de Phone Number [address] [address], [place] [phone] * LACTIC ACID BLOOD (05/10/2025 3:22 AM CDT) Only the most recent of11 resultswithin the time period is included. Lactic Acid-Stat 1.2 <=2.0 mmol/L 05/10/2025 4:00 AM [facility] Blood BLOOD SPECIMEN / Unknown Venipuncture / Unknown 05/10/2025 3:22 AM CDT 05/10/2025 3:31 AM CDT Amanda Malloy MD LAB - CHEMISTRY ORDERABLES Veronica alba Result [facility] [address] [place] [address], [facility] [phone] * (ABNORMAL) BLOOD GASES ART + COOX PANEL (05/10/2025 3:22 AM CDT) Only the most recent of12 resultswithin the time period is included. pH Arterial 7.50(H) 7.35 - 7.45 pH 05/10/2025 3:31 AM [facility] pO2 Arterial 136(H) 80 - 100 mmHg 05/10/2025 3:31 AM [facility] pCO2 Arterial 33(L) 35 - 45 mmHg 3:31 AM [facility] HCO3 Arterial 25.7 20.0 - 30.0 mmol/L 05/10/2025 3:31 AM [facility] BE Arterial 3.0(H) -2.0 - 2.0 mmol/L 05/10/2025 3:31 AM [facility] Oxyhemoglobin Arterial 96.4 % 05/10/2025 3:31 AM [facility] Dexoyhemoglobin (HHB) % <1.0 % 05/10/2025 3:31 AM [facility] Methemoglobin 1.0 0.0 - 2.0 % 05/10/2025 3:31 AM [facility] Carboxyhemoglobin 1.9 0.0 - 2.0 % 2024 3:31 AM [facility] O2 Content Arterial 19.9 Interpret within clinical context ml/dL 05/10/2025 3:31 AM [facility] Hemoglobin by COOX 14.5 12.0 - 15.6 g/dL 05/10/2025 3:31 AM CDT [facility] O2 Saturation Arterial 99 90 - 100 % 05/10/2025 3:31 AM CDT [facility] FI O2 Arterial 28.0 % 05/10/2025 3:31 AM CDT [facility] Blood, arterial ARTERIAL BLOOD SPECIMEN / Unknown Arterial Puncture / Unknown 05/10/2025 3:22 AM CDT 05/10/2025 3:28 AM CDT Narrative [facility] - 05/10/2025 3:31 AM CDT Carboxyhemoglobin Normal Concentration: Non-smokers: 0-2%; Smokers: 0-9%; Toxic: >20% us Amanda Malloy MD LAB - BLOOD GASES ORDERABLES Fi nal Result [facility] [address] [place] [phone], [facility] [phone] * XR Chest 1Vw (05/09/2025 11:26 PM CDT) Only the most recent of2 resultswithin the time period is included. Anatomical Region Laterality Modality Chest Digital Radiogra phy 05/10/2025 3:17 AM CDT Impressions 05/10/2025 3:19 AM CDT IMPRESSION: 5:46 PM: *Intact median sternotomy wires. *Right internal jugular central venous catheter in the superior vena cava. *Midline inferior chest wall surgical staple line. There is mild atelectasis at left lung base. No pleural effusion.. Unchanged small right basilar pneumothorax.. There is soft tissue gas in the chest wall. Heart size is normal. 10:41 PM: No substantial change. 11:21 PM: Placement of a right thoracostomy drain. Unchanged right basilar pneumothorax. No substantial change otherwise. > Interpreting Provider: Orestes Carr MD on 05/10/2025 3:19 AM Narrative 05/10/2025 3:19 AM CDT PROCEDURE: XR CHEST 1VW PORTABLE, XR CHEST 1VW, XR CHEST 1VW DATE/TIME OF EXAM: 05/09/2025 5:53 PM CLINICAL INFORMATION: None relevant/not provided if blank. Indication: Z95.1: S/P CABG (coronary artery bypass graft) J95.811: Postprocedural pneumothorax Additional History: COMPARISON: 05/09/2025, XR CHEST 1VW PORTABLE Procedure Note Orestes Carr MD - 05/10/2025 PROCEDURE: XR CHEST 1VW PORTABLE, XR CHEST 1VW, XR CHEST 1VW DATE/TIME OF EXAM: 05/09/2025 5:53 PM CLINICAL INFORMATION: None relevant/not provided if blank. Indication: Z95.1: S/P CABG (coronary artery bypass graft) J95.811: Postprocedural pneumothorax Additional History: COMPARISON: 05/09/2025, XR CHEST 1VW PORTABLE IMPRESSION: 5:46 PM: *Intact median sternotomy wires. *Right internal jugular central venous catheter in the superior venacava. *Midline inferior chest wall surgical staple line. There is mild atelectasis at left lung base. No pleural effusion.. Unchanged small right basilar pneumothorax.. There is soft tissue gas in the chest wall. Heart size is normal. 10:41 PM: No substantial change. 11:21 PM: Placement of a right thoracostomy drain. Unchanged right basilar pneumothorax. No substantial change otherwise. > Interpreting Provider: Orestes Carr MD on 05/10/2025 3:19 AM [facility] DIAGNOSTIC IMAGING ORDERABLES Final Result * (ABNORMAL) CALCIUM IONIZED WHOLE BLOOD (05/09/2025 8:01 PM CDT) Only the most recent of5 resultswithin the time period is included. Calcium Ionized 1.36 mmol/L 05/09/2025 8:12 PM T [facility] pH 7.40 7.35 - 7.45 pH 05/09/2025 8:12 PM [facility] Ionized Calcium pH Adjusted 1.36(H) 1.19 - 1.34 mmol/L 05/09/2025 8:12 PM [facility] Blood BLOOD SPECIMEN / Unknown Venipuncture / Unknown 05/09/2025 8:01 PM CDT 05/09/2025 8:06 PM CDT us Fer Rose MD LAB - CHEMISTRY ORDERABLES Fin al Result Performing Organization Address [facility]/ZIP Co de Phone Number [address] [address], [facility] [phone] * (ABNORMAL) SVO2 FOR RECALIBRATION (05/09/2025 4:38 AM CDT) Only the most recent of5 resultswithin the time period is included. Pathologist [facility] SVO2 for Recalibration 79.6(H) 66.0 - 77.0 % 05/09/2025 4:51 AM CDT [facility] Blood BLOOD SPECIMEN / Unknown Venipuncture / Unknown 05/09/2025 4:38 AM CDT 05/09/2025 4:43 AM CDT us Amanda Malloy MD LAB - CHEMISTRY ORDERABLES Veronica l Result Performing Organization Address [facility] Co de Phone Number [address] [address], [place] [phone] * EKG 12-Lead (05/08/2025 5:18 AM CDT) Only the most recent of7 resultswithin the time period is included. Ventricular Rate 62 BPM [facility] Atrial Rate 62 BPM [facility] P-R Interval 152 ms [facility] QRS Duration ms 94 ms [facility] Q-T Interval ms 436 ms [facility] QTC Calculation (Bezet) 442 ms [facility] MUSE Calculated P [place] 55 degrees SL MUSE Calculated R [place] 51 degrees SL MUSE Calculated T [place] 70 degrees SL MUSE Interpretation EKG NORMAL SINUS RHYTHM INCOMPLETE RIGHT BUNDLE BRANCH BLOCK ANTEROSEPTAL INFARCT , AGE UNDETERMINED ABNORMAL ECG WHEN COMPARED WITH ECG OF 05/07/2025 NO SIGNIFICANT CHANGE WAS FOUND Confirmed by ALLIE THOMASON MD ([id number]) on 05/12/2025 3:37:05 PM [facility] 05/08/2025 5:18 AM CDT 05/12/2025 3:37 PM CDT Polly Trinidad [employer] ECG ORDERABLES Edited Result - Final [facility] * POTASSIUM BLOOD (05/07/2025 2:31 PM CDT) Only the most recent of2 resultswithin the time period is included. Pathologist [facility] Potassium 3.9 3.5 - 4.5 mmol/L 05/07/2025 3:01 PM CDT [facility] Blood BLOOD SPECIMEN / Unknown Venipuncture / Unknown 05/07/2025 2:31 PM CDT 05/07/2025 2:40 PM CDT Fer Rose MD LAB - CHEMISTRY ORDERABLES Fin al Result Performing Organization Address City/[facility]/ZIP Co de Phone Number [address] [address], [facility] [phone] * VAS Arterial Ankle Arm Index (05/07/2025 11:35 AM CDT) Anatomical Region Laterality Modality Ankle / Foot, Upper Extremity In travascular Ultrasound 05/07/2025 9:28 AM CDT Narrative Procedure Note David Blancas MD - 05/08/2025 Lorena Oates MD VASCULAR LAB ORDERA BLES Edited Result - Final * (ABNORMAL) CBC W AUTO DIFFERENTIAL (05/06/2025 2:16 PM CDT) Only the most recent of3 resultswithin the time period is included. WBC 13.3(H) 4.0 - 10.7 x10E9/L 05/06/2025 2:51 PM CDT [facility] RBC Count 4.40 3.90 - 5.20 x10E12/L 05/06/2025 2:51 PM CDT [facility] Hemoglobin 12.7 11.9 - 15.8 g/dL 05/06/2025 2:51 PM [facility] Hematocrit 37.4 34.8 - 46.1 % 05/06/2025 2:51 PM [facility] MCV 85.0 80.0 - 98.0 fL 05/06/2025 2:51 PM [facility] MCH 28.9 26.7 - 33.6 pg 05/06/2025 2:51 PM [facility] MCHC 34.0 31.7 - 36.3 g/dL 05/06/2025 2:51 PM [facility] RDW-CV 17.2(H) 11.3 - 14.8 % 05/06/2025 2:51 PM [facility] Platelet Count 140(L) 150 - 420 x10E9/L 05/06/2025 2:51 PM [facility] MPV 10.3 7.8 - 11.4 fL 05/06/2025 2:51 PM [facility] Neutrophil % 89.1(H) 41.0 - 74.0 % 05/06/2025 2:51 PM [facility] Lymphocyte % 3.8(L) 17.0 - 47.0 % 05/06/2025 2:51 PM [facility] Monocyte % 6.0 3.0 - 11.0 % 05/06/2025 2:51 PM [facility] Eosinophil % 0.1 0.0 - 7.0 % 05/06/2025 2:51 PM [facility] Basophil % 0.5 0.0 - 1.6 % 05/06/2025 2:51 PM [facility] Immature Granulocytes % 0.5 0.0 - 1.0 % 05/06/2025 2:51 PM [facility] Neutrophil Absolute 11.86(H) 1.60 - 7.50 x10E9/L 05/06/2025 2:51 PM [facility] Lymphocyte Absolute 0.50(L) 1.00 - 4.40 x10E9/L 05/06/2025 2:51 PM CDT [facility] Monocyte Absolute 0.80 0.15 - 1.00 x10E9/L 05/06/2025 2:51 PM CDT [facility] Eosinophil Absolute 0.01 0.00 - 0.60 x10E9/L 05/06/2025 2:51 PM CDT [facility] Basophil Absolute 0.06 0.00 - 0.13 x10E9/L 05/06/2025 2:51 PM CDT [facility] Blood BLOOD SPECIMEN / Unknown Venipuncture / Unknown 05/06/2025 2:16 PM CDT 05/06/2025 2:39 PM CDT Amanda Malloy MD LAB - HEMATOLOGY ORDERABLES Fin al Result [address] [address], [place] [phone] * (ABNORMAL) CK BLOOD (05/06/2025 12:30 PM CDT) Only the most recent of5 resultswithin the time period is included. CK Total 338(H) 30 - 200 U/L 05/06/2025 1:08 PM CDT [facility] Blood BLOOD SPECIMEN / Unknown Venipuncture / Unknown 05/06/2025 12:30 PM CDT 05/06/2025 12:42 PM CDT us Fer Rose MD LAB - CHEMISTRY ORDERABLES Fin al Result [address] [address], [place] [phone] * TRIGLYCERIDES BLOOD (05/06/2025 3:11 AM CDT) Triglycerides 133 <150 mg/dL 05/06/2025 3:58 AM CDT [facility] Comment: ATP III Classification of Triglycerides: <150 mg/dL: Normal 150 - 199 mg/dL: Borderline High 200 - 400 mg/dL: High >500 mg/dL: Very High Blood BLOOD SPECIMEN / Unknown Venipuncture / Unknown 05/06/2025 3:11 AM CDT 05/06/2025 3:28 AM CDT Melissa King [employer] LAB - CHEMISTRY BRIAN HUBER Final Result [facility] [address] [place] [address], [facility] [phone] * (ABNORMAL) DIFFERENTIAL MANUAL (05/05/2025 2:18 PM CDT) Only the most recent of2 resultswithin the time period is included. Neutrophil % 90(H) 41 - 74 % 05/05/2025 3:15 PM CDT [facility] Lymphocyte % 3(L) 17 - 47 % 05/05/2025 3:15 PM T [facility] Monocyte % 6 3 - 11 % 05/05/2025 3:15 PM T [facility] Eosinophil % 1 0 - 7 % 05/05/2025 3:15 PM T [facility] Neutrophil Absolute 16.47(H) 1.60 - 7.50 x10E9/L 05/05/2025 3:15 PM T [facility] Lymphocyte Absolute 0.55(L) 1.00 - 4.40 x10E9/L 05/05/2025 3:15 PM T [facility] Monocyte Absolute 1.10(H) 0.15 - 1.00 x10E9/L 05/05/2025 3:15 PM T [facility] Eosinophil Absolute 0.18 0.00 - 0.60 x10E9/L 05/05/2025 3:15 PM [facility] RBC Morphology REVIEWED 05/05/2025 3:15 PM [facility] Howell Cells MANY(A) (none) 05/05/2025 3:15 PM [facility] Microcytosis MODERATE(A) (none) 05/05/2025 3:15 PM [facility] Polychromatic Cells MODERATE(A) (none) 05/05/2025 3:15 PM T [facility] Blood BLOOD SPECIMEN / Unknown Venipuncture / Unknown 05/05/2025 2:18 PM CDT 05/05/2025 2:32 PM CDT Polly Trinidad APRN-[employer] LAB - HEMATOLOGY ORDERABLES Final Result [facility] [address] [place] [address], [facility] [phone] * TRANSFUSE RED BLOOD CELL LEUKOREDUCED UNIT(S) (05/05/2025 1:49 PM CDT) Polly Trinidad APRN-[employer] NURSING - BLOOD PROD TRANSFUSION Final Result * (ABNORMAL) COMPREHENSIVE METABOLIC PANEL (05/05/2025 1:30 PM CDT) Only the most recent of3 resultswithin the time period is included. BUN 11 7 - 26 mg/dL 05/05/2025 2:23 PM [facility] Creatinine 0.77 0.56 - 0.96 mg/dL 05/05/2025 2:23 PM [facility] Sodium 147(H) 136 - 145 mmol/L 05/05/2025 2:23 PM [facility] Potassium 4.4 3.5 - 4.5 mmol/L 05/05/2025 2:23 PM [facility] Chloride 119(H) 98 - 107 mmol/L 05/05/2025 2:23 PM [facility] CO2 19(L) 22 - 29 mmol/L 05/05/2025 2:23 PM [facility] Glucose 105(H) 70 - 99 mg/dL 05/05/2025 2:23 PM [facility] Calcium 9.1 8.4 - 10.2 mg/dL 05/05/2025 2:23 PM [facility] Protein Total 4.6(L) 6.0 - 8.3 g/dL 05/05/2025 2:23 PM [facility] Albumin 3.1(L) 3.4 - 5.0 g/dL 05/05/2025 2:23 PM [facility] Bilirubin Total 1.7(H) 0.2 - 1.2 mg/dL 05/05/2025 2:23 PM [facility] Alkaline Phosphatase 44 40 - 150 U/L 05/05/2025 2:23 PM [facility] ALT 55 5 - 55 U/L 05/05/2025 2:23 PM [facility] AST 131(H) 5 - 34 U/L 05/05/2025 2:23 PM [facility] Anion Gap 9 6 - 16 05/05/2025 2:23 PM [facility] BUN/Creatinine Ratio 14 7 - 23 05/05/2025 2:23 PM [facility] Osmolality Calculated 304(H) 275 - 295 mOsm/kg 05/05/2025 2:23 PM [facility] Albumin/Globulin Ratio 2.1 1.1 - 2.3 05/05/2025 2:23 PM [facility] eGFR by CKD-EPI 79(L) >=90 mL/min/1.7 3 m2 05/05/2025 2:23 PM [facility] Comment:Estimated Glomerular Filtration Rate (eGFR) calculated using the CKD-EPI Creatinine Equation (2020), per the National Kidney Foundation and [place] [employer]ph[employer] recommendations. Blood BLOOD SPECIMEN / Unknown Venipuncture / Unknown 05/05/2025 1:30 PM CDT 05/05/2025 1:44 PM CDT Polly Trinidad [employer] LAB - CHEMISTRY ORDERABLES Final Result Performing Organization Address City/State/[facility] Co de Phone Number [facility] [address] [place] [address], [facility] [phone] * Peripheral Nerve Block (05/05/2025 1:00 PM CDT) Narrative Fransico Tidwell MD - 05/05/2025 1:00 PM CDT Fransico Tidwell MD 05/05/2025 1:03 PM Peripheral Nerve Block Procedure: Peripheral Nerve Block Patient Location: OR Preprocedure Section: Indications: at surgeon's request and postop pain management. Pre-anesthetic Checklist: Patient identified, IV Checked, Site examined and clear, Risks and benefits discussed, Surgical consent verified, Monitors and equipment, Time-out performed, Informed consent obtained, Pre-op evaluation done, Questions answered/anesthesia questions answered, Allergies reviewed and Removal hand/wrist jewelry Monitors: BP, Pulse Ox and EKG. Patient Condition: general anesthetic Patient Position: supine Patient Sedated? Yes Sedation Type: general anesthesia Procedure Section Laterality: bilateral Block Performed: Other - Comment (ttp) Prep: Chloraprep Strerile Field: gloves, mask, hat/cap, patient draped and sterile ultrasound sleeve Needle Type: Echogenic insultaed Needle Gauge: 22 Needle Length: 90 mm Catheter? No Ultrasound Guided? Yes Technique: in plane Visualization: Preliminary scan performed, Important anatomical structures identified, Needle tip visualized throughout the procedure, Target identified, No intraneural or intravascular puncture occurred, Local visualized surrounding nerve on ultrasound and Hydrodissection utilized Injection was made incrementally with constant monitoring and aspirations every 5 mL's Injection Assessment: Slow fractionated injection Block Agents or Additives used? Yes Block agents used: bupivacaine PF (MARCAINE PF) 0.25 % injection - Infiltration 20 mL - 05/05/2025 12:26:00 PM Procedure Tolerance: tolerated well Assessment: completed Procedure Start Time: 05/05/2025 12:20 PM. Procedure End Time: 05/05/2025 12:26 PM. Procedure Total Time: 6 minutes. Staff Section Anesthesia Provider: Fransico Tidwell MD, Performed the procedure Additional Comments: Sterile prep and technique as above Bilateral transversus thoracic plane block between ribs 4 and 5. Each side injected between intercostal muscles and transverse thoracis muscle, negative aspiration every 5 ml. No complications. Each side injected with 10 ml of 0.25% bupi and 10 ml of 1.3% Exparel (bracelet applied) Ultrasound images were NOT saved in [employer] Fransico Tidwell MD 05/05/2025 1:03 PM . us Fransico Tidwell MD GENERAL ANESTHESIA ORDERABLES F inal Result * GENE FOR ANESTHESIA (05/05/2025 12:58 PM CDT) Narrative Fransico Tidwell MD - 05/05/2025 12:58 PM CDT Fransico Tidwell MD 05/05/2025 1:04 PM Transesophageal Echocardiogram Procedure Note: Procedure: Transesophageal Echocardiogram Patient Location: OR Pre-Procedure Section: Indications: assessment of surgical repair, volume assessment, defect repair evaluation, confirmation of pre-procedure diagnosis, valvular assessment, hemodynamic monitoring, ventricular function and assessment of ascending aorta Intubated? Yes Bite Block? Yes Heart Visualized? Yes Probe Insertion: easy Probe Type: 3D Modalities: 3D, color flow mapping, continuous wave Doppler and pulse wave Doppler Staff Section Anesthesia Provider: Fransico Tidwell MD, Performed the procedure Other Findings/Summary: Focused GENE procedure for monitoring only (CPT 31654 if needed) Indication: cardiogenic shock s/p PCI x2 c/b LAD dissection requiring emergent CABGx1, here now for washout and chest closure (POD1) RA: mild dilation (small L--> R shunt via PFO also seen, ~2mm), PAC in jack TV: mild central TR RV: mild hypokinesis by visual estimate, PAC in situ, low TAPSE and FAC by visual inspection PV: no PI Main PA: PAC tip in main PA LA: elevated LAP based on blunted pulm vein S wave morphology, mild dilation KIM: no thrombus seen IAS: small left to right shunt via PFO MV: mild / low mod MR at A3/P3,large MAC LV: grossly normal LVIDd, dyskinetic anterospetal wall. LVEF by biMOD and visual inspection 45-50% AV: trileaflet, grossly normal MARY index Aorta: IABP at arch / desc Ao jxn Pleura: no effusions Fransico Tidwell MD 05/05/2025 12:00 PM Fransico Tidwell MD GENERAL ANESTHESIA ORDERABLES E dited Result - Final * (ABNORMAL) BLOOD GAS+COOX+LYTES+METAB ARTERIAL POCT (05/05/2025 11:33 AM CDT) Only the most recent of6 resultswithin the time period is included. pH Arterial 7.38 7.35 - 7.45 pH 05/05/2025 11:33 AM [facility] pO2 Arterial 443(H) 80 - 100 mmHg 05/05/2025 11:33 AM [facility] pCO2 Arterial 42 35 - 45 mmHg 11:33 AM [facility] HCO3 Arterial 24.8 20.0 - 30.0 mmol/L 05/05/2025 11:33 AM [facility] BE Arterial -0.4 -2.0 - 2.0 mmol/L 05/05/2025 11:33 AM [facility] Oxyhemoglobin Arterial 97.3 % 05/05/2025 11:33 AM [facility] Dexoyhemoglobin (HHB) % <1.0 % 05/05/2025 11:33 AM [facility] Methemoglobin 1.3 0.0 - 2.0 % 05/05/2025 11:33 AM [facility] Carboxyhemoglobin 0.9 0.0 - 2.0 % 2024 11:33 AM [facility] Comment:Carboxyhemoglobin No rmal Concentration: Non-smokers: 0-2%; Smokers: 0- 9%; Toxic: >20% O2 Content Arterial 18.8 Interpret within clinical context ml/dL 05/05/2025 11:33 AM [facility] Hemoglobin by COOX 12.9 12.0 - 15.6 g/dL 05/05/2025 11:33 AM [facility] O2 Saturation Arterial 100 90 - 100 % 05/05/2025 11:33 AM [facility] Sodium Whole Blood 139 135 - 145 mmol/L 05/05/2025 11:33 AM [facility] Potassium Whole Blood 5.3 3.5 - 5.5 mmol/L 05/05/2025 11:33 AM [facility] Chloride WB 111(H) 78 - 107 mmol/L 05/05/2025 11:33 AM [facility] Calcium Ionized 1.07 mmol/L 11:33 AM [facility] Ionized Calcium pH Adjusted 1.06(L) 1.19 - 1.34 mmol/L 05/05/2025 11:33 AM [facility] Anion Gap (AG) Arterial 9 6 - 16 mmol/L 05/05/2025 11:33 AM [facility] Glucose WB 138(H) 70 - 99 mg/dL 05/05/2025 11:33 AM [facility] Lactic Acid Whole Blood 1.4 <=2.0 mmol/L 05/05/2025 11:33 AM CDT [facility] Blood, arterial ARTERIAL BLOOD SPECIMEN / Unknown 05/05/2025 11:33 AM CDT 05/05/2025 11:34 AM CDT Fer Rose MD LAB - POINT OF CARE ORDERABLES Final Result Performing Organization Address City/[facility]/ZIP Co de Phone Number [address] [address], [place] [phone] * TRANSFUSE RED BLOOD CELL LEUKOREDUCED UNIT(S) (05/05/2025 10:14 AM CDT) Polly Trinidad [employer] NURSING - BLOOD PROD TRANSFUSION Final Result * BLOOD GAS ALONSO+LYTES+METAB+COOX POC NOTIF (05/05/2025 9:50 AM CDT) Only the most recent of2 resultswithin the time period is included. Comment Notification Label Only - See Separate Report 05/05/2025 11:02 AM CDT [facility] Other MISCELLANEOUS SAMPLES / Unknown 05/05/2025 9:50 AM CDT 05/05/2025 9:50 AM CDT Yg Lorenzo MD LAB - BLOOD GASES ORDERABLE S Final Result Performing Organization Address City/[facility]/ZIP Co de Phone Number [address] [address], [place] [phone] * BLOOD GAS ART+LYTES+METAB+COOX POC NOTIF (05/05/2025 9:50 AM CDT) Only the most recent of2 resultswithin the time period is included. Comment Notification Label Only - See Separate Report 05/05/2025 11:02 AM CDT [facility] Other MISCELLANEOUS SAMPLES / Unknown 05/05/2025 9:50 AM CDT 05/05/2025 9:50 AM CDT us Yg Lorenzo MD LAB - BLOOD GASES ORDERABLE S Final Result [address] [address], [facility] [phone] * TRANSFUSE RED BLOOD CELL LEUKOREDUCED UNIT(S) (05/05/2025 6:56 AM CDT) Fer Rose MD NURSING - BLOOD PROD TRANSFUSI ON Final Result * HEMOGLOBIN A1C (05/05/2025 2:57 AM CDT) [facility] Hemoglobin A1c 5.3 <=5.6 % 05/05/2025 12:30 PM CDT [facility] Estimated Average Glucose 105 mg/dL 05/05/2025 12:30 PM CDT [facility] Comment: HbA1c Interpretation: Normal : < 5.7% Pre-diabetes: 5.7-6.4% Diabetes: Equal to or greater than 6.5% Test results diagnostic of diabetes should be repeated for confirmation. Treatment target values recommended by ADA and other clinical organizations should be used to evaluate metabolic control in patients. Reference: [place] [employer], Standards of Care in Diabetes -2020 In patients 70 years and older consider HbA1c target range of 7.0-7.5% (Reference: Rashaun Adams et al. JAMDA. 2012) The Sebia assay for the measurement of HbA1c is a National Glycohemoglobin Standardization Program (NGSP) certified method. Blood BLOOD SPECIMEN / Unknown Line Draw / Unknown 05/05/2025 2:57 AM CDT 05/05/2025 3:16 AM CDT us Melissa King [employer] LAB - CHEMISTRY ORDE CECILE Final Result [address] [address], [facility] [phone] * CENTRAL LINE PERFORMABLE (05/04/2025 10:01 PM CDT) Narrative Chuck Talbot DO - 05/04/2025 10:01 PM CDT Chuck Talbot DO 05/04/2025 10:01 PM Central Line Placement Procedure Note/LDA Patient Location: OR. Insertion Time: 05/04/2025 8:44 PM Procedure: central line > 5yr (02562) Procedure Section: Indications: IV access, sepsis and CVP monitoring. Patient Position: Trendelenburg Site: internal jugular Skin Prep: Chloraprep. Site Identification: ultrasound guided with sterile sleeve and gel. Seldinger Technique Used? Yes Wire Verification: verified by ultrasound. Intravenous Verification: verified by ultrasound, all ports aspirated/flushed easily and verified by x-ray. Lumens: double lumen Length (cm): 16. Port Insertion: biopatch applied, sutured in place, all ports aspirated/flushed, guidewire removed intact and dressing applied. Number of Attempts: 1. Procedure Tolerance: tolerated well Maximal Sterile Barriers: Cap, mask, sterile gloves, a large sterile sheet, hand hygiene, and chlorahexidine for cutaneous antisepsis (6030F) Staff Section Anesthesia Provider: Martina Hunter DO, Performed the procedure Provider #1: Chuck Talbot DO. Chuck Talbot DO GENERAL ANESTHESIA ORDERABLES F inal Result * PA CATH PERFORMABLE, INTRODUCER (05/04/2025 9:05 PM CDT) Narrative Chuck Talbot DO - 05/04/2025 9:05 PM CDT Chuck Talbot DO 05/04/2025 10:02 PM PROCEDURE: Pulmonary Artery Catheter and Introducer Patient Location: OR. Insertion Time: 05/04/2025 8:45 PM Procedure Section: Indications: IV access Consent: informed consent was obtained for the procedure and risks of aspiration, brain injury, dental trauma, laryngeal bleeding, , hypoxia, pneumothorax, and adverse drug reactions were discussed. Orientation: right Site: internal jugular Skin Prep: Chloraprep. Site Identification: ultrasound guided with sterile sleeve and gel. Seldinger Technique Used? Yes Introducer Lumens: double lumen. Introducer Size (FR): 12. Introducer length (cm): 12 with .5 lengths. Introducer secured at (cm): 12. PA Catheter Type: oximetric and continuous output. PA Catheter Size (FR): 8. PA Catheter Length (cm): 110. PA Catheter secured at (cm): 50. Number of Attempts: 1. Procedure Tolerance: tolerated well. Maximal Sterile Barriers: Cap, mask, sterile gloves, a large sterile sheet, hand hygiene, and chlorhexidine for cutaneous antisepsis (6030F) Staff Section Anesthesia Provider: Martina Hunter DO, Performed the procedure Provider #1: Chuck Talbot DO. Result [facility] Chuck Talbot DO GENERAL ANESTHESIA ORDERABLES F inal Result * ARTERIAL LINE PERFORMABLE (05/04/2025 9:05 PM CDT) Narrative Martina Hunter DO - 05/04/2025 9:05 PM CDT Martina Hunter DO 05/04/2025 9:05 PM Arterial Line Placement Procedure Note Patient Location: OR. Insertion Time: 05/04/2025 8:54 PM Procedure: Arterial Line (30903) Procedure Section Indications: continuous blood pressure monitoring and blood sampling needed. Consent: informed consent was obtained for the procedure. Alternatives Discussed: alternative treatment Skin Prep: Chloraprep. Orientation: Right. Site: brachial. Site Identification: ultrasound guided with sterile sleeve and gel. Sterile Technique: cap, mask and sterile gloves. Gauge: 20. Seldinger Technique Used? Yes Number of Attempts: 3. Line Secured with: Tegaderm and tape. Procedure Tolerance: tolerated well, performed while patient under general anesthesia and no immediate complications. Events: none. Local Anesthetic Used? No Staff Section Anesthesia Provider: Martina Hunter DO, Performed the procedure Provider #1: Chuck Talbot DO. Result [facility] Chuck Talbot DO GENERAL ANESTHESIA ORDERABLES F inal Result * TRANSFUSE CRYOPRECIPITATE UNIT(S) (05/04/2025 8:12 PM CDT) Result [facility] Fer Rose MD NURSING - BLOOD PROD TRANSFUSI ON Final Result * TRANSFUSE PLATELET PHERESIS UNIT(S) (05/04/2025 8:05 PM CDT) Result [facility] Fer Rose MD NURSING - BLOOD PROD TRANSFUSI ON Final Result * (ABNORMAL) BLOOD GAS+COOX+LYTES+METAB VENOUS POCT (05/04/2025 8:03 PM CDT) Only the most recent of3 resultswithin the time period is included. Pathologist [facility] Venous 7.17(LL) 7.32 - 7.42 pH 05/04/2025 8:03 PM [facility] pO2 Venous 26(L) 35 - 40 mmHg 05/04/2025 8:03 PM [facility] pCO2 Venous 57(H) 40 - 50 mmHg 05/04/2025 8:03 PM [facility] HCO3 Venous 20.8 20 - 30 mmol/L 05/04/2025 8:03 PM [facility] Base Excess Venous -7.7(L) -2.0 - 2.0 mmol/L 05/04/2025 8:03 PM [facility] Oxyhemoglobin Venous 43.2 % 04/17 8:03 PM [facility] Deoxyhemoglobin (HHB) Venous % 56.1 % 05/04/2025 8:03 PM [facility] Methemoglobin <0.8 0.0 - 2.0 % 05/04/2025 8:03 PM [facility] Carboxyhemoglobin 0.6 0.0 - 2.0 % 2024 8:03 PM [facility] Comment:Carboxyhemoglobin No rmal Concentration: Non-smokers: 0-2%; Smokers: 0- 9%; Toxic: >20% O2 Content Venous 5.6 Interpret within clinical context ml/dL 05/04/2025 8:03 PM [facility] Hemoglobin by COOX 9.2(L) 12.0 - 15.6 g/dL 05/04/2025 8:03 PM [facility] O2 Saturation Venous 44(L) >=70 % 04/17 8:03 PM [facility] Sodium Whole Blood 136 135 - 145 mmol/L 05/04/2025 8:03 PM [facility] Potassium Whole Blood 5.5 3.5 - 5.5 mmol/L 05/04/2025 8:03 PM [facility] Chloride WB 108(H) 78 - 107 mmol/L 05/04/2025 8:03 PM [facility] Calcium Ionized 0.84 mmol/L 8:03 PM [facility] Ionized Calcium pH Adjusted 0.76(LL) 1.19 - 1.34 mmol/L 05/04/2025 8:03 PM CDT [facility] Anion Gap (AG) Arterial 7 6 - 16 mmol/L 05/04/2025 8:03 PM T [facility] Glucose WB 180(H) 70 - 99 mg/dL 05/04/2025 8:03 PM T [facility] Lactic Acid Whole Blood 2.0 <=2.0 mmol/L 05/04/2025 8:03 PM CDT [facility] Blood BLOOD SPECIMEN / Unknown 05/04/2025 8:03 PM CDT 05/04/2025 8:06 PM CDT Narrative [facility] - 05/04/2025 8:03 PM CDT Critical Value Acknowledged Licensed healthcare provider notified Allie Thomason MD LAB - POINT OF CARE ORDERABL ES Final Result Performing Organization Address [facility] [facility]/ZIP Co de Phone Number [address] [address], [place] [phone] * ACT PLUS - POCT ([facility]) (05/04/2025 8:03 PM CDT) Only the most recent of6 resultswithin the time period is included. ACT PLUS 159 See result comments sec 05/04/2025 8:24 PM CDT [facility] Blood BLOOD SPECIMEN / Unknown 05/04/2025 8:03 PM CDT 05/04/2025 8:24 PM CDT Narrative [facility] - 05/04/2025 8:24 PM CDT ACT+ Therapeutic ranges for the ACT+ test in surgery areas are: Greater than (>) 360 seconds for surgical patients Greater than (>) 450 seconds for surgical bypass patients us Allie Thomason MD LAB - COAGULATION ORDERABLES Final Result Performing Organization Address [facility]/ZIP Co de Phone Number [address] [address], [place] [phone] * TRANSFUSE PLATELET PHERESIS UNIT(S) (05/04/2025 7:50 PM CDT) Fer Rose MD NURSING - BLOOD PROD TRANSFUSI ON Final Result * TRANSFUSE CRYOPRECIPITATE UNIT(S) (05/04/2025 7:50 PM CDT) Fer Rose MD NURSING - BLOOD PROD TRANSFUSI ON Final Result * (ABNORMAL) PLATELET COUNT AUTO CITRATED BLOOD (05/04/2025 7:46 PM CDT) [facility] Platelet Count Citrated 129(L) 150 - 420 x10E9/L 05/04/2025 8:30 PM CDT [facility] Blood BLOOD SPECIMEN / Unknown Venipuncture / Unknown 05/04/2025 7:46 PM CDT 05/04/2025 7:46 PM CDT Narrative [facility] - 05/04/2025 8:30 PM CDT This test was developed and its performance characteristics determined by the clinical laboratories of [facility] and [facility]. It has not been cleared and approved by the [place] Food and Drug Administration. Chuck Talbot DO LAB - HEMATOLOGY ORDERABLES Fin al Result [facility] [address] [place] [phone], [facility] [phone] * (ABNORMAL) TEG 6 GLOBAL HEMOSTASIS WITH HEPARIN NEUTRALIZATION (05/04/2025 7:42 PM CDT) [facility] CITRATED KAOLIN R (CK-R REACTION TIME) 05/04/2025 10:13 PM CDT [facility] Comment: NOT MEASURED CITRATED KAOLIN MA (CK-MA MAX AMPLITUDE) 05/04/2025 10:13 PM CDT [facility] Comment: NOT MEASURED CITRATED KAOLIN HEPARINASE R ( H R REACTION TIME) 8.8(H) 4.3 - 8.3 min 05/04/2025 10:13 PM CDT [facility] CITRATED KAOLIN HEPARINASE LY30 ([facility] LY30 LYSIS) 0.0 0.0 - 3.2 % 05/04/2025 10:13 PM CDT [facility] CITRATED RAPIDTEG HEPARINASE MA ( CRTH MA MAX AMPLITUDE) 48.8(L) 53.0 - 69.0 mm 05/04/2025 10:13 PM CDT [facility] Comment:CRTH-MA is below the normal range indicating decreased platelet strength/function. Consider platelets if clinical bleeding present. CITRATED FUCTIONAL FIBRINOGEN HEPARINASE ( CFFH MAX AMPLITUDE) 14.0(L) 15.0 - 34.0 mm 05/04/2025 10:13 PM CDT [facility] Comment:CFFH-MA is below the normal range indicating poor fibrinogen contribution to clot development. Consider Cryoprecipitate if clinical bleeding present. Blood BLOOD SPECIMEN / Unknown Venipuncture / Unknown 05/04/2025 7:42 PM CDT 05/04/2025 7:47 PM CDT Narrative [facility] - 05/04/2025 10:13 PM CDT CRTH-MA and CFFH-MA are below normal range indicating poor platelet strength and/or poor fibrinogen function to clot development. Consider platelets and/or cryoprecipitate if clinical bleeding present. CRTH-MA and CFFH-MA are below normal range indicating poor platelet strength and/or poor fibrinogen function to clot development. Consider platelets and/or cryoprecipitate if clinical bleeding present. us Chuck Talbot DO LAB - HEMATOLOGY ORDERABLES Fin al Result [address] [address], [facility] [phone] * TRANSFUSE RED BLOOD CELL LEUKOREDUCED UNIT(S) (05/04/2025 6:44 PM CDT) us Fer Rose MD NURSING - BLOOD PROD TRANSFUSI ON Final Result * TRANSFUSE RED BLOOD CELL LEUKOREDUCED UNIT(S) (05/04/2025 6:44 PM CDT) us Fer Rose MD NURSING - BLOOD PROD TRANSFUSI ON Final Result * ETT LINE PERFORMABLE (05/04/2025 6:37 PM CDT) Narrative Martina Hunter DO - 05/04/2025 6:37 PM CDT Martina Hunter DO 05/04/2025 6:37 PM Endotracheal Tube Placement: Patient Location: OR. Intubation Event Date/Time: 05/04/2025 5:52 PM Procedure: intubation (67809) Procedure Section: Sedation: under general anesthesia. Indications for Airway Management: anesthesia Procedure pretreatments used? No Induction: rapid sequence Patient Position: sniffing Mask Ventilation: easy. Blade Type: Video Blade Size: 3 Laryngoscopy View: grade 1 (full cords) Intubation Adjuncts: stylet and video laryngoscope Tube: endotracheal tube Placement: oral Tube type: cuff - inflated Tube Size (MM): 7 Depth of Insertion (CM): 21 Measured From: teeth Cuff Inflated With: air Number of Attempts: 1. Placement Verified By: direct visualization, bilateral breath sounds and CO2 monitor Tube secured with: adhesive tape. Dentition unchanged? Yes Difficult Airway? No. Procedure Start Time: 05/04/2025 5:52 PM. Staff Section Anesthesia Provider: Martina Hunter DO, Performed the procedure Provider #1: Chuck Talbot DO. Result [facility] Chuck Talbot DO GENERAL ANESTHESIA ORDERABLES F inal Result * TRANSFUSE RED BLOOD CELL LEUKOREDUCED UNIT(S) (05/04/2025 6:16 PM CDT) Result [facility] Allie Thomason MD NURSING - BLOOD PROD TRANSFU PATY Final Result * TRANSFUSE RED BLOOD CELL LEUKOREDUCED UNIT(S) (05/04/2025 6:16 PM CDT) Fer Rose MD NURSING - BLOOD PROD TRANSFUSI ON Final Result * CCL PERCUTANEOUS CORONARY INTERVENTION (05/04/2025 5:38 PM CDT) Anatomical Region Laterality Modality X-Ray Angiograph y Narrative 05/05/2025 10:01 AM CDT .FINDINGS: ###. Successful revascularization with IVUS guided PCI of proximal left circumflex artery with 3.0 into 28 mm drug-eluting stent postdilated with a 3.5 mm noncompliant balloon ###. Failed attempt at PCI of LAD complicated by coronary dissection causing loss of flow in LAD ###. Impella CP was placed through left common femoral artery for decompensation(symptomatic-chest pain) ###. Coronary perforation causing pericardial effusion managed by emergent pericardiocentesis ###. Patient was taken to emergent very high risk CABG (SVG to LAD) and managing LAD perforation as well. Reason for Procedure 79 year old female with multivessel CAD (CABG turndown), mild , HLD, HTN, COPD and PAD who presents for PCI to the Lcx +/- LAD. Procedure Details Estimated Blood Loss: 30 mL Procedure Details and Comments: [facility] CARDIAC CATHERIZATION PROCEDURE REPORT PROCEDURES PERFORMED: ###. Retrograde right femoral arterial access performed using ultrasound guidance. ###. Retrograde left femoral arterial access under ultrasound guidance ###. Anterograde left superficial femoral arterial access under ultrasound guidance ###. Right common femoral venous access under ultrasound guidance ###. Percutaneous coronary intervention of left circumflex artery ###. Balloon angioplasty of proximal LAD ###. Impella implantation ###. Pericardiocentesis ACCESS SITE(S): right femoral artery and left femoral artery INDICATION OF THE PROCEDURE: The patient has been referred for cardiac catheterization for scheduled PCI of left circumflex and LAD after she was turned down for CABG for being high risk due to carotid stenosis, severe emphysema and aortic calcification . Informed consent was obtained. Patient signed the consent. The signed consent is attached to the patient's chart. All risks were explained to the patient, which include risk of bleeding, vascular injury, myocardial infarction, coronary artery injury/dissection, aortic root injury/dissection, , and sedation-related side effects such as respiratory failure, pneumonia. They were aware that this was not an all-inclusive list. They expressed understanding of these risks/benefits/alternatives and stated, in a clear, competent, and coherent fashion, wished to go forward with the cardiac catheterization, which was deemed appropriate by the medical team. PROCEDURE DESCRIPTION The patient was brought to the Cardiac Catheterization Lab in a fasting state. . All relevant laboratory results had been reviewed. The bilateral femoral site was prepared and draped in the standard manner to ensure sterile conditions. A proper time-out procedure was conducted, confirming the patient's identity, procedure, physician, position, and documentation, all under our direct supervision, with no safety concerns raised by the staff. The patient was premedicated with midazolam and fentanyl, administered slowly and steadily. Conscious sedation was successfully achieved. Continuous monitoring of telemetry, heart rate, blood pressure, and oxygen saturation was performed by an independent laborer hoisting registered nurse. The right femoral site was anesthetized with a 2% lidocaine solution.Right femoral artery access was acquired under ultrasound guidance ( entry point was just above the bifurcation of common femoral artery) and using fluoroscopic landmarks. Right common femoral artery access was obtained using ultrasound and fluoroscopy guidance with micropuncture kit. 6 Fr sheath was placed in right common femoral artery. Left main coronary artery was engaged with EBU 3.5 guide catheter. Following this the advanced into the Minamo guidewire into the left circumflex artery. The lesion in proximal left circumflex artery was predilated with a 2.5 x12 mm coronary balloon with multiple inflations. Following this IVUS catheter was advanced to assess the lesion characteristics, proximal and distal landing zones. The distal LAD segment of the artery measured around 3.0 mm and proximal reference was 3.5 mm. After this the advanced 3 x 28 mm drug-eluting Synergy stent across the proximal left circumflex artery lesion. The stent was deployed. Post deployment we postdilated this lesion with 3.0 mm and 3.5 mm noncompliant balloon at supra nominal pressure. - the angiography showed DONNY 3 flow through Lcx without any residual stenosis, flow limiting dissection or perforation. - Then we turned our attention to the left anterior descending artery lesion. There was a 95% stenosis of the proximal LAD. Multiple attempts were done to cross this lesion with different workhorse coronary wires(Paty blue, Minamo, Runthrough etc) and CorsAirXS microcatheter. Unfortunately, our procedure was complicated by dissection of left anterior descending artery which was flow-limiting. We required Dr Rivas (partner virginia line attendant) to help with situation and he graciously join the procedure. We made multiple attempts to enter the true lumen(with Ptay blue, paty black, Fielder XS and Manager Of Finance 200 with CorsAirXS/Twin pass microcatheter) which were unsuccessful. Patient remained stable during the procedure and did not have any symptoms. As such, we decided to manage the patient conservatively and watch closely in the critical care unit. We monitor patient for 5 minutes without any wires and catheter in coronaries. Patient stays stable in laborer hoisting. All catheters and sheaths were removed over J-tip wire. The right femoral artery access site was closed by Perclose. As patient was about to be wheeled out of the Forklift Technician, she developed retrosternal chest pain with EKG showing ST segment elevations in anterior lateral leads. Given these changes, the decision was made to attempt revascularization of the LAD with Impella guidance and called CT surgery at the same time. Patient was draped again. This time the left femoral arterial access was obtained under ultrasound guidance. Impella device was advanced into the LV over impellla wire after initially crossing the aortic valve Pigtail catheter and J-wire. J-wire was then exchanged with the Impella wire for which the Impella was advanced into the LV. We also obtained interrogate superficial femoral artery access, followed by insertion of a 6 Mongolian sheath which was connected to the retrograde femoral sheath by a male to male connector to establish blood flow into the left leg. Again multiple attempts were done to revascularize the left anterior descending artery which were again unsuccessful. Emergent cardiothoracic surgery consultation was obtained. We even attempted balloon angioplasty with 3.5 mm balloon followed by further balloon angioplasty by 3,5 cutting balloon, in hopes that this would split the dissection flaps and establish anterograde flow. Considering, patient had left leg ischemia, we place 6 Fr breaded antegrade sheath with male to male connector with Impella sheath. Unfortunately we were unsuccessful in establishing antegrade flow in the LAD. We attempted to identify true and false lumen with IVUS. We further attempt with Manager Of Finance 200 coronary wire without success. On repeat angiogram, We noticed that patient developed coronary perforation with pericardial effusion. This was managed with emergent pericardiocentesis. After discussing with family, cardiothoracic surgery it was decided to take the patient for emergent very high risk CABG. The right groin site which was closed earlier with Perclose harris prolonged oozing for which two [id number] sutures were deployed. Patient needed intermittent pressor support during the procedure which was stopped towards the end of procedure as her blood pressure improved after pericardiocentesis. Patient was then transferred to OR. Patient had perfusion through out the procedure (with shorter duration of systolic pressures in 80s). Patient for most of the procedure had systolics >100 mmHg. Patient was send to OR with 1. Left TYPEWRITERS FUNCTIONAL TESTER impella sheath and Impella CP in place. 2. Left circumflex artery stent placed 3. Pericardial drain was placed. 4. Left femoral vein 4 Fr access for medications. 5. 6 Fr antegrade sheath was placed in left SFA and connected with impella sheath. 6. Right common femoral access was closed with perclose and oozing was controlled with figure 8 suture. Coronary Findings Diagnostic Dominance: Right No diagnostic findings have been documented. Intervention No interventions have been documented. Recommendations - Patient was taken to the OR after shared decision making for emergent CABG us Allie Thomason MD CV CARDIAC CATH CUPID PROCS Final Result * ACT LR - POCT ([facility]) (05/04/2025 5:07 PM CDT) Only the most recent of7 resultswithin the time period is included. ACT LR 265 See result comments sec 05/07/2025 7:43 AM CDT [facility] Blood BLOOD SPECIMEN / Unknown 05/04/2025 5:07 PM CDT 05/07/2025 7:43 AM CDT Narrative [facility] - 05/07/2025 7:43 AM CDT ACT-LR Therapeutics ranges are: Cardiac electrical laboratory technician = 200-300 seconds Sheath pull = ACT less than 170 seconds EPS lab = 200-240 seconds Sheath pull = ACT less than 140 seconds Radiology : CT/Angio lab = 200-300 seconds Sheath pull = ACT less than 200 seconds Expected range of normal volunteers: ACT-LR = 113-149 seconds Expected range of a Non-heparin patients: ACT-LR = 89-169 seconds From established ranges from the company manual us Allie Thomason MD LAB - COAGULATION ORDERABLES Final Result [facility] [address] [place] [phone], [facility] [phone] * BLOOD TYPE VERIFICATION (05/04/2025 4:43 PM CDT) ABO Rh O POS 05/04/2025 5:2 6 PM CDT [facility] Blood Bank BLOOD SPECIMEN / Unknown Lab Venipuncture / Unknown 05/04/2025 4:43 PM CDT 05/04/2025 4:51 PM CDT Allie Thomason MD LAB - BLOOD BANK ORDERABLES Final Result [facility] [address] [place] [address], [facility] [phone] * 1 Units (05/04/2025 4:40 PM CDT) Unit Description LR Whole BLood [facility] Unit ABO O [facility] Unit Rh POS [facility] Product Number E0033 [facility] Unit Donor # [id number] [facility] Unit Status transfused [facility] Product Code [id number] [facility] Blood Type Barcode 5100 [facility] Expiration Date [id number] [facility] Blood Bank BLOOD SPECIMEN / Unknown 05/04/2025 4:40 PM CDT 05/04/2025 4:50 PM CDT Allie Thomason MD LAB - BLOOD BANK ORDERABLES Final Result [facility] [address] [place] [address], [facility] [phone] * PREPARE CRYOPRECIPITATE UNIT (S), 10 Units (05/04/2025 4:40 PM CDT) Unit Description Thawed Cryp [facility]OD [facility] LAB Unit ABO O [facility] Unit Rh POS [facility] Product Number E3591 [facility] Unit Donor # [id number] [facility] Unit Status transfused SL BLO OD BANK LAB Product Code [id number] [facility] Blood Type Barcode 5100 [facility] Expiration Date [id number] S BLOOD BANK LAB Unit [facility] Unit ABO O [facility] Unit Rh POS [facility] Product Number E3591 [facility] Unit Donor # [id number] [facility] Unit Status transfused SL BLO OD BANK LAB Product Code [id number] [facility] OD [facility] Blood Type Barcode 5100 [facility] Expiration Date [id number] S BLOOD BANK LAB Blood Bank BLOOD SPECIMEN / Unknown 05/04/2025 4:40 PM CDT 05/04/2025 4:50 PM CDT Fer Rose MD LAB - BLOOD BANK ORDERABLES Fi nal Result Performing Organization Address City/[facility]/ZIP Co de Phone Number [facility] [address] [place] [address], [facility] [phone] * PREPARE PLATELET PHERESIS UNIT(S), 2 Units (05/04/2025 4:40 PM CDT) Unit Description LR PLT Phere B7 [facility] Unit ABO A [facility] Unit Rh POS [facility] B[facility] Product Number P28 [facility] Unit Donor # [id number] [facility] Unit Status transfused [facility] Product Code [id number] [facility] OD BANK LAB Blood Type Barcode 6200 [facility] Expiration Date [id number] S BLOOD BANK LAB Unit Description LR PLT Phere B7 [facility] B[facility] Unit ABO A [facility] Unit Rh POS [facility] B[facility] Product Number P26 [facility] LOOD [facility] Unit Donor # [id number] [facility] Unit Status transfused [facility]LO OD [facility] Product Code [id number] [facility] OD BANK LAB Blood Type Barcode 6200 [facility] Expiration Date [id number] [facility] Blood Bank BLOOD SPECIMEN / Unknown 05/04/2025 4:40 PM CDT 05/04/2025 4:50 PM CDT Fer Rose MD LAB - BLOOD BANK ORDERABLES Fi nal Result Performing Organization Address City/[facility]/ZIP Co de Phone Number [facility] [address] [place] [address], [facility] [phone] * VAS Bilateral Venous Mapping (04/25/2025 5:21 PM CDT) Anatomical Region Laterality Modality Upper Extremity, Lower Extremity Ultrasound 04/25/2025 1:39 PM CDT Narrative Procedure Note David Blancas MD - 04/26/2025 [place] [address] Lower Extremity Vein Mapping Report Pat.Name: RHIANNON ZAPATA Pat.ID: [id number] .Date: 04/25/2025 Refer.MD: Nelly Esparza Exam Time: 1:39:00 PM Study Type:FREDDY Vein Mapping Age: 11 1945,79Y Sex: FEMALE Sonogrphr: Saray Bernard RVT Pat. Stat.:Outpatient ICD - 9: Pre-op evaluation Z01.818 CPT - 4: 10769 Reason for Study: Pre-op evaluation Procedures: Lower Extremity Vein Mapping - Bilateral Race: 1 Visit ID: [id number] ++++++++++++++++++++++++++++++++++++ SUMMARY: ++++++++++++++++++++++++++++++++++++ Saphenous veins with dimensions above. ++++++++++++++++++++++++++++++++++++ FINDINGS: ++++++++++++++++++++++++++++++++++++ Right Leg: All vessels seen appear patent and compressible. The right great saphenous vein was patent throughout its course and it measures >3.0 mm in the upper leg (SFJ and proximal thigh). Left Leg: All vessels seen appear patent and compressible. The left great saphenous vein was patent throughout its course and it measures >3.0 mm in the upper leg (SFJ and proximal thigh). Comments: An incidental, non-vascularized, anechoic structure was identified in the right popliteal fossa. It is unattached to surrounding vessels and measures approximately 5.2 cm by 1.7 cm by 1.3 cm. ++++++++++++++++++++++++++++++++++++ MEASUREMENTS: ++++++++++++++++++++++++++++++++++++ LEVEINS Left Dist Calf Dist Calf GSV A 0.9 mm Left Dist Thigh Dist Thigh GSV 1.7 mm Left Knee Knee GSV AP 1.9 mm Left Mid Calf Mid Calf GSV AP 0.9 mm Mid Calf LSV AP 1.4 mm Left Mid Thigh Mid Thigh GSV A 2.2 mm Left Pop Fossa Pop Fossa LSV A 2.9 mm Left Prox Calf Prox Calf GSV A 1.3 mm Prox Calf LSV A 1.7 mm Left Prox Thigh Prox Thigh GSV 3.3 mm Left SFJ SFJ GSV AP 4.6 mm Right Dist Calf Dist Calf GSV A 1 mm Right Dist Thigh Dist Thigh GSV 2 mm Right Knee Knee GSV AP 2.6 mm Right Mid Calf Mid Calf GSV AP 1.1 mm Mid Calf LSV AP 2 mm Right Mid Thigh Mid Thigh GSV A 2.3 mm Right Pop Fossa Pop Fossa LSV A 2.2 mm Right Prox Calf Prox Calf GSV A 1.2 mm Prox Calf LSV A 2.1 mm Right Prox Thigh Prox Thigh GSV 3.8 mm Right SFJ SFJ GSV AP 5 mm Signed 04/26/2025 05:03 PM David Blancas MD [facility] ORDERABLES Edited * VAS Carotid Duplex Bilateral (04/25/2025 4:37 PM CDT) Anatomical Region Laterality Modality Neck Ultrasound 04/25/2025 1:22 PM CDT Narrative Procedure Note David Blancas MD - 04/25/2025 [place] [address] Carotid Duplex Report Pat.Name: RHIANNON ZAPATA Pat.ID: [id number] .Date: 04/25/2025 Refer.MD: FREDDY KIRKPATRICK Exam Time: 1:22:00 PM Study Type:Carotid Age: 11 1945,79Y Sex: FEMALE Sonogrphr: Saray Bernard RVT Pat. Stat.:Outpatient ICD - 9: Pre-op evaluation Z01.818 CPT - 4: 18496 Reason for Study: Pre-op evaluation Procedures: Carotid Duplex - Bilateral Race: 1 Visit ID: [id number] ++++++++++++++++++++++++++++++++++++ SUMMARY: ++++++++++++++++++++++++++++++++++++ Severe stenosis noted in the left internal carotid artery. Moderate stenosis noted in the right internal carotid artery. Flow is antegrade in vertebral arteries bilaterally. ++++++++++++++++++++++++++++++++++++ FINDINGS: ++++++++++++++++++++++++++++++++++++ Procedure: The extracranial carotid systems were examined bilaterally with duplex and color flow imaging as well as spectral Doppler analysis. Study Quality: This study is of adequate technical quality. Rt CCA: Calcified plaque visualized throughout common carotid artery. Rt Bulb: Calcified plaque noted in right bulb. Rt ICA: Calcified plaque visualized within the proximal right ICA. Rt ECA: Intimal thickening is present Rt Vert: Antegrade flow within the right vertebral Artery. Lt CCA: Calcified plaque visualized throughout common carotid artery. Lt Bulb: Calcified plaque noted in left bulb. Lt ICA: Calcified plaque visualized within the proximal left ICA. Lt ECA: Calcified plaque visualized within the left external carotid artery. Lt Vert: Antegrade flow within the left vertebral Artery. Comments: The right internal carotid artery demonstrates approximately 50-69% stenosis, indicative of moderate narrowing. The left internal carotid artery exhibits a greater than 70% stenosis, consistent with severe narrowing. Elevated velocities are observed bilaterally in the external carotid arteries. Carotid Findings: Right Left Verteb.Flw Antegrade Antegrade ++++++++++++++++++++++++++++++++++++ MEASUREMENTS: ++++++++++++++++++++++++++++++++++++ DOPPLER Left Bulb Bulb PSV 156 cm/s Bulb EDV 39.4 cm/s Left CCA Dist CCA Dist PSV 82.4 cm/s CCA Dist EDV 19.3 cm/s Left CCA Mid CCA Mid PSV 100 cm/s CCA Mid EDV 25.7 cm/s Left CCA Prox CCA Prox PSV 93 cm/s CCA Prox EDV 23.6 cm/s Left ECA ECA PSV 149 cm/s ECA EDV 53.5 cm/s ECA PSV 165 cm/s ECA EDV 22.3 cm/s ECA PSV 165 cm/s ECA EDV 22.3 cm/s Left ICA Dist ICA Dist PSV 83.1 cm/s ICA Dist EDV 17.6 cm/s Left ICA Mid ICA Mid PSV 139 cm/s ICA Mid EDV 44.3 cm/s Left ICA Prox ICA Prox PSV 364 cm/s ICA Prox EDV 87.5 cm/s ICA Prox PSV 299 cm/s ICA Prox EDV 93.4 cm/s ICA Prox PSV 364 cm/s ICA Prox EDV 87.5 cm/s Left ICA Prox 2 ICA Prox 2 PSV 299 cm/s ICA Prox 2 EDV 93 cm/s Left ICA/CCA ICA/CCA PSV 3.63 Left Vertebral Vertebral PSV 54.2 cm/s Vertebral EDV 13.4 cm/s Right Bulb Bulb PSV 53.8 cm/s Bulb EDV 16.4 cm/s Right CCA Dist CCA Dist PSV 81.3 cm/s CCA Dist EDV 18.6 cm/s Right CCA Mid CCA Mid PSV 71.4 cm/s CCA Mid EDV 14.2 cm/s Right CCA Prox CCA Prox PSV 82.4 cm/s CCA Prox EDV 14.2 cm/s Right ECA ECA PSV 246 cm/s ECA EDV 22.3 cm/s Right ICA Dist ICA Dist PSV 121 cm/s ICA Dist EDV 35.5 cm/s Right ICA Mid ICA Mid PSV 103 cm/s ICA Mid EDV 29.5 cm/s Right ICA Prox ICA Prox PSV 90.8 cm/s ICA Prox EDV 25.4 cm/s ICA Prox PSV 114 cm/s ICA Prox EDV 34.8 cm/s ICA Prox PSV 114 cm/s ICA Prox EDV 34.8 cm/s Right ICA Prox 2 ICA Prox 2 PSV 91 cm/s ICA Prox 2 EDV 25 cm/s Right ICA/CCA ICA/CCA PSV 1.47 Right Vertebral Vertebral PSV 49.4 cm/s Vertebral EDV 21.6 cm/s Signed 04/25/2025 04:42 PM David Blancas MD [facility] ORDERABLES Edited * CT Chest Wo Contrast (04/25/2025 2:39 PM CDT) Anatomical Region Laterality Modality Chest Computed Tomogra phy 04/26/2025 12:0 4 PM CDT Impressions 04/26/2025 12:10 PM CDT IMPRESSION: 1.No acute process in the chest is identified. 2.Atherosclerotic changes and calcifications of mitral annulus and aortic annulus. 3.Centrilobular emphysema. 4.Patchy subsegmental atelectasis or scarring in bilateral lower lobes. > Interpreting Provider: Feliciano Gomes MD on 04/26/2025 12:10 PM Narrative 04/26/2025 12:10 PM CDT PROCEDURE: CT CHEST WO CONTRAST DATE/TIME OF EXAM: 04/25/2025 2:39 PM CLINICAL INFORMATION: None relevant/not provided if blank. Indication: I35.0: Nonrheumatic aortic valve stenosis Z01.818: Pre-op evaluation CT CHEST WITHOUT INTRAVENOUS CONTRAST. HISTORY: I35.0: Nonrheumatic aortic valve stenosis; Z01.818: Pre-op evaluation COMPARISON: None. TECHNIQUE: Spiral axial scanning of the chest was performed without intravenous contrast administration followed by coronal and sagittal reconstruction of the images by the technologist. FINDINGS: The lung window images demonstrate centrilobular emphysematous changes of the mid and upper lungs and patchy pleural-based consolidations of the posterior basal and medial basal segments of the lower lobes. The lungs are otherwise clear on the lung window images. No suspicious groundglass opacities, other consolidations, bronchiectasis, bronchial wall thickening or suspicious pulmonary nodules are identified. The trachea and bronchi are normal in size without evidence of endoluminal lesions. There is no evidence of pneumothorax. There are no fibrotic changes of the lungs. There are atherosclerotic calcifications in aortic arch and the origin of his marriage branches, as well as extensively in the coronary arteries including the left main and right coronary artery as well as most of the length of the somewhat diagonal and septal branches and the left anterior descending coronary artery. Dense calcification of mitral annulus is present. There is focal calcification of the aortic annulus at the origin of right coronary artery. The aorta is normal in size and course without intramural hematoma. The heart is not enlarged. There is no evidence of pericardial effusion. There is no evidence of a hiatal hernia. The esophageal wall thickness is normal. There is no evidence of lymphadenopathy. There is no pleural effusion. The imaged portion of the thyroid gland is normal. The imaged portion of the upper abdomen demonstrates aortic atherosclerosis and atherosclerosis of the origin of celiac trunk and superior mesenteric artery as well as in branches of superior mesenteric artery and a splenic artery and otherwise is within normal limits for nonenhanced study. The bone window images are within normal limits Procedure Note Feliciano Gomes MD - 04/26/2025 PROCEDURE: CT CHEST WO CONTRAST DATE/TIME OF EXAM: 04/25/2025 2:39 PM CLINICAL INFORMATION: None relevant/not provided if blank. Indication: I35.0: Nonrheumatic aortic valve stenosis Z01.818: Pre-op evaluation CT CHEST WITHOUT INTRAVENOUS CONTRAST. HISTORY: I35.0: Nonrheumatic aortic valve stenosis; Z01.818: Pre-op evaluation COMPARISON: None. TECHNIQUE: Spiral axial scanning of the chest was performed without intravenous contrast administration followed by coronal and sagittal reconstruction of the images by the technologist. FINDINGS: The lung window images demonstrate centrilobular emphysematous changesof the mid and upper lungs and patchy pleural-based consolidations of the posterior basal and medial basal segments of the lower lobes. The lungsare otherwise clear on the lung window images. No suspicious groundglass opacities, other consolidations, bronchiectasis, bronchial wallthickening or suspicious pulmonary nodules are identified. The trachea and bronchiare normal in size without evidence of endoluminal lesions. There is no evidence of pneumothorax. There are no fibrotic changes of the lungs. There are atherosclerotic calcifications in aortic arch and the originof his marriage branches, as well as extensively in the coronary arteries including the left main and right coronary artery as well as most of the length of the somewhat diagonal and septal branches and the leftanterior descending coronary artery. Dense calcification of mitral annulus is present. There is focal calcification of the aortic annulus at theorigin of right coronary artery. The aorta is normal in size and course without intramural hematoma. The heart is not enlarged. There is no evidence of pericardial effusion. There is no evidence of a hiatal hernia. The esophageal wall thicknessis normal. There is no evidence of lymphadenopathy. There is no pleural effusion. The imaged portion of the thyroid gland is normal. The imaged portion of the upper abdomen demonstrates aorticatherosclerosis and atherosclerosis of the origin of celiac trunk and superiormesenteric artery as well as in branches of superior mesenteric artery and asplenic artery and otherwise is within normal limits for nonenhanced study. The bone window images are within normal limits IMPRESSION: 1.No acute process in the chest is identified. 2.Atherosclerotic changes and calcifications of mitral annulus andaortic annulus. 3.Centrilobular emphysema. 4.Patchy subsegmental atelectasis or scarring in bilateral lower lobes. > Interpreting Provider: Feliciano Gomes MD on 04/26/2025 12:10 PM Nelly Esparza MD CT ORDERABLES Final Result * ECHO OUTSIDE STUDY (04/19/2025 11:55 AM CDT) Narrative [facility] [employer] PACS - 04/19/2025 11:55 AM CDT This is a study from an outside facility that has been uploaded into PACS. Nelly Esparza MD ECHO CUPID Final Result [facility] [employer] PACS * CATH OUTSIDE STUDY (04/19/2025 11:55 AM CDT) Narrative [facility] [email or web address] PACS - 04/19/2025 11:55 AM CDT This is a study from an outside facility that has been uploaded into PACS. Nelly Esparza MD ECHO CUPID Final Result [facility] CV FUJI PACS from Last 3 Months Insurance MEDICARE MANAGED CARE PLAN GENERIC MEDICARE [facility] Advance Directives * Full Code (Latest Code Status on File) Date Activated Date Inactivated Comments 05/04/2025 10:06 PM 05/16/2025 5:35 PM Care Teams Education Program Coordinator Relationship Specialty Start Date End Date Orly Coronado MD [address] [place] [id number] PCP - General Internal Medicine 04/23/25
--- OUTSIDE RECORDS SUMMARY | 2025-05-21 12:24 | XMS_ITS | Clinical Summary ---
Author Organization [facility] Address [facility] [place] [address] Care Team Providers Care Utilities Equipment Repairer Name Role Phone Orly Coronado MD Primary Care Provider [phone] Allergies No known active allergies Medications albuterol [...] Comments Blood Pressure 110/83 10/23/2020 12:[address] SECURITY Pulse 70 10/23/2020 12:[address] SECURITY Temperature 36.1 C (97 F) 10/23/2020 12:17 [address] SECURITY Respiratory Rate 13 10/23/2020 12:[address] SECURITY Oxygen Saturation 94% 10/23/2020 12:[address] SECURITY Inhaled Oxygen Concentration - - Weight 65.3 kg (144 lb) 10/22/2020 9:[address] SECURITY Height 162.6 cm (5' 4) 10/22/2020 9:[address] SECURITY Body Mass Index 24.72 10/22/2020 9:[address] SECURITY Plan of Treatment Health Maintenance Due Date [...] this topic Insurance MEDICARE MEDICAID Care Teams Utilities Equipment Repairer Relationship Specialty Start Date End Date Orly Coronado MD [address] [place] [id number] PCP - General INTERNAL MEDICINE 10/22/20
--- OUTSIDE RECORDS SUMMARY | 2025-05-21 12:24 | XMS_ITS | Clinical Summary ---
Author Organization [facility] MOB Address [address] [place] [address] Care Team Providers Care Nutrition Services Manager Name Role Phone Orly Coronado MD Primary Care Provider [phone] Ernesto Milton MD Unavailable Stuart Ruiz MD Unavailable [phone] Allergies No known active allergies Medications Denosumab (Prolia) 60 MG/ML Solution Prefilled Syringe 60 mg by Subcutaneous route once. Every 6 months Active Ipratropium-Alb uterol (COMBIVENT IN) take by inhalation as needed. Active montelukast (SINGULAIR) 10 MG Tablet Take 10 mg by mouth every evening. Active ALBUTEROL IN take by inhalation. Active Fluticasone Furoate-Vilante rol (Breo Ellipta) 200-25 MCG/ACT AEROSOL POWDER, BREATH ACTIVATED take 1 Puff by inhalation daily. Active ipratropium-alb uterol (DUO-NEB) 0.5-2.5 (3) MG/3ML Solution by Nebulization route 4 times daily. Active amLODIPine (NORVASC) 10 MG Tablet Take 5 mg by mouth daily. Active ARLENE ASPIRIN PO Take 81 mg by mouth once. Active VITAMIN D PO Take by mouth. Ac tive Multiple Vitamins-Minera ls (CENTRUM PO) Take by mouth. Active spironolactone (ALDACTONE) 50 MG Tablet Take 50 mg by mouth daily. Active metoprolol Succinate (TOPROL-XL) 25 MG TABLET SR 24 HR 5 Active cilostazol (PLETAL) 50 MG Tablet Take 50 mg by mouth 2 times daily. Active atorvastatin (LIPITOR) 40 MG Tablet Take 1 Tablet by mouth daily for 90 days. 90 Tablet 5 06/06/20 25 Active clopidogrel (PLAVIX) 75 MG Tablet Take 1 Tablet by mouth daily. 90 Tablet 5 Active guaiFENesin (MUCINEX PO) Take by mouth. OTC NEEDED Active Cholecalciferol (Vitamin D-3 Super Strength) 50 mcg Tablet Take 50 mcg by mouth daily. Active Active Problems Problem Noted Date Diagnosed Date Abnormal stress test 03/19/2025 CAD (coronary artery disease) 03/08/2025 Other emphysema 02/20/2025 Nonrheumatic aortic (valve) stenosis Hypertension Chronic obstructive pulmonary disease (COPD) Resolved Problems Problem Noted Date Diagnosed Date Resolved Date Unstable angina 03/07/2025 03/08/2025 Encounters Date Type Department Care Team Description 05/08/[address] [facility] [address] [place] [address] Yeny Thomason MD 04/17/2025 Results Follow-Up [facility] Adult Pediatric Inpatient Virtual [address] [place] [address] Ernesto Milton MD Complete PFT W + W/O Bronchodilator 04/04/[address] [facility] [address] [place] [address] Stuart Ruiz MD Referral 03/30/2025 9:00 AM CDT - 03/30/2025 11:59 PM CDT Hospital Encounter [facility] Respiratory Therapy [address] [place] [address] Ernesto Milton MD Discharge Disposition: Discharged to home or Selfcare 03/28/2025 7:28 AM CDT - 03/28/2025 9:30 AM CDT Hospital [facility] Cardiac Auditor Supervisor [address] [place] [address] Stuart Ruiz MD Abnormal stress test Discharge Disposition: Discharged to home or Selfcare 03/28/2025 Telephone [facility] Pulmonology & Sleep Medicine [facility] [address] [place] [address] Ernesto Milton MD 03/28/2025 Travel 03/20/2025 Travel 03/19/2025 Telephone [facility] Cardiology [facility] [place] [address] Stuart Ruiz MD Heart Cath 03/08/2025 11:10 AM CDT - 03/08/2025 12:35 PM CDT Surgery [facility] Cardiac Auditor Supervisor [address] [place] [address] Yeny Thomason MD CARDIAC CATH 03/08/2025 Telephone [facility] Pulmonology & Sleep [facility] [address] [place] [address] Ernesto Milton MD 03/07/2025 11:37 AM CDT - 03/08/2025 6:54 PM CDT Hospital [facility] Med Surg [address] [address] Jr Rees MD Patel, Satyen V, MD Unstable angina (HCC) Discharge Disposition: Discharged to home or Selfcare 03/07/2025 9:15 AM CDT - 03/07/2025 11:36 AM CDT Hospital [facility] Nuclear Medicine [address] [place] [address] Stuart Ruiz MD Discharge Disposition: Discharged to home or Selfcare 03/07/2025 9:00 AM CDT - 03/07/2025 9:14 AM CDT Hospital [facility] Nuclear Medicine [address] [place] [address] Stuart Ruiz MD Discharge Disposition: Discharged to home or Selfcare 03/07/2025 8:51 AM CDT - 03/07/2025 8:59 AM CDT Hospital Encounter [facility] Cardiology Stress [address] [place] [address] Stuart Ruiz MD Discharge Disposition: Discharged to home or Selfcare 03/07/2025 Travel 02/20/2025 3:30 PM CDT Office Visit [facility] Cardiology [facility] [address] [place] [address] Stuart Ruiz MD Nonrheumatic aortic valve stenosis (Primary Dx); Bilateral carotid bruits; Other emphysema (HCC); SOB (shortness of breath); Primary hypertension; PAD (peripheral artery disease) (HCC); Dyslipidemia Discharge Disposition: Discharged to home or Selfcare 02/20/2025 2:00 PM CDT Office Visit [facility] Pulmonology & Sleep Medicine [facility] [address] [place] [address] Ernesto Milton MD Other emphysema (HCC) (Primary Dx); Nodule of upper lobe of right lung; Personal history of tobacco use, presenting hazards to health Discharge Disposition: Discharged to home or Selfcare 02/20/2025 Travel from Last 3 Months Family History Medical History Relation Name Comments Alcohol Abuse Father Congestive Heart Failure Mother Heart Attack Mother Relation Name Status Comments Father Mother Social History Tobacco Use Types Packs/Day Years Used Date Smoking Tobacco: Former Cigarettes 1.5 23 1 - 2012 Smokeless Tobacco: Never Tobacco Cessation:Counseling Given: Not Answered Alcohol Use Standard Drinks/Week Comments Not Currently 0 (1 standard drink = 0.6 oz pur e alcohol) [facility] Utilities Answer Date Recorded In the past 12 months has [email or web address], [employer], oil, or water [employer] threatened to shut off services in your home? Patient declined 03/07/2025 Social Connection and Isolation Panel Answer Date Recorded In a typical week, how many times do you talk on the phone with family, friends, or neighbors? Patient declined 03/07/2025 How often do you get togethe r with friends or relatives? Patient declined 03/07/2025 How often do you attend restorationist or tenriism serv ices? Patient declined 03/07/2025 Do you belong to any clubs o r organizations such as restorationist groups, unions, fraternal or athletic groups, or [...] medical care, and heating? Patient declined 03/07/2025 [facility] - Occup[facility] Stress [...] any time in the past 12 m [facility], were you homeless or living in a assisted (including now)? Patient declined 03/07/2025 Sexually Active Control Partners Comments Not Currently Post-menopausal Comments No Sex and Gender Information Value Date Recorded Sex Assigned at Not on file Legal Sex Female 11:30 AM CDT Gender Identity Not on file Sexual Orientation Not on file Last Filed Vital Signs Vital Sign Reading Time Taken Comments Blood Pressure 165/91 03/28/2025 8:50 AM CDT Pulse 99 03/28/2025 8:50 AM CDT Temperature 36.9 C (98.5 F) 03/28/2025 9:12 AM CDT Respiratory Rate 19 03/28/2025 8:50 AM CDT Oxygen Saturation 99% 03/28/2025 8:50 AM CDT Inhaled Oxygen Concentration - - Weight 52.7 kg (116 lb 3 oz) 03/28/2025 7:48 AM CDT Height 160 cm (5' 3) 03/28/2025 7:48 AM CDT Body Mass Index 20.58 03/28/2025 7:48 AM CDT Plan of Treatment Health Maintenance Due Date Last Done Comments DEXA Bone Density 1945 Hepatitis C Virus (HCV) Screening 1945 Lung Cancer Screening 1996 Zoster Immunization (2 of 3) 03/02/2013 01/05/2013 SARS-COV-2 Immunization ( season) 2025 07/06/2024, 08/27/2023, 08/04/2021, Additional history exists Influenza Immunization (#1) 2025 08/2 06/2024, 08/03/2023, 08/03/2022, Additional history exists Pneumococcal Immunization (50+ years) Completed 11/17/2018, 04/15/2015 TdaP Immunization Completed 04/02/2022 Respiratory Syncytial Virus (RSV) Immunization (Adult) Completed 11/10/2023 Hepatitis B Immunization Aged Out No longer [...] Procedure Name Priority Date/Time Associated Diagnosis Comments LIPID PANEL Routine 03/30/2025 9:37 AM CDT Dyslipidemia COMPLETE PFT W + W/O BRONCHODILATOR Routine 03/30/2025 Other emphysema (HCC) ADULT TRANS THORACIC ECHO 2D COMPLETE Routine [...] CDT from Last 3 Months Results * LIPID PANEL (03/30/2025 9:37 AM CDT) Only the most recent of2 resultswithin the time period is included. CHOLESTEROL 102 <200 mg/dL 03/30/2025 10:52 AM CDT [facility] TRIGLYCERIDES 52 <150 mg/dL 03/30/2025 10:52 AM CDT [facility] HDL CHOLESTEROL 53 >40 mg/dL 10:52 AM CDT [facility] LDL 39 <130 mg/dL 03/30/2025 10:52 AM CDT [facility] VLDL 10 10 - 50 mg/dL 03/30/2025 10:52 AM CDT [facility] CHOL/HDL RATIO 1.9 0.0 - 4.4 03/30/2025 10:52 AM CDT [facility] NON-HDL CHOLESTEROL 49 <130 mg/dL 03/30/2025 10:52 AM CDT [facility] IS THE PATIENT REQUIRED TO BE FASTING? Yes 03/30/2025 10:52 AM CDT [facility] HAS THE PATIENT BEEN FASTING? Yes 03/30/2025 10:52 AM CDT [facility] Blood Venipuncture / Unknown 03/30/2025 9:37 AM CDT 03/30/2025 10:18 AM CDT us Stuart Ruiz MD CHEMISTRY ORDERABLES Final R esult [facility] [address] [place] [address] * Complete PFT W + W/O Bronchodilator (03/30/2025) [facility] FVC 2.35 L FVC %Predicted 92 % FVC Post-Bronchodila tor 2.25 (L) FEV1 0.90 L FEV1 %Predicted 46 % FEV1 Post-Bronchodila tor 0.96 (L) FEV1/FVC 51 % FEF 25-75% 0.33 L/sec TLC 6.98 L TLC %Predicted 143 (Pleth) (L) RV 4.63 L RV %Predicted 200 (Pleth) (L) Airway Resistance NA cmH2O/L/s DLCO 10.78 ml/min/mmH g DLCO %Predicted 56 (ml/min/mm Hg) Ernesto Milton MD PFT ORDERABLES Final Result * ADULT TRANS THORACIC ECHO 2D COMPLETE [...] Transthoracic Echocardiography Report (TTE) Patient name JODI Rivas.O.B. 1945 Patient ID (UPI) [id number] Indications: Abnormal Stress Test and Chest pain. [...] lbs. BMI (BSA) 20.74 kg/m^2 (1.54 m^2) Telecommunications Manager Eduardo Stallings Room 240- Interpreting Paddy Referring Physician Yeny Physician Procedure Note Yeny Thomason MD - 03/08/2025 Transthoracic Echocardiography Report (TTE) Patient name JODI Rivas.O.B. 1945 Patient ID (UPI) [id number] Indications: Abnormal Stress Test and Chest pain. [...] lbs. BMI (BSA) 20.74 kg/m^2 (1.54 m^2) Telecommunications Manager Eduardo Zhao Room 240-01 Interpreting Thomason Referring Physician Yeny Physician Frances Berrios APRN, CARLOS IMG ECHO ORDER LIZZ Edited Result - [...] the right radial artery with a 6 Rw[place] sheath. Heparin and Nitroglycerine was used for [...] supervision by a trained observer in the lab engineer. Findings: Hemodynamics: Heart rate: 97 , BPM [...] statin Plan was discussed with Dr. Ruiz(primary law enforcement officer) Signed: Yeny Thomason MD, 03/09/2025, 10:38 PM CDT Yeny Thomason MD IMG CARDIAC CATH Edited Resu lt - Final * (ABNORMAL) CBC with Auto Differential (03/08/2025 5:05 AM CDT) Only the most recent of2 resultswithin the time period is included. WBC 6.08 4.00 - 12.00 10(3)/mcL 03/08/2025 5:14 AM CDT [facility] RBC 4.25 3.80 - 5.30 10(6)/mcL 03/08/2025 5:14 AM CDT [facility] HEMOGLOBIN (HGB) 10.9(L) 12.0 - 15.8 g/dL 03/08/2025 5:14 AM CDT [facility] HEMATOCRIT (HCT) 34.5(L) 36.0 - 47.0 % 03/08/2025 5:14 AM CDT [facility] MCV 81.2(L) 82.0 - 96.0 fL 03/08/2025 5:14 AM CDT [facility] MCH 25.6(L) 26.0 - 34.0 pg 03/08/2025 5:14 AM CDT [facility] MCHC 31.6 31.0 - 36.0 g/dL 03/08/2025 5:14 AM CDT [facility] PLATELET COUNT 264 140 - 440 10(3)/mcL 03/08/2025 5:14 AM CDT [facility] RDW 15.6(H) 11.8 - 15.5 % 03/08/2025 5:14 AM CDT [facility] MPV 8.7(L) 9.7 - 12.4 fL 03/08/2025 5:14 AM CDT [facility] NEUTROPHILS 66.6 47.0 - 73.0 % 03/08/2025 5:14 AM CDT [facility] LYMPHOCYTES 14.8(L) 18.0 - 42.0 % 03/08/2025 5:14 AM CDT [facility] MONOCYTES 10.7 4.0 - 12.0 % 03/08/2025 5:14 AM CDT [facility] EOSINOPHILS 6.7(H) 0.0 - 5.0 % 03/08/2025 5:14 AM CDT [facility] BASOPHILS 1.2(H) 0.0 - 1.0 % 03/08/2025 5:14 AM CDT [facility] ABSOLUTE NEUTROPHILS 4.05 1.60 - 7.70 10(3)/mcL 03/08/2025 5:14 AM CDT [facility] ABSOLUTE LYMPHOCYTES 0.90(L) 1.30 - 3.20 10(3)/[facility] 03/08/2025 5:14 AM CDT [facility] ABSOLUTE MONOCYTES 0.65 0.20 - 1.00 10(3)/[facility] 03/08/2025 5:14 AM CDT [facility] ABSOLUTE EOSINOPHIL 0.41(H) 0.00 - 0.40 10(3)/[facility] 03/08/2025 5:14 AM CDT [facility] ABSOLUTE BASOPHILS 0.07 0.00 - 0.10 10(3)/[facility] 03/08/2025 5:14 AM CDT [facility] NRBC PER 100 WBC 0 03/08/20 5:14 AM CDT [facility] Blood Venipuncture / Unknown 03/08/2025 5:05 AM CDT 03/08/2025 5:11 AM CDT us Payal Stone MD HEMATOLOGY ORDERABLES Final R esult [facility] [address] [place] [address] * (ABNORMAL) BMP with Ca, Total (03/08/2025 5:05 AM CDT) SODIUM 138 136 - 145 mmol/L 03/08/2025 5:41 AM CDT [facility] POTASSIUM 3.6 3.5 - 5.1 mmol/L 03/08/2025 5:41 AM CDT [facility] CHLORIDE 109(H) 98 - 107 mmol/L 03/08/2025 5:41 AM CDT [facility] CO2, VENOUS 20(L) 22 - 30 mmol/L 03/08/2025 5:41 AM CDT [facility] ANION GAP 12.6 <18.0 mmol/L 03/08/2025 5:41 AM CDT [facility] GLUCOSE 85 70 - 99 mg/dL 03/08/2025 5:41 AM CDT [facility] BUN 12 10 - 20 mg/dL 03/08/2025 5:41 AM CDT [facility] CREATININE, BLOOD 0.58(L) 0.60 - 1.00 mg/dL 03/08/2025 5:41 AM CDT [facility] BUN/CREATININE RATIO 21(H) 12 - 20 ratio 03/08/2025 5:41 AM CDT [facility] CALCIUM 8.8 8.7 - 10.5 mg/dL 03/08/2025 5:41 AM CDT [facility] GFR, ESTIMATED >60 >=60 03/08/2025 5:41 AM CDT [facility] Comment: Creatinine Clearance is the preferred criteria for selecting drug dose adjustments in renally impaired patients. The GFR is provided as additional pertinent clinical information. GFR is reported in mL/min/1.73 sq m. Calculation based on the Chronic Kidney Disease Epidemiology Collaboration (CKD- EPI) equation refit without adjustment for race. GFR, EST. >60 >=60 025 5:41 AM CDT [facility] GFR, EST. NONAFRICAN >60 >=60 03/08/2025 5:41 AM CDT [facility] Blood Venipuncture / Unknown 03/08/2025 5:05 AM CDT 03/08/2025 5:11 AM CDT us Payal Stone MD CHEMISTRY ORDERABLES Final Re sult Performing Organization Address City/[facility]/ZIP Co de Phone Number [facility] [address] [place] [address] * RHYTHM STRIP (03/08/2025 12:00 AM CDT) Only the most recent of4 resultswithin the time period is included. 03/08/2025 us Provider Scan IMG ECG ORDERABLES Final Result Performing Organization Address [facility] Co de Phone Number RESULTING AGENCY * TROPONIN I, HIGH SENSITIVITY (HSTRP) (03/07/2025 2:13 PM CDT) Only the most recent of2 resultswithin the time period is included. TROPONIN I, HIGH SENSITIVITY- [place] 3 <=14 ng/L 03/07/2025 2:55 PM CDT [facility] Comment: High-sensitivity troponin I results are reported in ng/L making the result appear to be 1,000 times higher than the contemporary troponin I value which is reported in ng/ml. Results from [place]. Blood Venipuncture / Unknown 03/07/2025 2:13 PM CDT 03/07/2025 2:19 PM CDT us Jr Rees MD CHEMISTRY ORDERABLES Veronica l Result Performing Organization Address City/[facility]/ZIP Co de Phone Number [facility] [address] [place] [address] * XR CHEST SINGLE VIEW PORTABLE (03/07/2025 [...] Filiberto Schafer M.D. MM: MM Report ID: [id number] Reading Location: [id number] Procedure Note Filiberto Schafer MD - 03/07/2025 [...] Filiberto Schafer M.D. MM: MM Report ID: [id number] Reading Location: [id number] IMPRESSION: No acute cardiopulmonary abnormality. Jr Rees MD [facility] ORDERABLES Final Result * APTT (PTT) (03/07/2025 11:50 AM CDT) PTT 31 24 - 36 sec 03/07/2025 12:38 PM CDT [facility] Blood Venipuncture / Unknown 03/07/2025 11:50 AM CDT 03/07/2025 12:14 PM CDT Narrative [facility] - 03/07/2025 12:38 PM CDT Therapeutic range for unfractionated heparin at 0.3-0.7 U/mL is an aPTT value in the range of 71-100 seconds. Critical value for the PTT test is >= 122 seconds. Jr Rees MD HEMATOLOGY ORDERABLES Fin al Result Performing Organization Address City/[facility] Co de Phone Number [facility] [address] [place] [address] * PT / INR (03/07/2025 11:50 AM CDT) PROTIME-PATIENT 12.4 11.6 - 14.8 sec 03/07/2025 12:38 PM CDT [facility] INR 0.9 0.9 - 1.2 03/07/2025 12:38 PM CDT [facility] Comment: Therapeutic Ranges INR = 2.0-3.0: Venous thromb, atrial fib, pul embolism, tissue heart valve, ami. INR = 2.5-3.5: Mechanical heart valve Critical value for INR is >/= 4.5 Blood Venipuncture / Unknown 03/07/2025 11:50 AM CDT 03/07/2025 12:14 PM CDT us Jr Rees MD HEMATOLOGY ORDERABLES Fin al Result Performing Organization Address City/[facility]/ZIP Co de Phone Number [facility] [address] [place] [address] * CMP (Comprehensive Metabolic Panel) (03/07/2025 11:50 AM CDT) SODIUM 138 136 - 145 mmol/L 03/07/2025 12:37 PM CDT [facility] POTASSIUM 4.6 3.5 - 5.1 mmol/L 03/07/2025 12:37 PM T [facility] CHLORIDE 106 98 - 107 mmol/L 03/07/2025 12:37 PM [facility] CO2, VENOUS 22 22 - 30 mmol/L 03/07/2025 12:37 PM T [facility] ANION GAP 14.6 <18.0 mmol/L 03/07/2025 12:37 PM CDT [facility] GLUCOSE 96 70 - 99 mg/dL 03/07/2025 12:37 PM T [facility] BUN 10 10 - 20 mg/dL 03/07/2025 12:37 PM T [facility] CREATININE, BLOOD 0.62 0.60 - 1.00 mg/dL 03/07/2025 12:37 PM T [facility] BUN/CREATININE RATIO 16 12 - 20 ratio 03/07/2025 12:37 PM T [facility] TOTAL PROTEIN 7.7 6.0 - 8.0 g/dL 03/07/2025 12:37 PM T [facility] ALBUMIN 4.5 3.5 - 5.0 g/dL 03/07/2025 12:37 PM T [facility] A/G RATIO 1.4 1.0 - 2.2 03/07/2025 12:37 PM [facility] CALCIUM 9.5 8.7 - 10.5 mg/dL 03/07/2025 12:37 PM T [facility] T BILI 0.6 0.2 - 1.2 mg/dL 03/07/2025 12:37 PM CDT [facility] SGOT (AST) 38 <43 U/L 03/07/2025 12:37 PM [facility] Comment: Specimen is hemolyzed. In vitro hemolysis could affect results. Clinical correlation advised. SGPT (ALT) 13 <56 U/L 03/07/2025 12:37 PM CDT [facility] ALKALINE PHOSPHATASE 50 40 - 150 U/L 03/07/2025 12:37 PM CDT [facility] GFR, ESTIMATED >60 >=60 03/07/2025 12:37 PM CDT [facility] Comment: Creatinine Clearance is the preferred criteria for selecting drug dose adjustments in renally impaired patients. The GFR is provided as additional pertinent clinical information. GFR is reported in mL/min/1.73 sq m. Calculation based on the Chronic Kidney Disease Epidemiology Collaboration (CKD- EPI) equation refit without adjustment for race. GFR, EST. >60 >=60 025 12:37 PM CDT [facility] GFR, EST. NONAFRICAN >60 >=60 03/07/2025 12:37 PM CDT [facility] Blood Venipuncture / Unknown 03/07/2025 11:50 AM CDT 03/07/2025 12:14 PM CDT us Jr Rees MD CHEMISTRY ORDERABLES Veronica l Result Performing Organization Address City/[facility]/ZIP Co de Phone Number [facility] [address] [place] [address] * (ABNORMAL) B-Type Natriuretic Peptide (BNP) (03/07/2025 11:50 AM CDT) B TYPE NATRIURETIC PEPTIDE 325(H) <100 pg/mL 03/07/2025 12:56 PM CDT [facility] Blood Venipuncture / Unknown 03/07/2025 11:50 AM CDT 03/07/2025 12:14 PM CDT Jr Rees MD CHEMISTRY ORDERABLES Veronica l Result [facility] [address] [place] [address] * EKG 12 LEAD (03/07/2025 11:37 AM CDT) Ventricular Rate 87 BPM EXTERNAL EKG Atrial Rate 87 BPM EXTERNAL EKG P-R Interval 142 ms EXTERNAL EKG QRS Duration 94 ms EXTERNAL EKG Q-T Duration 366 ms EXTERNAL EKG QTC CALCULATION 440 ms EXTERNAL EKG P Conway -18 degrees EXTERNAL EKG R Conway 3 degrees EXTERNAL EKG T Conway -6 degrees EXTERNAL EKG 03/07/2025 11:3 7 AM CDT Impressions EXTERNAL EKG - 03/07/2025 10:27 PM CDT Normal sinus rhythm Inferior infarct , age undetermined Abnormal ECG No previous ECGs available Confirmed by YENY THOMASON ([id number]) on 03/07/2025 10:27:37 PM Narrative Procedure Note Yeny Thomason MD - 03/07/2025 IMPRESSION: Normal sinus rhythm Inferior infarct , age undetermined Abnormal ECG No previous ECGs available Confirmed by YENY THOMASON ([id number]) on 03/07/2025 10:27:37 PM us Jr Rees MD IMG ECG ORDERABLES Final Result EXTERNAL EKG * ADULT CV STRESS PHARMACOLOGIC W NUC MED (03/07/2025 11:31 AM CDT) Anatomical Region Laterality Modality CARDIO N/A Electrocardiogra phy Narrative 03/08/2025 11:11 AM CDT Non-Imaging Stress Test Patient Name JODI JACOBSEN 1945 Patient ID (UPI) [id number] Indications: Chest pain. Study Date03/07/2025 Type of [...] - Lexiscan Protocol Peak HR: 103 bpm [id number] Peak BP: 169/82 mmHg Predicted HR: 142 [...] Weight 121 lbs. BMI 21.43 kg/m^2 Stress Coach [employer] Nurse Chris Norris Physician Yeny Physician Procedure Note Yeny Thomason MD - 03/08/2025 Non-Imaging Stress Test Patient Name JODI De La Cruz 1945 Patient ID ([facility]) [id number] Indications: Chest pain. Study Date03/07/2025 Type of [...] - Lexiscan Protocol Peak HR: 103 bpm [id number] Peak BP: 169/82 mmHg Predicted HR: 142 [...] Weight 121 lbs. BMI 21.43 kg/m^2 Stress Coach [employer] Nurse Chris Thomason Referring Sara Norris Physician Yeny Henriquez MD Stuart Ruiz MD IM STRESS Final Result * NM CARD MULTI [...] Jorge Blevins M.D. CH: DIONNE Report ID: [id number] Reading Location: [id number] Procedure Note Jorge Blevins Jr., MD - [...] Jorge Blevins M.D. CH: DIONNE Report ID: [id number] Reading Location: [id number] IMPRESSION: 1. Rest only imaging demonstrating a 20% mild severity septal defect. 2. Post-stress imaging not performed. Stuart Ruiz MD IMG NM CARDIAC NI ORDERABLES Final Result * EKG SCAN (03/07/2025 12:00 AM CDT) 03/07/2025 us Provider Scan IMG ECG ORDERABLES Final Result RESULTING AGENCY from Last 3 Months Insurance MEDICARE C [employer] Advance Directives * Full Code (Latest Code Status on File) Date Activated Date Inactivated Comments 03/07/2025 4:26 PM CPR-Full Treat ment: FULL ARREST: Attempt Resuscitation/CPR wit intubation and mechanical ventilation. PRE-ARREST: Use entire range of life support measures to stabilize the patient. Care Teams Nutrition Services Manager Relationship Specialty Start Date End Date Orly Coronado MD [address] [place] [address] PCP - General Internal Medicine 01/19/25 Ernesto Milton MD [address] [place] [id number] Consulting Physician Pulmonary Disease 02/20/25 Stuart Ruiz MD [address] [id number] Consulting Physician Interventional Cardiology 02/21/25
[2025-05-21 12:44] LABS: Hematocrit 41.1 % (35.0-42.0); Hemoglobin 13.0 g/dL (11.7-13.8); Immature Platelet Fraction Pct 0.7 % (1.0-7.0); Mean Corpuscular HGB Conc 31.6 g/dL (32-36); Mean Corpuscular Hemoglobin 31.0 pg (27.0-31.0); Mean Corpuscular Volume 97.9 fL (78.0-102.0); Platelet Count Result 657 K/mm3 (150-420); Red Blood Count 4.20 M/mm3 (4.20-5.40); White Blood Count 14.9 K/mm3 (4.8-10.8)
[2025-05-21 13:04] LABS: Alanine Aminotransferase 27 U/L (6-35); Albumin Level 4.5 g/dL (3.5-5.1); Alkaline Phosphatase 134 U/L (38-126); Anion Gap 8 mmol/L (4-12); Aspartate Amino Transferase 42 U/L (14-36); Bilirubin,Total 1.4 mg/dL (0.2-1.3); Blood Urea Nitrogen 19 mg/dL (7-17); Calcium 10.3 mg/dL (8.4-10.2); Carbon Dioxide 26 mmol/L (22-30); Chloride 100 mmol/L (98-107); Estimated Glomerular Filt Rate > 60; Glucose 98 mg/dL (65-110); Iron 84 ug/dL (37-170); Osmolality Calculated 280 mOsm/kg (285-295); Potassium 4.8 mmol/L (3.4-5.0); Sodium 134 mmol/L (137-145); Total Protein 7.1 g/dL (6.3-8.2)
[2025-05-21 13:13] LABS: NT Pro B Type Natriuretic Pept 3710 pg/mL (19.9-100)
[2025-05-21 13:39] LABS: Ferritin 293.00 ng/mL (11.1-264)
== END 2025-05-21 12:19 | disposition home or self-care (01) ==
PROVIDERS: PCP Internal Medicine; Visit Provider Internal Medicine
DX: R05.9 Cough, unspecified (principal); J44.9 Chronic obstructive pulmonary disease, unspecified; Z95.1 Presence of aortocoronary bypass graft; R06.02 Shortness of breath; J90 Pleural effusion, not elsewhere classified; J98.11 Atelectasis
CPT/HCPCS: 36415; 71046; 80053; 82728; 83540; 83880; 85027; 85055

== ENCOUNTER 2025-06-04 09:03 | Outpatient (CLI) | payer OTHER, SELFPAY ==
[2025-06-04 09:17] LABS: Hematocrit 40.6 % (35.0-42.0); Hemoglobin 13.3 g/dL (11.7-13.8); Immature Granulocyte Percent A 0.3 % (0.0-0.0); Lymphocytes Absolute Auto 0.66 K/mm3 (1.10-4.50); Mean Corpuscular HGB Conc 32.8 g/dL (32-36); Mean Corpuscular Hemoglobin 31.1 pg (27.0-31.0); Mean Corpuscular Volume 95.1 fL (78.0-102.0); Nucleated Red Blood Cells Absolute Auto 0.00 K/mm3 (0.00-0.00); Nucleated Red Blood Cells Perc 0.0 % (0-0.0); Platelet Count Result 314 K/mm3 (150-420); Red Blood Count 4.27 M/mm3 (4.20-5.40); White Blood Count 10.0 K/mm3 (4.8-10.8)
--- OUTSIDE RECORDS SUMMARY | 2025-06-04 09:22 | XMS_ITS | Clinical Summary ---
Author Organization [facility] Address [address] [address] Care Team Providers Care Operator Bearer Systems Name Role Phone Orly Coronado MD Primary Care Provider [phone] Source Comments [facility],non-owned Affiliates and Associated Physician Practices is amultiple site organization consisting of ambulatory clinics and hospital sitesin [place], [place], [place] and [place]. This disclosure is being madepursuant to the Care Everywhere program and may not contain all information available regarding this patient. Last updated 18.[facility] Allergies No known active allergies Medications * [...] (one) tablet by mouth every evening Active Nutritional Supplement LIQD Take 1 container [...] Supplement Examples: Ensure Plant/Orgain 05/09/20 25 Active Additional Information Patient not taking.Reported on 05/30/2025 senna-docusate (Senokot-S) 8.6-50 MG tablet Take 1 (one) tablet by mouth once daily 05/17/20 25 Active famotidine (Pepcid) 20 MG tablet Take 1 (one) tablet by mouth once daily 05/17/20 25 Active metoprolol succinate XL 24hr (Toprol XL) 25 MG tablet Take 0.5 (one-half) tablet by mouth once daily 15 tablet 05/24/20 25 Active acetaminophen (Tylenol) 500 MG tablet Take 1 (one) tablet by mouth every 4 hours as needed for Fever or Pain Maximum allowable Acetaminophen amount = 4 Grams (4000 mg) / 24 hours. Active spironolactone (Aldactone) 50 MG tablet Take 1 (one) tablet by mouth once daily 05/17/20 25 Active amLODIPine (Norvasc) 5 MG tablet 04/03/20 25 025 Discontin ued(Clini alee Decision) Cholecalcifero l 50 MCG (2000 UT) Take 50 mcg by mouth once daily 025 Discontin ued(Clini alee Decision) cilostazol (Pletal) 50 MG tablet Take 1 (one) tablet by mouth 2 times daily 025 Discontin ued(Clini alee Decision) Mucinex 600 MG tablet 08/07/20 24 025 Discontin ued(Clini alee Decision) potassium chloride ER 10 MEQ tablet 04/09/20 25 025 Discontin ued(Tx Complete) spironolactone (Aldactone) 50 MG tablet Take 1 (one) tablet by mouth once daily 025 Discontin ued(Clini alee Decision) acetaminophen (Tylenol) 325 MG tablet Take 2 (two) tablets by mouth every 6 hours as needed Maximum allowable Acetaminophen amount = 4 Grams (4000 mg) / 24 hours. 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 05/01/2025 Coronary artery disease invo lving [place] coronary artery of [place]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 03/14/2025 Encounters Date Type Department Care Team Description 05/30/2025 3:45 PM CDT Office Visit [facility] - Cardiothoracic Surgery [address] [place] [address], [place] [phone] Fer Rose MD 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 bill moore[place]ough heart without angina pectoris (Primary Dx) 05/30/2025 Travel 05/29/2025 Telephone [facility] - Cardiothoracic Surgery [address] [place] [address] Fer Rose MD Reminder Call 05/24/2025 2:30 PM CDT Office Visit [facility] - Cardiothoracic Surgery [address] [place] [address] [place] [address] Tr Butts APRN-CNP Onyemkpa, Chibueze, MD S/P CABG x 1 (Primary Dx) 05/24/2025 12:56 PM CDT - 05/24/2025 11:59 PM CDT Hospital Encounter [facility] [address] [place] [address] Tr Butts APRN-CNP Discharge Disposition: Home or Self Care 05/24/2025 12:55 PM CDT Hospital Encounter [facility] DRAW STATION [address] [place] [address] Tr Butts APRN-CNP Discharge Disposition: Home or Self Care 05/24/2025 Travel 05/05/2025 11:07 AM CDT Anesthesia Event [facility] [address] [place] [address] Fransico Tidwell MD Hiermandi, Suhail, DO 05/05/2025 10:35 AM CDT - 05/05/2025 2:43 PM CDT Surgery [facility] [address] [place] [address] Yg Lorenzo MD CORONARY EXPLORATION, POSSIBLE CLOSURE 05/04/2025 6:15 PM CDT - 05/05/2025 1:34 AM CDT Surgery [facility] [address] [place] [address] Fer Rose MD BYPASS GRAFT CORONARY ARTERY (CABG) LEVEL 1 @ 1712 05/04/2025 5:41 PM CDT Anesthesia Event [facility] [address] [place] [address] Chuck Talbot DO Caravana, Elizabeth, DO 05/04/2025 10:26 AM CDT - 05/04/2025 12:44 PM CDT Surgery [facility] [address] [place] [address] Yeny Thomason MD Percutaneous Coronary Intervention 05/04/2025 8:52 AM CDT - 05/16/2025 4:24 PM CDT Hospital Encounter [facility] 8N ACUTE [address] [place] [address] Yeny Thomason MD Le, Anh-Thu, MD Maniar, Hersh S, MD Cardiac Catheterization Discharge Disposition: Home Health Care [facility] 05/01/2025 Orders Only [facility] [address] [place] [address] Yeny Thomason MD 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 04/30/2025 10:30 AM CDT Office Visit [facility] - Cardiothoracic Surgery [address] [place] [phone] David Esparza MD Bilateral carotid artery disease, unspecified type (Primary Dx) 04/30/2025 Travel 04/25/2025 2:31 PM CDT - 04/25/2025 11:59 PM CDT Hospital Encounter [facility] Imaging Services - CT Scan [address], [address] [place] [address] David Esparza MD Discharge Disposition: Home or Self Care 04/25/2025 1:07 PM CDT - 04/25/2025 2:30 PM CDT Hospital Encounter [facility] Vascular Services [address] [place] [address] David Esparza MD Discharge Disposition: Home or Self Care 04/25/2025 1:07 PM CDT - 04/25/2025 2:30 PM CDT Hospital Encounter [facility] [address] [place] [phone] David Esparza MD Discharge Disposition: Home or Self Care 04/23/2025 11:00 AM CDT Office Visit [facility] - Cardiothoracic Surgery [address] [place] [phone] David Esparza MD Nonrheumatic aortic valve stenosis (Primary Dx); 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 bill mo[place] heart without angina pectoris; Pre-op evaluation 04/23/2025 Travel 04/19/2025 11:55 AM CDT - 04/19/2025 11:59 PM CDT Hospital Encounter [facility] - Outside Imaging David Esparza MD Discharge Disposition: Home or Self Care 04/19/2025 11:55 AM CDT - 04/19/2025 11:59 PM CDT Hospital Encounter [facility] - Outside Imaging David Esparza MD Discharge Disposition: Home or Self Care 04/19/2025 Orders Only [facility] - Cardiothoracic Surgery [address] [facility] [place] [address] Ladonna Singh RN Hx of cardiac cath ; Hx of echocardiogram 03/14/2025 Orders Only [facility] [address] [place] [address] Yeny Thomason MD 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 Not very hard 05/09/2025 PHQ-2 Answer Date Recorded Patient Health Questionnaire-2 Score 0 05/30/2025 [facility] [place] [facility] - Occupational Stress [...] any time in the past 12 m [facility], were you homeless or living in a usp (including now)? No 05/09/2025 Comments No Sex and Gender Information Value Date Recorded Sex Assigned at Not on file Legal Sex Female 1:34 PM CDT Gender Identity Not on file Sexual Orientation Not on file Last Filed Vital Signs Vital Sign Reading Time Taken Comments Blood Pressure 102/70 05/30/2025 3:25 PM CDT Pulse 90 05/30/2025 3:25 PM CDT Temperature 36.5 C (97.7 F) 05/30/2025 3:25 PM CDT Respiratory Rate 20 05/16/2025 12:44 PM CDT Oxygen Saturation 94% 05/30/2025 3:25 PM CDT Inhaled Oxygen Concentration 21% 05/14/2025 3 :41 AM CDT Weight 49 kg (108 lb) 05/30/2025 3:25 PM CDT Height 160 cm (5' 3) 05/30/2025 3:25 PM CDT Body Mass Index 19.13 05/30/2025 3:25 PM CDT Plan of Treatment Health Maintenance Due [...] VACCINE (1 - 2023-2 5 season) 2024 INFLUENZA VACCINE (#1) 2025 DEPRESSION SCREENING Completed 05/30/2025 HEPATITIS B VACCINE Aged Out No longe [...] this topic Medical Devices Implanted Type Area Primer Inserting Machine Adjuster Device Identifier Shelf Expiration Date Model / Serial / Lot Sys Cor Stent Sng Xd Mr 3mm 28mm Dlv Sys - [id number] Implanted:Qty: 1 on 05/04/2025 by Yeny Thomason MD at [facility] [employer] [id number] 08/07/2026 [id number] / [id number] / [id number] Kit Impella Intro Shrt 14fr Str Ltx - [id number] Implanted:Qty: 1 on 05/04/2025 by Yeny Thomason MD at [facility] [employer] [id number] 08/18/2027 [id number] / [id number] / [id number] Set Vntrc Ast 17.4x13.8in Impella Cp 9.3 - [id number] Implanted:Qty: 1 on 05/04/2025 by Yeny Thomason MD at [facility] [employer] 02/14/2027 [id number] / [id number] / [id number] Set Vntrc Ast 17.4x13.8in Impella Cp 9.3 - [id number] Implanted:Qty: 1 on 05/04/2025 at [facility] [employer] 02/14/2027 [id number] / [id number] / [id number] Patch Srg 4x2in Slnt Evarrest Fbrn - [id number] Implanted:Qty: 1 on 05/04/2025 by Fer Rose MD at [facility] [employer] 02/12/2027 [id number] / [id number] / Procedures Procedure Name Priority Date/Time Associated Diagnosis Comments LAB RESULTS ORDER 05/30/2025 11:28 AM CDT BASIC METABOLIC PANEL (CALCIUM TOTAL) Routine 05/24/2025 1:28 PM CDT 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 S/P CABG (coronary artery bypass graft) CBC W/O DIFFERENTIAL Routine 05/24/2025 1:28 PM CDT 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 S/P CABG (coronary artery bypass graft) XR CHEST 1VW Routine 05/24/2025 1:01 PM CDT 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 S/P CABG (coronary artery bypass graft) APHERESIS/TRANSFUSION ORDER 05/17/2025 11:19 AM CDT EKG 12-LEAD Routine 05/16/2025 3:01 PM CDT S/P CABG (coronary artery bypass graft) GLUCOSE - POINT OF CARE Routine 05/16/2025 11:09 AM CDT GLUCOSE - POINT OF CARE Routine 05/16/2025 7:34 AM CDT XR CHEST 1VW PORTABLE Routine 05/16/2025 4:42 AM CDT 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 PHOSPHORUS BLOOD Routine 05/16/2025 1:35 AM CDT 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) MAGNESIUM BLOOD Routine 05/16/2025 1:35 AM CDT 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) CBC W/O DIFFERENTIAL Routine 05/16/2025 1:35 AM CDT 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) BASIC METABOLIC PANEL (CALCIUM TOTAL) Routine 05/16/2025 1:35 AM CDT 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) GLUCOSE - POINT OF CARE Routine 05/15/2025 8:51 PM CDT GLUCOSE - POINT OF CARE Routine 05/15/2025 4:10 PM CDT ECHO LIMITED W CONTRAST COLOR AND DOPPLER Routine 05/15/2025 3:30 PM CDT S/P CABG (coronary artery bypass graft) EKG 12-LEAD Routine 05/15/2025 2:01 PM CDT 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 GLUCOSE - POINT OF CARE Routine 05/15/2025 12:21 PM CDT GLUCOSE - POINT OF CARE Routine 05/15/2025 8:11 AM CDT PHOSPHORUS BLOOD Routine 05/15/2025 1:53 AM CDT 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) MAGNESIUM BLOOD Routine 05/15/2025 1:53 AM CDT 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) CBC W/O DIFFERENTIAL Routine 05/15/2025 1:53 AM CDT 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) BASIC METABOLIC PANEL (CALCIUM TOTAL) Routine 05/15/2025 1:53 AM CDT 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) GLUCOSE - POINT OF CARE Routine 05/14/2025 9:08 PM CDT GLUCOSE - POINT OF CARE Routine 05/14/2025 3:32 PM CDT GLUCOSE - POINT OF CARE Routine 05/14/2025 11:34 AM CDT GLUCOSE - POINT OF CARE Routine 05/14/2025 9:03 AM CDT XR CHEST 1VW PORTABLE STAT 05/14/2025 5:24 AM CDT 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) PHOSPHORUS BLOOD Routine 05/14/2025 3:29 AM CDT 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) MAGNESIUM BLOOD Routine 05/14/2025 3:29 AM CDT 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) CBC W/O DIFFERENTIAL Routine 05/14/2025 3:29 AM CDT 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) BASIC METABOLIC PANEL (CALCIUM TOTAL) Routine 05/14/2025 3:29 AM CDT 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) GLUCOSE - POINT OF CARE Routine 05/13/2025 9:34 PM CDT GLUCOSE - POINT OF CARE Routine 05/13/2025 6:52 PM CDT XR CHEST 1VW PORTABLE STAT 05/13/2025 2:15 PM CDT Postprocedural pneumothorax EKG 12-LEAD Routine 05/13/2025 1:48 PM CDT 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) GLUCOSE - POINT OF CARE Routine 05/13/2025 1:10 PM CDT GLUCOSE - POINT OF CARE Routine 05/13/2025 8:34 AM CDT EKG 12-LEAD STAT 05/13/2025 7:18 AM CDT 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) XR CHEST 1VW PORTABLE Routine 05/13/2025 4:29 AM CDT 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) PHOSPHORUS BLOOD Routine 05/13/2025 4:01 AM CDT 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) MAGNESIUM BLOOD Routine 05/13/2025 4:01 AM CDT 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) CBC W/O DIFFERENTIAL Routine 05/13/2025 4:01 AM CDT 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) BASIC METABOLIC PANEL (CALCIUM TOTAL) Routine 05/13/2025 4:01 AM CDT 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) TRANSFUSE RED BLOOD CELL LEUKOREDUCED UNIT(S) Routine 05/13/2025 12:03 AM CDT XR FOOT LEFT 3VW OR MORE Routine 05/12/2025 7:15 PM CDT 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) CBC W/O DIFFERENTIAL Routine 05/12/2025 5:31 PM CDT BASIC METABOLIC PANEL (CALCIUM TOTAL) Routine 05/12/2025 5:31 PM CDT GLUCOSE - POINT OF CARE Routine 05/12/2025 5:15 PM CDT XR CHEST 1VW PORTABLE STAT 05/12/2025 2:10 PM CDT 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) GLUCOSE [...] 3:11 AM CDT 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) MAGNESIUM BLOOD Routine 05/12/2025 3:11 AM CDT 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) CBC W/O DIFFERENTIAL Routine 05/12/2025 3:11 AM CDT 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) BASIC METABOLIC PANEL (CALCIUM TOTAL) Routine 05/12/2025 3:11 AM CDT 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) GLUCOSE [...] 1:34 PM CDT 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) PREPARE RBC LEUKOREDUCED UNIT Routine 05/11/2025 1:34 PM CDT PREPARE RBC LEUKOREDUCED UNIT Routine 05/11/2025 1:34 PM CDT 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) TYPE + SCREEN PANEL Routine 05/11/2025 1 :34 PM CDT 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) XR CHEST 1VW PORTABLE Routine 05/11/2025 1:29 PM CDT 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) EKG 12-LEAD STAT 05/11/2025 1:18 PM CDT 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) ECHO LIMITED OR FOLLOWUP STAT 05/11/2025 12:58 PM CDT 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) GLUCOSE - POINT OF CARE Routine 05/11/2025 12:01 PM CDT BASIC METABOLIC PANEL (CALCIUM TOTAL) STAT 05/11/2025 11:49 AM CDT 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) CBC W/O DIFFERENTIAL STAT 05/11/2025 11:49 AM CDT 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) FIBRINOGEN ACTIVITY STAT 05/11/2025 11:49 AM CDT 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) PTT STAT 05/11/2025 11:49 AM CDT 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) PT-INR STAT 05/11/2025 11:49 AM CDT 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) GLUCOSE - POINT OF CARE Routine 05/11/2025 7:40 AM CDT CBC W/O DIFFERENTIAL Routine 05/11/2025 3:53 AM CDT BASIC METABOLIC PANEL (CALCIUM TOTAL) Routine 05/11/2025 3:53 AM CDT PHOSPHORUS BLOOD Routine 05/11/2025 3:53 AM CDT 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) MAGNESIUM BLOOD Routine 05/11/2025 3:53 AM CDT 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) GLUCOSE - POINT OF CARE Routine 05/10/2025 10:28 PM CDT BASIC METABOLIC PANEL (CALCIUM TOTAL) STAT 05/10/2025 10:26 PM CDT 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) CBC W/O DIFFERENTIAL STAT 05/10/2025 10:26 PM CDT 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) GLUCOSE [...] 2 AM CDT 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) CBC W/O DIFFERENTIAL Routine 05/10/2025 3:22 AM CDT 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) BLOOD GASES ART + COOX PANEL Routine 05/10/2025 3:22 AM CDT BASIC METABOLIC PANEL (CALCIUM TOTAL) Routine 05/10/2025 3:22 AM CDT 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) PHOSPHORUS BLOOD Routine 05/10/2025 3:22 AM CDT 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) MAGNESIUM BLOOD Routine 05/10/2025 3:22 AM CDT 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) XR CHEST 1VW STAT 05/09/2025 11:26 PM CDT S/P CABG (coronary artery bypass graft) Postprocedural pneumothorax XR CHEST 1VW STAT 05/09/2025 10:46 PM CDT S/P CABG (coronary artery bypass graft) Postprocedural pneumothorax GLUCOSE - POINT OF CARE Routine 05/09/2025 8:01 PM CDT PHOSPHORUS BLOOD Timed 05/09/2025 8:01 PM CDT 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) MAGNESIUM BLOOD Timed 05/09/2025 8:01 PM CDT 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) CALCIUM IONIZED WHOLE BLOOD Timed 05/09/2025 8:01 PM CDT 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) BASIC METABOLIC PANEL (CALCIUM TOTAL) Timed 05/09/2025 8:01 PM CDT 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) CBC W/O DIFFERENTIAL Timed 05/09/2025 8:01 PM CDT 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) GLUCOSE [...] 10:42 AM CDT 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) XR CHEST 1VW PORTABLE STAT 05/09/2025 10:08 AM CDT S/P CABG (coronary artery bypass graft) GLUCOSE - POINT OF CARE Routine 05/09/2025 9:56 AM CDT SVO2 FOR RECALIBRATION AM Draw 05/09/2025 4:38 AM CDT LACTIC ACID BLOOD Routine 05/09/2025 4:3 8 AM CDT 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) CBC W/O DIFFERENTIAL Routine 05/09/2025 4:38 AM CDT 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) BLOOD GASES ART + COOX PANEL Routine 05/09/2025 4:38 AM CDT BASIC METABOLIC PANEL (CALCIUM TOTAL) Routine 05/09/2025 4:38 AM CDT 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) PHOSPHORUS BLOOD Routine 05/09/2025 4:38 AM CDT 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) MAGNESIUM BLOOD Routine 05/09/2025 4:38 AM CDT 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) BASIC [...] 5:35 AM CDT 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) EKG 12-LEAD Routine 05/08/2025 5:18 AM CDT S/P CABG (coronary artery bypass graft) XR CHEST 1VW PORTABLE Routine 05/08/2025 4:50 AM CDT S/P CABG (coronary artery bypass graft) LACTIC ACID BLOOD Routine 05/08/2025 4:2 3 AM CDT 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) CBC W/O DIFFERENTIAL Routine 05/08/2025 4:23 AM CDT 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) BLOOD GASES ART + COOX PANEL Routine 05/08/2025 4:23 AM CDT BASIC METABOLIC PANEL (CALCIUM TOTAL) Routine 05/08/2025 4:23 AM CDT 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) PHOSPHORUS BLOOD Routine 05/08/2025 4:23 AM CDT 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) MAGNESIUM BLOOD Routine 05/08/2025 4:23 AM CDT 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) GLUCOSE [...] 11:35 AM CDT 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) EKG 12-LEAD Routine 05/07/2025 10:37 AM CDT S/P CABG (coronary artery bypass graft) GLUCOSE - POINT OF CARE Routine 05/07/2025 8:33 AM CDT XR CHEST 1VW PORTABLE Routine 05/07/2025 5:44 AM CDT S/P CABG (coronary artery bypass graft) LACTIC ACID BLOOD Routine 05/07/2025 4:2 4 AM CDT 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) CBC W/O DIFFERENTIAL Routine 05/07/2025 4:24 AM CDT 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) BLOOD GASES ART + COOX PANEL Routine 05/07/2025 4:24 AM CDT BASIC METABOLIC PANEL (CALCIUM TOTAL) Routine 05/07/2025 4:24 AM CDT 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) PHOSPHORUS BLOOD Routine 05/07/2025 4:24 AM CDT 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) MAGNESIUM BLOOD Routine 05/07/2025 4:24 AM CDT 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) SVO2 [...] 12:30 PM CDT 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) CK BLOOD STAT 05/06/2025 12:30 PM CDT 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) GLUCOSE - POINT OF CARE Routine 05/06/2025 11:10 AM CDT GLUCOSE - POINT OF CARE Routine 05/06/2025 9:18 AM CDT BASIC METABOLIC PANEL (CALCIUM TOTAL) STAT 05/06/2025 9:18 AM CDT 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) CBC W/O DIFFERENTIAL STAT 05/06/2025 9:18 AM CDT 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) GLUCOSE - POINT OF CARE Routine 05/06/2025 7:01 AM CDT PT-INR STAT 05/06/2025 7:00 AM CDT 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) PTT STAT 05/06/2025 7:00 AM CDT 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) FIBRINOGEN ACTIVITY STAT 05/06/2025 7 :00 AM CDT 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) CBC W/O DIFFERENTIAL Routine 05/06/2025 5:44 AM CDT GLUCOSE - POINT OF CARE Routine 05/06/2025 5:43 AM CDT LACTIC ACID BLOOD STAT 05/06/2025 5:1 6 AM CDT 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) CK BLOOD STAT 05/06/2025 5:16 AM CDT 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) BLOOD [...] 3:11 AM CDT 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) MAGNESIUM BLOOD Routine 05/06/2025 3:11 AM CDT 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) TRIGLYCERIDES BLOOD AM Draw 05/06/2025 3 :11 AM CDT SVO2 FOR RECALIBRATION Routine 05/06/2025 3:11 AM CDT GLUCOSE - POINT OF CARE Routine 05/06/2025 12:04 AM CDT LACTIC ACID BLOOD STAT 05/06/2025 12:03 AM CDT 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) CK BLOOD STAT 05/06/2025 12:03 AM CDT 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) BASIC METABOLIC PANEL (CALCIUM TOTAL) STAT 05/06/2025 12:03 AM CDT 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) CBC W/O DIFFERENTIAL STAT 05/06/2025 12:03 AM CDT 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) GLUCOSE [...] 3:57 PM CDT 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) CBC W/O DIFFERENTIAL STAT 05/05/2025 3:57 PM CDT 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) CK BLOOD STAT 05/05/2025 3:57 PM CDT 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) LACTIC ACID BLOOD STAT 05/05/2025 3:5 7 PM CDT 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) MAGNESIUM BLOOD STAT 05/05/2025 3:57 PM CDT 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) PHOSPHORUS BLOOD STAT 05/05/2025 3:57 PM CDT 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) DIFFERENTIAL MANUAL Timed 05/05/2025 2 :18 PM CDT CK BLOOD STAT 05/05/2025 2:18 PM CDT 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) CBC [...] 12:46 PM CDT 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) BLOOD GAS+COOX+LYTES+METAB ARTERIAL POCT Routine 05/05/2025 11:33 AM CDT BLOOD GASES ART + COOX PANEL Routine 05/05/2025 10:48 AM CDT LACTIC ACID BLOOD STAT 05/05/2025 10:48 AM CDT TRANSFUSE RED BLOOD CELL LEUKOREDUCED UNIT(S) STAT 05/05/2025 10:43 AM CDT DC EXPLOR POSTOP BLEED,INFEC,CLOT-CHST 05/05/2025 10:40 AM CDT Heart failure, unspecified HF chronicity, unspecified heart failure type (HCC) Special Needs ALL CALL NOTIFIED AT 05/04 @ 2131 - GLUCOSE - POINT OF CARE Routine 05/05/2025 10:17 AM CDT BLOOD GAS ALONSO+LYTES+METAB+COOX POC NOTIF Routine 05/05/2025 9:50 AM CDT BLOOD GAS ART+LYTES+METAB+COOX POC NOTIF STAT 05/05/2025 9:50 AM CDT PHOSPHORUS BLOOD STAT 05/05/2025 9:29 AM CDT 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) MAGNESIUM BLOOD STAT 05/05/2025 9:29 AM CDT 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) CBC W/O DIFFERENTIAL STAT 05/05/2025 9:29 AM CDT 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) GLUCOSE - POINT OF CARE Routine 05/05/2025 9:27 AM CDT TRANSFUSE RED BLOOD CELL LEUKOREDUCED UNIT(S) STAT 05/05/2025 9:26 AM CDT EKG 12-LEAD Routine 05/05/2025 8:36 AM CDT 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 EKG 12-LEAD Routine 05/05/2025 8:35 AM CDT 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 EKG 12-LEAD Routine 05/05/2025 8:34 AM CDT 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) BLOOD [...] 5:02 AM CDT 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 GLUCOSE - POINT OF CARE Routine 05/05/2025 4:28 AM CDT GLUCOSE - POINT OF CARE Routine 05/05/2025 2:58 AM CDT CALCIUM IONIZED WHOLE BLOOD Routine 05/05/2025 2:57 AM CDT BLOOD GASES ART + COOX PANEL Routine 05/05/2025 2:57 AM CDT LACTIC ACID BLOOD STAT 05/05/2025 2:5 7 AM CDT 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) PHOSPHORUS BLOOD STAT 05/05/2025 2:57 AM CDT 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) MAGNESIUM BLOOD STAT 05/05/2025 2:57 AM CDT 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) BASIC METABOLIC PANEL (CALCIUM TOTAL) STAT 05/05/2025 2:57 AM CDT 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) CBC W/O DIFFERENTIAL STAT 05/05/2025 2:57 AM CDT 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) HEMOGLOBIN A1C Routine 05/05/2025 2:57 AM CDT GLUCOSE - POINT OF CARE Routine 05/05/2025 2:13 AM CDT GLUCOSE - POINT OF CARE Routine 05/05/2025 12:15 AM CDT EKG 12-LEAD STAT 05/04/2025 11:08 PM CDT 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 XR CHEST 1VW PORTABLE STAT 05/04/2025 10:34 PM CDT 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 GLUCOSE - POINT [...] 7:46 PM CDT 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) CBC W/O DIFFERENTIAL STAT 05/04/2025 7:46 PM CDT 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) PLATELET COUNT AUTO CITRATED BLOOD STAT 05/04/2025 7:46 PM CDT 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) FIBRINOGEN ACTIVITY STAT 05/04/2025 7 :46 PM CDT 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) TEG 6 GLOBAL HEMOSTASIS WITH HEPARIN NEUTRALIZATION STAT 05/04/2025 7:42 PM CDT 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) BLOOD GAS+COOX+LYTES+METAB ARTERIAL POCT Routine 05/04/2025 7:36 PM CDT ACT PLUS - POCT ([facility]) Routine 05/04/2025 7:34 PM CDT BLOOD GAS+COOX+LYTES+METAB ARTERIAL POCT Routine 05/04/2025 7:00 PM CDT ACT PLUS - POCT ([facility]) Routine 05/04/2025 6:59 PM CDT BLOOD GAS+COOX+LYTES+METAB VENOUS POCT Routine 05/04/2025 6:52 PM CDT TRANSFUSE RED BLOOD CELL LEUKOREDUCED UNIT(S) STAT 05/04/2025 6:42 PM CDT TRANSFUSE RED BLOOD CELL LEUKOREDUCED UNIT(S) STAT 05/04/2025 6:42 PM CDT BLOOD GAS+COOX+LYTES+METAB ARTERIAL POCT Routine 05/04/2025 6:40 PM CDT ACT PLUS - POCT ([facility]) Routine 05/04/2025 6:39 PM CDT ENDOTRACHEAL TUBE NOTE Routine 05/04/2025 6:37 PM CDT ACT PLUS - POCT ([facility]) Routine 05/04/2025 6:20 PM CDT TRANSFUSE RED BLOOD CELL LEUKOREDUCED UNIT(S) STAT 05/04/2025 6:15 PM CDT TRANSFUSE RED BLOOD CELL LEUKOREDUCED UNIT(S) Routine 05/04/2025 6:14 PM CDT BLOOD GAS+COOX+LYTES+METAB VENOUS POCT Routine 05/04/2025 6:13 PM CDT ACT PLUS - POCT ([facility]) Routine 05/04/2025 6:11 PM CDT CCL PERCUTANEOUS CORONARY INTERVENTION Routine 05/04/2025 5:38 PM CDT 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 BLOOD GAS ALONSO+LYTES+METAB+COOX POC NOTIF Routine 05/04/2025 5:30 PM CDT BLOOD GAS ART+LYTES+METAB+COOX POC NOTIF STAT 05/04/2025 5:30 PM CDT BLOOD GAS+COOX+LYTES+METAB ARTERIAL POCT Routine 05/04/2025 5:23 PM CDT DC CABG, ARTERIAL, THREE 05/04/2025 5:16 PM CDT Cardiac abnormality (HCC) POTASSIUM BLOOD STAT 05/04/2025 5:09 PM CDT 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 ACT LR - POCT ([facility]) Routine 05/04/2025 5:07 PM CDT BLOOD TYPE [...] :40 PM CDT 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 PREPARE RBC LEUKOREDUCED UNIT Routine 05/04/2025 4:40 PM CDT 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 ACT LR - POCT ([facility]) Routine 05/04/2025 4:35 PM CDT ACT LR - POCT ([facility]) Routine 05/04/2025 3:33 PM CDT ACT LR - POCT ([facility]) Routine 05/04/2025 3:18 PM CDT ACT LR - POCT ([facility]) Routine 05/04/2025 1:53 PM CDT ACT LR - POCT ([facility]) Routine 05/04/2025 12:33 PM CDT ACT LR - POCT ([facility]) Routine 05/04/2025 12:23 PM CDT CBC W/O DIFFERENTIAL GREGORY 05/04/2025 9:35 AM CDT 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 us Scanned Document LAB - THERAPEUTIC DRUG MONITORI NG ORDERABLES Final Result * (ABNORMAL) CBC W/O DIFFERENTIAL (05/24/2025 1:28 PM CDT) Only the most recent of24 resultswithin the time period is included. WBC 14.6(H) 4.0 - 10.7 x10E9/L 05/24/2025 2:09 PM [facility] RBC Count 4.34 3.90 - 5.20 x10E12/L 05/24/2025 2:09 PM [facility] Hemoglobin 13.5 11.9 - 15.8 g/dL 05/24/2025 2:09 PM [facility] Hematocrit 41.8 34.8 - 46.1 % 05/24/2025 2:09 PM [facility] MCV 96.3 80.0 - 98.0 fL 05/24/2025 2:09 PM [facility] MCH 31.1 26.7 - 33.6 pg 05/24/2025 2:09 PM [facility] MCHC 32.3 31.7 - 36.3 g/dL 05/24/2025 2:09 PM [facility] RDW-CV 17.8(H) 11.3 - 14.8 % 05/24/2025 2:09 PM [facility] Platelet Count 472(H) 150 - 420 x10E9/L 05/24/2025 2:09 PM [facility] MPV 8.9 7.8 - 11.4 fL 05/24/2025 2:09 PM [facility] Blood BLOOD SPECIMEN / Unknown Lab Venipuncture / Unknown 05/24/2025 1:28 PM CDT 05/24/2025 1:43 PM CDT us Tr Butts MAINTENANCE CONSTRUCTION HELPER-NEGATIVE TURNER LAB - HEMATOLOGY ORDERAB LES Final Result [facility] [address] [place] [address], [facility] [phone] * (ABNORMAL) BASIC METABOLIC PANEL (CALCIUM TOTAL) (05/24/2025 1:28 PM CDT) Only the most recent of27 resultswithin the time period is included. BUN 25 7 - 26 mg/dL 05/24/2025 2:18 PM [facility] Creatinine 0.62 0.56 - 0.96 mg/dL 05/24/2025 2:18 PM [facility] Sodium 130(L) 136 - 145 mmol/L 05/24/2025 2:18 PM [facility] Potassium 4.9(H) 3.5 - 4.5 mmol/L 05/24/2025 2:18 PM [facility] Chloride 97(L) 98 - 107 mmol/L 05/24/2025 2:18 PM [facility] CO2 23 22 - 29 mmol/L 05/24/2025 2:18 PM [facility] Glucose 103(H) 70 - 99 mg/dL 05/24/2025 2:18 PM [facility] Calcium 10.4(H) 8.4 - 10.2 mg/dL 05/24/2025 2:18 PM [facility] Anion Gap 10 6 - 16 05/24/2025 2:18 PM [facility] BUN/Creatinine Ratio 40(H) 7 - 23 05/24/2025 2:18 PM [facility] Osmolality Calculated 275 275 - 295 mOsm/kg 05/24/2025 2:18 PM [facility] eGFR by CKD-EPI >90 >=90 mL/min/1.7 3 m2 05/24/2025 2:18 PM [facility] Comment:Estimated Glomerular Filtration Rate (eGFR) calculated using the CKD-EPI Creatinine Equation (2020), per the [employer] and [place] [employer] recommendations. Blood BLOOD SPECIMEN / Unknown Lab Venipuncture / Unknown 05/24/2025 1:28 PM CDT 05/24/2025 1:44 PM CDT us Tr Beckie MAINTENANCE CONSTRUCTION HELPER-NEGATIVE TURNER LAB - CHEMISTRY ORDERABL ES Final Result [facility] [address] [place] [id number], [facility] [phone] * XR Chest 1Vw (05/24/2025 1:01 PM CDT) Only the most recent of3 resultswithin the time period is included. Anatomical Region Laterality Modality Chest Digital Radiogra phy 05/24/2025 2:30 PM CDT Impressions 05/24/2025 2:31 PM CDT IMPRESSION: Similar median sternotomy changes and cutaneous jae. Normal cardiac medicine silhouette. Atherosclerotic aorta. Similar small right pleural effusion with associated atelectasis. No large pneumothorax. Decreasing soft tissue gas predominantly along the right chest wall. > Interpreting Provider: Dasha Banerjee MD on 05/24/2025 2:31 PM Narrative 05/24/2025 2:31 PM CDT PROCEDURE: XR CHEST 1VW DATE/TIME OF EXAM: 05/24/2025 1:01 PM CLINICAL INFORMATION: None relevant/not provided if blank. 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 Normal cardiac medicine silhouette. Atherosclerotic aorta. Similar small right pleural effusion with associated atelectasis. No largepneumothorax. Decreasing soft tissue gas predominantly along the right chest wall. > Interpreting Provider: Dasha Banerjee MD on 05/24/2025 2:31 PM Tr Butts MAINTENANCE CONSTRUCTION HELPER-NEGATIVE TURNER DIAGNOSTIC IMAGING ORDER LIZZ Final Result * APHERESIS/TRANSFUSION ORDER (05/17/2025 11:19 AM CDT) Narrative 05/17/2025 11:19 AM CDT Ordered by an unspecified provider. Scanned Document NURSING - VITAL SIGNS AND ASSES SMENT Final Result * EKG 12-Lead (05/16/2025 3:01 PM CDT) Only the most recent of14 resultswithin the time period is included. Ventricular Rate 94 BPM [facility] Atrial Rate 94 BPM [facility] P-R Interval 146 ms [facility] QRS Duration ms 84 ms [facility] Q-T Interval ms 364 ms [facility] QTC Calculation (Bezet) 455 ms [facility] Calculated P [place] 68 degrees [facility] Calculated R [place] 52 degrees [facility] Calculated T [place] 86 degrees [facility] Interpretation EKG NORMAL SINUS RHYTHM CANNOT RULE OUT ANTEROSEPTAL INFARCT , AGE UNDETERMINED ABNORMAL ECG WHEN COMPARED WITH ECG OF 15-MAY-2025 14:01 NO SIGNIFICANT CHANGE WAS FOUND Confirmed by PALAK CRAIN MD ([id number]) on 06/01/2025 6:30:03 PM [facility] 05/16/2025 3:01 PM CDT 06/01/2025 6:30 PM CDT us Mirtha Goetz PA-C ECG ORDERABLES Edited Result - Final [facility] * (ABNORMAL) GLUCOSE - POINT OF CARE (05/16/2025 11:09 AM CDT) Only the most recent of62 resultswithin the time period is included. [facility] Glucose WB/POC 112(H) 70 - 99 mg/dL 05/16/2025 11:13 AM CDT [facility] Specimen Type Arterial/C apillary 05/16/2025 11:13 AM CDT [facility] Blood BLOOD SPECIMEN / Unknown 05/16/2025 11:09 AM CDT 05/16/2025 11:13 AM CDT us Fer Rose MD LAB - POINT OF CARE ORDERABLES Final Result [facility] [address] [place] [address], [place] [phone] * XR Chest 1Vw Portable (05/16/2025 4:42 [...] blank. 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 Phosphorus 2.9 2.9 - 5.1 mg/dL 05/16/2025 2:59 AM CDT [facility] Blood BLOOD SPECIMEN / Unknown Lab Venipuncture / Unknown 05/16/2025 1:35 AM CDT 05/16/2025 2:22 AM CDT Fer Rose MD LAB - CHEMISTRY ORDERABLES Fin al Result Performing Organization Address City/[facility]/ZIP Co de Phone Number [address] [address], [place] [phone] * MAGNESIUM BLOOD (05/16/2025 1:35 AM CDT) Only the most recent of16 resultswithin the time period is included. Pathologist [facility] Magnesium 1.7 1.6 - 2.6 mg/dL 05/16/2025 2:59 AM CDT [facility] Blood BLOOD SPECIMEN / Unknown Lab Venipuncture / Unknown 05/16/2025 1:35 AM CDT 05/16/2025 2:22 AM CDT Fer Rose MD LAB - CHEMISTRY ORDERABLES Fin al Result Performing Organization Address [facility]/[place] [facility] de Phone Number [address] [address], [place] [phone] * ECHO LIMITED W CONTRAST COLOR AND DOPPLER (05/15/2025 3:30 PM CDT) Only the most recent of3 resultswithin the time period is included. Pathologist [facility] LV biplane EF 48.959 % [facility] CV [...] Room: 809 Patient Status: I/P Study Site: [facility] Primary Location: [facility] EStudy Info Technical Quality: Adequate Exam Type: ECHO [...] Attending Physician: Tr Butts Fellow: Shade Garcia Lead Machinist: Mratina Holbrook Left Ventricle The left ventricle is [...] Room: 809 Patient Status: I/P Study Site: [facility] Primary Location: [facility] Info Technical Quality: Adequate Exam Type: ECHO [...] Attending Physician: Tr Butts Fellow: Shade Garcia Lead Machinist: Martina Holbrook Left Ventricle The left ventricle [...] Garcia on 05/15/2025 04:47 PM Tr Butts MAINTENANCE CONSTRUCTION HELPER-NEGATIVE TURNER ECHO CUPID Final Re sult * TRANSFUSE [...] blank. Indication: I25.110: 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) Additional [...] blank. Indication: I25.110: 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) Additional [...] Provider: Crissy Hartman MD on 59:28 PM Result [facility] Fer Rose MD DIAGNOSTIC IMAGING ORDERABLES Final Result * TRANSFUSE RED BLOOD CELL LEUKOREDUCED UNIT(S) (05/12/2025 12:40 PM CDT) Result [facility] Tea Lai APRN-NEGATIVE TURNER NURSING - BLOOD PROD TRANSFUSION Final Result * TRANSFUSE RED BLOOD CELL LEUKOREDUCED UNIT(S) (05/12/2025 7:04 AM CDT) Fer Rose MD NURSING - BLOOD PROD TRANSFUSI ON Final Result * PREPARE (CROSSMATCH) RBC UNIT(S), 1 Units (05/11/2025 1:34 PM CDT) Only the most recent of9 resultswithin the time period is included. Unit Description AS1 LR PRBC [facility] Unit ABO O [facility] Unit Rh POS [facility] Product Number R44 [facility] Unit Donor # [id number] [facility] Unit Status transfused [facility] Product Code [id number] [facility] Blood Type Barcode 5100 [facility] Expiration Date [id number] S BLOOD BANK LAB Blood Bank BLOOD SPECIMEN / Unknown 05/11/2025 1:34 PM CDT 05/11/2025 2:10 PM CDT Result [facility] Latanya Rose MD LAB - BLOOD BANK ORDERABLES Fi nal Result Performing Organization Address City/[facility]/ZIP Co de Phone Number [facility] [address] [place] [phone], [facility] [phone] * TYPE + SCREEN PANEL (05/11/2025 1:34 PM CDT) Only the most recent of2 resultswithin the time period is included. Antibody Screen NEG 2:59 PM CDT [facility] ABO Rh O POS 05/11/2025 2:59 PM CDT [facility] Blood Bank BLOOD SPECIMEN / Unknown Venipuncture / Unknown 05/11/2025 1:34 PM CDT 05/11/2025 2:10 PM CDT Result [facility] Fer Rose MD LAB - BLOOD BANK ORDERABLES Fi nal Result Performing Organization Address City/[facility]/ZIP Co de Phone Number [facility] [address] [place] [address], [place] [phone] * (ABNORMAL) FIBRINOGEN ACTIVITY (05/11/2025 11:49 AM CDT) Only the most recent of4 resultswithin the time period is included. Fibrinogen Clauss 518(H) 200 - 400 mg/dL 05/11/2025 12:29 PM CDT [facility] Blood BLOOD SPECIMEN / Unknown Venipuncture / Unknown 05/11/2025 11:49 AM CDT 05/11/2025 12:01 PM CDT Result [facility] Fer Rose MD LAB - COAGULATION ORDERABLES F inal Result Performing Organization Address City/[facility]/ZIP Co de Phone Number [address] [address], [facility] [phone] * PTT (05/11/2025 11:49 AM CDT) Only the most recent of4 resultswithin the time period is included. APTT 37.5 23.0 - 38.4 Seconds 05/11/2025 12:29 PM CDT [facility] Comment:Suggested therapeuti c range for full dose I.V. unfractionated heparin therapy for venous thromboembolism is 71 to 109 seconds. Blood BLOOD SPECIMEN / Unknown Venipuncture / Unknown 05/11/2025 11:49 AM CDT 05/11/2025 12:01 PM CDT Result [facility] Fer Rose MD LAB - COAGULATION ORDERABLES F inal Result Performing Organization Address [facility] de Phone Number [address] [address], [facility] [phone] * PT-INR (05/11/2025 11:49 AM CDT) Only the most recent of5 resultswithin the time period is included. PT 14.0 12.1 - 14.8 Seconds 05/11/2025 12:29 PM CDT [facility] INR 1.1 See Comment 05/11/2025 12:29 PM T [facility] Comment:The suggested therap eutic range for standard coumadin (warfarin) therapy is an INR of 2.0-3.0. For high-risk patients (Mechanical Mitral Valve Prosthesis, etc.), the suggested prophylactic therapeutic range is an INR of 2.5-3.5. Blood BLOOD SPECIMEN / Unknown Venipuncture / Unknown 05/11/2025 11:49 AM CDT 05/11/2025 12:01 PM CDT Result [facility] Fer Rose MD LAB - COAGULATION ORDERABLES F inal Result Performing Organization Address City/[facility]/ZIP Co de Phone Number [facility] [address] [place] [address], [facility] [phone] * LACTIC ACID BLOOD (05/10/2025 3:22 AM CDT) Only the most recent of11 resultswithin the time period is included. Pathologist [facility] Lactic Acid-Stat 1.2 <=2.0 mmol/L 05/10/2025 4:00 AM CDT [facility] Blood BLOOD SPECIMEN / Unknown Venipuncture / Unknown 05/10/2025 3:22 AM CDT 05/10/2025 3:31 AM CDT Amanda Malloy MD LAB - CHEMISTRY ORDERABLES Veronica l Result Performing Organization Address [facility]/ZIP Co de Phone Number [address] [address], [facility] [phone] * (ABNORMAL) BLOOD GASES ART + COOX PANEL (05/10/2025 3:22 AM CDT) Only the most recent of12 resultswithin the time period is included. Pathologist [facility] pH Arterial 7.50(H) 7.35 - 7.45 pH 05/10/2025 3:31 AM [facility] pO2 Arterial 136(H) 80 - 100 mmHg 05/10/2025 3:31 AM [facility] pCO2 Arterial 33(L) 35 - 45 mmHg 3:31 AM [facility] HCO3 Arterial 25.7 20.0 - 30.0 mmol/L 05/10/2025 3:31 AM [facility] BE Arterial 3.0(H) -2.0 - 2.0 mmol/L 05/10/2025 3:31 AM [facility] Oxyhemoglobin Arterial 96.4 % 05/10/2025 3:31 AM [facility] Dexoyhemoglobin (HHB) % <1.0 % 05/10/2025 3:31 AM [facility] Methemoglobin 1.0 0.0 - 2.0 % 05/10/2025 3:31 AM [facility] Carboxyhemoglobin 1.9 0.0 - 2.0 % 2024 3:31 AM [facility] O2 Content Arterial 19.9 Interpret within clinical context ml/dL 05/10/2025 3:31 AM [facility] Hemoglobin by COOX 14.5 12.0 - 15.6 g/dL 05/10/2025 3:31 AM [facility] O2 Saturation Arterial 99 90 - 100 % 05/10/2025 3:31 AM [facility] FI O2 Arterial 28.0 % 05/10/2025 3:31 AM [facility] Blood, arterial ARTERIAL BLOOD SPECIMEN / Unknown Arterial Puncture / Unknown 05/10/2025 3:22 AM CDT 05/10/2025 3:28 AM T Narrative [facility] - 05/10/2025 3:31 AM [facility] Carboxyhemoglobin Normal Concentration: Non-smokers: 0-2%; Smokers: 0-9%; Toxic: >20% us Amanda Malloy MD LAB - BLOOD GASES ORDERABLES Fi nal Result [address] [address], [facility] [phone] * (ABNORMAL) CALCIUM IONIZED WHOLE BLOOD (05/09/2025 8:01 PM CDT) Only the most recent of5 resultswithin the time period is included. Calcium Ionized 1.36 mmol/L 05/09/2025 8:12 PM [facility] pH 7.40 7.35 - 7.45 pH 05/09/2025 8:12 PM [facility] Ionized Calcium pH Adjusted 1.36(H) 1.19 - 1.34 mmol/L 05/09/2025 8:12 PM [facility] Blood BLOOD SPECIMEN / Unknown Venipuncture / Unknown 05/09/2025 8:01 PM CDT 05/09/2025 8:06 PM CDT Fer Rose MD LAB - CHEMISTRY ORDERABLES Fin al Result Performing Organization Address [facility] Co de Phone Number [address] [address], [facility] [phone] * (ABNORMAL) SVO2 FOR RECALIBRATION (05/09/2025 4:38 AM CDT) Only the most recent of5 resultswithin the time period is included. SVO2 for Recalibration 79.6(H) 66.0 - 77.0 % 05/09/2025 4:51 AM CDT [facility] Blood BLOOD SPECIMEN / Unknown Venipuncture / Unknown 05/09/2025 4:38 AM CDT 05/09/2025 4:43 AM CDT Amanda Malloy MD LAB - CHEMISTRY ORDERABLES Veronica l Result Performing Organization Address [facility] Co de Phone Number [address] [address], [facility] [phone] * POTASSIUM BLOOD (05/07/2025 2:31 PM CDT) Only the most recent of2 resultswithin the time period is included. Pathologist [facility] Potassium 3.9 3.5 - 4.5 mmol/L 05/07/2025 3:01 PM CDT [facility] Blood BLOOD SPECIMEN / Unknown Venipuncture / Unknown 05/07/2025 2:31 PM CDT 05/07/2025 2:40 PM CDT Fer Rose MD LAB - CHEMISTRY ORDERABLES Fin al Result Performing Organization Address [facility] Co de Phone Number [address] [address], [facility] [phone] * VAS Arterial Ankle Arm Index (05/07/2025 11:35 AM CDT) Anatomical Region Laterality Modality Ankle / Foot, Upper Extremity In travascular Ultrasound 05/07/2025 9:28 AM CDT Narrative Procedure Note David Blancas MD - 05/08/2025 us Lorena Oates MD VASCULAR LAB ORDERA BLES Edited Result - Final * (ABNORMAL) CBC W AUTO DIFFERENTIAL (05/06/2025 2:16 PM CDT) Only the most recent of3 resultswithin the time period is included. WBC 13.3(H) 4.0 - 10.7 x10E9/L 05/06/2025 2:51 PM [facility] RBC Count 4.40 3.90 - 5.20 x10E12/L 05/06/2025 2:51 PM [facility] Hemoglobin 12.7 11.9 - 15.8 g/dL 05/06/2025 2:51 PM [facility] Hematocrit 37.4 34.8 - 46.1 % 05/06/2025 2:51 PM [facility] MCV 85.0 80.0 - 98.0 fL 05/06/2025 2:51 PM [facility] MCH 28.9 26.7 - 33.6 pg 05/06/2025 2:51 PM [facility] MCHC 34.0 31.7 - 36.3 g/dL 05/06/2025 2:51 PM [facility] RDW-CV 17.2(H) 11.3 - 14.8 % 05/06/2025 2:51 PM [facility] Platelet Count 140(L) 150 - 420 x10E9/L 05/06/2025 2:51 PM [facility] MPV 10.3 7.8 - 11.4 fL 05/06/2025 2:51 PM [facility] Neutrophil % 89.1(H) 41.0 - 74.0 % 05/06/2025 2:51 PM [facility] Lymphocyte % 3.8(L) 17.0 - 47.0 % 05/06/2025 2:51 PM [facility] Monocyte % 6.0 3.0 - 11.0 % 05/06/2025 2:51 PM CDT [facility] Eosinophil % 0.1 0.0 - 7.0 % 05/06/2025 2:51 PM CDT [facility] Basophil % 0.5 0.0 - 1.6 % 05/06/2025 2:51 PM CDT [facility] Immature Granulocytes % 0.5 0.0 - 1.0 % 05/06/2025 2:51 PM CDT [facility] Neutrophil Absolute 11.86(H) 1.60 - 7.50 x10E9/L 05/06/2025 2:51 PM CDT [facility] Lymphocyte Absolute 0.50(L) 1.00 - 4.40 x10E9/L 05/06/2025 2:51 PM CDT [facility] Monocyte Absolute 0.80 0.15 - 1.00 x10E9/L 05/06/2025 2:51 PM CDT [facility] Eosinophil Absolute 0.01 0.00 - 0.60 x10E9/L 05/06/2025 2:51 PM CDT [facility] Basophil Absolute 0.06 0.00 - 0.13 x10E9/L 05/06/2025 2:51 PM CDT [facility] Blood BLOOD SPECIMEN / Unknown Venipuncture / Unknown 05/06/2025 2:16 PM CDT 05/06/2025 2:39 PM CDT us Amanda Malloy MD LAB - HEMATOLOGY ORDERABLES Fin al Result [facility] [address] [place] [address], [facility] [phone] * (ABNORMAL) CK BLOOD (05/06/2025 12:30 PM CDT) Only the most recent of5 resultswithin the time period is included. CK Total 338(H) 30 - 200 U/L 05/06/2025 1:08 PM CDT [facility] Blood BLOOD SPECIMEN / Unknown Venipuncture / Unknown 05/06/2025 12:30 PM CDT 05/06/2025 12:42 PM CDT us Fer Rose MD LAB - CHEMISTRY ORDERABLES Fin al Result Performing Organization Address City/[facility]/ZIP Co de Phone Number [address] [address], [facility] [phone] * TRIGLYCERIDES BLOOD (05/06/2025 3:11 AM CDT) [facility] Triglycerides 133 <150 mg/dL 05/06/2025 3:58 AM CDT [facility] Comment: ATP III Classification of Triglycerides: <150 mg/dL: Normal 150 - 199 mg/dL: Borderline High 200 - 400 mg/dL: High >500 mg/dL: Very High Blood BLOOD SPECIMEN / Unknown Venipuncture / Unknown 05/06/2025 3:11 AM CDT 05/06/2025 3:28 AM CDT us Melissa King MAINTENANCE CONSTRUCTION HELPER-NEGATIVE TURNER LAB - CHEMISTRY ORDE CECILE Final Result Performing Organization Address [facility] Co de Phone Number [address] [address], [facility] [phone] * (ABNORMAL) DIFFERENTIAL MANUAL (05/05/2025 2:18 PM CDT) Only the most recent of2 resultswithin the time period is included. Pathologist [facility] Neutrophil % 90(H) 41 - 74 % 05/05/2025 3:15 PM CDT [facility] Lymphocyte % 3(L) 17 - 47 % 05/05/2025 3:15 PM CDT [facility] Monocyte % 6 3 - 11 % 05/05/2025 3:15 PM CDT [facility] Eosinophil % 1 0 - 7 % 05/05/2025 3:15 PM CDT [facility] Neutrophil Absolute 16.47(H) 1.60 - 7.50 x10E9/L 05/05/2025 3:15 PM CDT [facility] Lymphocyte Absolute 0.55(L) 1.00 - 4.40 x10E9/L 05/05/2025 3:15 PM CDT [facility] Monocyte Absolute 1.10(H) 0.15 - 1.00 x10E9/L 05/05/2025 3:15 PM CDT [facility] Eosinophil Absolute 0.18 0.00 - 0.60 x10E9/L 05/05/2025 3:15 PM CDT [facility] RBC Morphology REVIEWED 05/05/2025 3:15 PM CDT [facility] [place] Cells MANY(A) (none) 05/05/2025 3:15 PM CDT [facility] Microcytosis MODERATE(A) (none) 05/05/2025 3:15 PM CDT [facility] Polychromatic Cells MODERATE(A) (none) 05/05/2025 3:15 PM CDT [facility] Blood BLOOD SPECIMEN / Unknown Venipuncture / Unknown 05/05/2025 2:18 PM CDT 05/05/2025 2:32 PM CDT Polly Trinidad APRN-NEGATIVE TURNER LAB - HEMATOLOGY ORDERABLES Final Result Performing Organization Address [facility]/State/ZIP Co de Phone Number [address] [address], [facility] [phone] * TRANSFUSE RED BLOOD CELL LEUKOREDUCED UNIT(S) (05/05/2025 1:49 PM CDT) Polly Trinidad APRN-NEGATIVE TURNER NURSING - BLOOD PROD TRANSFUSION Final Result * (ABNORMAL) COMPREHENSIVE METABOLIC PANEL (05/05/2025 1:30 PM CDT) Only the most recent of3 resultswithin the time period is included. BUN 11 7 - 26 mg/dL 05/05/2025 2:23 PM CDT [facility] Creatinine 0.77 0.56 - 0.96 mg/dL 05/05/2025 2:23 PM CDT [facility] Sodium 147(H) 136 - 145 mmol/L 05/05/2025 2:23 PM CDT [facility] Potassium 4.4 3.5 - 4.5 mmol/L 05/05/2025 2:23 PM [facility] Chloride 119(H) 98 - 107 mmol/L 05/05/2025 2:23 PM [facility] CO2 19(L) 22 - 29 mmol/L 05/05/2025 2:23 PM [facility] Glucose 105(H) 70 - 99 mg/dL 05/05/2025 2:23 PM [facility] Calcium 9.1 8.4 - 10.2 mg/dL 05/05/2025 2:23 PM [facility] Protein Total 4.6(L) 6.0 - 8.3 g/dL 05/05/2025 2:23 PM [facility] Albumin 3.1(L) 3.4 - 5.0 g/dL 05/05/2025 2:23 PM [facility] Bilirubin Total 1.7(H) 0.2 - 1.2 mg/dL 05/05/2025 2:23 PM [facility] Alkaline Phosphatase 44 40 - 150 U/L 05/05/2025 2:23 PM [facility] ALT 55 5 - 55 U/L 05/05/2025 2:23 PM [facility] AST 131(H) 5 - 34 U/L 05/05/2025 2:23 PM [facility] Anion Gap 9 6 - 16 05/05/2025 2:23 PM [facility] BUN/Creatinine Ratio 14 7 - 23 05/05/2025 2:23 PM [facility] Osmolality Calculated 304(H) 275 - 295 mOsm/kg 05/05/2025 2:23 PM [facility] Albumin/Globulin Ratio 2.1 1.1 - 2.3 05/05/2025 2:23 PM [facility] eGFR by CKD-EPI 79(L) >=90 mL/min/1.7 3 m2 05/05/2025 2:23 PM [facility] Comment:Estimated Glomerular Filtration Rate (eGFR) calculated using the CKD-EPI Creatinine Equation (2020), per the National Kidney Foundation and [place] [employer]ph[employer] recommendations. Blood BLOOD SPECIMEN / Unknown Venipuncture / Unknown 05/05/2025 1:30 PM CDT 05/05/2025 1:44 PM CDT Polly Trinidad MAINTENANCE CONSTRUCTION HELPER-NEGATIVE TURNER LAB - CHEMISTRY ORDERABLES Final Result [facility] [address] [place] [address], [facility] [phone] * Peripheral Nerve Block (05/05/2025 1:00 PM [...] applied) Ultrasound images were NOT saved in media Fransico Tidwell MD 05/05/2025 1:03 PM . [...] Focused GENE procedure for monitoring only (CPT 02909 if needed) Indication: cardiogenic shock s/p PCI [...] effusions Fransico Tidwell MD 05/05/2025 12:00 PM us Fransico Tidwell MD GENERAL ANESTHESIA ORDERABLES E dited Result - Final * (ABNORMAL) BLOOD GAS+COOX+LYTES+METAB ARTERIAL POCT (05/05/2025 11:33 AM [facility]) Only the most recent of6 resultswithin the time period is included. pH Arterial 7.38 7.35 - 7.45 pH 05/05/2025 11:33 AM [facility] pO2 Arterial 443(H) 80 - 100 mmHg 05/05/2025 11:33 AM [facility] pCO2 Arterial 42 35 - 45 mmHg 11:33 AM [facility] HCO3 Arterial 24.8 20.0 - 30.0 mmol/L 05/05/2025 11:33 AM [facility] BE Arterial -0.4 -2.0 - 2.0 mmol/L 05/05/2025 11:33 AM [facility] Oxyhemoglobin Arterial 97.3 % 05/05/2025 11:33 AM [facility] Dexoyhemoglobin (HHB) % <1.0 % 05/05/2025 11:33 AM [facility] Methemoglobin 1.3 0.0 - 2.0 % 05/05/2025 11:33 AM [facility] Carboxyhemoglobin 0.9 0.0 - 2.0 % 2024 11:33 AM [facility] Comment:Carboxyhemoglobin No rmal Concentration: Non-smokers: 0-2%; Smokers: 0- 9%; Toxic: >20% O2 Content Arterial 18.8 Interpret within clinical context ml/dL 05/05/2025 11:33 AM [facility] Hemoglobin by COOX 12.9 12.0 - 15.6 g/dL 05/05/2025 11:33 AM [facility] O2 Saturation Arterial 100 90 - 100 % 05/05/2025 11:33 AM [facility] Sodium Whole Blood 139 135 - 145 mmol/L 05/05/2025 11:33 AM [facility] Potassium Whole Blood 5.3 3.5 - 5.5 mmol/L 05/05/2025 11:33 AM CDT [facility] Chloride WB 111(H) 78 - 107 mmol/L 05/05/2025 11:33 AM CDT [facility] Calcium Ionized 1.07 mmol/L 11:33 AM CDT [facility] Ionized Calcium pH Adjusted 1.06(L) 1.19 - 1.34 mmol/L 05/05/2025 11:33 AM CDT [facility] Anion Gap (AG) Arterial 9 6 - 16 mmol/L 05/05/2025 11:33 AM CDT [facility] Glucose WB 138(H) 70 - 99 mg/dL 05/05/2025 11:33 AM CDT [facility] Lactic Acid Whole Blood 1.4 <=2.0 mmol/L 05/05/2025 11:33 AM CDT [facility] Blood, arterial ARTERIAL BLOOD SPECIMEN / Unknown 05/05/2025 11:33 AM CDT 05/05/2025 11:34 AM CDT us Fer Rose MD LAB - POINT OF CARE ORDERABLES Final Result [facility] [address] [place] [address], [facility] [phone] * TRANSFUSE RED BLOOD CELL LEUKOREDUCED UNIT(S) (05/05/2025 10:14 AM CDT) us Polly Trinidad MAINTENANCE CONSTRUCTION HELPER-NEGATIVE TURNER NURSING - BLOOD PROD TRANSFUSION Final Result * BLOOD GAS ALONSO+LYTES+METAB+COOX POC NOTIF (05/05/2025 9:50 AM CDT) Only the most recent of2 resultswithin the time period is included. Comment Notification Label Only - See Separate Report 05/05/2025 11:02 AM CDT [facility] Other MISCELLANEOUS SAMPLES / Unknown 05/05/2025 9:50 AM CDT 05/05/2025 9:50 AM CDT us Chibueze Onyemkpa MD LAB - BLOOD GASES ORDERABLE S Final Result Performing Organization Address City/[facility]/ZIP Co de Phone Number [address] [address], [facility] [phone] * BLOOD GAS ART+LYTES+METAB+COOX POC NOTIF (05/05/2025 9:50 AM CDT) Only the most recent of2 resultswithin the time period is included. Comment Notification Label Only - See Separate Report 05/05/2025 11:02 AM CDT [facility] Other MISCELLANEOUS SAMPLES / Unknown 05/05/2025 9:50 AM CDT 05/05/2025 9:50 AM CDT Yg Lorenzo MD LAB - BLOOD GASES ORDERABLE S Final Result Performing Organization Address City/[facility]/ZIP Co de Phone Number [address] [address], [facility] [phone] * TRANSFUSE RED BLOOD CELL LEUKOREDUCED UNIT(S) (05/05/2025 6:56 AM CDT) us Fer Rose MD NURSING - BLOOD PROD TRANSFUSI ON Final Result * HEMOGLOBIN A1C (05/05/2025 2:57 AM CDT) Hemoglobin A1c 5.3 <=5.6 % 05/05/2025 12:30 PM CDT [facility] Estimated Average Glucose 105 mg/dL 05/05/2025 12:30 PM CDT [facility] Comment: HbA1c Interpretation: Normal : < 5.7% Pre-diabetes: 5.7-6.4% Diabetes: Equal to or greater than 6.5% Test results diagnostic of diabetes should be repeated for confirmation. Treatment target values recommended by ADA and other clinical organizations should be used to evaluate metabolic control in patients. Reference: [place] [employer], Standards of Care in Diabetes -2020 In patients 70 years and older consider HbA1c target range of 7.0-7.5% (Reference: Rashaun Adams et al. JAMDA. 2012) The [employer] assay for the measurement of HbA1c is a National Glycohemoglobin Standardization Program (NGSP) certified method. Blood BLOOD SPECIMEN / Unknown Line Draw / Unknown 05/05/2025 2:57 AM CDT 05/05/2025 3:16 AM CDT Melissa Hopeveronique [employer] - CHEMISTRY ORDE CECILE Final Result [address] [address], [facility] [phone] * CENTRAL LINE PERFORMABLE (05/04/2025 10:01 PM CDT) Narrative Chuck Talbot DO - 05/04/2025 10:01 PM CDT Chuck Talbot DO 05/04/2025 10:01 PM Central Line Placement Procedure Note/LDA Patient Location: OR. Insertion Time: 05/04/2025 8:44 PM Procedure: central line > 5yr ([id number]) Procedure Section: Indications: IV access, sepsis and [...] (6030F) Staff Section Anesthesia Provider: Martina Hunter DO Performed the procedure Provider #1: Chuck Talbot [...] Time: 05/04/2025 8:54 PM Procedure: Arterial Line ([id number]) Procedure Section Indications: continuous blood pressure monitoring [...] [facility]YOP[facility]IT[facility] UNIT(S) (05/04/2025 8:12 PM CDT) [facility] - BLOOD PROD TRANSFUSI ON Final Result * TRANSFUSE PLATELET PHERESIS UNIT(S) (05/04/2025 8:05 PM CDT) Result [facility] Latanya Rose MD NURSING - BLOOD PROD TRANSFUSI ON Final Result * (ABNORMAL) BLOOD GAS+COOX+LYTES+METAB VENOUS POCT (05/04/2025 8:03 PM CDT) Only the most recent of3 resultswithin the time period is included. pH Venous 7.17(LL) 7.32 - 7.42 pH 05/04/2025 8:03 PM [facility] pO2 Venous 26(L) 35 - 40 mmHg 05/04/2025 8:03 PM [facility] pCO2 Venous 57(H) 40 - 50 mmHg 05/04/2025 8:03 PM [facility] HCO3 Venous 20.8 20 - 30 mmol/L 05/04/2025 8:03 PM [facility] Base Excess Venous -7.7(L) -2.0 - 2.0 mmol/L 05/04/2025 8:03 PM [facility] Oxyhemoglobin Venous 43.2 % 04/17 8:03 PM [facility] Deoxyhemoglobin (HHB) Venous % 56.1 % 05/04/2025 8:03 PM [facility] Methemoglobin <0.8 0.0 - 2.0 % 05/04/2025 8:03 PM [facility] Carboxyhemoglobin 0.6 0.0 - 2.0 % 2024 8:03 PM [facility] Comment:Carboxyhemoglobin No rmal Concentration: Non-smokers: 0-2%; Smokers: 0- 9%; Toxic: >20% O2 Content Venous 5.6 Interpret within clinical context ml/dL 05/04/2025 8:03 PM [facility] Hemoglobin by COOX 9.2(L) 12.0 - 15.6 g/dL 05/04/2025 8:03 PM [facility] O2 Saturation Venous 44(L) >=70 % 04/17 8:03 PM [facility] Sodium Whole Blood 136 135 - 145 mmol/L 05/04/2025 8:03 PM [facility] Potassium Whole Blood 5.5 3.5 - 5.5 mmol/L 05/04/2025 8:03 PM [facility] Chloride WB 108(H) 78 - 107 mmol/L 05/04/2025 8:03 PM [facility] Calcium Ionized 0.84 mmol/L 8:03 PM [facility] Ionized Calcium pH Adjusted 0.76(LL) 1.19 - 1.34 mmol/L 05/04/2025 8:03 PM [facility] Anion Gap (AG) Arterial 7 6 - 16 mmol/L 05/04/2025 8:03 PM [facility] Glucose WB 180(H) 70 - 99 mg/dL 05/04/2025 8:03 PM [facility] Lactic Acid Whole Blood 2.0 <=2.0 mmol/L 05/04/2025 8:03 PM [facility] Blood BLOOD SPECIMEN / Unknown 05/04/2025 8:03 PM CDT 05/04/2025 8:06 PM CDT Narrative [facility] - 05/04/2025 8:03 PM CDT Critical Value Acknowledged Licensed healthcare provider notified us Yeny Thomason MD LAB - POINT OF CARE ORDERABL ES Final Result [address] [address], [facility] [phone] * ACT PLUS - POCT ([facility]) (05/04/2025 8:03 PM CDT) Only the most recent of6 resultswithin the time period is included. [facility] ACT PLUS 159 See result comments sec 05/04/2025 8:24 PM CDT [facility] Blood BLOOD SPECIMEN / Unknown 05/04/2025 8:03 PM CDT 05/04/2025 8:24 PM CDT [facility] - 05/04/2025 8:24 PM CDT ACT+ Therapeutic ranges for the ACT+ test in surgery areas are: Greater than (>) 360 seconds for surgical patients Greater than (>) 450 seconds for surgical bypass patients Yeny Thomason MD LAB - COAGULATION ORDERABLES Final Result Performing Organization Address [facility]/ZIP Co de Phone Number [address] [address], [facility] [phone] * TRANSFUSE PLATELET PHERESIS UNIT(S) (05/04/2025 7:50 PM CDT) Fer Rose MD NURSING - BLOOD PROD TRANSFUSI ON Final Result * TRANSFUSE CRYOPRECIPITATE UNIT(S) (05/04/2025 7:50 PM CDT) Fer Rose MD NURSING - BLOOD PROD TRANSFUSI ON Final Result * (ABNORMAL) PLATELET COUNT AUTO CITRATED BLOOD (05/04/2025 7:46 PM CDT) Pathologist [facility] Platelet Count Citrated 129(L) 150 - 420 x10E9/L 05/04/2025 8:30 PM CDT [facility] Blood BLOOD SPECIMEN / Unknown Venipuncture / Unknown 05/04/2025 7:46 PM CDT 05/04/2025 7:46 PM CDT [facility] - 05/04/2025 8:30 PM CDT This test was developed and its performance characteristics determined by the clinical laboratories of [facility] and [facility]. It has not been cleared and approved by the [place] Food and Drug Administration. us Chuck Talbot DO LAB - HEMATOLOGY ORDERABLES Fin al Result Performing Organization Address City/[facility]/ZIP Co de Phone Number [address] [place] [address], [facility] [phone] * (ABNORMAL) TEG 6 GLOBAL HEMOSTASIS WITH HEPARIN NEUTRALIZATION (05/04/2025 7:42 PM CDT) [facility] CITRATED KAOLIN R (CK-R REACTION TIME) 05/04/2025 10:13 PM [facility] Comment: NOT MEASURED CITRATED KAOLIN MA (CK-MA MAX AMPLITUDE) 05/04/2025 10:13 PM [facility] Comment: NOT MEASURED CITRATED KAOLIN HEPARINASE R ( [facility] R REACTION TIME) 8.8(H) 4.3 - 8.3 min 05/04/2025 10:13 PM [facility] CITRATED KAOLIN HEPARINASE LY30 ([facility] LY30 LYSIS) 0.0 0.0 - 3.2 % 05/04/2025 10:13 PM [facility] CITRATED RAPIDTEG HEPARINASE MA ( CRT MA MAX AMPLITUDE) 48.8(L) 53.0 - 69.0 mm 05/04/2025 10:13 PM [facility] Comment:CRTH-MA is below the normal range indicating decreased platelet strength/function. Consider platelets if clinical bleeding present. CITRATED FUCTIONAL FIBRINOGEN HEPARINASE ( [facility] MAX AMPLITUDE) 14.0(L) 15.0 - 34.0 mm 05/04/2025 10:13 PM [facility] Comment:CFFH-MA is below the normal range indicating poor fibrinogen contribution to clot development. Consider Cryoprecipitate if clinical bleeding present. Blood BLOOD SPECIMEN / Unknown Venipuncture / Unknown 05/04/2025 7:42 PM CDT 05/04/2025 7:47 PM CDT [facility] - 05/04/2025 10:13 PM CDT CRTH-MA and CFFH-MA are below normal range indicating poor platelet strength and/or poor fibrinogen function to clot development. Consider platelets and/or cryoprecipitate if clinical bleeding present. CRTH-MA and CFFH-MA are below normal range indicating poor platelet strength and/or poor fibrinogen function to clot development. Consider platelets and/or cryoprecipitate if clinical bleeding present. Chuck Talbot DO LAB - HEMATOLOGY ORDERABLES Fin al Result [address] [address], [facility] [phone] * TRANSFUSE RED BLOOD CELL LEUKOREDUCED UNIT(S) (05/04/2025 6:44 PM CDT) Result [facility] Fer Rose MD NURSING - BLOOD PROD TRANSFUSI ON Final Result * TRANSFUSE RED BLOOD CELL LEUKOREDUCED UNIT(S) (05/04/2025 6:44 PM CDT) Result [facility] Fer Rose MD NURSING - BLOOD PROD TRANSFUSI ON Final Result * ETT LINE PERFORMABLE (05/04/2025 6:37 PM CDT) Narrative Martina Hunter DO - 05/04/2025 6:37 PM CDT Martina Hunter DO 05/04/2025 6:37 PM Endotracheal Tube Placement: Patient Location: OR. Intubation Event Date/Time: 05/04/2025 5:52 PM Procedure: intubation (95709) Procedure Section: Sedation: under general anesthesia. Indications [...] the procedure Provider #1: Chuck Talbot DO. us Chuck Talbot DO GENERAL ANESTHESIA ORDERABLES F inal Result * TRANSFUSE RED BLOOD CELL LEUKOREDUCED UNIT(S) (05/04/2025 6:16 PM CDT) Yeny Thomason MD NURSING - BLOOD PROD TRANSFU [...] Loss: 30 mL Procedure Details and Comments: [facility] CARDIAC CATHERIZATION PROCEDURE REPORT PROCEDURES PERFORMED: [...] oxygen saturation was performed by an independent hospital laboratory technician registered nurse. The right femoral site was [...] was flow-limiting. We required Dr Rivas (partner metal storage worker) to help with situation and he graciously join the procedure. We made multiple attempts to enter the true lumen(with Paty blue, paty black, Fielder XS and Automatic Packer Operator 200 with CorsAirXS/Twin pass microcatheter) which were unsuccessful. Patient remained stable during the procedure and did not have any symptoms. As such, we decided to manage the patient conservatively and watch closely in the critical care unit. We monitor patient for 5 minutes without any wires and catheter in coronaries. Patient stays stable in hospital laboratory technician. All catheters and sheaths were removed over J-tip wire. The right femoral artery access site was closed by Perclose. As patient was about to be wheeled out of the [place], she developed retrosternal chest pain with EKG [...] access, followed by insertion of a 6 Setswana sheath which was connected to the retrograde [...] lumen with IVUS. We further attempt with Automatic Packer Operator 200 coronary wire without success. On repeat angiogram, We noticed that patient developed coronary perforation with pericardial effusion. This was managed with emergent pericardiocentesis. After discussing with family, cardiothoracic surgery it was decided to take the patient for emergent very high risk CABG. The right groin site which was closed earlier with Perclose harris prolonged oozing for which two [id number] sutures were deployed. Patient needed intermittent pressor [...] was send to OR with 1. Left FISHING VESSEL MATE impella sheath and Impella CP in place. [...] shared decision making for emergent CABG us Yeny Thomason MD CARDIAC CATH CUPID PROCS Final Result * ACT LR - POCT ([facility]) (05/04/2025 5:07 PM CDT) Only the most recent of7 resultswithin the time period is included. Pathologist [facility] ACT LR 265 See result comments sec 05/07/2025 7:43 AM CDT [facility] Blood BLOOD SPECIMEN / Unknown 05/04/2025 5:07 PM CDT 05/07/2025 7:43 AM CDT Narrative [facility] - 05/07/2025 7:43 AM CDT ACT-LR Therapeutics ranges are: Cardiac label cutter = 200-300 seconds Sheath pull = ACT [...] From established ranges from the company manual Yeny Thomason MD LAB - COAGULATION ORDERABLES Final Result Performing Organization Address [facility]/ZIP Co de Phone Number [facility] [address] [place] [address], [place] [phone] * BLOOD TYPE VERIFICATION (05/04/2025 4:43 PM CDT) ABO Rh O POS 05/04/2025 5:2 6 PM CDT [facility] Blood Bank BLOOD SPECIMEN / Unknown Lab Venipuncture / Unknown 05/04/2025 4:43 PM CDT 05/04/2025 4:51 PM CDT Yeny Thomason MD LAB - BLOOD BANK ORDERABLES Final Result Performing Organization Address [facility] Co de Phone Number [facility] [address] [place] [address], [place] [phone] * 1 Units (05/04/2025 4:40 PM CDT) Unit Description LR Whole BLood [facility] Unit ABO O [facility] Unit Rh POS [facility] Product Number [id number] [facility] Unit Donor # [id number] [facility] Unit Status transfused [facility] Product Code [id number] [facility] Blood Type Barcode 5100 [facility] Expiration Date [id number] S BLOOD BANK LAB Blood Bank BLOOD SPECIMEN / Unknown 05/04/2025 4:40 PM CDT 05/04/2025 4:50 PM CDT Yeny Thomason MD LAB - BLOOD BANK ORDERABLES Final Result Performing Organization Address [facility]/ZIP Co de Phone Number [facility] [address] [place] [address], [place] [phone] * PREPARE CRYOPRECIPITATE UNIT (S), 10 Units (05/04/2025 4:40 PM CDT) Unit Description Thawed Cryp [facility] LAB Unit ABO O [facility] Unit Rh POS [facility] Product Number [id number] [facility] Unit Donor # [id number] [facility] Unit Status transfused [facility] BLO OD BANK LAB Product Code [id number] [facility] Blood Type Barcode 5100 [facility] Expiration Date S BLOOD BANK LAB Unit [facility] Unit ABO O [facility] Unit Rh POS [facility] Product Number E3591 [facility] Unit Donor # [id number] [facility] Unit Status transfused [facility] Product Code [id number] [facility] Blood Type Barcode 5100 [facility] Expiration Date S BLOOD BANK LAB Blood Bank BLOOD SPECIMEN / Unknown 05/04/2025 4:40 PM CDT 05/04/2025 4:50 PM CDT [facility] Latanya Rose MD LAB - BLOOD BANK ORDERABLES Fi nal Result [facility] [address] [place] [address], [facility] [phone] * PREPARE PLATELET PHERESIS UNIT(S), 2 Units (05/04/2025 4:40 PM CDT) Unit Description LR PLT Phere B7 [facility] Unit ABO A [facility] Unit Rh POS [facility] Product Number P28 [facility] Unit Donor # [id number] [facility] Unit Status transfused [facility] Product Code [id number] [facility] Blood Type Barcode 6200 [facility] Expiration Date S BLOOD BANK LAB Unit Description LR PLT Phere B7 [facility] Unit ABO A [facility] Unit Rh POS [facility] Product Number P26 [facility] Unit Donor # [id number] [facility] Unit Status transfused [facility] Product Code [id number] [facility] Blood Type Barcode 6200 [facility] Expiration Date [id number] S BLOOD BANK LAB Blood Bank BLOOD SPECIMEN / Unknown 05/04/2025 4:40 PM CDT 05/04/2025 4:50 PM CDT Fer Rose MD LAB - BLOOD BANK ORDERABLES Fi nal Result [facility] [address] [place] [address], [facility] [phone] * VAS Bilateral Venous Mapping (04/25/2025 5:21 PM CDT) Anatomical Region Laterality Modality Upper Extremity, Lower Extremity Ultrasound 04/25/2025 1:39 PM CDT Narrative Procedure Note David Blancas MD - 04/26/2025 [place] [address] Lower Extremity Vein Mapping Report Pat.Name: RHIANNON ZAPATA Pat.ID: [id number] .Date: 04/25/2025 Refer.MD: Irving Esparzaodell Exam Time: 1:39:00 PM Study Type:LE Vein Mapping Age: 11 1945,79Y Sex: FEMALE Sonogrphr: Saray Bernard RVT Pat. Stat.:Outpatient ICD - 9: Pre-op evaluation Z01.818 CPT - 4: 80088 Reason for Study: Pre-op evaluation Procedures: Lower Extremity Vein Mapping - Bilateral Race: 1 Visit ID: [id number] ++++++++++++++++++++++++++++++++++++ SUMMARY: ++++++++++++++++++++++++++++++++++++ Saphenous veins with dimensions [...] Signed 04/26/2025 05:03 PM David Blancas MD [facility] Esparza MD VASCULAR LAB ORDERABLES Edited * VAS Carotid Duplex Bilateral (04/25/2025 4:37 PM CDT) Anatomical Region Laterality Modality Neck Ultrasound 04/25/2025 1:22 PM CDT Narrative Procedure Note David Blancas MD - 04/25/2025 [place] [id number] Carotid Duplex Report Pat.Name: RHIANNON ZAPATA Pat.ID: [id number] .Date: 04/25/2025 Refer.MD: FREDDY KIRKPATRICK Exam Time: 1:22:00 PM Study Type:Carotid Age: 11 1945,79Y Sex: FEMALE Sonogrphr: Saray Bernard RVT Pat. Stat.:Outpatient ICD - 9: Pre-op evaluation Z01.818 CPT - 4: 24046 Reason for Study: Pre-op evaluation Procedures: Carotid Duplex - Bilateral Race: 1 Visit ID: [id number] ++++++++++++++++++++++++++++++++++++ SUMMARY: ++++++++++++++++++++++++++++++++++++ Severe stenosis noted in [...] Signed 04/25/2025 04:42 PM David Blancas MD Patricia-Odell Freddy LAW[facility] VASCULAR LAB ORDERABLES Edited * [...] Feliciano Gomes MD on 04/26/2025 12:10 PM David Esparza MD CT ORDERABLES Final Result * ECHO OUTSIDE STUDY (04/19/2025 11:55 AM CDT) Narrative [facility] - 04/19/2025 11:55 AM CDT This is a study from an outside facility that has been uploaded into PACS. David Esparza MD ECHO CUPID Final Result Performing Organization Address City/[facility] Co de Phone Number [facility] * CATH OUTSIDE STUDY (04/19/2025 11:55 AM CDT) Narrative [facility] - 04/19/2025 11:55 AM CDT This is a study from an outside facility that has been uploaded into PACS. David Esparza MD ECHO CUPID Final Result Performing Organization Address [facility] Co de Phone Number [facility] from Last 3 Months Insurance MEDICARE MANAGED CARE PLAN GENERIC [facility]IC[facility] Advance Directives * Full Code (Latest Code Status on File) Date Activated Date Inactivated Comments 05/04/2025 10:06 PM 05/16/2025 5:35 PM Care Teams Operator [employer]arer Systems Relationship Specialty Start Date End Date Orly Coronado MD [address] [place] [address] PCP - General Internal Medicine 04/23/25
--- OUTSIDE RECORDS SUMMARY | 2025-06-04 09:22 | XMS_ITS | Encounter Summary ---
Author Organization [facility] Address [facility] [place] [address] Care Team Providers Care Heat And Vent Aircraft Mechanic Name Role Phone Orly Coronado MD Primary Care Provider [phone] Encounter Details Date Type Department Care Team (Late st Contact Info) Description 01/01/2018 Abstract [facility] CONVERSION [address] [place] [address] , Generic Conversion, Social History Tobacco Use [...] on filedocumented in this encounter Care Teams Heat And Vent Aircraft Mechanic Relationship Specialty Start Date End Date Orly Coronado MD [address] [place] [address] PCP - General INTERNAL MEDICINE 10/22/20 documented as of this encounter
--- OUTSIDE RECORDS SUMMARY | 2025-06-04 09:23 | XMS_ITS | Clinical Summary ---
Author Organization [facility] MOB Address [address] [place] [address] Care Team Providers Care Automatic Centrifugal Station Operator Name Role Phone Orly Coronado MD Primary Care Provider Ernesto Milton MD Unavailable Stuart Ruiz MD Unavailable [phone] Allergies No known active allergies Medications Denosumab [...] Type Department Care Team Description 05/08/2025 Telephone [facility] [address]2 [place] [address] Yeny Thomason MD 04/17/2025 Results Follow-Up [facility] Adult Pediatric Inpatient Virtual 1 [place] [address] Ernesto Milton MD COMPLETE PFT W + W/O BRONCHODILATOR 04/04/2025 Telephone [facility] #2 [place] [address] Stuart Ruiz MD Referral 03/30/2025 9:00 AM CDT - 03/30/2025 11:59 PM CDT Hospital Encounter [facility] Respiratory Therapy 1 [place] [address] Ernesto Milton MD Discharge Disposition: Discharged to home or Selfcare 03/28/2025 7:28 AM CDT - 03/28/2025 9:30 AM CDT [facility] Hazardous Waste Management Specialist [address] [place] [address] Stuart Ruiz MD Abnormal stress test Discharge Disposition: Discharged to home or Selfcare 03/28/[facility] [place] [address] [place] [address] Ernesto Milton MD 03/28/2025 Travel 03/20/2025 Travel 03/19/2025 Telephone [facility] Cardiology [facility] [place] [address] [place] [address] Stuart Ruiz MD Heart Cath 03/08/2025 11:10 AM CDT - 03/08/2025 12:35 PM CDT Surgery [facility] Cardiac Hazardous Waste Management Specialist [address] [place] [address] Yeny Thomason MD CARDIAC CATH 03/08/2025 [facility] #2 [place] [address] Ernesto Milton MD 03/07/2025 11:37 AM CDT - 03/08/2025 6:54 PM CDT [facility] Med [facility] [address] [address] Jr Rees MD Patel, Satyen V, MD Unstable angina (HCC) Discharge Disposition: Discharged to home or Selfcare 03/07/2025 9:15 AM CDT - 03/07/2025 11:36 AM CDT [facility] Medicine 1 [place] [address] Stuart Ruiz MD Discharge Disposition: Discharged to home or Selfcare 03/07/2025 9:00 AM CDT - 03/07/2025 9:14 AM CDT [facility] 1 [place] [address] Stuart Ruiz MD Discharge Disposition: Discharged to home or Selfcare 03/07/2025 8:51 AM CDT - 03/07/2025 8:59 AM CDT Hospital [facility] Cardiology Stress [address] [place] [address] Stuart Ruiz MD Discharge Disposition: Discharged to home or Selfcare 03/07/2025 Travel from Last 3 Months Family History [...] drink = 0.6 oz pur e alcohol) [facility] Utilities Answer Date Recorded In the past 12 months has [employer], gas, oil, or water [employer] threatened to shut off services in your home? Patient declined 03/07/2025 Social Connection and Isolation Panel Answer Date Recorded In a typical week, how many times do you talk on the phone with family, friends, or neighbors? Patient declined 03/07/2025 How often do you get togethe r with friends or relatives? Patient declined 03/07/2025 How often do you attend confucianist or mormonism serv ices? Patient declined 03/07/2025 Do you belong to any clubs o r organizations such as confucianist groups, unions, fraternal or athletic groups, or [...] medical care, and heating? Patient declined 03/07/2025 [facility] - Occupational [...] any time in the past 12 m onths, were you homeless or living in a [...] 03/28/2025 7:48 AM CDT Plan of Treatment Upcoming Encounters Date Type Department Care Team (Late st Contact Info) Description 06/07/2025 1:00 PM CDT [facility] Visit [facility] [place] [address] [place] [address] Yeny Thomason MD [address] [address] Health Maintenance Due Date Last Done Comments DEXA Bone Density 1945 Hepatitis C Virus (HCV) Screening 1945 Lung Cancer Screening 1996 Zoster Immunization (2 of 3) 03/02/2013 01/05/2013 SARS-COV-2 Immunization ( season) 2025 07/06/2024, 08/27/2023, 08/04/2021, Additional history exists Influenza Immunization (#1) 2025 0806/2024, 08/03/2023, 08/03/2022, Additional history exists Pneumococcal Immunization [...] 102 <200 mg/dL 03/30/2025 10:52 AM CDT [facility] TRIGLYCERIDES 52 <150 mg/dL 03/30/2025 10:52 AM CDT [facility] HDL CHOLESTEROL 53 >40 mg/dL 10:52 AM CDT [facility] LDL 39 <130 mg/dL 03/30/2025 10:52 AM CDT [facility] VLDL 10 10 - 50 mg/dL 03/30/2025 10:52 AM CDT [facility] CHOL/HDL RATIO 1.9 0.0 - 4.4 03/30/2025 10:52 AM CDT [facility] NON-HDL CHOLESTEROL 49 <130 mg/dL 03/30/2025 10:52 AM CDT [facility] IS THE PATIENT REQUIRED TO BE FASTING? Yes 03/30/2025 10:52 AM CDT [facility] HAS THE PATIENT BEEN FASTING? Yes 03/30/2025 10:52 AM CDT [facility] Blood Venipuncture / Unknown 03/30/2025 9:37 AM CDT 03/30/2025 10:18 AM CDT Stuart Ruiz MD CHEMISTRY ORDERABLES Final R esult [facility] [address] [place] [address] * COMPLETE PFT W + W/O BRONCHODILATOR (03/30/2025) FVC 2.35 L FVC %Predicted 92 % FVC Post-Bronchodila tor 2.25 (L) FEV1 0.90 L FEV1 %Predicted 46 % FEV1 Post-Bronchodila tor 0.96 (L) FEV1/FVC 51 % FEF 25-75% 0.33 L/sec TLC 6.98 L TLC %Predicted 143 (Pleth) (L) RV 4.63 L RV %Predicted 200 (Pleth) (L) Airway Resistance NA cmH2O/L/s DLCO 10.78 ml/min/mmH g DLCO %Predicted 56 (ml/min/mm Hg) Result [facility] Ernesto Milton MD PFT ORDERABLES Final Result [...] Transthoracic Echocardiography Report (TTE) Patient name JODI JohnsonO.B. 1945 Patient ID ([facility]) [id number] Indications: Abnormal Stress Test and Chest pain. [...] lbs. BMI (BSA) 20.74 kg/m^2 (1.54 m^2) Truck Leasing Manager Eduardo Stallings Room 240-01 Interpreting Paddy Referring Physician Yeny Physician Procedure Note Yeny Thomason MD - 03/08/2025 Transthoracic Echocardiography Report (TTE) Patient name JODI JohnsonO.B. 1945 Patient ID (UP) [id number] Indications: Abnormal Stress Test and Chest pain. [...] lbs. BMI (BSA) 20.74 kg/m^2 (1.54 m^2) Truck Leasing Manager Eduardo Stallings Room 240-01 Interpreting Paddy Referring Physician Yeny Physician Frances Berrios APRN, FIELD UNDERWRITER IMG ECHO ORDER LIZZ Edited Result - [...] the right radial artery with a 6 Korean sheath. Heparin and Nitroglycerine was used for [...] supervision by a trained observer in the electronic lab technician. Findings: Hemodynamics: Heart rate: 97 , BPM [...] statin Plan was discussed with Dr. Ruiz(primary chinese herbalist) Signed: Yeny Thomason MD, 03/09/2025, 10:38 PM CDT us Yeny Thomason MD IMG CARDIAC CATH Edited Resu lt - Final * (ABNORMAL) CBC WITH AUTO DIFFERENTIAL (03/08/2025 5:05 AM CDT) Only the most recent of2 resultswithin the time period is included. WBC 6.08 4.00 - 12.00 10(3)/mcL 03/08/2025 5:14 AM CDT [facility] RBC 4.25 3.80 - 5.30 10(6)/mcL 03/08/2025 5:14 AM CDT [facility] HEMOGLOBIN (HGB) 10.9(L) 12.0 - 15.8 g/dL 03/08/2025 5:14 AM CDT [facility] HEMATOCRIT (HCT) 34.5(L) 36.0 - 47.0 % 03/08/2025 5:14 AM CDT [facility] MCV 81.2(L) 82.0 - 96.0 fL 03/08/2025 5:14 AM CDT [facility] MCH 25.6(L) 26.0 - 34.0 pg 03/08/2025 5:14 AM CDT [facility] MCHC 31.6 31.0 - 36.0 g/dL 03/08/2025 5:14 AM CDT [facility] PLATELET COUNT 264 140 - 440 10(3)/mcL 03/08/2025 5:14 AM CDT [facility] RDW 15.6(H) 11.8 - 15.5 % 03/08/2025 5:14 AM CDT [facility] MPV 8.7(L) 9.7 - 12.4 fL 03/08/2025 5:14 AM CDT [facility] NEUTROPHILS 66.6 47.0 - 73.0 % 03/08/2025 5:14 AM CDT [facility] LYMPHOCYTES 14.8(L) 18.0 - 42.0 % 03/08/2025 5:14 AM CDT [facility] MONOCYTES 10.7 4.0 - 12.0 % 03/08/2025 5:14 AM CDT [facility] EOSINOPHILS 6.7(H) 0.0 - 5.0 % 03/08/2025 5:14 AM CDT [facility] BASOPHILS 1.2(H) 0.0 - 1.0 % 03/08/2025 5:14 AM CDT [facility] ABSOLUTE NEUTROPHILS 4.05 1.60 - 7.70 10(3)/[facility] 03/08/2025 5:14 AM CDT [facility] ABSOLUTE LYMPHOCYTES 0.90(L) 1.30 - 3.20 10(3)/[facility] 03/08/2025 5:14 AM CDT [facility] ABSOLUTE MONOCYTES 0.65 0.20 - 1.00 10(3)/[facility] 03/08/2025 5:14 AM CDT [facility] ABSOLUTE EOSINOPHIL 0.41(H) 0.00 - 0.40 10(3)/[facility] 03/08/2025 5:14 AM CDT [facility] ABSOLUTE BASOPHILS 0.07 0.00 - 0.10 10(3)/[facility] 03/08/2025 5:14 AM CDT [facility] NRBC PER 100 WBC 0 03/08/20 5:14 AM CDT [facility] Blood Venipuncture / Unknown 03/08/2025 5:05 AM CDT 03/08/2025 5:11 AM CDT us Payal Stone MD HEMATOLOGY ORDERABLES Final R esult [facility] [address] [place] [address] * (ABNORMAL) BASIC METABOLIC PANEL W/ CALCIUM TOTAL (03/08/2025 5:05 AM CDT) SODIUM 138 136 - 145 mmol/L 03/08/2025 5:41 AM CDT [facility] POTASSIUM 3.6 3.5 - 5.1 mmol/L 03/08/2025 5:41 AM CDT [facility] CHLORIDE 109(H) 98 - 107 mmol/L 03/08/2025 5:41 AM CDT [facility] CO2, VENOUS 20(L) 22 - 30 mmol/L 03/08/2025 5:41 AM CDT [facility] ANION GAP 12.6 <18.0 mmol/L 03/08/2025 5:41 AM CDT [facility] GLUCOSE 85 70 - 99 mg/dL 03/08/2025 5:41 AM CDT [facility] BUN 12 10 - 20 mg/dL 03/08/2025 5:41 AM CDT [facility] CREATININE, BLOOD 0.58(L) 0.60 - 1.00 mg/dL 03/08/2025 5:41 AM CDT [facility] BUN/CREATININE RATIO 21(H) 12 - 20 ratio 03/08/2025 5:41 AM CDT [facility] CALCIUM 8.8 8.7 - 10.5 mg/dL 03/08/2025 5:41 AM CDT [facility] GFR, ESTIMATED >60 >=60 03/08/2025 5:41 AM CDT [facility] Comment: Creatinine Clearance is the preferred criteria for selecting drug dose adjustments in renally impaired patients. The GFR is provided as additional pertinent clinical information. GFR is reported in mL/min/1.73 sq m. Calculation based on the Chronic Kidney Disease Epidemiology Collaboration (CKD- EPI) equation refit without adjustment for race. GFR, EST. >60 >=60 025 5:41 AM CDT [facility] GFR, EST. NONAFRICAN >60 >=60 03/08/2025 5:41 AM CDT [facility] Blood Venipuncture / Unknown 03/08/2025 5:05 AM CDT 03/08/2025 5:11 AM CDT us Payal Stone MD CHEMISTRY ORDERABLES Final Re sult [facility] [address] [place] [address] * RHYTHM STRIP (03/08/2025 12:00 AM CDT) Only the most recent of4 resultswithin the time period is included. 03/08/2025 us Provider Scan IMG ECG ORDERABLES Final Result Performing Organization Address [facility] Co de Phone Number RESULTING AGENCY * TROPONIN I, HIGH SENSITIVITY (HSTRP) (03/07/2025 2:13 PM CDT) Only the most recent of2 resultswithin the time period is included. Pathologist [facility] TROPONIN I, HIGH SENSITIVITY- [place] 3 <=14 ng/L 03/07/2025 2:55 PM [address]T [facility] Comment: High-sensitivity troponin I results are reported in ng/L making the result appear to be 1,000 times higher than the contemporary troponin I value which is reported in ng/ml. Results from [place]. Blood Venipuncture / Unknown 03/07/2025 2:13 PM CDT 03/07/2025 2:19 PM CDT Jr Rees MD CHEMISTRY ORDERABLES Veronica l Result Performing Organization Address [facility] Co de Phone Number [facility] [address] [place] [address] * XR CHEST SINGLE VIEW PORTABLE (03/07/2025 [...] Filiberto Schafer M.D. MM: MM Report ID: [id number] Reading Location: [id number] Procedure Note Filiberto Schafer MD - 03/07/2025 [...] Filiberto Schafer M.D. MM: MM Report ID: [id number] Reading Location: [id number] IMPRESSION: No acute cardiopulmonary abnormality. Jr Rees MD [facility] DIAGNOSTIC ORDERABLES Final Result * APTT (PTT) (03/07/2025 11:50 AM CDT) PTT 31 24 - 36 sec 03/07/2025 12:38 PM CDT [facility] Blood Venipuncture / Unknown 03/07/2025 11:50 AM CDT 03/07/2025 12:14 PM CDT Narrative [facility] - 03/07/2025 12:38 PM CDT Therapeutic range for unfractionated heparin at 0.3-0.7 U/mL is an aPTT value in the range of 71-100 seconds. Critical value for the PTT test is >= 122 seconds. us Jr Rees MD HEMATOLOGY ORDERABLES Fin al Result Performing Organization Address City/[facility]/ZIP Co de Phone Number [facility] [address] [place] [address] * PROTIME (PT) (PROTHROMBIN TIME) (03/07/2025 11:50 AM CDT) PROTIME-PATIENT 12.4 11.6 - 14.8 sec 03/07/2025 12:38 PM CDT [facility] INR 0.9 0.9 - 1.2 03/07/2025 12:38 PM CDT [facility] Comment: Therapeutic Ranges INR = 2.0-3.0: Venous thromb, atrial fib, pul embolism, tissue heart valve, ami. INR = 2.5-3.5: Mechanical heart valve Critical value for INR is >/= 4.5 Blood Venipuncture / Unknown 03/07/2025 11:50 AM CDT 03/07/2025 12:14 PM CDT Jr Rees MD HEMATOLOGY ORDERABLES Fin al Result Performing Organization Address [facility] Co de Phone Number [facility] [address] [place] [address] * CMP (COMPREHENSIVE METABOLIC PANEL) (03/07/2025 11:50 AM CDT) SODIUM 138 136 - 145 mmol/L 03/07/2025 12:37 PM CDT [facility] POTASSIUM 4.6 3.5 - 5.1 mmol/L 03/07/2025 12:37 PM CDT [facility] CHLORIDE 106 98 - 107 mmol/L 03/07/2025 12:37 PM CDT [facility] CO2, VENOUS 22 22 - 30 mmol/L 03/07/2025 12:37 PM CDT [facility] ANION GAP 14.6 <18.0 mmol/L 03/07/2025 12:37 PM CDT [facility] GLUCOSE 96 70 - 99 mg/dL 03/07/2025 12:37 PM CDT [facility] BUN 10 10 - 20 mg/dL 03/07/2025 12:37 PM T [facility] CREATININE, BLOOD 0.62 0.60 - 1.00 mg/dL 03/07/2025 12:37 PM CDT [facility] BUN/CREATININE RATIO 16 12 - 20 ratio 03/07/2025 12:37 PM T [facility] TOTAL PROTEIN 7.7 6.0 - 8.0 g/dL 03/07/2025 12:37 PM T [facility] ALBUMIN 4.5 3.5 - 5.0 g/dL 03/07/2025 12:37 PM T [facility] A/G RATIO 1.4 1.0 - 2.2 03/07/2025 12:37 PM CDT [facility] CALCIUM 9.5 8.7 - 10.5 mg/dL 03/07/2025 12:37 PM T [facility] T BILI 0.6 0.2 - 1.2 mg/dL 03/07/2025 12:37 PM T [facility] SGOT (AST) 38 <43 U/L 03/07/2025 12:37 PM [facility] Comment: Specimen is hemolyzed. In vitro hemolysis could affect results. Clinical correlation advised. SGPT (ALT) 13 <56 U/L 03/07/2025 12:37 PM T [facility] ALKALINE PHOSPHATASE 50 40 - 150 U/L 03/07/2025 12:37 PM [facility] GFR, ESTIMATED >60 >=60 03/07/2025 12:37 PM [facility] Comment: Creatinine Clearance is the preferred criteria for selecting drug dose adjustments in renally impaired patients. The GFR is provided as additional pertinent clinical information. GFR is reported in mL/min/1.73 sq m. Calculation based on the Chronic Kidney Disease Epidemiology Collaboration (CKD- EPI) equation refit without adjustment for race. GFR, EST. >60 >=60 025 12:37 PM [address]T [facility] GFR, EST. NONAFRICAN >60 >=60 03/07/2025 12:37 [address] [facility] Blood Venipuncture / Unknown 03/07/2025 11:50 AM CDT 03/07/2025 12:14 PM CDT us Jr Rees MD CHEMISTRY ORDERABLES Veronica l Result Performing Organization Address City/[facility]/ZIP Co de Phone Number [facility] [address] [place] [address] * (ABNORMAL) B-TYPE NATRIURETIC PEPTIDE (BNP) (03/07/2025 11:50 AM CDT) B TYPE NATRIURETIC PEPTIDE 325(H) <100 pg/mL 03/07/2025 12:56 PM CDT [facility] Blood Venipuncture / Unknown 03/07/2025 11:50 AM CDT 03/07/2025 12:14 PM CDT us Jr Rees MD CHEMISTRY ORDERABLES Veronica l Result [facility] [address] [place] [address] * EKG 12 LEAD (03/07/2025 11:37 AM CDT) Ventricular Rate 87 BPM EXTERNAL EKG Atrial Rate 87 BPM EXTERNAL EKG P-R Interval 142 ms EXTERNAL EKG QRS Duration 94 ms EXTERNAL EKG Q-T Duration 366 ms EXTERNAL EKG QTC CALCULATION 440 ms EXTERNAL EKG P [place] -18 degrees EXTERNAL EKG R [place] 3 degrees EXTERNAL EKG T [place] -6 degrees EXTERNAL EKG 03/07/2025 11:3 7 AM CDT Impressions EXTERNAL EKG - 03/07/2025 10:27 PM CDT Normal sinus rhythm Inferior infarct , age undetermined Abnormal ECG No previous ECGs available Confirmed by YENY THOMASON ([id number]) on 03/07/2025 10:27:37 PM Narrative Procedure Note Yeny Thomason MD - 03/07/2025 IMPRESSION: Normal sinus rhythm Inferior infarct , age undetermined Abnormal ECG No previous ECGs available Confirmed by YENY THOMASON ([id number]) on 03/07/2025 10:27:37 PM us Jr Rees MD IMG ECG ORDERABLES Final Result EXTERNAL EKG * ADULT CV STRESS PHARMACOLOGIC W NUC MED (03/07/2025 11:31 AM CDT) Anatomical Region Laterality Modality CARDIO N/A Electrocardiogra phy Narrative 03/08/2025 11:11 AM CDT Non-Imaging Stress Test Patient Name JODI Rivas.O.B. 1945 Patient ID (UPI) [id number] Indications: Chest pain. Study Date03/07/2025 Type of [...] - Lexiscan Protocol Peak HR: 103 bpm [id number] Peak BP: 169/82 mmHg Predicted HR: 142 [...] Weight 121 lbs. BMI 21.43 kg/m^2 Stress Medicare Sales Representative Nurse Chris Norris Physician Yeny Physician Procedure Note Yeny Thomason MD - 03/08/2025 Non-Imaging Stress Test Patient Name JODI De La Cruz 1945 Patient ID ([facility]) [id number] Indications: Chest pain. Study Date03/07/2025 Type of [...] - Lexiscan Protocol Peak HR: 103 bpm [id number] Peak BP: 169/82 mmHg Predicted HR: 142 [...] Weight 121 lbs. BMI 21.43 kg/m^2 Stress Medicare Sales Representative Nurse Chris Norris Physician Yeny Physician Stuart Ruiz MD [...] Jorge Blevins M.D. CH: DIONNE Report ID: [id number] Reading Location: [place] [address] Procedure Note Jorge Blevins Jr., MD - 03/07/2025 EXAM DESCRIPTION: DE CARD MULTI SPECT WITH WALL MOTION AND [...] Jorge Blevins M.D. CH: DIONNE Report ID: [id number] Reading Location: [id number] IMPRESSION: 1. Rest only imaging demonstrating a 20% mild severity septal defect. 2. Post-stress imaging not performed. Stuart Ruiz MD IMG NM CARDIAC NI ORDERABLES Final Result * EKG SCAN (03/07/2025 12:00 AM CDT) 03/07/2025 Provider Scan IMG ECG ORDERABLES Final Result RESULTING AGENCY from Last 3 Months Insurance MEDICARE C [employer] Advance Directives * Full Code (Latest Code Status on File) Date Activated Date Inactivated Comments 03/07/2025 4:26 PM CPR-Full Treat ment: FULL ARREST: Attempt Resuscitation/CPR wit intubation and mechanical ventilation. PRE-ARREST: Use entire range of life support measures to stabilize the patient. Care Teams Automatic Centrifugal Station Operator Relationship Specialty Start Date End Date Orly Coronado MD [address] [place] [address] PCP - General Internal Medicine 01/19/25 Ernesto Milton MD [address] [place] [address] Consulting Physician Pulmonary Disease 02/20/25 Stuart Ruiz MD [address] [address] Consulting Physician Interventional Cardiology 02/21/25
--- OUTSIDE RECORDS SUMMARY | 2025-06-04 09:23 | XMS_ITS | Encounter Summary ---
Author Organization [facility] Address [address] [place] [address] Phone Care Team Providers Care Applications Engineering Manager Name Role Phone Orly Coronado MD Primary Care Provider [phone] Ernesto Milton MD Unavailable Stuart Ruiz MD Unavailable [phone] Reason for Referral * Other (Routine) - Authorized Specialty Diagnoses / Procedures Referred By Contac t Referred To Contact Pulmonology Diagnoses Other emphysema (HCC) Procedures COMPLETE PFT W + W/O BRONCHODILATOR Ernesto Milton MD [address] [place] [address] Phone: tel: fax: Referral ID Status Reason Start Date Expiration Date V isits Requested Visits Authorized [id number] Authorized 04/18/2025 1 1 Encounter Details Date Type Department Care Team (Late st Contact Info) Description 04/17/2025 Results Follow-Up [facility] Adult Pediatric Inpatient Virtual [address] [place] [address] Ernesto Milton MD [address] [place] [address] COMPLETE PFT W + W/O BRONCHODILATOR Social History Tobacco Use Types Packs/Day Years Used Date Smoking Tobacco: Former Cigarettes 1.5 23 1 990 - 2012 Smokeless Tobacco: Never Alcohol Use Standard Drinks/Week Comments Not Currently 0 (1 standard drink = 0.6 oz pur e alcohol) [facility] Utilities Answer Date Recorded In the [...] declined 03/07/2025 How often do you attend yarsani or confucianism serv ices? Patient declined 03/07/2025 Do you belong to any clubs o r organizations such as yarsani groups, unions, fraternal or athletic groups, or [...] medical care, and heating? Patient declined 03/07/2025 [facility] - [...] any time in the past 12 m [facility], were you homeless or living in a half-way (including now)? Patient declined 03/07/2025 Sexually Active Control Partners Comments Not Currently Post-menopausal Comments No Sex and Gender Information Value Date Recorded Sex Assigned at Not on file Legal Sex Female 11:30 AM CDT Gender Identity Not on file Sexual Orientation Not on file documented as of this encounter Plan of Treatment Upcoming Encounters Date Type Department Care Team (Late st Contact Info) Description 06/07/2025 1:00 PM CDT Office Visit [facility] [place] [address] [place] [address] Yeny Thomason MD [address] [facility] [facility]. [address] [place] [id number] Scheduled Orders Name Type Priority Associated Diagnoses Orde r Schedule COMPLETE PFT W + W/O BRONCHODILATOR PFT Routine Other emphysema (HCC) Expected: 04/18/2026, Expires: 07/17/2026 documented as of this encounter Visit Diagnoses Diagnosis Other emphysema (HCC)- Primary Other emphysema documented in this encounter Care Teams Applications Engineering Manager Relationship Specialty Start Date End Date Orly Coronado MD [address] [place] [address] PCP - General Internal Medicine 01/19/25 Ernesto Milton MD [address] [place] [id number] Consulting Physician Pulmonary Disease 02/20/25 Stuart Ruiz MD [address] [address] Consulting Physician Interventional Cardiology 02/21/25 documented as of this encounter
[2025-06-04 09:43] LABS: Anion Gap 11 mmol/L (4-12); Blood Urea Nitrogen 17 mg/dL (7-17); Calcium 10.7 mg/dL (8.4-10.2); Carbon Dioxide 27 mmol/L (22-30); Chloride 95 mmol/L (98-107); Estimated Glomerular Filt Rate > 60; Glucose 97 mg/dL (65-110); Osmolality Calculated 277 mOsm/kg (285-295); Potassium 4.7 mmol/L (3.4-5.0); Sodium 133 mmol/L (137-145)
[2025-06-04 09:52] LABS: NT Pro B Type Natriuretic Pept 2430 pg/mL (19.9-100)
== END 2025-06-04 09:04 | disposition home or self-care (01) ==
LOC: CHSLAB 09:05
PROVIDERS: PCP Internal Medicine; Visit Provider Internal Medicine
DX: I50.9 Heart failure, unspecified (principal)
CPT/HCPCS: 36415; 80048; 83880; 85025

== ENCOUNTER 2025-08-13 14:04 | Inpatient (IN) | payer OTHER, SELFPAY ==
--- NOTE | ~2025-08-13 | XR_ITS ---
EXAMINATION: XR chest 2V, 08/13/2025 14:30 CDT HISTORY: sob COMPARISON: No comparisons available. Technique: 2 views obtained. Findings: COPD changes. Small basilar infiltrates. Nodule right upper lobe 1 x 1 cm incompletely evaluated. No pneumothorax. Heart is normal size. Mediastinal and hilar contours are within normal limits. Poststernotomy changes noted. Impression: Early bilateral pneumonia. Right lung nodule which appears new compared to the prior study. CT chest recommended Reviewed, dictated and finalized at location P. Impression: Early bilateral pneumonia. Right lung nodule which appears new compared to the prior study. CT chest recommended
--- NOTE | ~2025-08-13 | CT_ITS ---
CTA CHEST CLINICAL HISTORY: dyspnea, f/u pna COMPARISON: Chest x-ray one day prior CT chest 08/13/2025 TECHNIQUE: Helical CTA performed from thoracic inlet to upper abdomen IV contrast information not listed in PACS Coronal, sagittal reformats. Multiplanar MIPS CT images acquired with automatic exposure control for dose reduction DLP: 141 mGy-cm FINDINGS: Pulmonary arteries: No PE. Thoracic Aorta: No dissection or aneurysm. Atherosclerotic disease. Heart/pericardium: Unremarkable. RV/LV ratio: Normal. Lungs/Pleura: Emphysema. Small nodule left upper lobe. A few small foci bilateral airspace opacity persists. Tracheobronchial tree: Patent. Nodes: No enlarged nodes. Bones: No acute bony abnormality. Soft tissues: Unremarkable. Visualized upper abdomen: Unremarkable. IMPRESSION: 1. No PE. 2. Lungs unchanged with a few small foci of pneumonitis, atelectasis, and/or scarring. Reviewed, dictated and finalized at location R. IMPRESSION: 1. No PE. 2. Lungs unchanged with a few small foci of pneumonitis, atelectasis, and/or s carring.
--- NOTE | ~2025-08-13 | XR_ITS ---
EXAMINATION: XR chest 1V portable COMPARISON: No comparisons available. HISTORY: dyspnea FINDINGS: Mild pulmonary venous congestion. Trace right pleural effusion. Small right basilar infiltrate. No pneumothorax. Heart is normal size. Mediastinal and hilar contours are within normal limits. Post sternotomy. Miscellaneous: None Impression: Early right lower lobe pneumonia suspected Reviewed, dictated and finalized at location P. Impression: Early right lower lobe pneumonia suspected
--- NOTE | ~2025-08-13 | CT_ITS ---
Exam: CT chest without contrast Clinical History: [Abnormal chest x-ray ] Comparison: [ CT chest 01/02/2025]: Chest x-ray 08/13/2025 Technique: Multiple axial CT images of the chest without with IV contrast. Sagittal and coronal reformatted images were obtained. FINDINGS: Lungs and pleura: [ Biapical scarring. Centrilobular emphysema in both lungs.] No pneumothorax. No pleural effusion. There is a new 6 cm pulmonary nodule in the left upper lobe. There are a few small to moderate-sized groundglass and patchy opacities in the mid and lower lungs, most prominent in the right lower lobe. Mediastinum and pulmonary mata: [ No mass or adenopathy.] Axillary/intramammary and supraclavicular: [ No mass or adenopathy.] There are a few nonenlarged, nonspecific mediastinal and hilar lymph nodes. Heart and great vessels: [ Normal heart size.[ [ No pericardial effusion.] [ No aneurysm.] Moderate atherosclerotic disease in the thoracic aorta. There are coronary artery calcifications. Chest Wall: Median sternotomy wires are present. Upper Abdomen: Adrenal glands is grossly stable. Osseous structures: [ No acute fracture lesion.] [ Multilevel degenerative change in the visualized spine.] Additional findings: [ None of significance.] IMPRESSION: 1. There is a new 6 cm pulmonary nodule in the left upper lobe. A follow-up chest CT in 3 months is recommended. 2. There are a few small to moderate-sized groundglass and patchy opacities in the mid and lower lungs, most prominent in the right lower lobe. The findings may be secondary to an inflammatory or infectious process. However, a malignant process is possible. A follow-up chest CT in 2 weeks following treatment is recommended. Follow-up is recommended. 3. Centrilobular emphysema in both lungs. Reviewed, dictated and finalized at location Q. IMPRESSION: 1. There is a new 6 cm pulmonary nodule in the left upper lobe. A follow-up eric st CT in 3 months is recommended. 2. There are a few small to moderate-sized groundglass and patchy opacities in the mid and lower lungs, most prominent in the right lower lobe. The findings m ay be secondary to an inflammatory or infectious process. However, a malignant process is possible. A follow-up chest CT in 2 weeks following treatment is rec ommended. Follow-up is recommended. 3. Centrilobular emphysema in both lungs.
[2025-08-13 14:04] VITALS: BP 122/81; PULSE 80; RESP 20; TEMP 36.6; O2SAT 100
--- NOTE | 2025-08-13 14:10 | ED.SOB ---
HPI - SOB/Dyspnea General Chief Complaint: Shortness of Breath/Dyspnea Stated Complaint: SOB Time Seen by Provider: 08/13/25 14:10 Source: patient and family Mode of arrival: ambulatory Limitations: no limitations History of Present Illness HPI Narrative: Patient is a 79-year-old female with COPD here for worsening shortness of breath today. She was seen her primary doctor in the center to the emergency room for further evaluation. No chest pain. She also has known CHF. She had open-heart surgery earlier this year. MD elicited complaint: shortness of breath Pertinent past history: COPD, congestive heart failure and other (Coronary artery disease/CABG 2024) Onset (ago): day(s) (1) Context: other (Patient has worsening shortness of breath with known CHF and COPD) Timing: constant Severity: moderate Exacerbating factors: exertion and deep breaths Relieving factors: nothing Known history of: COPD and congestive heart failure Associated symptoms: chest congestion Treatment prior to arrival: none Related Data Home oxygen amount: none Home Medications ?Medication ?Instructions ?Recorded ?Confirmed ?Last Taken ?Type albuterol sulfate 90 mcg/actuation 2 puff inhalation Q4-6H PRN 10/13/19 08/13/25 05/14/21 History aerosol inhaler (ProAir HFA) Shortness Of Breath aspirin 81 mg tablet,delayed 81 mg PO DAILY 10/13/19 08/13/25 Unknown History release lisinopril 20 1 tablet PO DAILY 10/13/19 08/13/25 Unknown History mg-hydrochlorothiazide 25 mg tablet montelukast 10 mg tablet 10 mg PO DAILY 10/13/19 08/13/25 Unknown History potassium chloride 10 mEq 10 meq PO DAILY 10/13/19 08/13/25 Unknown History capsule,extended release cholecalciferol (vitamin D3) 25 2,000 unit PO DAILY 05/09/21 08/13/25 Unknown History mcg (1,000 unit) capsule (Vitamin D3) fluticasone furoate 200 1 inh inhalation DAILY 05/09/21 08/13/25 Unknown History mcg-vilanterol 25 mcg/dose inhalation powder (Breo Ellipta) ipratropium 20 mcg-albuterol 100 4 puff inhalation QID 05/09/21 08/13/25 Unknown History mcg/actuation mist for inhalation (Combivent Respimat) atorvastatin 40 mg tablet 40 mg PO QPM 08/13/25 08/13/25 08/12/25 History clopidogrel 75 mg tablet 75 mg PO DAILY 08/13/25 08/13/25 08/13/25 History metoprolol succinate 25 mg 25 mg PO DAILY 08/13/25 08/13/25 08/13/25 History tablet,extended release 24 hr spironolactone 50 mg tablet 25 mg PO DAILY 08/13/25 08/13/25 08/13/25 History trazodone 50 mg tablet 50 mg PO HS 08/13/25 08/13/25 08/12/25 History Allergies Allergy/AdvReac Type Severity Reaction Status Date / Time No Known Allergies Allergy Verified 08/13/25 17:19 Review of Systems Review of Systems: All systems reviewed & are unremarkable except as noted in HPI and below Constitutional: Constitutional: Reports no additional constitutional complaints Eyes: Eyes: Reports no additional eye complaints ENT: Reports system reviewed and no additional complaints, except as documented Cardiovascular: Cardiovascular: Reports no additional cardiovascular complaints Respiratory: Respiratory: Reports no additional respiratory complaints Gastrointestinal: Gastrointestinal: Reports no additional gastrointestinal complaints Genitourinary: Genitourinary: Reports no additional female genitourinary complaints Musculoskeletal: Musculoskeletal: Reports no additional musculoskeletal complaints Integumentary/Breasts: Skin/Breast: Reports system reviewed and no additional complaints, except as docu Neurologic: Reports system reviewed and no additional complaints, except as documented Psychiatric: Psychiatric: Reports no additional psychiatric complaints Endocrine: Endocrine: Reports no additional endocrine complaints Hematologic/Lymphatic: Hematologic/Lymphatic: Reports no additional hematologic/lymphatic complaints Allergic/Immunologic: Allergic/Immunologic: Reports no additional allergic/immunologic complaints [facility] Past Medical History Medical History Diverticulosis Hypertension COPD (chronic obstructive pulmonary disease) Surgical History Surgical History History of appendectomy H/O: hysterectomy Social History Social History Smoking packs per day: 1 Smoking cigarettes per day: 20.0 Years smoked: 40 Smoking pack-years: 40.00 Smoking status: Former smoker Tobacco type: cigarettes Second hand tobacco smoke exposure: No Smoking end date: 10/18/12 Alcohol intake: former Alcohol use details: occasional Substance use: never Substance use type: does not use Do You Feel Safe in your Home?: Yes Lack of Transportation: No Lack of Food: Never True Current Housing: I Have Housing Concerned About Future Housing: No Difficulty Paying Gas/Electric Bills: No Difficulty Paying for Meds: No Currently Unemployed: No Education: Grade School Difficulty w/ Childcare or Family Care: No Living arrangements: alone Spiritual care concerns: No Exam Const: General: ill appearing Nutritional Appearance: well nourished Orientation/consciousness: patient oriented x3 Limitations: no limitations HENMT: Head: normal to inspection Ears: external ears normal Face/Nose/Sinus: Normal external nose present Eyes: Conjunctivae: conjunctivae normal Pupils: Equal, round and reactive pupils present EOM: EOMs intact bilaterally Neck: Neck: normal visual inspection Chest: Chest palpation & inspection: normal inspection of the chest Resp: Effort & Inspection: normal respiratory effort, not labored, no retractions, tachypneic and no use of accessory muscles Auscultation: clear to auscultation bilaterally, crackles bilateral at the base, no rales, no rhonchi, wheezes, breath sounds present and diminished lung sounds Cardio: Rate: regular rate Rhythm: regular rhythm Heart sounds: no murmurs GI: Inspection: non-distended GI Palp: Yes Soft to palpation and No Tenderness to palpation present (GI) Auscultation: normal bowel sounds : General: Yes bladder normal to palpation Back/Spine/Pelvis: Back: no CVA tenderness Skin: General skin exam: normal color Rashes: no rashes Wounds: no wounds Neuro: General: patient oriented x3, moves all extremities and no meningeal signs Extrem: General: normal to inspection, no clubbing, cyanosis or edema and no pedal edema Psych: Mental Status: mental status grossly normal Affect: normal affect Attitude: cooperative Course Vital Signs Vital signs: Vital Signs Temperature 36.6 C 08/13/25 14:04 Pulse Rate 80 08/13/25 14:04 Respiratory Rate 20 08/13/25 14:04 Blood Pressure 122/81 08/13/25 14:04 Pulse Oximetry 100 08/13/25 14:04 Oxygen Delivery Room Air 08/13/25 14:04 Temperature 36.5 C 08/13/25 16:07 Pulse Rate 60 08/13/25 16:07 Respiratory Rate 16 08/13/25 16:07 Blood Pressure 109/73 08/13/25 16:07 Pulse Oximetry 95 08/13/25 16:07 Oxygen Delivery Room Air 08/13/25 16:07 MDM - SOB/Dyspnea MDM Narrative Medical decision making narrative: Patient is a 79-year-old female with worsening shortness of breath today. Will do a cardiopulmonary workup at this time. Pneumonia and CHF appreciated. RSV appreciated. COPD flare appreciated. We will admit the patient for further observation status here at this facility under the hospitalist. These are all known problems that just have flared except a pneumonia which requires antibiotics which are started in the ER at this time. Patient will need CT scan of the chest in the next 1-2 months to look at the nodule and further evaluate the patchy infiltrate areas per radiologist to rule out malignancy. Lab Data Attestation: I reviewed the patient's lab results. 08/13/25 14:25 08/13/25 14:25 Labs: Lab Results 08/13/25 08/13/25 08/13/25 Range/Units 14:18 14:21 14:25 WBC 8.5 (4.8-10.8) K/mm3 RBC 5.01 (4.20-5.40) M/mm3 Hgb 13.7 (11.7-13.8) g/dL Hct 42.8 H (35.0-42.0) % MCV 85.4 (78.0-102.0) fL MCH 27.3 (27.0-31.0) pg MCHC 32.0 (32-36) g/dL RDW 13.4 (11.6-14.4) % Plt Count 312 (150-420) K/mm3 MPV 8.7 L (9.2-11.8) fl Immature Gran % (Auto) 0.4 H (0.0-0.0) % Neut % (Auto) 86.6 H (50.0-70.0) % Lymph % (Auto) 4.3 L (18.0-42.0) % Kings % (Auto) 8.1 (2.0-11.0) % Eos % (Auto) 0.2 L (1.0-6.0) % Baso % (Auto) 0.4 (0.0-1.0) % Lymph # (Auto) 0.37 L (1.10-4.50) K/mm3 Kings # (Auto) 0.69 (0.10-0.90) K/mm3 Eos # (Auto) 0.02 (0.02-0.50) K/mm3 Baso # (Auto) 0.03 (0.00-0.10) K/mm3 Abs Immat Gran (auto) 0.03 H (0.00-0.00) K/mm3 Absolute Neuts (auto) 7.39 H (1.70-7.20) K/mm3 Absolute Nucleated RBC 0.00 (0.00-0.00) K/mm3 Nucleated RBC % 0.0 (0-0.0) % Sodium 135 L (137-145) mmol/L Potassium 4.2 (3.4-5.0) mmol/L Chloride 95 L (98-107) mmol/L Carbon Dioxide 28 (22-30) mmol/L Anion Gap 12 (4-12) mmol/L BUN 27 H D (7-17) mg/dL Creatinine 0.91 (0.7-1.0) mg/dL Estim Creat Clear Calc 33 ml/min Estimated GFR 60 (59 - ) Glucose 114 H (65-110) mg/dL Calculated Osmolality 286 (285-295) mOsm/kg Lactic Acid 1.7 (0.4-2.0) mmol/L Calcium 11.0 H (8.4-10.2) mg/dL Total Bilirubin 0.7 (0.2-1.3) mg/dL AST 44 H (14-36) U/L ALT 26 (6-35) U/L Alkaline Phosphatase 201 H (38-126) U/L Troponin I < 0.012 (0.000-0.034) ng/mL NT-Pro-B Natriuret Pep 2580 H (19.9-100) pg/mL Total Protein 8.7 H (6.3-8.2) g/dL Albumin 4.8 (3.5-5.1) g/dL Influenza A (RT-PCR) Negative (Negative) Influenza B (RT-PCR) Negative (Negative) RSV (RT-PCR) Positive A (Negative) SARS-CoV-2 RNA (RT-PCR) Negative (Negative) Imaging Data Attestation: I personally reviewed and interpreted this imaging study as follows: Radiologist's impression: Chest x-ray shows bilateral lower lobe pneumonia and a questionable right lung nodule requiring CT scan CT scan of the chest without contrast (no contrast due to prior history of issues with IV contrast) shows IMPRESSION: 1. There is a new 6 cm pulmonary nodule in the left upper lobe. A follow-up chest CT in 3 months is recommended. 2. There are a few small to moderate-sized groundglass and patchy opacities in the mid and lower lungs, most prominent in the right lower lobe. The findings may be secondary to an inflammatory or infectious process. However, a malignant process is possible. A follow-up chest CT in 2 weeks following treatment is recommended. Follow-up is recommended. 3. Centrilobular emphysema in both lungs. ECG Data EKG #1: Attestation: I personally reviewed and interpreted this ECG as follows: ECG completion date: 08/13/25 ECG completion time: 15:54 EKG Interpretation: tachycardia, sinus rhythm, no ectopy, non-specific ST changes, normal QRS, normal QT and NL axis Discharge Plan Discharge Clinical Impression: Acute exacerbation of chronic obstructive pulmonary disease, Pulmonary nodule Respiratory syncytial virus (RSV) Qualifiers: RSV infection type: pneumonia Qualified Code(s): J12.1 - Respiratory syncytial virus pneumonia Bilateral pneumonia Qualifiers: Pneumonia type: due to unspecified organism Lung location: lower lobe of lung Qualified Code(s): J18.9 - Pneumonia, unspecified organism Acute exacerbation of CHF (congestive heart failure) Qualifiers: Heart failure type: unspecified Qualified Code(s): I50.9 - Heart failure, unspecified Patient Disposition: Acute [facility] Condition: Stable Time of Disposition: 15:53
--- NOTE | 2025-08-13 14:11 | ECG_ITS ---
Test Date: 2025-08-13 14:20:21 Measurements Intervals [place] Rate: 110 P: 85 MS: 139 QRS: 68 QRSD: 106 T: 90 QT: 337 QTc: 456 Interpretive Statements SINUS TACHYCARDIA WITH OCCASIONAL ECTOPIC PREMATURE COMPLEXES INCOMPLETE RIGHT BUNDLE BRANCH BLOCK ANTEROSEPTAL INFARCT, AGE INDETERMINATE BORDERLINE ST-T WAVE ABNORMALITY- HIGH LATERAL LEADS BASELINE WANDER- I, II ABNORMAL ECG Compared to ECG 01/24/2025 15:18:52 HEART RATE HAS INCREASED ANTEROSEPTAL INFARCT NOW PRESENT Electronically Signed On 08-13-2025 14:54:08 CDT by Boogie Cardona D.O.
--- NOTE | 2025-08-13 14:20 | PC.NURSE ---
Covid culture sent to lab
[2025-08-13 14:32] LABS: Hematocrit 42.8 % (35.0-42.0); Hemoglobin 13.7 g/dL (11.7-13.8); Immature Granulocyte Percent A 0.4 % (0.0-0.0); Lymphocytes Absolute Auto 0.37 K/mm3 (1.10-4.50); Mean Corpuscular HGB Conc 32.0 g/dL (32-36); Mean Corpuscular Hemoglobin 27.3 pg (27.0-31.0); Mean Corpuscular Volume 85.4 fL (78.0-102.0); Nucleated Red Blood Cells Absolute Auto 0.00 K/mm3 (0.00-0.00); Nucleated Red Blood Cells Perc 0.0 % (0-0.0); Platelet Count Result 312 K/mm3 (150-420); Red Blood Count 5.01 M/mm3 (4.20-5.40); White Blood Count 8.5 K/mm3 (4.8-10.8)
[2025-08-13 14:44] LABS: Alanine Aminotransferase 26 U/L (6-35); Albumin Level 4.8 g/dL (3.5-5.1); Alkaline Phosphatase 201 U/L (38-126); Anion Gap 12 mmol/L (4-12); Aspartate Amino Transferase 44 U/L (14-36); Bilirubin,Total 0.7 mg/dL (0.2-1.3); Blood Urea Nitrogen 27 mg/dL (7-17); Calcium 11.0 mg/dL (8.4-10.2); Carbon Dioxide 28 mmol/L (22-30); Chloride 95 mmol/L (98-107); Estimated CRCL calculation 33 ml/min; Estimated Glomerular Filt Rate 60; Glucose 114 mg/dL (65-110); Osmolality Calculated 286 mOsm/kg (285-295); Potassium 4.2 mmol/L (3.4-5.0); Sodium 135 mmol/L (137-145); Total Protein 8.7 g/dL (6.3-8.2)
[2025-08-13 14:56] LABS: NT Pro B Type Natriuretic Pept 2580 pg/mL (19.9-100); Troponin I < 0.012 ng/mL (0.000-0.034)
[2025-08-13 15:09] LABS: Influenza A QL RT-PCR Negative (Negative); Influenza B QL RT-PCR Negative (Negative); RSV RNA, RT-PCR Positive (Negative); SARS-CoV-2 RNA PCR Negative (Negative)
[2025-08-13] MEDS: FUROSEMIDE INJ 20 MG/2 ML VIAL 10 MG IV PUSH (15:38)
[2025-08-13] MEDS: AZITHROMYCIN IV 500 MG in SODIUM CHLORIDE 0.9% IV 250 ML IVPB (15:39)
[2025-08-13] MEDS: cefTRIAXone 1 GM in SODIUM CHLORIDE 0.9% IV 50 ML 100 ML IVPB (15:40)
--- OUTSIDE RECORDS SUMMARY | 2025-08-13 15:45 | XMS_ITS | Clinical Summary ---
Author Organization [facility] Address [address] [place] [address] Care Team Providers Care Banking Representative Name Role Phone Orly Coronado MD Primary Care Provider [phone] Source Comments [facility],non-owned Affiliates and Associated Physician Practices is amultiple site organization consisting of ambulatory clinics and hospital sitesin [place], [place], [place] and [place]. This disclosure is being madepursuant to the Care Everywhere program and may not contain all information available regarding this patient. Last updated 18.[employer] [employer] [facility] Allergies No known active allergies Medications * [...] 1 (one) tablet by mouth once daily 5 Active clopidogrel (plaVIX) 75 MG tablet Take 1 (one) tablet by mouth once daily 5 Active fluticasone-vi lanterol (Breo Ellipta) 200-25 MCG/ACT [...] or Milk Free Supplement Examples: Ensure Plant/Orgain 5 Active Additional Information Patient not taking.Reported on 05/30/2025 senna-docusate (Senokot-S) 8.6-50 MG tablet Take 1 (one) tablet by mouth once daily 5 Active famotidine (Pepcid) 20 MG tablet Take 1 (one) tablet by mouth once daily 5 Active metoprolol succinate XL 24hr (Toprol XL) 25 MG tablet Take 0.5 (one-half) tablet by mouth once daily 15 tablet 5 Active acetaminophen (Tylenol) 500 MG tablet Take 1 (one) tablet by mouth every 4 hours as needed for Fever or Pain Maximum allowable Acetaminophen amount = 4 Grams (4000 mg) / 24 hours. 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 05/01/2025 Coronary artery disease invo lving ot[place] coronary artery of ottawa heart with unstable angina pectoris 03/14/2025 Encounters Date Type Department Care Team Description 05/30/2025 3:45 PM CDT Office Visit [facility] [place] [facility] - Cardiothoracic Surgery [address] [place] [address], [place] [phone] Fer Rose MD Coronary artery disease involving ottawa coronary artery 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 (Primary Dx) 05/30/2025 Travel 05/29/2025 Telephone [facility] - Cardiothoracic Surgery [address] [place] [phone] Fer Rose MD Reminder Call 05/24/2025 2:30 PM CDT Office Visit [facility] [place] [facility] - Cardiothoracic Surgery [address], [place] [address] Tr Butts APRNYg Arriola MD S/P CABG x 1 (Primary Dx) 05/24/2025 12:56 PM CDT - 05/24/2025 11:59 PM CDT Hospital Encounter [facility] DIAGNOSTIC RAD OP [address] [place] [address] Tr Butts APRN-CNP Discharge Disposition: Home or Self Care 05/24/2025 12:55 PM CDT Hospital Encounter [facility] LAB OP DRAW STATION [address] [place] [address] Tr Butts APRN-CNP Discharge Disposition: Home or Self Care 05/24/2025 Travel 05/04/2025 8:52 AM CDT - 05/16/2025 4:24 PM CDT Hospital Encounter [facility] 8N ACUTE [address] [place] [address] Yeny Thomason MD [facility] Hersh S, MD Cardiac Catheterization Discharge Disposition: Home Health Care Svc from Last 3 Months Social History Tobacco [...] Recorded Patient Health Questionnaire-2 Score 0 05/30/2025 [facility] - Occupational Stress Questionnaire Answer Date Recorded [...] any time in the past 12 m [facility], were you homeless or living in a senior care (including now)? No 05/09/2025 Comments No Sex [...] 1-dose 75+ series) 2021 COVID-19 VACCINE ( season) 2025 08/04/2021, 12/27/2020, 12/06/2020 INFLUENZA VACCINE (#1) 2025 , 08/03/2022, 06/30/2018, Additional history exists DEPRESSION SCREENING Completed 05/30/2025 HEPATITIS B VACCINE Aged Out No longe r eligible based on patient's age to complete this topic HIB VACCINE Aged Out No longer eligi ble based on patient's age to complete this topic HPV VACCINE Aged Out No longer eligi ble based on patient's age to complete this topic MENINGOCOCCAL (Group B) VACCINE SHARED DECISION-MAKING Aged Out No longer eligible based on patient's age to complete this topic MENINGOCOCCAL GROUPS A/C/Y/W VACCINE Aged Out No longer eligible based on patient's age to complete this topic Medical Devices Implanted Type Area [employer] Professor Device Identifier Shelf Expiration Date Model / Serial / Lot Sys Cor Stent Sng Xd Mr 3mm 28mm Dlv Sys - [id number] Implanted:Qty: 1 on 05/04/2025 by Yeny Thomason MD at [facility] [employer] [facility] [id number] 08/07/2026 [id number] / [id number] / [id number] Kit Impella Intro Shrt 14fr Strl Ltx - [id number] Implanted:Qty: 1 on 05/04/2025 by Yeny Thomason MD at [facility] [employer] [id number] 08/18/2027 [id number] / [id number] / [id number] Set Vntrc Ast 17.4x13.8in Impella Cp 9.3 - [id number] Implanted:Qty: 1 on 05/04/2025 by Yeny Thomason MD at [facility] [employer] 02/14/2027 [id number] / [id number] / [id number] Set Vntrc Ast 17.4x13.8in Impella Cp 9.3 - [id number] Implanted:Qty: 1 on 05/04/2025 at [facility] [employer] 02/14/[id number] / [id number] / [id number] Patch Srg 4x2in Slnt Evarrest Fbrn - [id number] Implanted:Qty: 1 on 05/04/2025 by Fer Rose MD at [facility] [employer] 02/12/2027 [id number] / [id number] / Procedures Procedure Name Priority Date/Time Associated Diagnosis Comments LAB RESULTS ORDER 05/30/2025 11: 28 AM CDT BASIC METABOLIC PANEL (CALCIUM TOTAL) Routine 05/24/2025 1:28 PM CDT 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 S/P CABG (coronary artery bypass graft) CBC W/O DIFFERENTIAL Routine 05/24/2025 1:28 PM CDT 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 S/P CABG (coronary artery bypass graft) XR CHEST 1VW Routine 05/24/2025 1:01 PM CDT 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 S/P CABG (coronary artery bypass graft) APHERESIS/TRANSFUSION ORDER 05/17/2025 11:19 AM CDT EKG 12-LEAD Routine 05/16/2025 3:01 PM CDT S/P CABG (coronary artery bypass graft) GLUCOSE - POINT OF CARE Routine 05/16/2025 11:09 AM CDT GLUCOSE - POINT OF CARE Routine 05/16/2025 7:34 AM CDT XR CHEST 1VW PORTABLE Routine 05/16/2025 4:42 AM CDT 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 PHOSPHORUS BLOOD Routine 05/16/2025 1:35 AM CDT Coronary artery disease involving ottawa coronary artery of ottawa heart with unstable angina pectoris (HCC) MAGNESIUM BLOOD Routine 05/16/2025 1:35 AM CDT Coronary artery disease involving ottawa coronary artery of ottawa heart with unstable angina pectoris (HCC) CBC W/O DIFFERENTIAL Routine 05/16/2025 1:35 AM CDT Coronary artery disease involving ottawa coronary artery of ottawa heart with unstable angina pectoris (HCC) BASIC METABOLIC PANEL (CALCIUM TOTAL) Routine 05/16/2025 1:35 AM CDT Coronary artery disease involving ottawa coronary artery of ottawa heart with unstable angina pectoris (HCC) GLUCOSE - POINT OF CARE Routine 05/15/2025 8:51 PM CDT GLUCOSE - POINT OF CARE Routine 05/15/2025 4:10 PM CDT ECHO LIMITED W CONTRAST COLOR AND DOPPLER Routine 05/15/2025 3:30 PM CDT S/P CABG (coronary artery bypass graft) EKG 12-LEAD Routine 05/15/2025 2:01 PM CDT 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 GLUCOSE - POINT OF CARE Routine 05/15/2025 12:21 PM CDT GLUCOSE - POINT OF CARE Routine 05/15/2025 8:11 AM CDT PHOSPHORUS BLOOD Routine 05/15/2025 1:53 AM CDT Coronary artery disease involving ottawa coronary artery of ottawa heart with unstable angina pectoris (HCC) MAGNESIUM BLOOD Routine 05/15/2025 1:53 AM CDT Coronary artery disease involving ottawa coronary artery of ottawa heart with unstable angina pectoris (HCC) CBC W/O DIFFERENTIAL Routine 05/15/2025 1:53 AM CDT Coronary artery disease involving ottawa coronary artery of ottawa heart with unstable angina pectoris (HCC) BASIC METABOLIC PANEL (CALCIUM TOTAL) Routine 05/15/2025 1:53 AM CDT Coronary artery disease involving ottawa coronary artery of ottawa heart with unstable angina pectoris (HCC) GLUCOSE - POINT OF CARE Routine 05/14/2025 9:08 PM CDT GLUCOSE - POINT OF CARE Routine 05/14/2025 3:32 PM CDT GLUCOSE - POINT OF CARE Routine 05/14/2025 11:34 AM CDT GLUCOSE - POINT OF CARE Routine 05/14/2025 9:03 AM CDT XR CHEST 1VW PORTABLE STAT 05/14/2025 5:24 AM CDT Coronary artery disease involving ottawa coronary artery of ottawa heart with unstable angina pectoris (HCC) PHOSPHORUS BLOOD Routine 05/14/2025 3:29 AM CDT Coronary artery disease involving ottawa coronary artery of ottawa heart with unstable angina pectoris (HCC) MAGNESIUM BLOOD Routine 05/14/2025 3:29 AM CDT Coronary artery disease involving ottawa coronary artery of ottawa heart with unstable angina pectoris (HCC) CBC W/O DIFFERENTIAL Routine 05/14/2025 3:29 AM CDT Coronary artery disease involving ottawa coronary artery of ottawa heart with unstable angina pectoris (HCC) BASIC METABOLIC PANEL (CALCIUM TOTAL) Routine 05/14/2025 3:29 AM CDT Coronary artery disease involving ottawa coronary artery of ottawa heart with unstable angina pectoris (HCC) GLUCOSE - POINT OF CARE Routine 05/13/2025 9:34 PM CDT GLUCOSE - POINT OF CARE Routine 05/13/2025 6:52 PM CDT XR CHEST 1VW PORTABLE STAT 05/13/2025 2:15 PM CDT Postprocedural pneumothorax EKG 12-LEAD Routine 05/13/2025 1:48 PM CDT Coronary artery disease involving ottawa coronary artery of ottawa heart with unstable angina pectoris (HCC) GLUCOSE - POINT OF CARE Routine 05/13/2025 1:10 PM CDT GLUCOSE - POINT OF CARE Routine 05/13/2025 8:34 AM CDT EKG 12-LEAD STAT 05/13/2025 7:18 AM CDT Coronary artery disease involving ottawa coronary artery of ottawa heart with unstable angina pectoris (HCC) XR CHEST 1VW PORTABLE Routine 05/13/2025 4:29 AM CDT Coronary artery disease involving ottawa coronary artery of ottawa heart with unstable angina pectoris (HCC) PHOSPHORUS BLOOD Routine 05/13/2025 4:01 AM CDT Coronary artery disease involving ottawa coronary artery of ottawa heart with unstable angina pectoris (HCC) MAGNESIUM BLOOD Routine 05/13/2025 4:01 AM CDT Coronary artery disease involving ottawa coronary artery of ottawa heart with unstable angina pectoris (HCC) CBC W/O DIFFERENTIAL Routine 05/13/2025 4:01 AM CDT Coronary artery disease involving ottawa coronary artery of ottawa heart with unstable angina pectoris (HCC) BASIC METABOLIC PANEL (CALCIUM TOTAL) Routine 05/13/2025 4:01 AM CDT Coronary artery disease involving ottawa coronary artery of ottawa heart with unstable angina pectoris (HCC) TRANSFUSE RED BLOOD CELL LEUKOREDUCED UNIT(S) Routine 05/13/2025 12:03 AM CDT from Last 3 Months Results * LAB RESULTS ORDER (05/30/2025 11:28 AM CDT) Narrative 05/30/2025 11:28 AM CDT Ordered by an unspecified provider. us Scanned Document LAB - THERAPEUTIC DRUG MONITORI NG ORDERABLES Final Result * (ABNORMAL) CBC W/O DIFFERENTIAL (05/24/2025 1:28 PM CDT) Only the most recent of5 resultswithin the time period is included. WBC 14.6(H) 4.0 - 10.7 x10E9/L 05/24/2025 2:09 PM [facility] RBC Count 4.34 3.90 - 5.20 x10E12/L 05/24/2025 2:09 PM [facility] Hemoglobin 13.5 11.9 - 15.8 g/dL 05/24/2025 2:09 PM [facility] Hematocrit 41.8 34.8 - 46.1 % 05/24/2025 2:09 PM [facility] MCV 96.3 80.0 - 98.0 fL 05/24/2025 2:09 PM [facility] MCH 31.1 26.7 - 33.6 pg 05/24/2025 2:09 PM [facility] MCHC 32.3 31.7 - 36.3 g/dL 05/24/2025 2:09 PM [facility] RDW-CV 17.8(H) 11.3 - 14.8 % 05/24/2025 2:09 PM [facility] Platelet Count 472(H) 150 - 420 x10E9/L 05/24/2025 2:09 PM [facility] MPV 8.9 7.8 - 11.4 fL 05/24/2025 2:09 PM [facility] Blood BLOOD SPECIMEN / Unknown Lab Venipuncture / Unknown 05/24/2025 1:28 PM CDT 05/24/2025 1:43 PM CDT Tr Butts MODEL MAKER-MEDIA PLANNER / BUYER LAB - HEMATOLOGY ORDERAB LES Final Result [facility] [address] [place] [address], [facility] [phone] * (ABNORMAL) BASIC METABOLIC PANEL (CALCIUM TOTAL) (05/24/2025 1:28 PM CDT) Only the most recent of5 resultswithin the time period is included. BUN 25 7 - 26 mg/dL 05/24/2025 2:18 PM [facility] Creatinine 0.62 0.56 - 0.96 mg/dL 05/24/2025 2:18 PM [facility] Sodium 130(L) 136 - 145 mmol/L 05/24/2025 2:18 PM [facility] Potassium 4.9(H) 3.5 - 4.5 mmol/L 05/24/2025 2:18 PM [facility] Chloride 97(L) 98 - 107 mmol/L 05/24/2025 2:18 PM [facility] CO2 23 22 - 29 mmol/L 05/24/2025 2:18 PM [facility] Glucose 103(H) 70 - 99 mg/dL 05/24/2025 2:18 PM [facility] Calcium 10.4(H) 8.4 - 10.2 mg/dL 05/24/2025 2:18 PM [facility] Anion Gap 10 6 - 16 05/24/2025 2:18 PM [facility] BUN/Creatinine Ratio 40(H) 7 - 23 05/24/2025 2:18 PM [facility] Osmolality Calculated 275 275 - 295 mOsm/kg 05/24/2025 2:18 PM CDT [facility] eGFR by CKD-EPI >90 >=90 mL/min/1.7 3 m2 05/24/2025 2:18 PM CDT [facility] Comment:Estimated Glomerular Filtration Rate (eGFR) calculated using the CKD-EPI Creatinine Equation (2020), per the National Kidney Foundation and [place] [employer] of Nephrology recommendations. Blood BLOOD SPECIMEN / Unknown Lab Venipuncture / Unknown 05/24/2025 1:28 PM CDT 05/24/2025 1:44 PM CDT us Tr Butts MODEL MAKER-MEDIA PLANNER / BUYER LAB - CHEMISTRY ORDERABL ES Final Result [facility] [address] [place] [address], [facility] [phone] * XR Chest 1Vw (05/24/2025 1:01 PM CDT) Anatomical Region Laterality Modality Chest Digital Radiogra [...] blank. 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 Normal cardiac medicine silhouette. Atherosclerotic aorta. Similar small right pleural effusion with associated atelectasis. No largepneumothorax. Decreasing soft tissue gas predominantly along the right chest wall. > Interpreting Provider: Dasha Banerjee MD on 05/24/2025 2:31 PM Trkia Butts MODEL MAKER-MEDIA PLANNER / BUYER DIAGNOSTIC IMAGING ORDER LIZZ Final Result * APHERESIS/TRANSFUSION ORDER (05/17/2025 11:19 AM CDT) Narrative 05/17/2025 11:19 AM CDT Ordered by an unspecified provider. Scanned Document NURSING - VITAL SIGNS AND ASSES SMENT Final Result * EKG 12-Lead (05/16/2025 3:01 PM CDT) Only the most recent of4 resultswithin the time period is included. Ventricular Rate 94 BPM [facility]USE Atrial Rate 94 BPM [facility] M[facility] P-R Interval 146 ms [facility] QRS Duration ms 84 ms [facility] MUSE Q-T Interval ms 364 ms [facility] MUSE QTC Calculation (Bezet) 455 ms [facility] MUSE Calculated P [place] 68 degrees [facility] MUSE Calculated R [place] 52 degrees [facility] MUSE Calculated T [place] 86 degrees SL MUSE Interpretation EKG NORMAL SINUS RHYTHM CANNOT RULE OUT ANTEROSEPTAL INFARCT , AGE UNDETERMINED ABNORMAL ECG WHEN COMPARED WITH ECG OF 15-MAY-2025 14:01 NO SIGNIFICANT CHANGE WAS FOUND Confirmed by PALAK CRAIN MD ([id number]) on 06/01/2025 6:30:03 PM [facility] MUSE 05/16/2025 3:01 PM CDT 06/01/2025 6:30 PM CDT Mirtha Goetz PA-C ECG ORDERABLES Edited Result - Final [facility] * (ABNORMAL) GLUCOSE - POINT OF CARE (05/16/2025 11:09 AM CDT) Only the most recent of14 resultswithin the time period is included. Glucose WB/POC 112(H) 70 - 99 mg/dL 05/16/2025 11:13 AM CDT [facility] Specimen Type Arterial/C apillary 05/16/2025 11:13 AM CDT [facility] Blood BLOOD SPECIMEN / Unknown 05/16/2025 11:09 AM CDT 05/16/2025 11:13 AM CDT Fer Rose MD LAB - POINT OF CARE ORDERABLES Final Result [facility] [address] [place] [address], [facility] [phone] * XR Chest 1Vw Portable (05/16/2025 4:42 AM CDT) Only the most recent of4 resultswithin the time period is included. Anatomical [...] blank. 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 Phosphorus 2.9 2.9 - 5.1 mg/dL 05/16/2025 2:59 AM CDT [facility] Blood BLOOD SPECIMEN / Unknown Lab Venipuncture / Unknown 05/16/2025 1:35 AM CDT 05/16/2025 2:22 AM CDT Fer Rose MD LAB - CHEMISTRY ORDERABLES Fin al Result [facility] [address] [place] [address], [facility] [phone] * MAGNESIUM BLOOD (05/16/2025 1:35 AM CDT) Only the most recent of4 resultswithin the time period is included. Magnesium 1.7 1.6 - 2.6 mg/dL 05/16/2025 2:59 AM CDT [facility] Blood BLOOD SPECIMEN / Unknown Lab Venipuncture / Unknown 05/16/2025 1:35 AM CDT 05/16/2025 2:22 AM CDT us Fer Rose MD LAB - CHEMISTRY ORDERABLES Fin al Result [facility] [address] [place] [address], [facility] [phone] * ECHO LIMITED W CONTRAST COLOR AND DOPPLER (05/15/2025 3:30 PM CDT) LV biplane EF 48.959 % [facility] CV [...] no pericardial effusion. Patient Info Name: Rhiannon Hurst Age: 79 years : 1945 Gender: Female Ht: 63 in Wt: 114 lb BSA: 1.51 m2 HR: 92 bpm BP: 99 / 66 mmHg Heart Rhythm: Sinus Rhythm Exam Date: 05/15/2025 2:59 PM Exam Room: 809 Patient Status: I/P Study Site: [facility] Primary Location: [facility] Info Technical Quality: Adequate Exam Type: ECHO [...] Attending Physician: Tr Butts Fellow: Shade Garcia Gunnery/Ordnance Officer: Martina Holbrook Left Ventricle The left ventricle [...] no pericardial effusion. Patient Info Name: Rhiannon Hurst Age: 79 years : 1945 Gender: Female Ht: 63 in Wt: 114 lb BSA: 1.51 m2 HR: 92 bpm BP: 99 / 66 mmHg Heart Rhythm: Sinus Rhythm Exam Date: 05/15/2025 2:59 PM Exam Room: 809 Patient Status: I/P Study [facility] Technical Quality: Adequate Exam Type: ECHO [...] Attending Physician: Tr Butts Fellow: Shade Garcia Gunnery/Ordnance Officer: Martina Holbrook Left Ventricle The left ventricle [...] Fellow Shade Garcia on 05/15/2025 04:47 PM us Tr Beckie MODEL MAKER-MEDIA PLANNER / BUYER ECHO CUPID Final Re sult * TRANSFUSE RED BLOOD CELL LEUKOREDUCED UNIT(S) (05/13/2025 2:28 AM CDT) [facility] Latanya Rose MD NURSING - BLOOD PROD TRANSFUSI ON Final Result from Last 3 Months Insurance MEDICARE MANAGED CARE PLAN GENERIC MEDICARE [facility] Advance Directives * Full Code (Latest Code Status on File) Date Activated Date Inactivated Comments 05/04/2025 10:06 PM 05/16/2025 5:35 PM Care Teams Banking Representative Relationship Specialty Start Date End Date Orly Coronado MD [address] [place] [address] PCP - General Internal Medicine 04/23/25
--- OUTSIDE RECORDS SUMMARY | 2025-08-13 15:45 | XMS_ITS | Clinical Summary ---
Author Organization [facility] System Address [facility] [place] [address] Care Team Providers Care Integration Solution Architect Name Role Phone Orly Coronado MD Primary Care Provider [phone] Allergies No known active allergies Medications albuterol [...] Comments Blood Pressure 110/83 10/23/2020 12:30 AM HEATING FIXTURE TENDER Pulse 70 10/23/2020 12:30 AM HEATING FIXTURE TENDER Temperature 36.1 C (97 F) 10/23/2020 12:17 AM HEATING FIXTURE TENDER Respiratory Rate 13 10/23/2020 12:30 AM HEATING FIXTURE TENDER Oxygen Saturation 94% 10/23/2020 12:30 AM HEATING FIXTURE TENDER Inhaled Oxygen Concentration - - Weight 65.3 kg (144 lb) 10/22/2020 9:24 PM HEATING FIXTURE TENDER Height 162.6 cm (5' 4) 10/22/2020 9:24 PM HEATING FIXTURE TENDER Body Mass Index 24.72 10/22/2020 9:24 PM HEATING FIXTURE TENDER Plan of Treatment Health Maintenance Due Date Last Done Comments Hepatitis C 1963 DTaP, Tdap and Td Vaccines ( 1 - Tdap) 1964 Annual Medicare Wellness Visit 2011 Dexa Scan (General) 2011 Zoster Vaccines (2 of 3) 03/02/2013 01/05/2013 Pneumococcal Vaccine: 50+ Ye ars (2 of 2 - PCV20 or PCV21) 04/15/2016 04/15/2015 RSV Immunization or 60+ Years (1 - 1-dose 75+ series) 2021 COVID-19 Vaccine (1 - 2024-2 6 season) 2025 Influenza Adult (#1) 2025 Hepatitis A Vaccines Aged Out No long er eligible based on patient's age to complete this topic Meningococcal B Vaccine Aged Out No l onger eligible based on patient's age to complete this topic Meningococcal Vaccine Aged Out No zara nito eligible based on patient's age to complete this topic RSV Immunizations Under 20 Months Aged Out No longer eligible based on patient's age to complete this topic Insurance MEDICARE MEDICAID Care Teams Integration Solution Architect Relationship Specialty Start Date End Date Orly Coronado MD [address] [place] [id number] PCP - General INTERNAL MEDICINE 10/22/20
--- OUTSIDE RECORDS SUMMARY | 2025-08-13 15:45 | XMS_ITS | Encounter Summary ---
Author Organization [facility] Address [facility] [place] [address] Care Team Providers Care Network Program Manager Name Role Phone Orly Coronado MD Primary Care Provider [phone] Encounter Details Date Type Department Care Team (Late st Contact Info) Description 01/01/2018 Abstract [facility] CONVERSION [address] [place] [address] , Generic Conversion, Social History Tobacco Use [...] on filedocumented in this encounter Care Teams Network Program Manager Relationship Specialty Start Date End Date Orly Coronado MD [address] [place] [address] PCP - General INTERNAL MEDICINE 10/22/20 documented as of this encounter
--- OUTSIDE RECORDS SUMMARY | 2025-08-13 15:46 | XMS_ITS | Clinical Summary ---
Author Organization [facility] Address [address] [place] [address] Care Team Providers Care White Sugar Syrup Operator Name Role Phone Orly Coronado MD Primary Care Provider [phone] Ernesto Milton MD Unavailable Yeny Thomason MD Unavailable [phone] Allergies No known active allergies Medications Ipratropium-Alb uterol (COMBIVENT IN) take by inhalation as needed. Active montelukast (SINGULAIR) 10 MG Tablet Take 10 mg by mouth every evening. Active ALBUTEROL IN take by inhalation. Active Fluticasone Furoate-Vilante rol (Breo Ellipta) 200-25 MCG/ACT AEROSOL POWDER, BREATH ACTIVATED take 1 Puff by inhalation daily. Active ipratropium-alb uterol (DUO-NEB) 0.5-2.5 (3) MG/3ML Solution by Nebulization route 4 times daily. Active ARLENE ASPIRIN PO Take 81 mg by mouth once. Active VITAMIN D PO Take by mouth. Ac tive Multiple Vitamins-Minera ls (CENTRUM PO) Take by mouth. Active spironolactone (ALDACTONE) 50 MG Tablet Take 50 mg by mouth daily. Active metoprolol Succinate (TOPROL-XL) 25 MG TABLET SR 24 HR 5 Active clopidogrel (PLAVIX) 75 MG Tablet Take 1 Tablet by mouth daily. 90 Tablet 5 Active Cholecalciferol (Vitamin D-3 Super Strength) 50 mcg Tablet Take 50 mcg by mouth daily. Active acetaminophen (TYLENOL) 500 MG TabletIndicatio ns:Abnormal stress test Take 500 mg by mouth. Active furosemide (LASIX) 20 MG TabletIndicatio ns:Abnormal stress test Active atorvastatin (LIPITOR) 40 MG TabletIndicatio ns:Abnormal stress test Take 40 mg by mouth daily. Active Zinc Oxide-Vitamin C (ZINC PLUS VITAMIN C PO)Indications: Abnormal stress test Take by mouth. Activ e Sennosides-Docu sate Sodium (SENOKOT S PO)Indications: Abnormal stress test Take 17.2 mg by mouth daily. Active Active Problems Problem Noted Date Diagnosed Date Hx of CABG 06/10/2025 Abnormal stress test 03/19/2025 CAD (coronary artery disease) 03/08/2025 Other emphysema 02/20/2025 Nonrheumatic aortic (valve) stenosis Hypertension Chronic obstructive pulmonary disease (COPD) Resolved Problems Problem Noted Date Diagnosed Date Resolved Date Unstable angina 03/07/2025 03/08/2025 Encounters Date Type Department Care Team Description 08/03/2025 9:55 AM CDT - 08/03/2025 11:59 PM CDT Hospital Encounter [facility] [address] [place] [address] Yeny Thomason MD Discharge Disposition: Discharged to home or Selfcare 08/03/2025 Travel 07/10/2025 11:45 AM CDT Office Visit [facility] [address] [place] [address] Yeny Thomason MD Coronary artery disease involving shinnecock coronary artery of shinnecock heart without angina pectoris (Primary Dx); Hx of CABG; Abnormal stress test; Primary hypertension Discharge Disposition: Discharged to home or Selfcare 07/10/2025 Travel 06/07/2025 1:00 PM CDT Office Visit [facility] [address] [place] [address] Yeny Thomason MD Abnormal stress test (Primary Dx); Primary hypertension; Nonrheumatic aortic (valve) stenosis; Hx of CABG Discharge Disposition: Discharged to home or Selfcare 06/07/2025 Travel from Last 3 Months Family History Medical History Relation Name Comments Alcohol Abuse Father Congestive Heart Failure Mother Heart Attack Mother Relation Name Status Comments Father Mother Social History Tobacco Use Types Packs/Day Years Used Date Smoking Tobacco: Former Cigarettes 1.5 23 1 2012 Smokeless Tobacco: Never Tobacco Cessation:Counseling Given: Not Answered Alcohol Use Standard Drinks/Week Comments Not Currently 0 (1 standard drink = 0.6 oz pur e alcohol) [facility] Utilities Answer Date Recorded In the past 12 months has e electric, gas, oil, or water [employer] threatened to shut off services in your home? Patient declined 03/07/2025 Social Connection and Isolation Panel Answer Date Recorded In a typical week, how many times do you talk on the phone with family, friends, or neighbors? Patient declined 03/07/2025 How often do you get togethe r with friends or relatives? Patient declined 03/07/2025 How often do you attend hinduism or judaism serv ices? Patient declined 03/07/2025 Do you belong to any clubs o r organizations such as hinduism groups, unions, fraternal or athletic groups, or [...] medical care, and heating? Patient declined 03/07/2025 [facility] [place] of Occupat ional Health - Occupational Stress [...] any time in the past 12 m [facility], were you homeless or living in a fci (including now)? Patient declined 03/07/2025 Sexually Active Control Partners Comments Not Currently Post-menopausal Comments No Sex and Gender Information Value Date Recorded Sex Assigned at Not on file Legal Sex Female 11:30 AM CDT Gender Identity Not on file Sexual Orientation Not on file Last Filed Vital Signs Vital Sign Reading Time Taken Comments Blood Pressure 100/70 07/10/2025 11:47 AM CDT Pulse 69 07/10/2025 11:47 AM CDT Temperature 36.3 C (97.4 F) 07/10/2025 11:47 AM CDT Respiratory Rate 16 07/10/2025 11:47 AM CDT Oxygen Saturation 99% 07/10/2025 11:47 AM CDT Inhaled Oxygen Concentration - - Weight 47.2 kg (104 lb) 07/10/2025 11:47 AM CDT Height 160 cm (5' 3) 07/10/2025 11:47 AM CDT Body Mass Index 18.42 07/10/2025 11:47 AM CDT Plan of Treatment Upcoming Encounters Date Type Department Care Team (Late st Contact Info) Description 09/11/2025 11:00 AM OFFICE COPY SELECTOR Office Visit [facility] - [facility]iology - [place] [address] [place] [address] Yeny Thomason MD [address], [facility] [email or web address] [address] [place] [id number] Health Maintenance Due Date Last Done Comments DEXA Bone Density 1945 Hepatitis C Virus (HCV) Screening 1945 Zoster Immunization (2 of 3) 03/02/2013 01/05/2013 Medicare Initial AWV [id number] 07/18/2022 Influenza Immunization (#1) 06/18/202505/19, 08/03/2023, 08/03/2022, Additional history exists SARS-COV-2 Immunization ( season) 2025 07/06/2024, 08/27/2023, 08/04/2021, Additional history exists Lung Cancer Screening 04/26/2026 04/26/2025 , 04/25/2025, 04/25/2025, Additional history exists Pneumococcal Immunization (50+ years) [...] ADULT TRANS THORACIC ECHO 2D COMPLETE Routine 08/03/2025 11:02 AM CDT Coronary artery disease involving shinnecock coronary artery of shinnecock heart without angina pectoris CMP (COMPREHENSIVE METABOLIC PANEL) Routine 06/07/2025 2:16 PM CDT Primary hypertension from Last 3 Months Results * ADULT TRANS THORACIC ECHO 2D COMPLETE (08/03/2025 11:02 AM CDT) [facility] Signature AV Peak Grad mmHg 7.84 mmHg RESULTING AGENCY Mean Aortic Valve Gradient (MAVG) 4 mmHg RESULTING AGENCY LV end octavio diam cm 4.7 cm RESULTING AGENCY LV end sys diam cm 3.7 cm RESULTING AGENCY Aortic Root Diam cm 2.7 cm RESULTING AGENCY LA vol index ml/m2 28 ml/m2 RESULTING AGENCY LVOT Peak Od[place] m/sec 1.08 m/sec RESULTING AGENCY AV Peak Domingo m/sec 1.4 m/sec RESULTING AGENCY MV Mean Grad mmHg 3 mmHg RESULTING AGENCY MVA by PHT cm2 4.49 cm2 RESUL TING AGENCY MV Regurgitant vol ml 0.08 ml RESULTING AGENCY MV ERO cm2 0.08 cm2 RESULTING AGENCY E/E' 13.2 RESULTING AGENCY AV Area (VTI) cm2 2.18 cm2 RESULTING AGENCY SEPTUM DIASTOLIC CM 0.4 cm RESULTING AGENCY PW DIASTOLIC CM 1.4 cm RESU LTING AGENCY LA VOLUME 40.7 ml RESULTING AGENCY LV EF(estimated)% 38 RESULTING AGENCY Anatomical Region Laterality Modality CARDIO N/A Ultrasound Narrative 08/05/2025 3:36 PM CDT Transthoracic Echocardiography Report (TTE) Patient name JODI Rivas.O.B. 1945 Patient ID (UPI) [id number] Study Date08/03/2025 Technical quality: Adequate Type of Study: TTE procedure: Adult Trans Thoracic Echo 2D Complete. Priority:RoutineHR: 101 bpmBP: 116/77 mmHg Conclusions Summary - Mildly dilated LV with moderately reduced systolic function. Estimated LVEF 35-40%. 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 - Normal RV size with mildly reduced systolic function - Moderate mitral regurgitation (likely underestimated), consider GENE if clinically indicated - Mild TR Findings Mitral Valve The mitral valve is normal. No evidence of mitral stenosis. - Moderate mitral regurgitation (likely underestimated), consider GENE if clinically indicated Aortic Valve The aortic valve is trileaflet with normal leaflet excursion. There is no evidence of aortic valve stenosis. There is no significant aortic valve insufficiency. Tricuspid Valve The tricuspid valve is normal. There is no evidence of tricuspid stenosis. There is mild tricuspid regurgitation. There is no evidence of pulmonary hypertension. Pulmonic Valve Not well visualized, no evidence by Doppler interrogation for significant stenosis or regurgitation. Left Atrium The left atrium size is normal. Left Ventricle - Mildly dilated LV with moderately reduced systolic function. Estimated LVEF 35-40%. 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 - Indeterminate diastolic function Right Atrium The right atrium size is normal. Right Ventricle - Normal RV size with mildly reduced systolic function Pericardial Effusion The pericardium is normal. There is no pericardial effusion visualized. Miscellaneous Aortic root and proximal ascending aorta are normal in size. Atrial septum appears intact. IVC is normal in size and respiratory response. Aortic arch appears normal. Valves Mitral Valve Area (PHT): 4.49 cm^2 Area (continuity): 2.62 cm^2 Peak E-Wave: 1.13 m/s Area (PISA): 0.08 cm^2 Peak Gradient: 5.11 mmHg Mean Velocity: 0.87 m/s P1/2t: 49 msec Mean Gradient: 3 mmHg PISA Radius: 0.4 cm Deceleration Time: 168 msec Alias Velocity: 0.39 m/s MR Velocity: 4.89 m/s Regurgitant Volume:12.56 ml MR VTI: 157 cm MIRNA PISA: 0.08 cm^2 Tissue Doppler E' Velocity: 0.08 m/s E/E':13.2 E/Lat E': 13.2 E/Med E':12.8 Aortic Valve Area (continuity): 2.18 cm^2 Mean Velocity: 0.94 m/s Area (VTI):2.17 cm^2 Mean Gradient: 4 mmHg Peak Velocity: 1.40 m/s AV VTI: 25.2 cm Peak Gradient: 7.84 mmHg Tricuspid Valve Peak E-Wave: 0.63 m/s Peak Gradient: 1.61 mmHg Pulmonic Valve Peak Velocity: 0.96 m/s Mean Velocity: 0.61 m/s Peak Gradient: 3.75 mmHg Mean Gradient: 2 mmHg LVOT Peak Velocity: 1.08 m/s Mean Velocity: 0.70 m/s Peak Gradient: 5 mmHg Mean Gradient: 2 mmHg LVOT Diameter: 1.9 cm LVOT VTI: 19.3 cm Stroke Volume: 55 ml Stroke Volume Index: 37.67 ml/m^2 Structures Left Ventricle Diastolic Dimension: 4.7 cm Systolic Dimension: 3.7 cm Septum Diastolic: 0.4 cm Septum Systolic: 0.4 cm PW Diastolic: 1.4 cm PW Systolic: 2 cm Diastolic Length: 28.2 cm Systolic Length: 18.9 cm EF Calculated: 44.98% CI: 3.78 l/min*m^2 CO: 5.52 l/min RWT: 0.6 LV EDV: 81.6 ml FS: 21.28 % LV EDV Index: 56 m^2 LV Length: 7.45 cm LV ESV: 44.9 ml LVOT Diameter: 1.9 cm LV ESV Index: 31 m^2 Right Ventricle RVOT (PLAX) diameter:2.3 cm Tissue Doppler RV S': 6.85 TAPSE: 0.78 cm Left Atrium LA Systolic Pressure: 18.44 mmHg LA Area: 16.9 cm^2 LA Volume: 40.7 ml LA Index: 28ml/m^2 Right Atrium RA Area: 7.36 cm^2 Great Vessels Aorta Ascending Aorta: 2.4 cm Aorta Root:2.7 cm Ascending Aorta Index:1.64 cm/m^2 Billing ICD 9 Codes 1) 125.10-Coronary artery disease invoulving shinnecock coronary arterty of heart without angina pectoris. Demographics Age 79 Gender Female Race Height 62.99 in. Weight 103.99 lbs. BMI (BSA) 18.43 kg/m^2 (1.46 m^2) Dehydration Unit Operator Eduardo Tillman Referring Paddy Saini Physician Aiden Physician Procedure Note Aiden Tillman MD - 08/05/2025 Transthoracic Echocardiography Report (TTE) Patient name JODI De La Cruz 1945 Patient ID ([facility]) [id number] Study Date08/03/2025 Technical quality: Adequate Type of Study: TTE procedure: Adult Trans Thoracic Echo 2D Complete. Priority:RoutineHR: 101 bpmBP: 116/77 mmHg Conclusions Summary - Mildly dilated LV with moderately reduced systolic function. Estimated LVEF 35-40%. 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 - Normal RV size with mildly reduced systolic function - Moderate mitral regurgitation (likely underestimated), consider GENE if clinically indicated - Mild TR Findings Mitral Valve The mitral valve is normal. No evidence of mitral stenosis. - Moderate mitral regurgitation (likely underestimated), consider GENE if clinically indicated Aortic Valve The aortic valve is trileaflet with normal leaflet excursion. There is no evidence of aortic valve stenosis. There is no significant aortic valve insufficiency. Tricuspid Valve The tricuspid valve is normal. There is no evidence of tricuspid stenosis. There is mild tricuspid regurgitation. There is no evidence of pulmonary hypertension. Pulmonic Valve Not well visualized, no evidence by Doppler interrogation for significant stenosis or regurgitation. Left Atrium The left atrium size is normal. Left Ventricle - Mildly dilated LV with moderately reduced systolic function. Estimated LVEF 35-40%. 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 - Indeterminate diastolic function Right Atrium The right atrium size is normal. Right Ventricle - Normal RV size with mildly reduced systolic function Pericardial Effusion The pericardium is normal. There is no pericardial effusion visualized. Miscellaneous Aortic root and proximal ascending aorta are normal in size. Atrial septum appears intact. IVC is normal in size and respiratory response. Aortic arch appears normal. Valves Mitral Valve Area (PHT): 4.49 cm^2 Area (continuity): 2.62 cm^2 Peak E-Wave: 1.13 m/s Area (PISA): 0.08 cm^2 Peak Gradient: 5.11 mmHg Mean Velocity: 0.87 m/s P1/2t: 49 msec Mean Gradient: 3 mmHg PISA Radius: 0.4 cm Deceleration Time: 168 msec Alias Velocity: 0.39 m/s MR Velocity: 4.89 m/s Regurgitant Volume:12.56 ml MR VTI: 157 cm MIRNA PISA: 0.08 cm^2 Tissue Doppler E' Velocity: 0.08 m/s E/E':13.2 E/Lat E': 13.2 E/Med E':12.8 Aortic Valve Area (continuity): 2.18 cm^2 Mean Velocity: 0.94 m/s Area (VTI):2.17 cm^2 Mean Gradient: 4 mmHg Peak Velocity: 1.40 m/s AV VTI: 25.2 cm Peak Gradient: 7.84 mmHg Tricuspid Valve Peak E-Wave: 0.63 m/s Peak Gradient: 1.61 mmHg Pulmonic Valve Peak Velocity: 0.96 m/s Mean Velocity: 0.61 m/s Peak Gradient: 3.75 mmHg Mean Gradient: 2 mmHg LVOT Peak Velocity: 1.08 m/s Mean Velocity: 0.70 m/s Peak Gradient: 5 mmHg Mean Gradient: 2 mmHg LVOT Diameter: 1.9 cm LVOT VTI: 19.3 cm Stroke Volume: 55 ml Stroke Volume Index: 37.67 ml/m^2 Structures Left Ventricle Diastolic Dimension: 4.7 cm Systolic Dimension: 3.7 cm Septum Diastolic: 0.4 cm Septum Systolic: 0.4 cm PW Diastolic: 1.4 cm PW Systolic: 2 cm Diastolic Length: 28.2 cm Systolic Length: 18.9 cm EF Calculated: 44.98% CI: 3.78 l/min*m^2 CO: 5.52 l/min RWT: 0.6 LV EDV: 81.6 ml FS: 21.28 % LV EDV Index: 56 m^2 LV Length: 7.45 cm LV ESV: 44.9 ml LVOT Diameter: 1.9 cm LV ESV Index: 31 m^2 Right Ventricle RVOT (PLAX) diameter:2.3 cm Tissue Doppler RV S': 6.85 TAPSE: 0.78 cm Left Atrium LA Systolic Pressure: 18.44 mmHg LA Area: 16.9 cm^2 LA Volume: 40.7 ml LA Index: 28ml/m^2 Right Atrium RA Area: 7.36 cm^2 Great Vessels Aorta Ascending Aorta: 2.4 cm Aorta Root:2.7 cm Ascending Aorta Index:1.64 cm/m^2 Billing ICD 9 Codes 1) 125.10-Coronary artery disease invoulving shinnecock coronary arterty of heart without angina pectoris. Demographics Age 79 Gender Female Race Height 62.99 in. Weight 103.99 lbs. BMI (BSA) 18.43 kg/m^2 (1.46 m^2) Dehydration Unit Operator Eduardo Tillman Referring Paddy Saini Physician Aiden Physician Yeny Thomason MD IM ECHO ORDERABLES Edited R esult - Final * (ABNORMAL) CMP (COMPREHENSIVE METABOLIC PANEL) (06/07/2025 2:16 PM CDT) SODIUM 134(L) 136 - 145 mmol/L 06/07/2025 5:05 PM CDT [facility] POTASSIUM 4.4 3.5 - 5.1 mmol/L 06/07/2025 5:05 PM CDT [facility] CHLORIDE 95(L) 98 - 107 mmol/L 06/07/2025 5:05 PM CDT [facility] CO2, VENOUS 26 22 - 30 mmol/L 06/07/2025 5:05 PM CDT [facility] ANION GAP 17.4 <18.0 mmol/L 06/07/2025 5:05 PM CDT [facility] GLUCOSE 89 70 - 99 mg/dL 06/07/2025 5:05 PM [facility] BUN 24(H) 10 - 20 mg/dL 06/07/2025 5:05 PM [facility] CREATININE, BLOOD 0.58(L) 0.60 - 1.00 mg/dL 06/07/2025 5:05 PM [facility] BUN/CREATININE RATIO 41(H) 12 - 20 ratio 06/07/2025 5:05 PM [facility] TOTAL PROTEIN 7.1 6.0 - 8.0 g/dL 06/07/2025 5:05 PM [facility] ALBUMIN 4.2 3.5 - 5.0 g/dL 06/07/2025 5:05 PM [facility] A/G RATIO 1.4 1.0 - 2.2 06/07/2025 5:05 PM [facility] CALCIUM 10.6(H) 8.7 - 10.5 mg/dL 06/07/2025 5:05 PM [facility] T BILI 0.5 0.2 - 1.2 mg/dL 06/07/2025 5:05 PM [facility] SGOT (AST) 46(H) <43 U/L 06/07/2025 5:05 PM [facility] SGPT (ALT) 52 <56 U/L 06/07/2025 5:05 PM [facility] ALKALINE PHOSPHATASE 274(H) 40 - 150 U/L 06/07/2025 5:05 PM [facility] IS THE PATIENT REQUIRED TO BE FASTING? No 06/07/2025 5:05 PM [facility] GFR, ESTIMATED >60 >=60 06/07/2025 5:05 PM [facility] Comment: Creatinine Clearance is the preferred criteria for selecting drug dose adjustments in renally impaired patients. The GFR is provided as additional pertinent clinical information. GFR is reported in mL/min/1.73 sq m. Calculation based on the 2020 Chronic Kidney Disease Epidemiology Collaboration (CKD-EPI) equation refit without adjustment for race. GFR, EST. >60 >=60 025 5:05 PM CDT [facility] Comment: Creatinine Clearance is the preferred criteria for selecting drug dose adjustments in renally impaired patients. The GFR is provided as additional pertinent clinical information. GFR is reported in mL/min/1.73 sq m. Calculation based on the 2009 Chronic Kidney Disease Epidemiology Collaboration (CKD-EPI). GFR, EST. NONAFRICAN >60 >=60 06/07/2025 5:05 PM CDT [facility] Comment: Creatinine Clearance is the preferred criteria for selecting drug dose adjustments in renally impaired patients. The GFR is provided as additional pertinent clinical information. GFR is reported in mL/min/1.73 sq m. Calculation based on the 2009 Chronic Kidney Disease Epidemiology Collaboration (CKD-EPI). Blood Venipuncture / Unknown 06/07/2025 2:16 PM CDT 06/07/2025 4:26 PM CDT us Yeny Thomason MD CHEMISTRY ORDERABLES Final R esult [facility] [address] [place] [address] from Last 3 Months Insurance MEDICARE C [employer] Advance Directives * Full Code (Latest Code Status on File) Date Activated Date Inactivated Comments 03/07/2025 4:26 PM CPR-Full Treat ment: FULL ARREST: Attempt Resuscitation/CPR wit intubation and mechanical ventilation. PRE-ARREST: Use entire range of life support measures to stabilize the patient. Care Teams White Sugar Syrup Operator Relationship Specialty Start Date End Date Orly Coronado MD [address] [place] [address] PCP - General Internal Medicine 01/19/25 Ernesto Milton MD [address] [place] [address] Consulting Physician Pulmonary Disease 02/20/25 Yeny Thomason MD [address] [address] Consulting Physician Cardiology 06/08/25
--- NOTE | 2025-08-13 15:54 | PC.NURSE ---
RN calls second floor for bed assignment. Pt assigned room 203.
[2025-08-13 16:07] VITALS: BP 109/73; PULSE 60; RESP 16; TEMP 36.5; O2SAT 95
--- OUTSIDE RECORDS SUMMARY | 2025-08-13 16:16 | XMS_ITS | Clinical Summary ---
Author Organization [facility] Address [address] [place] [address] Care Team Providers Care Supervisor Public Message Service Name Role Phone Orly Coronado MD Primary Care Provider [phone] Source Comments [facility],non-owned Affiliates and Associated Physician Practices is amultiple site organization consisting of ambulatory clinics and hospital sitesin [place], [place]. This disclosure is being madepursuant to the Care Everywhere program and may not contain all information available regarding this patient. Last updated 18.How do you roll? 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, [place]), [place] [address] Tr Butts APRNYg Arriola MD S/P CABG x 1 (Primary Dx) 05/24/2025 12:56 PM CDT - 05/24/2025 11:59 PM CDT Hospital Encounter [facility] DIAGNOSTIC RAD OP [address] [place] [address] Tr Butts APRN-CNP Discharge Disposition: Home or Self Care 05/24/2025 12:55 PM CDT Hospital Encounter [facility] LAB OP DRAW STATION [address] [place] [address] Tr Butts APRN-CNP Discharge Disposition: Home or Self Care 05/24/2025 Travel 05/04/2025 8:52 AM CDT - 05/16/2025 4:24 PM CDT Hospital Encounter [facility] 8N ACUTE [address] [place] [address] eYny Thomason MD [facility] burns Hersh S, MD Cardiac [...] Recorded Patient Health Questionnaire-2 Score 0 05/30/2025 [facility] - Occupational Stress Questionnaire Answer Date [...] any time in the past 12 m [facility], were you homeless or living in a fpc (including now)? No 05/09/2025 Comments No Sex [...] this topic Medical Devices Implanted Type Area Newscast Director Device Identifier Shelf Expiration Date Model / Serial / Lot Sys Cor Stent Sng Xd Mr 3mm 28mm Dlv Sys - [id number] Implanted:Qty: 1 on 05/04/2025 by Yeny Thomason MD at [facility] [employer] [facility] [id number] 08/07/2026 [id number] / [id number] / [id number] Kit Impella Intro Shrt 14fr Strl Ltx - [id number] Implanted:Qty: 1 on 05/04/2025 by Yeny Thomason MD at [facility] [employer] [id number] 08/18/2027 [id number] / [id number] / [id number] Set Vntrc Ast 17.4x13.8in Impella Cp 9.3 - [id number] Implanted:Qty: 1 on 05/04/2025 by Yeny Thomason MD at [facility] [employer] 02/14/2027 [id number] / [id number] / [id number] Set Vntrc Ast 17.4x13.8in Impella Cp 9.3 - [id number] Implanted:Qty: 1 on 05/04/2025 at [facility] [employer] 02/14/[id number] / [id number] / [id number] Patch Srg 4x2in Slnt Evarrest Fbrn - [id number] Implanted:Qty: 1 on 05/04/2025 by Fer Rose MD at [facility] [employer] 02/12/2027 [id number] / [id number] / Procedures Procedure Name Priority Date/Time Associated Diagnosis Comments LAB RESULTS ORDER 05/30/2025 11: 28 AM CDT BASIC METABOLIC PANEL (CALCIUM TOTAL) Routine 05/24/2025 1:28 PM CDT 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 S/P CABG (coronary artery bypass graft) CBC W/O DIFFERENTIAL Routine 05/24/2025 1:28 PM CDT 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 S/P CABG (coronary artery bypass graft) XR CHEST 1VW Routine 05/24/2025 1:01 PM CDT 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 S/P CABG (coronary artery bypass graft) APHERESIS/TRANSFUSION ORDER 05/17/2025 11:19 AM CDT EKG 12-LEAD Routine 05/16/2025 3:01 PM CDT S/P CABG (coronary artery bypass graft) GLUCOSE - POINT OF CARE Routine 05/16/2025 11:09 AM CDT GLUCOSE - POINT OF CARE Routine 05/16/2025 7:34 AM CDT XR CHEST 1VW PORTABLE Routine 05/16/2025 4:42 AM CDT 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 PHOSPHORUS BLOOD Routine 05/16/2025 1:35 AM CDT 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 (HCC) MAGNESIUM BLOOD Routine 05/16/2025 1:35 AM CDT 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 (HCC) CBC W/O DIFFERENTIAL Routine 05/16/2025 1:35 AM CDT 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 (HCC) BASIC METABOLIC PANEL (CALCIUM TOTAL) Routine 05/16/2025 1:35 AM CDT 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 (HCC) GLUCOSE - POINT OF CARE Routine 05/15/2025 8:51 PM CDT GLUCOSE - POINT OF CARE Routine 05/15/2025 4:10 PM CDT ECHO LIMITED W CONTRAST COLOR AND DOPPLER Routine 05/15/2025 3:30 PM CDT S/P CABG (coronary artery bypass graft) EKG 12-LEAD Routine 05/15/2025 2:01 PM CDT 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 GLUCOSE - POINT OF CARE Routine 05/15/2025 12:21 PM CDT GLUCOSE - POINT OF CARE Routine 05/15/2025 8:11 AM CDT PHOSPHORUS BLOOD Routine 05/15/2025 1:53 AM CDT 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 (HCC) MAGNESIUM BLOOD Routine 05/15/2025 1:53 AM CDT 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 (HCC) CBC W/O DIFFERENTIAL Routine 05/15/2025 1:53 AM CDT 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 (HCC) BASIC METABOLIC PANEL (CALCIUM TOTAL) Routine 05/15/2025 1:53 AM CDT 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 (HCC) GLUCOSE - POINT OF CARE Routine 05/14/2025 9:08 PM CDT GLUCOSE - POINT OF CARE Routine 05/14/2025 3:32 PM CDT GLUCOSE - POINT OF CARE Routine 05/14/2025 11:34 AM CDT GLUCOSE - POINT OF CARE Routine 05/14/2025 9:03 AM CDT XR CHEST 1VW PORTABLE STAT 05/14/2025 5:24 AM CDT 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 (HCC) PHOSPHORUS BLOOD Routine 05/14/2025 3:29 AM CDT 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 (HCC) MAGNESIUM BLOOD Routine 05/14/2025 3:29 AM CDT 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 (HCC) CBC W/O DIFFERENTIAL Routine 05/14/2025 3:29 AM CDT 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 (HCC) BASIC METABOLIC PANEL (CALCIUM TOTAL) Routine 05/14/2025 3:29 AM CDT 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 (HCC) GLUCOSE - POINT OF CARE Routine 05/13/2025 9:34 PM CDT GLUCOSE - POINT OF CARE Routine 05/13/2025 6:52 PM CDT XR CHEST 1VW PORTABLE STAT 05/13/2025 2:15 PM CDT Postprocedural pneumothorax EKG 12-LEAD Routine 05/13/2025 1:48 PM CDT 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 (HCC) GLUCOSE - POINT OF CARE Routine 05/13/2025 1:10 PM CDT GLUCOSE - POINT OF CARE Routine 05/13/2025 8:34 AM CDT EKG 12-LEAD STAT 05/13/2025 7:18 AM CDT 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 (HCC) XR CHEST 1VW PORTABLE Routine 05/13/2025 4:29 AM CDT 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 (HCC) PHOSPHORUS BLOOD Routine 05/13/2025 4:01 AM CDT 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 RBC Count 4.34 3.90 - 5.20 x10E12/L 05/24/2025 2:09 PM [facility] Hemoglobin 13.5 11.9 - 15.8 g/dL 05/24/2025 2:09 PM [facility] Hematocrit 41.8 34.8 - 46.1 % 05/24/2025 2:09 PM [facility] MCV 96.3 80.0 - 98.0 fL 05/24/2025 2:09 PM [facility] MCH 31.1 26.7 - 33.6 pg 05/24/2025 2:09 PM [facility] MCHC 32.3 31.7 - 36.3 g/dL 05/24/2025 2:09 PM [facility] RDW-CV 17.8(H) 11.3 - 14.8 % 05/24/2025 2:09 PM [facility] Platelet Count 472(H) 150 - 420 x10E9/L 05/24/2025 2:09 PM [facility] MPV 8.9 7.8 - 11.4 fL 05/24/2025 2:09 PM [facility] Blood BLOOD SPECIMEN / Unknown Lab Venipuncture / Unknown 05/24/2025 1:28 PM CDT 05/24/2025 1:43 PM CDT Tr Butts ORTHODONTIC BAND MAKER-GUEST EXPERIENCE CAPTAIN LAB - HEMATOLOGY ORDERAB LES Final Result [facility] [address] [place] [address], [facility] [phone] * (ABNORMAL) BASIC METABOLIC PANEL (CALCIUM TOTAL) (05/24/2025 1:28 PM CDT) Only the most recent of5 resultswithin the time period is included. BUN 25 7 - 26 mg/dL 05/24/2025 2:18 PM [facility] Creatinine 0.62 0.56 - 0.96 mg/dL 05/24/2025 2:18 PM [facility] Sodium 130(L) 136 - 145 mmol/L 05/24/2025 2:18 PM [facility] Potassium 4.9(H) 3.5 - 4.5 mmol/L 05/24/2025 2:18 PM [facility] Chloride 97(L) 98 - 107 mmol/L 05/24/2025 2:18 PM [facility] CO2 23 22 - 29 mmol/L 05/24/2025 2:18 PM [facility] Glucose 103(H) 70 - 99 mg/dL 05/24/2025 2:18 PM [facility] Calcium 10.4(H) 8.4 - 10.2 mg/dL 05/24/2025 2:18 PM [facility] Anion Gap 10 6 - 16 05/24/2025 2:18 PM [facility] BUN/Creatinine Ratio 40(H) 7 - 23 05/24/2025 2:18 PM [facility] Osmolality Calculated 275 275 - 295 mOsm/kg 05/24/2025 2:18 PM CDT [facility] eGFR by CKD-EPI >90 >=90 mL/min/1.7 3 m2 05/24/2025 2:[address] [facility] Comment:Estimated Glomerular Filtration Rate (eGFR) calculated using the CKD-EPI Creatinine Equation (2020), per the National Kidney Foundation and [place] [employer] Neph[employer] recommendations. Blood BLOOD SPECIMEN / Unknown Lab Venipuncture / Unknown 05/24/2025 1:28 PM CDT 05/24/2025 1:44 PM CDT us Tr Butts ORTHODONTIC BAND MAKER-GUEST EXPERIENCE CAPTAIN LAB - CHEMISTRY ORDERABL ES Final Result [facility] [address] [place] [address], [facility] [phone] * XR Chest 1Vw (05/24/2025 1:01 PM [...] blank. 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 Normal cardiac medicine silhouette. Atherosclerotic aorta. Similar small right pleural effusion with associated atelectasis. No largepneumothorax. Decreasing soft tissue gas predominantly along the right chest wall. > Interpreting Provider: Dasha Banerjee MD on 05/24/2025 2:31 PM Trkia Butts ORTHODONTIC BAND MAKER-GUEST EXPERIENCE CAPTAIN DIAGNOSTIC IMAGING ORDER LIZZ Final Result * APHERESIS/TRANSFUSION ORDER (05/17/2025 11:19 AM CDT) Narrative 05/17/2025 11:19 AM CDT Ordered by an unspecified provider. Scanned Document NURSING - VITAL SIGNS AND ASSES SMENT Final Result * EKG 12-Lead (05/16/2025 3:01 PM CDT) Only the most recent of4 resultswithin the time period is included. Ventricular Rate 94 BPM [facility] MUSE Atrial Rate [address] [facility] MUSE P-R Interval [address] [facility] MUSE QRS Duration ms [address] [facility] MUSE Q-T Interval ms [address] [facility] MUSE QTC Calculation (Bezet) [address] [facility] MUSE Calculated P [place] 68 degrees SL MUSE Calculated R [place] 52 degrees SL MUSE Calculated T [place] 86 degrees SL MUSE Interpretation EKG NORMAL SINUS RHYTHM CANNOT RULE OUT ANTEROSEPTAL INFARCT , AGE UNDETERMINED ABNORMAL ECG WHEN COMPARED WITH ECG OF 15-MAY-2025 14:01 NO SIGNIFICANT CHANGE WAS FOUND Confirmed by PALAK CRAIN MD ([id number]) on 06/01/2025 6:30:[address] [facility] MUSE 05/16/2025 3:01 PM CDT 06/01/2025 6:30 PM CDT Mirtha Goetz PA-C ECG ORDERABLES Edited Result - Final [facility] MUSE * (ABNORMAL) GLUCOSE - POINT OF CARE (05/16/2025 11:09 AM CDT) Only the most recent of14 resultswithin the time period is included. Glucose WB/POC 112(H) 70 - 99 mg/dL 05/16/2025 11:[address] [facility] Specimen Type Arterial/C apillary 05/16/2025 11:13 AM CDT [facility] Blood BLOOD SPECIMEN / Unknown 05/16/2025 11:09 AM CDT 05/16/2025 11:13 AM CDT Fer Rose MD LAB - POINT OF CARE ORDERABLES Final Result [facility] [address] [place] [address], [facility] [phone] * XR Chest 1Vw Portable (05/16/2025 4:42 [...] blank. 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 Phosphorus 2.9 2.9 - 5.1 mg/dL 05/16/2025 2:59 AM CDT [facility] Blood BLOOD SPECIMEN / Unknown Lab Venipuncture / Unknown 05/16/2025 1:35 AM CDT 05/16/2025 2:22 AM CDT Fer Rose MD LAB - CHEMISTRY ORDERABLES Fin al Result [facility] [address] [place] [address], [facility] [phone] * MAGNESIUM BLOOD (05/16/2025 1:35 AM CDT) Only the most recent of4 resultswithin the time period is included. Magnesium 1.7 1.6 - 2.6 mg/dL 05/16/2025 2:59 AM CDT [facility] Blood BLOOD SPECIMEN / Unknown Lab Venipuncture / Unknown 05/16/2025 1:35 AM CDT 05/16/2025 2:22 AM CDT us Fer Rose MD LAB - CHEMISTRY ORDERABLES Fin al Result [facility] [address] [place] [address], [facility] [phone] * ECHO LIMITED W CONTRAST COLOR AND [...] Room: 809 Patient Status: I/P Study Site: [facility] Primary Location: [facility] Info Technical Quality: Adequate Exam Type: [...] Attending Physician: Tr Butts Fellow: Shade Garcia Forest Firefighter: Martina Holbrook Left Ventricle The left ventricle [...] Room: 809 Patient Status: I/P Study Site: [facility] Info Technical Quality: Adequate Exam Type: ECHO [...] Attending Physician: Tr Butts Fellow: Shade Garcia Forest Firefighter: Martina Holbrook Left Ventricle The left ventricle [...] on 05/15/2025 04:47 PM us Tr Beckie ORTHODONTIC BAND MAKER-GUEST EXPERIENCE CAPTAIN ECHO CUPID Final Re sult * TRANSFUSE RED BLOOD CELL LEUKOREDUCED UNIT(S) (05/13/2025 2:28 AM CDT) [facility] Latanya Rose MD NURSING - BLOOD PROD TRANSFUSI ON Final Result from Last 3 Months Insurance MEDICARE MANAGED CARE PLAN GENERIC MEDICARE [facility] Advance Directives * Full Code (Latest Code Status on File) Date Activated Date Inactivated Comments 05/04/2025 10:06 PM 05/16/2025 5:35 PM Care Teams Supervisor Public Message Service Relationship Specialty Start Date End Date Orly Coronado MD [address] [place] [address] PCP - General Internal Medicine 04/23/25
--- OUTSIDE RECORDS SUMMARY | 2025-08-13 16:16 | XMS_ITS | Encounter Summary ---
Author Organization [facility] Address [facility] [place] [address] Care Team Providers Care Firearms Model Maker Name Role Phone Orly Coronado MD Primary Care Provider [phone] Encounter Details Date Type Department Care Team (Late st Contact Info) Description 01/01/2018 Abstract [facility] CONVERSION [address] [place] [address] , Generic Conversion, Social History Tobacco Use [...] on filedocumented in this encounter Care Teams Firearms Model Maker Relationship Specialty Start Date End Date Orly Coronado MD [address] [place] [address] PCP - General INTERNAL MEDICINE 10/22/20 documented as of this encounter
--- OUTSIDE RECORDS SUMMARY | 2025-08-13 16:16 | XMS_ITS | Clinical Summary ---
Author Organization [facility] Address [facility] [place] [address] Care Team Providers Care Environmental Construction Engineer Name Role Phone Orly Coronado MD Primary Care Provider [phone] Allergies No known active allergies Medications albuterol [...] Comments Blood Pressure 110/83 10/23/2020 12:30 AM CLERICAL INVESTIGATOR Pulse 70 10/23/2020 12:30 AM CLERICAL INVESTIGATOR Temperature 36.1 C (97 F) 10/23/2020 12:17 AM CLERICAL INVESTIGATOR Respiratory Rate 13 10/23/2020 12:30 AM CLERICAL INVESTIGATOR Oxygen Saturation 94% 10/23/2020 12:30 AM CLERICAL INVESTIGATOR Inhaled Oxygen Concentration - - Weight 65.3 kg (144 lb) 10/22/2020 9:24 PM CLERICAL INVESTIGATOR Height 162.6 cm (5' 4) 10/22/2020 9:24 PM CLERICAL INVESTIGATOR Body Mass Index 24.72 10/22/2020 9:24 PM CLERICAL INVESTIGATOR Plan of Treatment Health Maintenance Due Date [...] this topic Insurance MEDICARE MEDICAID Care Teams Environmental Construction Engineer Relationship Specialty Start Date End Date Orly Coronado MD [address] [place] [id number] PCP - General INTERNAL MEDICINE 10/22/20
--- OUTSIDE RECORDS SUMMARY | 2025-08-13 16:16 | XMS_ITS | Clinical Summary ---
Author Organization [facility] Address [address] [place] [address] Care Team Providers Care Process Improvement Analyst Name Role Phone Orly Coronado MD Primary Care Provider [phone] Ernesto Milton MD Unavailable Yeny Thomason MD Unavailable [phone] Allergies No known active allergies Medications Ipratropium-Alb [...] - 08/03/2025 11:59 PM CDT Hospital Encounter [facility] Cardiology Services [address] [place] [address] Yeny Thomason MD Discharge Disposition: Discharged to home or Selfcare 08/03/2025 Travel 07/10/2025 11:45 AM CDT Office Visit [facility] Cardiology [facility] [address] [place] [address] Yeny Thomason MD 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 [address] [place] [address] Yeny Thomason MD Abnormal stress test (Primary [...] drink = 0.6 oz pur e alcohol) [facility] Utilities Answer Date Recorded In the past 12 months has e electric, gas, oil, or water [employer] threatened to shut off services in your home? Patient declined 03/07/2025 Social Connection and Isolation Panel Answer Date Recorded In a typical week, how many times do you talk on the phone with family, friends, or neighbors? Patient declined 03/07/2025 How often do you get togethe r with friends or relatives? Patient declined 03/07/2025 How often do you attend sikhism or islam serv ices? Patient declined 03/07/2025 Do you belong to any clubs o r organizations such as sikhism groups, unions, fraternal or athletic groups, or [...] medical care, and heating? Patient declined 03/07/2025 [facility] - Occupational Stress [...] time in the past 12 m [facility], were you homeless or living in a long term (including now)? 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 [address] [place] [id number] Health Maintenance Due Date Last Done Comments [...] 11:02 AM CDT Coronary artery disease involving bad river band coronary artery of bad [place] band heart without angina pectoris CMP (COMPREHENSIVE METABOLIC PANEL) Routine 06/07/2025 2:16 PM CDT Primary hypertension from Last 3 Months Results * ADULT TRANS THORACIC ECHO 2D COMPLETE (08/03/2025 11:02 AM CDT) [facility] Signature AV Peak Grad mmHg 7.84 mmHg RESULTING AGENCY Mean Aortic Valve Gradient (MAVG) 4 mmHg RESULTING AGENCY LV end octavio diam cm 4.7 cm RESULTING AGENCY LV end sys diam cm 3.7 cm RESULTING AGENCY Aortic Root Diam cm 2.7 cm RESULTING AGENCY LA vol index ml/m2 28 ml/m2 RESULTING AGENCY LVOT Peak Domingo m/sec 1.08 m/sec RESULTING AGENCY AV Peak [...] name JODI Rivas.O.B. 1945 Patient ID (UPI) [id number] Study Date08/03/2025 Technical quality: Adequate Type of [...] 9 Codes 1) 125.10-Coronary artery disease invoulving bad river band coronary arterty of heart without angina pectoris. Demographics Age 79 Gender Female Race Height 62.99 in. Weight 103.99 lbs. BMI (BSA) 18.43 kg/m^2 (1.46 m^2) Vice Chair Eduardo Tillman Referring Paddy Saini Physician Aiden Physician Procedure Note Aiden Tillman MD - 08/05/2025 Transthoracic Echocardiography Report (TTE) Patient name JODI De La Cruz 1945 Patient ID ([facility]) [id number] Study Date08/03/2025 Technical quality: Adequate Type of [...] 9 Codes 1) 125.10-Coronary artery disease invoulving bad river [place] coronary arterty of heart without angina pectoris. Demographics Age 79 Gender Female Race Height 62.99 in. Weight 103.99 lbs. BMI (BSA) 18.43 kg/m^2 (1.46 m^2) Vice Chair Eduardo Tillman Referring Padyd Saini Physician Aiden Physician Yeny Thomason MD IM ECHO ORDERABLES Edited R esult - Final * (ABNORMAL) CMP (COMPREHENSIVE METABOLIC PANEL) (06/07/2025 2:16 PM CDT) SODIUM 134(L) 136 - 145 mmol/L 06/07/2025 5:05 PM CDT [facility] POTASSIUM 4.4 3.5 - 5.1 mmol/L 06/07/2025 5:05 PM CDT [facility] CHLORIDE 95(L) 98 - 107 mmol/L 06/07/2025 5:05 PM CDT [facility] CO2, VENOUS 26 22 - 30 mmol/L 06/07/2025 5:05 PM CDT [facility] ANION GAP 17.4 <18.0 mmol/L 06/07/2025 5:05 PM CDT [facility] GLUCOSE 89 70 - 99 mg/dL 06/07/2025 5:05 PM [facility] BUN 24(H) 10 - 20 mg/dL 06/07/2025 5:05 PM [facility] CREATININE, BLOOD 0.58(L) 0.60 - 1.00 mg/dL 06/07/2025 5:05 PM [facility] BUN/CREATININE RATIO 41(H) 12 - 20 ratio 06/07/2025 5:05 PM [facility] TOTAL PROTEIN 7.1 6.0 - 8.0 g/dL 06/07/2025 5:05 PM [facility] ALBUMIN 4.2 3.5 - 5.0 g/dL 06/07/2025 5:05 PM [facility] A/G RATIO 1.4 1.0 - 2.2 06/07/2025 5:05 PM [facility] CALCIUM 10.6(H) 8.7 - 10.5 mg/dL 06/07/2025 5:05 PM [facility] T BILI 0.5 0.2 - 1.2 mg/dL 06/07/2025 5:05 PM [facility] SGOT (AST) 46(H) <43 U/L 06/07/2025 5:05 PM [facility] SGPT (ALT) 52 <56 U/L 06/07/2025 5:05 PM [facility] ALKALINE PHOSPHATASE 274(H) 40 - 150 U/L 06/07/2025 5:05 PM [facility] IS THE PATIENT REQUIRED TO BE FASTING? No 06/07/2025 5:05 PM [facility] GFR, ESTIMATED >60 >=60 06/07/2025 5:05 PM [facility] Comment: Creatinine Clearance is the preferred criteria for selecting drug dose adjustments in renally impaired patients. The GFR is provided as additional pertinent clinical information. GFR is reported in mL/min/1.73 sq m. Calculation based on the 2020 Chronic Kidney Disease Epidemiology Collaboration (CKD-EPI) equation refit without adjustment for race. GFR, EST. >60 >=60 025 5:05 PM CDT [facility] Comment: Creatinine Clearance is the preferred criteria for selecting drug dose adjustments in renally impaired patients. The GFR is provided as additional pertinent clinical information. GFR is reported in mL/min/1.73 sq m. Calculation based on the 2009 Chronic Kidney Disease Epidemiology Collaboration (CKD-EPI). GFR, EST. NONAFRICAN >60 >=60 06/07/2025 5:05 PM CDT [facility] Comment: Creatinine Clearance [...] Thomason MD CHEMISTRY ORDERABLES Final R esult [facility] [address] [place] [address] from Last 3 Months Insurance MEDICARE C [employer] Advance Directives * Full Code (Latest Code Status on File) Date Activated Date Inactivated Comments 03/07/2025 4:26 PM CPR-Full Treat ment: FULL ARREST: Attempt Resuscitation/CPR wit intubation and mechanical ventilation. PRE-ARREST: Use entire range of life support measures to stabilize the patient. Care Teams Process Improvement Analyst Relationship Specialty Start Date End Date Orly Coronado MD [address] [place] [address] PCP - General Internal Medicine 01/19/25 Ernesto Milton MD [address] [place] [address] Consulting Physician Pulmonary Disease 02/20/25 Yeny Thomason MD [address] [address] Consulting Physician Cardiology 06/08/25
[2025-08-13 16:25] VITALS: BP 122/77; PULSE 97; RESP 20; TEMP 36.6; O2SAT 96; BMI 17.8
--- NOTE | 2025-08-13 16:25 | ADMGEN ---
This patient, Rhiannon Hurst, was admitted to 2nd Floor Room 203-1. Patient/family oriented to hospital policies and general routines including ID bracelet, bed and alarms, visiting hours, pain management, procedures, bathroom and other care routines, personal items, smoking policy, room service/diet, and visiting hours. Information on how to activate the Rapid Response Team has been discussed. Patient/Family are encouraged to report perceived risks to care and to ask questions if they do not understand what they are told or what they should do.
[2025-08-13 17:25] VITALS: PULSE 97; RESP 20; O2SAT 96
[2025-08-13 18:36] VITALS: PULSE 97; RESP 20; O2SAT 96
[2025-08-13] MEDS: IPRATROPIUM 0.5 MG/ALBUTEROL SULFATE 2.5 MG (BASE) AMPUL.NEB 3 ML INHALATION (18:57)
[2025-08-13 20:00] VITALS: PULSE 97; RESP 20; O2SAT 96
[2025-08-13] MEDS: MONTELUKAST SODIUM 10 MG TABLET PO (20:21)
--- NOTE | 2025-08-13 20:22 | PC.NURSE ---
Patient refuses Mucinex, states either Dr. Coronado or distillery worker general instructed her not to take it.
[2025-08-14] VITALS (14 sets, daily range): BP systolic 103–116; BP diastolic 59–77; PULSE 63–111; RESP 18–22; TEMP 36.7; O2SAT 93–99
--- NOTE | 2025-08-14 | CONSULT_PTH ---
PATIENT: Rhiannon Hurst LOC: [id number] U#:[id number] AGE/SX: 79/F ROOM: [facility] RE08/14/[address]: Cesar Doan MD : 1945 BED: 1 DIS: 08/17/2025 SPEC #: [id number] RECD: 08/14/25 10:38 STATUS: RACHELE REQ #: [id number] [place]: 08/14/25 00:[address]: Deon Doan DEPT: [facility] Consult RECD BY: Akua Chávez MLT, ([facility]) ENTERED: 08/14/25 10:40 SP TYPE: Consult OTHR DR: Orly Coronado MD Tissues: A - Peripheral Smear Procedures: Hematology Consult
[2025-08-14] MEDS: IPRATROPIUM 0.5 MG/ALBUTEROL SULFATE 2.5 MG (BASE) AMPUL.NEB 3 ML INHALATION ×5 (00:14→23:59)
[2025-08-14 05:59] LABS: Potassium 4.8 mmol/L (3.4-5.0)
[2025-08-14] MEDS: UMECLIDINIUM/VILANTEROL 62.5-25 MCG ELLIPTA 1 PUFF INHALATION (09:01)
[2025-08-14] MEDS: SALMET XINAFT/FLUTIC PROPIN 500 MCG/50 MCG INH CAP 1 PUFF INHALATION ×2 (09:01→17:49)
[2025-08-14] MEDS: ASPIRIN 81 MG ENTERIC TABLET PO (09:13)
[2025-08-14] MEDS: CLOPIDOGREL BISULFATE 75 MG TABLET PO (09:13)
[2025-08-14] MEDS: SPIRONOLACTONE 25 MG TABLET PO (09:13)
[2025-08-14] MEDS: ENOXAPARIN 40 MG/0.4 ML SYRINGE SUB-Q (09:13)
[2025-08-14] MEDS: guaiFENesin 12 HR 600 MG TABCR PO (09:13)
[2025-08-14] MEDS: ATORVASTATIN 40 MG TABLET PO (09:13)
[2025-08-14] MEDS: CHOLECALCIFEROL (VITAMIN D3) 25 MCG (1,000 UNITS) TABLET 50 MCG PO (09:13)
--- NOTE | 2025-08-14 09:50 | PM.IMHP ---
H&P: HPI History of Present Illness Date/Time: 08/14/25 09:50 Chief Complaint: shortness of breath Narrative: Patient is a 79 year old female with PMH of COPD, CHF and CAD s/p CABG. Patient presented to the ER with complaints of worsening shortness of breath. Patient reports that she developed rhinorrhea, cough, and worsening shortness of breath starting on Wednesday. Patient tried her nebulizer at home without relief. Patient made an appointment with her PCP yesterday and when she was seen in the office he sent her to the ER. In the ER the patients viral swab was positive for RSV. Chest CT showed a few small to moderate sized groundglass and patchy opacities in the mid and lower lungs, most prominent in the right lower lobe. These findings could be secondary to an inflammatory or infectious process, however a malignant process is possible. A follow up chest CT in 2 weeks following treatment is recommended. Patient's BNP was 2580. The remainder of the patient's lab work was essentially unremarkable. Patient was given IV steroids, nebulizer treatments, IV azithromycin and IV ceftriaxone. [place] [facility] [place]. Review of Systems Review of Systems: All systems reviewed & are unremarkable except as noted in HPI and below PMFSH Past Medical History Medical History Diverticulosis Hypertension COPD (chronic obstructive pulmonary disease) Surgical History Surgical History History of appendectomy H/O: hysterectomy Social History Social History Smoking packs per day: 1.5 Smoking cigarettes per day: 30.0 Years smoked: 45 Smoking pack-years: 67.50 Smoking status: Former smoker Tobacco type: cigarettes Second hand tobacco smoke exposure: No Smoking end date: 10/18/12 Alcohol intake: never Alcohol use details: occasional Substance use: never Substance use type: does not use Do You Feel Safe in your Home?: Yes Lack of Transportation: No Lack of Food: Never True Current Housing: I Have Housing Concerned About Future Housing: No Difficulty Paying Gas/Electric Bills: No Difficulty Paying for Meds: No Currently Unemployed: No Education: High School Diploma/GED Difficulty w/ Childcare or Family Care: No Living arrangements: alone Spiritual care concerns: No Meds Home Medications and Allergies Home Medications ?Medication ?Instructions ?Recorded ?Confirmed ?Type albuterol sulfate 90 mcg/actuation 2 puff inhalation Q4-6H PRN 10/13/19 08/13/25 History aerosol inhaler (ProAir HFA) Shortness Of Breath aspirin 81 mg tablet,delayed 81 mg PO DAILY 10/13/19 08/13/25 History release montelukast 10 mg tablet 10 mg PO DAILY 10/13/19 08/13/25 History potassium chloride 10 mEq 10 meq PO DAILY 10/13/19 08/13/25 History capsule,extended release cholecalciferol (vitamin D3) 25 2,000 unit PO DAILY 05/09/21 08/13/25 History mcg (1,000 unit) capsule (Vitamin D3) fluticasone furoate 200 1 inh inhalation DAILY 05/09/21 08/13/25 History mcg-vilanterol 25 mcg/dose inhalation powder (Breo Ellipta) ipratropium 20 mcg-albuterol 100 4 puff inhalation QID 05/09/21 08/13/25 History mcg/actuation mist for inhalation (Combivent Respimat) guaifenesin 600 mg tablet, 600 mg PO Q12HR #10 tabs 08/07/24 08/13/25 Rx extended release 12 hr (Mucus Relief ER) atorvastatin 40 mg tablet 40 mg PO QPM 08/13/25 08/13/25 History clopidogrel 75 mg tablet 75 mg PO DAILY 08/13/25 08/13/25 History metoprolol succinate 25 mg 12.5 mg PO DAILY 08/13/25 08/14/25 History tablet,extended release 24 hr spironolactone 50 mg tablet 25 mg PO DAILY 08/13/25 08/13/25 History trazodone 50 mg tablet 50 mg PO HS 08/13/25 08/13/25 History furosemide 20 mg tablet 20 mg PO DAILY 08/14/25 08/14/25 History Allergies Allergy/AdvReac Type Severity Reaction Status Date / Time No Known Allergies Allergy Verified 08/13/25 17:19 Vital Signs Vital Signs - 24 hr 08/13/25 14:04 08/13/25 14:10 08/13/25 16:07 Temperature 97.8 F 97.7 F Pulse Rate 80 60 Respiratory Rate 20 16 Blood Pressure 122/81 109/73 Pulse Oximetry 100 95 Oxygen Delivery Room Air Room Air Room Air 08/13/25 16:25 08/13/25 17:25 08/13/25 18:36 Temperature 98 F Pulse Rate 97 97 97 Respiratory Rate 20 20 20 Blood Pressure 122/77 Pulse Oximetry 96 96 96 Oxygen Delivery Room Air Room Air Room Air 08/13/25 20:00 08/13/25 20:00 08/14/25 00:00 Temperature Pulse Rate 97 97 83 Respiratory Rate 20 Blood Pressure Pulse Oximetry 96 Oxygen Delivery Room Air 08/14/25 00:00 08/14/25 00:13 08/14/25 00:28 Temperature 98.0 F Pulse Rate 83 97 97 Respiratory Rate 18 22 H 18 Blood Pressure 103/59 L Pulse Oximetry 95 96 94 Oxygen Delivery Room Air 08/14/25 04:00 08/14/25 05:38 08/14/25 05:48 Temperature Pulse Rate 84 63 68 Respiratory Rate 20 20 Blood Pressure Pulse Oximetry 95 99 Oxygen Delivery 08/14/25 07:45 08/14/25 08:00 Temperature 98.1 F Pulse Rate 100 Respiratory Rate 18 Blood Pressure 109/77 Pulse Oximetry 93 93 Oxygen Delivery Room Air Room Air Exam Const: General: no acute distress Other: coughing during exam HENMT: Face/Nose/Sinus: Normal nares present Mouth: Yes moist mucous membranes Eyes: General: appearance normal, both eyes and all related structures Sclera: sclerae normal Neck: Neck: supple Resp: Auscultation: diminished lung sounds Other: expiratory wheezes right lung Cardio: Rate: regular rate Rhythm: regular rhythm GI: GI Palp: Yes Soft to palpation Auscultation: normal bowel sounds Skin: General skin exam: normal color and no rashes or lesions noted Neuro: General: gait normal Speech: normal speech Motor exam (neuro): 5/5 motor strength present throughout Sensory Exam: normal sensation Extrem: General: normal to inspection Psych: Mental Status: mental status grossly normal Affect: normal affect H&P: Results Labs Labs: Short CBC 08/13/25 Range/Units 14:25 WBC 8.5 (4.8-10.8) K/mm3 Hgb 13.7 (11.7-13.8) g/dL Hct 42.8 H (35.0-42.0) % Plt Count 312 (150-420) K/mm3 BMP 08/13/25 08/14/25 14:25 05:34 Sodium 135 L Potassium 4.2 4.8 Chloride 95 L Carbon Dioxide 28 BUN 27 H D Creatinine 0.91 Glucose 114 H Calcium 11.0 H Cardiac Enzymes 08/13/25 Range/Units 14:25 Troponin I < 0.012 (0.000-0.034) ng/mL Liver Function 08/13/25 Range/Units 14:25 Total Bilirubin 0.7 (0.2-1.3) mg/dL AST 44 H (14-36) U/L ALT 26 (6-35) U/L Alkaline Phosphatase 201 H (38-126) U/L Albumin 4.8 (3.5-5.1) g/dL Imaging Chest x-ray: Radiologist's impression: Ordering Physician: Gibson Graves MD Date of Service: 08/13/25 Procedure(s): XR chest 2V Accession Number(s): [id number] cc: Orly Coronado MD; Gibson Graves MD~ EXAMINATION: XR chest 2V, 08/13/2025 14:30 CDT HISTORY: sob COMPARISON: No comparisons available. Technique: 2 views obtained. Findings: COPD changes. Small basilar infiltrates. Nodule right upper lobe 1 x 1 cm incompletely evaluated. No pneumothorax. Heart is normal size. Mediastinal and hilar contours are within normal limits. Poststernotomy changes noted. Impression: Early bilateral pneumonia. Right lung nodule which appears new compared to the prior study. CT chest recommended Reviewed, dictated and finalized at location P. CT scan - chest: Radiologist's impression: Ordering Physician: Gibson Graves MD Date of Service: 08/13/25 Procedure(s): CT diagnostic chest wo con Accession Number(s): [id number] cc: Cesar Doan MD; Orly Coronado MD; Gibson Graves MD~ Exam: CT chest without contrast Clinical History: [Abnormal chest x-ray ] Comparison: [ CT chest 01/02/2025]: Chest x-ray 08/13/2025 Technique: Multiple axial CT images of the chest without with IV contrast. Sagittal and coronal reformatted images were obtained. FINDINGS: Lungs and pleura: [ Biapical scarring. Centrilobular emphysema in both lungs.] No pneumothorax. No pleural effusion. There is a new 6 cm pulmonary nodule in the left upper lobe. There are a few small to moderate-sized groundglass and patchy opacities in the mid and lower lungs, most prominent in the right lower lobe. Mediastinum and pulmonary mata: [ No mass or adenopathy.] Axillary/intramammary and supraclavicular: [ No mass or adenopathy.] There are a few nonenlarged, nonspecific mediastinal and hilar lymph nodes. Heart and great vessels: [ Normal heart size.[ [ No pericardial effusion.] [ No aneurysm.] Moderate atherosclerotic disease in the thoracic aorta. There are coronary artery calcifications. Chest Wall: Median sternotomy wires are present. Upper Abdomen: Adrenal glands is grossly stable. Osseous structures: [ No acute fracture lesion.] [ Multilevel degenerative change in the visualized spine.] Additional findings: [ None of significance.] IMPRESSION: 1. There is a new 6 cm pulmonary nodule in the left upper lobe. A follow-up chest CT in 3 months is recommended. 2. There are a few small to moderate-sized groundglass and patchy opacities in the mid and lower lungs, most prominent in the right lower lobe. The findings may be secondary to an inflammatory or infectious process. However, a malignant process is possible. A follow-up chest CT in 2 weeks following treatment is recommended. Follow-up is recommended. 3. Centrilobular emphysema in both lungs. Reviewed, dictated and finalized at location Q. Assessment and Plan Assessment and plan (1) Acute exacerbation of chronic obstructive pulmonary disease: Code(s): J44.1 - Chronic obstructive pulmonary disease with (acute) exacerbation Status: Acute Assessment and Plan: no home o2 use per patient currently on room air IV solu-medrol IV azithromycin IV ceftriaxone Duo nebs Q6h mucinex DM scheduled continue home inhalers (2) Bilateral pneumonia: Qualifiers: Lung location: lower lobe of lung Pneumonia type: due to unspecified organism Qualified Code(s): J18.9 - Pneumonia, unspecified organism Code(s): J18.9 - Pneumonia, unspecified organism Status: Acute Assessment and Plan: s/p chest x-ray and chest CT 1. There is a new 6 cm pulmonary nodule in the left upper lobe. A follow-up chest CT in 3 months is recommended. 2. There are a few small to moderate-sized groundglass and patchy opacities in the mid and lower lungs, most prominent in the right lower lobe. The findings may be secondary to an inflammatory or infectious process. However, a malignant process is possible. A follow-up chest CT in 2 weeks following treatment is recommended. Follow-up is recommended. 3. Centrilobular emphysema in both lungs. IV azithromycin IV ceftriaxone f/u blood cultures RSV positive Mucinex DM and tessalon pearls AM labs (3) Respiratory syncytial virus (RSV): Qualifiers: RSV infection type: pneumonia Qualified Code(s): J12.1 - Respiratory syncytial virus pneumonia Code(s): B33.8 - Other specified viral diseases Status: Acute Assessment and Plan: with congestion, cough, malaise, shortness of breath isolation per facility protocol supportive care (4) Acute exacerbation of CHF (congestive heart failure): Qualifiers: Heart failure type: unspecified Qualified Code(s): I50.9 - Heart failure, unspecified Code(s): I50.9 - Heart failure, unspecified Status: Acute Assessment and Plan: BNP 2580 on admission IV furosemide 20 mg today resume home furosemide in AM continue spironolactone AM labs (5) Pulmonary nodule: Code(s): R91.1 - Solitary pulmonary nodule Status: Acute Assessment and Plan: There is a new 6 cm pulmonary nodule in the left upper lobe. A follow-up chest CT in 3 months is recommended. (6) Hypertension: Code(s): I10 - Essential (primary) hypertension Status: Acute Assessment and Plan: monitor BP and adjust as indicated continue metoprolol continue spironolactone Quality VTE Prophylaxis VTE prophylaxis: pharmacologic ordered
[2025-08-14 10:02] LABS: Hematocrit 37.4 % (35.0-42.0); Hemoglobin 12.0 g/dL (11.7-13.8); Mean Corpuscular HGB Conc 32.1 g/dL (32-36); Mean Corpuscular Hemoglobin 27.3 pg (27.0-31.0); Mean Corpuscular Volume 85.2 fL (78.0-102.0); Platelet Count Result 326 K/mm3 (150-420); Red Blood Count 4.39 M/mm3 (4.20-5.40); White Blood Count 3.6 K/mm3 (4.8-10.8)
[2025-08-14 10:13] LABS: Band Neutrophils Percent 0 % (0-6); Lymphocytes Absolute Manual 0.28 K/mm3 (1.1-4.5); Lymphocytes Percent Manual 8 % (18-44); Monocytes Absolute Manual 0.21 K/mm3 (0.1-0.90); Monocytes Percent Manual 6 % (3-9); Neutrophils Absolute Manual 3.09 K/mm3 (1.3-6.7); Neutrophils Percent Manual 86 % (46-73); Total Cells Counted 100
[2025-08-14 10:51] LABS: Alanine Aminotransferase 25 U/L (6-35); Albumin Level 4.3 g/dL (3.5-5.1); Alkaline Phosphatase 167 U/L (38-126); Anion Gap 12 mmol/L (4-12); Aspartate Amino Transferase 37 U/L (14-36); Bilirubin,Total 0.4 mg/dL (0.2-1.3); Blood Urea Nitrogen 36 mg/dL (7-17); Calcium 11.0 mg/dL (8.4-10.2); Carbon Dioxide 27 mmol/L (22-30); Chloride 95 mmol/L (98-107); Estimated CRCL calculation 34 ml/min; Estimated Glomerular Filt Rate > 60; Glucose 139 mg/dL (65-110); Osmolality Calculated 288 mOsm/kg (285-295); Potassium 4.8 mmol/L (3.4-5.0); Sodium 134 mmol/L (137-145); Total Protein 7.2 g/dL (6.3-8.2)
[2025-08-14] MEDS: POTASSIUM CHLORIDE 10 MEQ ER TABLET PO (11:06)
[2025-08-14] MEDS: METOPROLOL SUCCINATE EXT REL 12.5 MG TABCR PO (11:07)
[2025-08-14] MEDS: FUROSEMIDE INJ 20 MG/2 ML VIAL IV PUSH (11:08)
--- NOTE | 2025-08-14 11:20 | PC.NURSE ---
changed to IP.
[2025-08-14] MEDS: BENZONATATE 100 MG CAPSULE 200 MG PO ×2 (13:31→20:52)
[2025-08-14] MEDS: cefTRIAXone 2 GM in SODIUM CHLORIDE 0.9% IV 100 ML 200 ML IVPB (13:31)
[2025-08-14] MEDS: AZITHROMYCIN IV 500 MG in SODIUM CHLORIDE 0.9% IV 250 ML IVPB (14:04)
[2025-08-14] MEDS: guaiFENesin 12 HR 600 MG TABCR 1200 MG PO (20:52)
[2025-08-14] MEDS: MONTELUKAST SODIUM 10 MG TABLET PO (20:52)
[2025-08-15] VITALS (14 sets, daily range): BP systolic 100–108; BP diastolic 50–79; PULSE 59–98; RESP 16–20; TEMP 36–37; O2SAT 91–100
[2025-08-15 05:40] LABS: Hematocrit 34.0 % (35.0-42.0); Hemoglobin 10.9 g/dL (11.7-13.8); Immature Granulocyte Percent A 0.5 % (0.0-0.0); Lymphocytes Absolute Auto 0.42 K/mm3 (1.10-4.50); Mean Corpuscular HGB Conc 32.1 g/dL (32-36); Mean Corpuscular Hemoglobin 27.4 pg (27.0-31.0); Mean Corpuscular Volume 85.4 fL (78.0-102.0); Nucleated Red Blood Cells Absolute Auto 0.00 K/mm3 (0.00-0.00); Nucleated Red Blood Cells Perc 0.0 % (0-0.0); Platelet Count Result 291 K/mm3 (150-420); Red Blood Count 3.98 M/mm3 (4.20-5.40); White Blood Count 6.1 K/mm3 (4.8-10.8)
[2025-08-15] MEDS: BENZONATATE 100 MG CAPSULE 200 MG PO ×3 (05:40→21:00)
[2025-08-15] MEDS: SALMET XINAFT/FLUTIC PROPIN 500 MCG/50 MCG INH CAP 1 PUFF INHALATION ×2 (05:40→17:46)
[2025-08-15] MEDS: IPRATROPIUM 0.5 MG/ALBUTEROL SULFATE 2.5 MG (BASE) AMPUL.NEB 3 ML INHALATION ×3 (05:42→17:05)
[2025-08-15 05:53] LABS: Alanine Aminotransferase 23 U/L (6-35); Albumin Level 4.0 g/dL (3.5-5.1); Alkaline Phosphatase 155 U/L (38-126); Anion Gap 10 mmol/L (4-12); Aspartate Amino Transferase 30 U/L (14-36); Bilirubin,Total 0.4 mg/dL (0.2-1.3); Blood Urea Nitrogen 36 mg/dL (7-17); Calcium 10.8 mg/dL (8.4-10.2); Carbon Dioxide 27 mmol/L (22-30); Chloride 99 mmol/L (98-107); Estimated CRCL calculation 42 ml/min; Estimated Glomerular Filt Rate > 60; Glucose 154 mg/dL (65-110); Osmolality Calculated 293 mOsm/kg (285-295); Potassium 5.0 mmol/L (3.4-5.0); Sodium 136 mmol/L (137-145); Total Protein 6.4 g/dL (6.3-8.2)
[2025-08-15] MEDS: CHOLECALCIFEROL (VITAMIN D3) 25 MCG (1,000 UNITS) TABLET 50 MCG PO (08:50)
[2025-08-15] MEDS: guaiFENesin 12 HR 600 MG TABCR 1200 MG PO ×2 (08:51→21:00)
[2025-08-15] MEDS: CLOPIDOGREL BISULFATE 75 MG TABLET PO (08:52)
[2025-08-15] MEDS: METOPROLOL SUCCINATE EXT REL 12.5 MG TABCR PO (08:52)
[2025-08-15] MEDS: ASPIRIN 81 MG ENTERIC TABLET PO (08:52)
[2025-08-15] MEDS: SPIRONOLACTONE 25 MG TABLET PO (08:53)
[2025-08-15] MEDS: FUROSEMIDE 20 MG TABLET PO (08:53)
[2025-08-15] MEDS: ATORVASTATIN 40 MG TABLET PO (08:53)
[2025-08-15] MEDS: ENOXAPARIN 40 MG/0.4 ML SYRINGE SUB-Q (08:54)
[2025-08-15] MEDS: UMECLIDINIUM/VILANTEROL 62.5-25 MCG ELLIPTA 1 PUFF INHALATION (08:54)
[2025-08-15] MEDS: AZITHROMYCIN IV 500 MG in SODIUM CHLORIDE 0.9% IV 250 ML IVPB (13:02)
--- NOTE | 2025-08-15 13:18 | P.PNIM_ITS ---
Progress Note: A&P Assessment and Plan (1) Acute exacerbation of chronic obstructive pulmonary disease: Code(s): J44.1 - Chronic obstructive pulmonary disease with (acute) exacerbation Status: Acute Assessment and Plan: no home o2 use per patient currently on room air IV solu-medrol, change to Q 6 hrs scheduled IV azithromycin IV ceftriaxone Duo nebs Q6h mucinex DM scheduled continue home inhalers patient still reporting no improvement in dyspnea check chest x-ray (2) Bilateral pneumonia: Qualifiers: Lung location: lower lobe of lung Pneumonia type: due to unspecified organism Qualified Code(s): J18.9 - Pneumonia, unspecified organism Code(s): J18.9 - Pneumonia, unspecified organism Status: Acute Assessment and Plan: s/p chest x-ray and chest CT 1. There is a new 6 cm pulmonary nodule in the left upper lobe. A follow-up chest CT in 3 months is recommended. 2. There are a few small to moderate-sized groundglass and patchy opacities in the mid and lower lungs, most prominent in the right lower lobe. The findings may be secondary to an inflammatory or infectious process. However, a malignant process is possible. A follow-up chest CT in 2 weeks following treatment is recommended. Follow-up is recommended. 3. Centrilobular emphysema in both lungs. IV azithromycin IV ceftriaxone f/u blood cultures RSV positive Mucinex DM and tessalon pearls AM labs patient still reporting no improvement in dyspnea check chest x-ray to ensure no worsening of pneumonia check MRSA swab (3) Respiratory syncytial virus (RSV): Qualifiers: RSV infection type: pneumonia Qualified Code(s): J12.1 - Respiratory syncytial virus pneumonia Code(s): B33.8 - Other specified viral diseases Status: Acute Assessment and Plan: with congestion, cough, malaise, shortness of breath isolation per facility protocol supportive care (4) Acute exacerbation of CHF (congestive heart failure): Qualifiers: Heart failure type: unspecified Qualified Code(s): I50.9 - Heart failure, unspecified Code(s): I50.9 - Heart failure, unspecified Status: Acute Assessment and Plan: BNP 2580 on admission s/p IV furosemide 20 mg continue home furosemide continue spironolactone AM labs (5) Pulmonary nodule: Code(s): R91.1 - Solitary pulmonary nodule Status: Acute Assessment and Plan: There is a new 6 cm pulmonary nodule in the left upper lobe. A follow-up chest CT in 3 months is recommended. (6) Hypertension: Code(s): I10 - Essential (primary) hypertension Status: Acute Assessment and Plan: monitor BP and adjust as indicated continue metoprolol continue spironolactone Subjective Date/time seen: 08/15/25 13:18 Interval history: Patient seen for follow up visit. Patient sitting up in bed, in no acute distress. Patient denies acute pain. Patient reports her shortness of breath has not improved since admission. Patient reports she is coughing more. Patient does not appear short of breath during conversation or during the exam. Patient's lungs are diminished on exam, no wheezing heard. Increase IV solu-medrol to Q 6 hours, continue nebulizer treatments, check CXR to rule out worsening pneumonia. Continue supportive care for RSV diagnosis. Continue IV azithromycin and IV ceftriaxone. Check MRSA swab. PT/OT eval and treat. Review of Systems Review of Systems: All systems reviewed & are unremarkable except as noted in HPI and below Exam Const: General: no acute distress Other: coughing during exam HENMT: Face/Nose/Sinus: Normal nares present Mouth: Yes moist mucous membranes Eyes: General: appearance normal, both eyes and all related structures Sclera: sclerae normal Neck: Neck: supple Resp: Auscultation: diminished lung sounds Cardio: Rate: regular rate Rhythm: regular rhythm GI: Auscultation: normal bowel sounds Skin: General skin exam: normal color and no rashes or lesions noted Neuro: General: gait normal Speech: normal speech Motor exam (neuro): 5/5 motor strength present throughout Sensory Exam: normal sensation Extrem: General: normal to inspection Psych: Mental Status: mental status grossly normal Affect: normal affect Objective Data Vital Signs Vital Signs: Vital Signs - 24 hr 08/14/25 16:35 08/14/25 16:35 08/14/25 19:42 Temperature 98.1 F Pulse Rate 100 100 102 H Respiratory Rate 18 Blood Pressure 116/71 Pulse Oximetry 93 Oxygen Delivery Room Air Oxygen Flow Rate 08/14/25 23:58 08/15/25 00:00 08/15/25 00:00 Temperature 98.6 F Pulse Rate 98 98 98 Respiratory Rate 20 20 Blood Pressure 104/79 Pulse Oximetry 93 94 Oxygen Delivery Room Air Oxygen Flow Rate 08/15/25 00:10 08/15/25 03:29 08/15/25 05:43 Temperature Pulse Rate 98 78 93 Respiratory Rate 20 20 Blood Pressure Pulse Oximetry 98 91 Oxygen Delivery Oxygen Flow Rate 08/15/25 05:54 08/15/25 08:00 08/15/25 08:00 Temperature 96.8 F L Pulse Rate 89 94 94 Respiratory Rate 20 20 Blood Pressure 100/50 L Pulse Oximetry 95 94 Oxygen Delivery Room Air Oxygen Flow Rate 08/15/25 08:52 08/15/25 12:00 08/15/25 12:25 Temperature Pulse Rate 90 80 74 Respiratory Rate 16 Blood Pressure Pulse Oximetry 91 Oxygen Delivery Oxygen Flow Rate 0 08/15/25 12:28 Temperature Pulse Rate 59 L Respiratory Rate 16 Blood Pressure Pulse Oximetry 99 Oxygen Delivery Oxygen Flow Rate 0 Intake/Output Intake/Output: Intake & Output 08/12/25 08/13/25 08/14/25 08/15/25 23:59 23:59 23:59 23:59 Intake Total 640 1770 1487 Balance 640 1770 1487 Meds/Results Medications: Active Medications Generic Name Dose Route Start Last Admin Trade Name Freq PRN Reason Stop Dose Admin Acetaminophen 650 mg 08/13/25 18:35 Acetaminophen 325 Mg Tablet PO Q4H PRN Mild Pain (1-3) or Fever Albuterol/Ipratropium 3 ml 08/13/25 18:45 08/15/25 12:22 Ipratropium 0.5 Mg/Albuterol Sulfate 2.5 Mg (Base) Ampul.Neb 3 Ml INHALATION 3 ml Q6HRT BELA Administration Aspirin 81 mg 08/14/25 09:00 08/15/25 08:52 Aspirin 81 Mg Enteric Tablet PO 81 mg DAILY BELA Administration Atorvastatin Calcium 40 mg 08/14/25 09:00 08/15/25 08:53 Atorvastatin 40 Mg Tablet PO 40 mg DAILY BELA Administration Benzonatate 200 mg 08/14/25 14:00 08/15/25 13:01 Benzonatate 100 Mg Capsule PO 200 mg Q8HR BELA Administration Clopidogrel Bisulfate 75 mg 08/14/25 09:00 08/15/25 08:52 Clopidogrel Bisulfate 75 Mg Tablet PO 75 mg DAILY BELA Administration Enoxaparin Sodium 40 mg 08/14/25 09:00 08/15/25 08:54 Enoxaparin 40 Mg/0.4 Ml Syringe SUB-Q 40 mg DAILY BELA Administration Furosemide 20 mg 08/15/25 09:00 08/15/25 08:53 Furosemide 20 Mg Tablet PO 20 mg DAILY BELA Administration Guaifenesin 1,200 mg 08/14/25 21:00 08/15/25 08:51 Guaifenesin 12 Hr 600 Mg Tabcr PO 1,200 mg Q12HR BELA Administration Azithromycin 500 mg/ Sodium 250 mls @ 250 mls/hr 08/14/25 14:00 08/15/25 13:02 Chloride IVPB 250 mls/hr Q24H BELA Administration Ceftriaxone Sodium 2 gm/ 100 mls @ 200 mls/hr 08/14/25 14:00 08/14/25 14:01 Sodium Chloride IVPB Infused Q24H BELA Infusion Methylprednisolone Sodium Succinate 40 mg 08/14/25 10:00 08/15/25 10:04 Methylprednisolone Sod Succ 40 Mg Vial IV PUSH 40 mg Q12H BELA Administration Metoprolol Succinate 12.5 mg 08/14/25 11:00 08/15/25 08:52 Metoprolol Succinate Ext Rel 12.5 Mg Tabcr PO 12.5 mg DAILY BELA Administration Montelukast Sodium 10 mg 08/13/25 21:00 08/14/25 20:52 Montelukast Sodium 10 Mg Tablet PO 10 mg HS BELA Administration Ondansetron HCl 4 mg 08/13/25 18:35 Ondansetron Inj 4 Mg/2 Ml Vial IV PUSH Q6H PRN Nausea And Vomiting Potassium Chloride 10 meq 08/14/25 09:00 08/15/25 10:51 Potassium Chloride 10 Meq Er Tablet PO Not Given DAILY BELA Fluticasone/Salmeterol 1 puff 08/14/25 09:00 08/15/25 05:40 Salmet Xinaft/Flutic Propin 500 Mcg/50 Mcg Inh Cap INHALATION 1 puff Q12HRT BELA Administration Spironolactone 25 mg 08/14/25 09:00 08/15/25 08:53 Spironolactone 25 Mg Tablet PO 09/13/25 08:59 25 mg DAILY BELA Administration Trazodone HCl 50 mg 08/13/25 21:00 08/14/25 20:52 Trazodone Hcl 50 Mg Tablet PO 50 mg HS BELA Administration Umeclidinium/Vilanterol 1 puff 08/14/25 09:00 08/15/25 08:54 Umeclidinium/Vilanterol 62.5-25 Mcg Ellipta INHALATION 1 puff DAILYRT BELA Administration Vitamin D 50 mcg 08/14/25 09:00 08/15/25 08:50 Cholecalciferol (Vitamin D3) 25 Mcg (1,000 Units) Tablet PO 50 mcg DAILY BELA Administration Radiology Results: ITS Impressions Chest X-Ray 08/13/25 14:43 Impression: Early bilateral pneumonia. Right lung nodule which appears new compared to the prior study. CT chest recommended Chest CT 08/13/25 16:03 IMPRESSION: 1. There is a new 6 cm pulmonary nodule in the left upper lobe. A follow-up chest CT in 3 months is recommended. 2. There are a few small to moderate-sized groundglass and patchy opacities in the mid and lower lungs, most prominent in the right lower lobe. The findings may be secondary to an inflammatory or infectious process. However, a malignant process is possible. A follow-up chest CT in 2 weeks following treatment is recommended. Follow-up is recommended. 3. Centrilobular emphysema in both lungs. Labs Labs: Laboratory Results - last 24 hr 08/15/25 05:34 WBC 6.1 RBC 3.98 L Hgb 10.9 L Hct 34.0 L MCV 85.4 MCH 27.4 MCHC 32.1 RDW 13.4 Plt Count 291 MPV 9.0 L Immature Gran % (Auto) 0.5 H Neut % (Auto) 88.1 H Lymph % (Auto) 6.8 L [place] % (Auto) 4.6 Eos % (Auto) 0.0 L Baso % (Auto) 0.0 Lymph # (Auto) 0.42 L [place] # (Auto) 0.28 Eos # (Auto) 0.00 L Baso # (Auto) 0.00 Abs Immat Gran (auto) 0.03 H Absolute Neuts (auto) 5.41 Absolute Nucleated RBC 0.00 Nucleated RBC % 0.0 Sodium 136 L Potassium 5.0 Chloride 99 Carbon Dioxide 27 Anion Gap 10 BUN 36 H Creatinine 0.68 L Estim Creat Clear Calc 42 Estimated GFR > 60 Glucose 154 H Calculated Osmolality 293 Calcium 10.8 H Total Bilirubin 0.4 AST 30 ALT 23 Alkaline Phosphatase 155 H Total Protein 6.4 Albumin 4.0 Quality VTE Prophylaxis VTE prophylaxis: pharmacologic ordered
[2025-08-15] MEDS: cefTRIAXone 2 GM in SODIUM CHLORIDE 0.9% IV 100 ML 200 ML IVPB (14:00)
[2025-08-15 18:15] LABS: MRSA (PCR) NOT DETECTED (NOT DETECTE)
[2025-08-15] MEDS: MONTELUKAST SODIUM 10 MG TABLET PO (21:00)
--- NOTE | 2025-08-15 21:25 | PC.NURSE ---
Patient in bed with TV on and talking on the phone. Alert and oriented x3, verbalizes needs. MRSA swab collected per Hospitalist order. Nurse explained the swab and what Hospitalist was checking for. MRSA of nares was negative. Hospitalist notified. Patient continues on droplet isolation for RSV. Noted to have an occasional nonproductive cough. Call light and belongings within reach.
[2025-08-16] VITALS (17 sets, daily range): BP systolic 98–114; BP diastolic 54–74; PULSE 83–112; RESP 16–22; TEMP 36.2–36.6; O2SAT 92–100
[2025-08-16] MEDS: IPRATROPIUM 0.5 MG/ALBUTEROL SULFATE 2.5 MG (BASE) AMPUL.NEB 3 ML INHALATION ×5 (00:43→23:32)
[2025-08-16 05:35] LABS: Hematocrit 33.9 % (35.0-42.0); Hemoglobin 10.7 g/dL (11.7-13.8); Immature Granulocyte Percent A 0.4 % (0.0-0.0); Lymphocytes Absolute Auto 0.40 K/mm3 (1.10-4.50); Mean Corpuscular HGB Conc 31.6 g/dL (32-36); Mean Corpuscular Hemoglobin 27.1 pg (27.0-31.0); Mean Corpuscular Volume 85.8 fL (78.0-102.0); Nucleated Red Blood Cells Absolute Auto 0.00 K/mm3 (0.00-0.00); Nucleated Red Blood Cells Perc 0.0 % (0-0.0); Platelet Count Result 290 K/mm3 (150-420); Red Blood Count 3.95 M/mm3 (4.20-5.40); White Blood Count 7.2 K/mm3 (4.8-10.8)
[2025-08-16] MEDS: SALMET XINAFT/FLUTIC PROPIN 500 MCG/50 MCG INH CAP 1 PUFF INHALATION ×2 (05:36→17:40)
[2025-08-16] MEDS: BENZONATATE 100 MG CAPSULE 200 MG PO ×3 (05:36→21:10)
[2025-08-16 05:51] LABS: Alanine Aminotransferase 21 U/L (6-35); Albumin Level 3.9 g/dL (3.5-5.1); Alkaline Phosphatase 139 U/L (38-126); Anion Gap 8 mmol/L (4-12); Aspartate Amino Transferase 26 U/L (14-36); Bilirubin,Total 0.4 mg/dL (0.2-1.3); Blood Urea Nitrogen 31 mg/dL (7-17); Calcium 10.3 mg/dL (8.4-10.2); Carbon Dioxide 26 mmol/L (22-30); Chloride 102 mmol/L (98-107); Estimated CRCL calculation 41 ml/min; Estimated Glomerular Filt Rate > 60; Glucose 144 mg/dL (65-110); Osmolality Calculated 291 mOsm/kg (285-295); Potassium 4.9 mmol/L (3.4-5.0); Sodium 136 mmol/L (137-145); Total Protein 5.8 g/dL (6.3-8.2)
[2025-08-16] MEDS: UMECLIDINIUM/VILANTEROL 62.5-25 MCG ELLIPTA 1 PUFF INHALATION (09:31)
[2025-08-16] MEDS: ENOXAPARIN 40 MG/0.4 ML SYRINGE SUB-Q (09:32)
[2025-08-16] MEDS: METOPROLOL SUCCINATE EXT REL 12.5 MG TABCR PO (09:33)
[2025-08-16] MEDS: CHOLECALCIFEROL (VITAMIN D3) 25 MCG (1,000 UNITS) TABLET 50 MCG PO (09:33)
[2025-08-16] MEDS: SPIRONOLACTONE 25 MG TABLET PO (09:34)
[2025-08-16] MEDS: ASPIRIN 81 MG ENTERIC TABLET PO (09:34)
[2025-08-16] MEDS: ATORVASTATIN 40 MG TABLET PO (09:34)
[2025-08-16] MEDS: FUROSEMIDE 20 MG TABLET PO (09:34)
[2025-08-16] MEDS: guaiFENesin 12 HR 600 MG TABCR 1200 MG PO ×2 (09:35→21:10)
[2025-08-16] MEDS: CLOPIDOGREL BISULFATE 75 MG TABLET PO (09:35)
--- NOTE | 2025-08-16 12:40 | PC.NURSE ---
1240 brought back from xray and they claim the iv site #20 in r inner fa infiltrated with approx 40ml. they removed site in xray applied coban. area above coban firm large and tender touch. cool to touch. purplish blue. warm compress applied. polisher implant and charge nurse aware.
--- NOTE | 2025-08-16 13:48 | P.PNIM_ITS ---
Progress Note: A&P Assessment and Plan (1) Acute exacerbation of chronic obstructive pulmonary disease: Code(s): J44.1 - Chronic obstructive pulmonary disease with (acute) exacerbation Status: Acute Assessment and Plan: no home o2 use per patient currently on room air IV solu-medrol, change to Q 6 hrs scheduled IV azithromycin IV ceftriaxone Duo nebs Q6h mucinex DM scheduled continue home inhalers patient still reporting no improvement in dyspnea s/p repeat CXR without worsening of pneumonia 08/[address] PE protocol, discussed [facility] patient (2) Bilateral pneumonia: Qualifiers: Lung location: lower lobe of lung Pneumonia type: due to unspecified organism Qualified Code(s): J18.9 - Pneumonia, unspecified organism Code(s): J18.9 - Pneumonia, unspecified organism Status: Acute Assessment and Plan: s/p chest x-ray and chest CT 1. There is a new 6 cm pulmonary nodule in the left upper lobe. A follow-up chest CT in 3 months is recommended. 2. There are a few small to moderate-sized groundglass and patchy opacities in the mid and lower lungs, most prominent in the right lower lobe. The findings may be secondary to an inflammatory or infectious process. However, a malignant process is possible. A follow-up chest CT in 2 weeks following treatment is recommended. Follow-up is recommended. 3. Centrilobular emphysema in both lungs. IV azithromycin IV ceftriaxone f/u blood cultures RSV positive Mucinex DM and tessalon pearls AM labs patient still reporting no improvement in dyspnea s/p chest x-ray - no worsening of pneumonia MRSA swab negative (3) Respiratory syncytial virus (RSV): Qualifiers: RSV infection type: pneumonia Qualified Code(s): J12.1 - Respiratory syncytial virus pneumonia Code(s): B33.8 - Other specified viral diseases Status: Acute Assessment and Plan: with congestion, cough, malaise, shortness of breath isolation per facility protocol supportive care (4) Acute exacerbation of CHF (congestive heart failure): Qualifiers: Heart failure type: unspecified Qualified Code(s): I50.9 - Heart failure, unspecified Code(s): I50.9 - Heart failure, unspecified Status: Acute Assessment and Plan: BNP 2580 on admission s/p IV furosemide 20 mg continue home furosemide continue spironolactone AM labs (5) Pulmonary nodule: Code(s): R91.1 - Solitary pulmonary nodule Status: Acute Assessment and Plan: There is a new 6 cm pulmonary nodule in the left upper lobe. A follow-up chest CT in 3 months is recommended. (6) Hypertension: Code(s): I10 - Essential (primary) hypertension Status: Acute Assessment and Plan: monitor BP and adjust as indicated continue metoprolol continue spironolactone Subjective Date/time seen: 08/16/25 13:48 Interval history: Patient seen for a follow up visit. Patient sitting in bed, in no distress. Patient reports her dyspnea is not improving despite treatment for her COPD exacerbation. Patient reports she is short of breath even at rest and is unable to walk to the bathroom. Patient continues on IV steroids and IV antibiotics. Patient is on duo-nebs 4x per day scheduled. Patient is on room air. Check CT PE protocol to rule out pulmonary embolism, also for follow up to patients [facility] [place]. Review of Systems Review of Systems: All systems reviewed & are unremarkable except as noted in HPI and below Exam Const: General: no acute distress Other: coughing during exam HENMT: Face/Nose/Sinus: Normal nares present Mouth: Yes moist mucous membranes Eyes: General: appearance normal, both eyes and all related structures Sclera: sclerae normal Neck: Neck: supple Resp: Auscultation: diminished lung sounds Other: some expiratory wheezes heard bilaterally Cardio: Rate: regular rate Rhythm: regular rhythm GI: Auscultation: normal bowel sounds Skin: General skin exam: normal color and no rashes or lesions noted Neuro: General: gait normal Speech: normal speech Motor exam (neuro): 5/5 motor strength present throughout Sensory Exam: normal sensation Extrem: General: normal to inspection Psych: Mental Status: mental status grossly normal Affect: normal affect Objective Data Vital Signs Vital Signs: Vital Signs - 24 hr 08/15/25 16:00 08/15/25 17:06 08/15/25 17:11 Temperature 98 F Pulse Rate 94 74 94 Respiratory Rate 20 20 20 Blood Pressure 108/63 Pulse Oximetry 95 100 100 Oxygen Delivery Room Air Oxygen Flow Rate 0 0 08/15/25 20:00 08/16/25 00:00 08/16/25 00:00 Temperature 97.1 F L Pulse Rate 88 94 94 Respiratory Rate 18 Blood Pressure 106/54 L Pulse Oximetry 94 Oxygen Delivery Room Air Oxygen Flow Rate 08/16/25 00:42 08/16/25 00:59 08/16/25 03:43 Temperature Pulse Rate 94 99 96 Respiratory Rate 18 18 Blood Pressure Pulse Oximetry 94 98 Oxygen Delivery Oxygen Flow Rate 08/16/25 05:53 08/16/25 05:59 08/16/25 08:00 Temperature 97.8 F Pulse Rate 98 99 110 H Respiratory Rate 18 18 22 H Blood Pressure 114/74 Pulse Oximetry 97 100 92 Oxygen Delivery Room Air Oxygen Flow Rate 08/16/25 08:00 08/16/25 09:33 08/16/25 11:17 Temperature Pulse Rate 112 H 112 H 98 Respiratory Rate 18 Blood Pressure Pulse Oximetry 98 Oxygen Delivery Oxygen Flow Rate 08/16/25 11:24 08/16/25 12:00 Temperature Pulse Rate 98 100 Respiratory Rate 18 Blood Pressure Pulse Oximetry 100 Oxygen Delivery Oxygen Flow Rate Intake/Output Intake/Output: Intake & Output 08/13/25 08/14/25 08/15/25 08/16/25 23:59 23:59 23:59 23:59 Intake Total 640 1770 2687 490 Balance 640 1770 2687 490 Meds/Results Medications: Active Medications Generic Name Dose Route Start Last Admin Trade Name Freq PRN Reason Stop Dose Admin Acetaminophen 650 mg 08/13/25 18:35 Acetaminophen 325 Mg Tablet PO Q4H PRN Mild Pain (1-3) or Fever Albuterol/Ipratropium 3 ml 08/13/25 18:45 08/16/25 11:16 Ipratropium 0.5 Mg/Albuterol Sulfate 2.5 Mg (Base) Ampul.Neb 3 Ml INHALATION 3 ml Q6HRT BELA Administration Aspirin 81 mg 08/14/25 09:00 08/16/25 09:34 Aspirin 81 Mg Enteric Tablet PO 81 mg DAILY BELA Administration Atorvastatin Calcium 40 mg 08/14/25 09:00 08/16/25 09:34 Atorvastatin 40 Mg Tablet PO 40 mg DAILY BELA Administration Benzonatate 200 mg 08/14/25 14:00 08/16/25 05:36 Benzonatate 100 Mg Capsule PO 200 mg Q8HR BELA Administration Clopidogrel Bisulfate 75 mg 08/14/25 09:00 08/16/25 09:35 Clopidogrel Bisulfate 75 Mg Tablet PO 75 mg DAILY BELA Administration Enoxaparin Sodium 40 mg 10/28/25 09:00 08/16/25 09:32 Enoxaparin 40 Mg/0.4 Ml Syringe SUB-Q 40 mg DAILY BELA Administration Furosemide 20 mg 08/15/25 09:00 08/16/25 09:34 Furosemide 20 Mg Tablet PO 20 mg DAILY BELA Administration Guaifenesin 1,200 mg 08/14/25 21:00 08/16/25 09:35 Guaifenesin 12 Hr 600 Mg Tabcr PO 1,200 mg Q12HR BELA Administration Azithromycin 500 mg/ Sodium 250 mls @ 250 mls/hr 08/14/25 14:00 08/15/25 14:00 Chloride IVPB Infused Q24H BELA Infusion Ceftriaxone Sodium 2 gm/ 100 mls @ 200 mls/hr 08/14/25 14:00 08/15/25 14:40 Sodium Chloride IVPB Infused Q24H BELA Infusion Methylprednisolone Sodium Succinate 40 mg 08/15/25 16:00 08/16/25 09:33 Methylprednisolone Sod Succ 40 Mg Vial IV PUSH 40 mg Q6H BELA Administration Metoprolol Succinate 12.5 mg 08/14/25 11:00 08/16/25 09:33 Metoprolol Succinate Ext Rel 12.5 Mg Tabcr PO 12.5 mg DAILY BELA Administration Montelukast Sodium 10 mg 08/13/25 21:00 08/15/25 21:00 Montelukast Sodium 10 Mg Tablet PO 10 mg HS BELA Administration Ondansetron HCl 4 mg 08/13/25 18:35 Ondansetron Inj 4 Mg/2 Ml Vial IV PUSH Q6H PRN Nausea And Vomiting Fluticasone/Salmeterol 1 puff 08/14/25 09:00 08/16/25 05:36 Salmet Xinaft/Flutic Propin 500 Mcg/50 Mcg Inh Cap INHALATION 1 puff Q12HRT BELA Administration Spironolactone 25 mg 08/14/25 09:00 08/16/25 09:34 Spironolactone 25 Mg Tablet PO 09/13/25 08:59 25 mg DAILY BELA Administration Trazodone HCl 50 mg 08/13/25 21:00 08/15/25 21:00 Trazodone Hcl 50 Mg Tablet PO 50 mg HS BELA Administration Umeclidinium/Vilanterol 1 puff 08/14/25 09:00 08/16/25 09:31 Umeclidinium/Vilanterol 62.5-25 Mcg Ellipta INHALATION 1 puff DAILYRT BELA Administration Vitamin D 50 mcg 08/14/25 09:00 08/16/25 09:33 Cholecalciferol (Vitamin D3) 25 Mcg (1,000 Units) Tablet PO 50 mcg DAILY BELA Administration Radiology Results: ITS Impressions Chest CT 08/13/25 16:03 IMPRESSION: 1. There is a new 6 cm pulmonary nodule in the left upper lobe. A follow-up chest CT in 3 months is recommended. 2. There are a few small to moderate-sized groundglass and patchy opacities in the mid and lower lungs, most prominent in the right lower lobe. The findings may be secondary to an inflammatory or infectious process. However, a malignant process is possible. A follow-up chest CT in 2 weeks following treatment is recommended. Follow-up is recommended. 3. Centrilobular emphysema in both lungs. Chest X-Ray 08/15/25 14:02 Impression: Early right lower lobe pneumonia suspected Chest CTA 08/16/25 12:50 IMPRESSION: 1. No PE. 2. Lungs unchanged with a few small foci of pneumonitis, atelectasis, and/or scarring. Labs Labs: Laboratory Results - last 24 hr 08/15/25 08/16/25 17:03 05:28 WBC 7.2 RBC 3.95 L Hgb 10.7 L Hct 33.9 L MCV 85.8 MCH 27.1 MCHC 31.6 L RDW 13.6 Plt Count 290 MPV 9.1 L Immature Gran % (Auto) 0.4 H Neut % (Auto) 90.4 H Lymph % (Auto) 5.5 L [place] % (Auto) 3.7 Eos % (Auto) 0.0 L Baso % (Auto) 0.0 Lymph # (Auto) 0.40 L [place] # (Auto) 0.27 Eos # (Auto) 0.00 L Baso # (Auto) 0.00 Abs Immat Gran (auto) 0.03 H Absolute Neuts (auto) 6.53 Absolute Nucleated RBC 0.00 Nucleated RBC % 0.0 Sodium 136 L Potassium 4.9 Chloride 102 Carbon Dioxide 26 Anion Gap 8 BUN 31 H Creatinine 0.71 Estim Creat Clear Calc 41 Estimated GFR > 60 Glucose 144 H Calculated Osmolality 291 Calcium 10.3 H Total Bilirubin 0.4 AST 26 ALT 21 Alkaline Phosphatase 139 H Total Protein 5.8 L Albumin 3.9 Nasal MRSA (PCR) Not detected Quality VTE Prophylaxis VTE prophylaxis: pharmacologic ordered
[2025-08-16] MEDS: cefTRIAXone 2 GM in SODIUM CHLORIDE 0.9% IV 100 ML 200 ML IVPB (15:25)
--- NOTE | 2025-08-16 15:47 | PC.NURSE ---
r arm iv site that infiltrated in xray cont to spread out. denies pain just says arm keeps getting bigger and old iv site, can not determine if it is still good. explained and this site is also removed at this time. cold compress applied. encouraged to keep arm elevated.
[2025-08-16] MEDS: AZITHROMYCIN IV 500 MG in SODIUM CHLORIDE 0.9% IV 250 ML IVPB (16:02)
[2025-08-16] MEDS: MONTELUKAST SODIUM 10 MG TABLET PO (21:10)
[2025-08-17] VITALS (9 sets, daily range): BP systolic 126–148; BP diastolic 77–86; PULSE 74–119; RESP 16–22; TEMP 36.5–36.8; O2SAT 91–100
[2025-08-17] MEDS: BENZONATATE 100 MG CAPSULE 200 MG PO ×2 (05:05→12:33)
[2025-08-17] MEDS: SALMET XINAFT/FLUTIC PROPIN 500 MCG/50 MCG INH CAP 1 PUFF INHALATION (05:06)
[2025-08-17] MEDS: IPRATROPIUM 0.5 MG/ALBUTEROL SULFATE 2.5 MG (BASE) AMPUL.NEB 3 ML INHALATION (06:12)
[2025-08-17] MEDS: guaiFENesin 12 HR 600 MG TABCR 1200 MG PO (09:20)
[2025-08-17] MEDS: CHOLECALCIFEROL (VITAMIN D3) 25 MCG (1,000 UNITS) TABLET 50 MCG PO (09:20)
[2025-08-17] MEDS: ATORVASTATIN 40 MG TABLET PO (09:21)
[2025-08-17] MEDS: METOPROLOL SUCCINATE EXT REL 12.5 MG TABCR PO (09:21)
[2025-08-17] MEDS: FUROSEMIDE 20 MG TABLET PO (09:22)
[2025-08-17] MEDS: SPIRONOLACTONE 25 MG TABLET PO (09:22)
[2025-08-17] MEDS: ASPIRIN 81 MG ENTERIC TABLET PO (09:22)
[2025-08-17] MEDS: CLOPIDOGREL BISULFATE 75 MG TABLET PO (09:22)
[2025-08-17] MEDS: ENOXAPARIN 40 MG/0.4 ML SYRINGE SUB-Q (09:22)
[2025-08-17] MEDS: UMECLIDINIUM/VILANTEROL 62.5-25 MCG ELLIPTA 1 PUFF INHALATION (09:23)
--- NOTE | 2025-08-17 10:26 | PC.NURSE ---
resp doing walking o2 eval
--- NOTE | 2025-08-17 11:07 | HOMEO2EVAL ---
Evaluation was performed at [facility] [facility]: Home Oxygen (O2) Evaluation Start: 08/17/25 10:01 Freq: ONCE Status: Active Protocol: RPE Activity Type Activity Date Activity User E-sign Co-sign Detail Recorded Client Recorded Date Recorded By Document 08/17/25 11:04 DV [id number] 08/17/25 11:05 DV Document 08/17/25 11:05 DV [id number] 08/17/25 11:06 DV 08/17/25 08/17/25 11:04 11:05 Home O2 Evaluation [Oxygen] -Test Phase Resting Exercise -Oxygen Delivery Room Air Room Air [Pulse Oximetry] -Pulse Oximetry (90-100 %) 95 91 [Pulse Rate] -Pulse Rate (60-100 beats/min) 101 H 119 H [Evaluation] -Activity Tolerance Good Good -Rating of Perceived Dyspnea (PD) +2 Mild, Some +2 Mild, Some Difficulty, Difficulty, Noticeable to Noticeable to the Observer the Observer -Rate of Perceived Exertion (PE) 12 12 Query Text:Click the Protocol Button to View the RPE Scale [Exercise] -Ambulation Distance (feet) 200 200 -Ambulation Distance (meters) 60.95 60.95 [Charges] -Evaluation Charges O2 Evaluation Charge
--- NOTE | 2025-08-17 11:08 | HOMEO2EVAL ---
Evaluation was performed at [facility]: Home Oxygen (O2) Evaluation Start: 08/17/25 10:01 Freq: ONCE Status: Active Protocol: RPE Activity Type Activity Date Activity User E-sign Co-sign Detail Recorded Client Recorded Date Recorded By Document 08/17/25 11:04 DV [id number] 08/17/25 11:05 DV Document 08/17/25 11:05 DV [id number] 08/17/25 11:06 DV 08/17/25 08/17/25 11:04 11:05 Home O2 Evaluation [Oxygen] -Test Phase Resting Exercise -Oxygen Delivery Room Air Room Air [Pulse Oximetry] -Pulse Oximetry (90-100 %) 95 91 [Pulse Rate] -Pulse Rate (60-100 beats/min) 101 H 119 H [Evaluation] -Activity Tolerance Good Good -Rating of Perceived Dyspnea (PD) +2 Mild, Some +2 Mild, Some Difficulty, Difficulty, Noticeable to Noticeable to the Observer the Observer -Rate of Perceived Exertion (PE) 12 12 Query Text:Click the Protocol Button to View the RPE Scale [Exercise] -Ambulation Distance (feet) 200 200 -Ambulation Distance (meters) 60.95 60.95 [Charges] -Evaluation Charges O2 Evaluation Charge
--- NOTE | 2025-08-17 12:11 | P.DS_ITS ---
DS: Admitting Diagnosis Discharge Date 08/17/2025 Admitting Diagnosis acute exacerbation of COPD bilateral pneumonia RSV acute exacerbation of CHF pulmonary nodule HTN DS: Discharge Diagnosis Discharge Diagnosis (1) Acute exacerbation of chronic obstructive pulmonary disease: Code(s): J44.1 - Chronic obstructive pulmonary disease with (acute) exacerbation Status: Acute Assessment and Plan: no home o2 use per patient currently on room air IV solu-medrol, change to Q 6 hrs scheduled IV azithromycin IV ceftriaxone Duo nebs Q6h mucinex DM scheduled continue home inhalers s/p repeat CXR without worsening of pneumonia 08/[address] PE protocol, negative for acute PE patient does not appear dyspneic on exam, breath sounds with more air flow, patient maintaining oxygen saturations on her home dose of oxygen discharge patient home today with PO Augmentin x 5 doses, PO prednisone x 3 days and Mucinex DM x 10 days patient will need to follow up with her PCP to order a follow up CT of her chest in 1-2 weeks after the treatment of the pneumonia to assess the area of concern noted in her CT that was done during this hospitalization (2) Bilateral pneumonia: Qualifiers: Lung location: lower lobe of lung Pneumonia type: due to unspecified organism Qualified Code(s): J18.9 - Pneumonia, unspecified organism Code(s): J18.9 - Pneumonia, unspecified organism Status: Acute Assessment and Plan: s/p chest x-ray and chest CT 1. There is a new 6 cm pulmonary nodule in the left upper lobe. A follow-up chest CT in 3 months is recommended. 2. There are a few small to moderate-sized groundglass and patchy opacities in the mid and lower lungs, most prominent in the right lower lobe. The findings may be secondary to an inflammatory or infectious process. However, a malignant process is possible. A follow-up chest CT in 2 weeks following treatment is recommended. Follow-up is recommended. 3. Centrilobular emphysema in both lungs. IV azithromycin IV ceftriaxone f/u blood cultures RSV positive Mucinex DM and tessalon pearls s/p chest x-ray - no worsening of pneumonia MRSA swab negative switch to PO Augmentin on discharge x 5 doses (3) Respiratory syncytial virus (RSV): Qualifiers: RSV infection type: pneumonia Qualified Code(s): J12.1 - Respiratory syncytial virus pneumonia Code(s): B33.8 - Other specified viral diseases Status: Acute Assessment and Plan: with congestion, cough, malaise, shortness of breath isolation per facility protocol supportive care (4) Acute exacerbation of CHF (congestive heart failure): Qualifiers: Heart failure type: unspecified Qualified Code(s): I50.9 - Heart failure, unspecified Code(s): I50.9 - Heart failure, unspecified Status: Acute Assessment and Plan: BNP 2580 on admission s/p IV furosemide 20 mg continue home furosemide continue spironolactone (5) Pulmonary nodule: Code(s): R91.1 - Solitary pulmonary nodule Status: Acute Assessment and Plan: There is a new 6 cm pulmonary nodule in the left upper lobe. A follow-up chest CT in 3 months is recommended. (6) Hypertension: Code(s): I10 - Essential (primary) hypertension Status: Acute Assessment and Plan: monitor BP and adjust as indicated continue metoprolol continue spironolactone DS: Summary Hospital Course Reason for hospitalization: shortness of breath Hospital Course: The patient is a 79-year-old female with a history of COPD, CHF, CAD status post-CABG, hypertension, and diverticulosis who presented with worsening shortness of breath, cough, and rhinorrhea. She was found to be RSV positive in the ED, with imaging revealing bilateral lower lobe pneumonia and a new 6 cm left upper lobe pulmonary nodule, as well as groundglass and patchy opacities in the mid and lower lungs. Initial management included IV methylprednisolone, IV azithromycin, IV ceftriaxone, scheduled nebulizer treatments, and supportive care. She was also treated for acute CHF exacerbation with IV furosemide and continued on her home diuretics and antihypertensives. Despite therapy, she reported persistent dyspnea at rest, but maintained oxygen saturations on her home dose of oxygen. Serial imaging showed no worsening of pneumonia, and CTA ruled out pulmonary embolism. Blood cultures remained negative, and MRSA screening was negative. The patient?s respiratory status gradually improved, with increased air movement on exam and stable vital signs. She was transitioned to oral amoxicillin/clavulanate, prednisone, and guaifenesin for discharge, with instructions for close outpatient follow-up, including repeat chest CT in 1?2 weeks to reassess the pulmonary findings and a 3-month follow-up for the new pulmonary nodule. She was discharged in stable condition with her home medications and appropriate follow-up arranged. Time Spent with Patient Time attestation: Total time spent providing and/or coordinating discharge services: 35 Minutes Exam Const: General: no acute distress HENMT: Face/Nose/Sinus: Normal nares present Mouth: Yes moist mucous membranes Eyes: General: appearance normal, both eyes and all related structures Sclera: sclerae normal Neck: Neck: supple Resp: Auscultation: diminished lung sounds Other: some expiratory wheezes heard bilaterally Cardio: Rate: regular rate Rhythm: regular rhythm GI: Auscultation: normal bowel sounds Skin: General skin exam: normal color and no rashes or lesions noted Neuro: General: gait normal Speech: normal speech Motor exam (neuro): 5/5 motor strength present throughout Sensory Exam: normal sensation Extrem: General: normal to inspection Psych: Mental Status: mental status grossly normal Affect: normal affect DS: Data Data Completed and Pending Labs on day of discharge: Preliminary micro results at discharge 08/13/25 15:41 Blood Culture - Preliminary Blood 08/13/25 15:34 Blood Culture - Preliminary Blood Discharge Plan Discharge Attending physician on discharge: Deon Doan Consulting providers: Lynda Quinteros; Boogie Cardona; Jose Maria Garcia; Kyle Valdes; Orion Lewis Discharging Clinician: Lynda Quinteros Patient Disposition: Home Activity: as tolerated Diet: as tolerated Discharge Instructions: Please finish all your antibiotics even if you are feeling better. Please ask your PCP to order a follow up chest CT once the treatment for your pneumonia is completed. In approximately 1-2 weeks. Patient Instructions: Antibiotic Form, Prednisone (By mouth), Aspirin (By mouth), Amoxicillin/Clavulanate Potassium (By mouth), Azithromycin (By mouth), Clopidogrel (By mouth), Fall Prevention for Older Adults (DC), Shortness of Breath (DC), RSV (Respiratory Syncytial Virus) Infection (DC) Patient Language: Citizen Of [place] Stand Alone Forms: General Discharge Information Follow-up/Referrals: Orly Coronado MD [Primary Care Provider, Internal Medicine] Referral Note: Please call for an appointment to be seen in 1-2 weeks after discharge. Please ask your PCP to order a follow up CT of your chest in 1-2 weeks after the treatment of your pneumonia to look at an area of concern that was identified during your hospital stay. Discharge Medications: New dextromethorphan-guaifenesin [Mucinex DM] 60-1,200 mg tablet extended release 12 hr 1 tablet PO Q12H Qty: 20 0RF prednisone 20 mg tablet 40 mg PO DAILY 3 Days Qty: 6 0RF amoxicillin-pot clavulanate 875-125 mg tablet 1 tablet PO Q12H Qty: 5 0RF Continued potassium chloride 10 mEq Capsule, Extended Release 10 meq PO DAILY Patient Comments: Does not know dose of medication aspirin 81 mg tablet,delayed release (DR/EC) 81 mg PO DAILY montelukast 10 mg tablet 10 mg PO DAILY albuterol sulfate [ProAir HFA] 90 mcg/actuation HFA aerosol inhaler 2 puff INHALATION Q4-6H PRN (Reason: Shortness Of Breath) atorvastatin 40 mg tablet 40 mg PO QPM trazodone 50 mg tablet 50 mg PO HS clopidogrel 75 mg tablet 75 mg PO DAILY metoprolol succinate 25 mg tablet extended release 24 hr 12.5 mg PO DAILY spironolactone 50 mg tablet 25 mg PO DAILY furosemide 20 mg tablet 20 mg PO DAILY cholecalciferol (vitamin D3) [Vitamin D3] 25 mcg (1,000 unit) Capsule 2,000 unit PO DAILY fluticasone furoate-vilanterol [Breo Ellipta] 200-25 mcg/dose blister with device 1 inh INHALATION DAILY Combivent Respimat 20-100 mcg/actuation mist 4 puff INHALATION QID Patient Comments: TAKES USUALLY UP TO 2 TIMES A DAY-SELDOM NEEDS MORE Changed ipratropium-albuterol 0.5 mg-3 mg(2.5 mg base)/3 mL solution for nebulization 3 ml INHALATION TID Qty: 90 0RF Discontinued guaifenesin [Mucus Relief ER] 600 mg Tablet Extended Release 12hr 600 mg PO Q12HR Qty: 10 0RF Date of admission: 08/14/25 11:20 Primary Care Provider: Orly Coronado Admitting Provider: Deon Doan Attending physician on admission: Deon Doan Condition: Stable Quality VTE Prophylaxis VTE prophylaxis: pharmacologic ordered
[2025-08-17] MEDS: AZITHROMYCIN 250 MG TABLET 500 MG PO (12:33)
--- NOTE | 2025-08-17 14:39 | PC.NURSE ---
1405 dc instuctions went over with her and daughter. they both voice an understanding. dc to daughter's car. encouraged mask when out til at least nov 3
--- NOTE | 2025-08-21 09:30 | PC.NURSE ---
discharge call back complete, spoke with daughter, states she in hospital [facility] at this time.
== END 2025-08-17 14:05 | disposition home or self-care (01) | DRG 194 ==
LOC: CHSED 15:53 → CHS2ND 16:13
PROVIDERS: Nurse Practitioner Adult Health; Admitting Provider Internal Medicine; Emergency Provider Emergency Medicine; PCP Internal Medicine; Visit Provider Internal Medicine
DX: J12.1 Respiratory syncytial virus pneumonia (principal); J44.1 Chronic obstructive pulmonary disease with (acute) exacerbation; J44.9 Chronic obstructive pulmonary disease, unspecified; J43.2 Centrilobular emphysema; I25.10 Atherosclerotic heart disease of native coronary artery without angina pectoris; I11.0 Hypertensive heart disease with heart failure; I50.9 Heart failure, unspecified; R91.1 Solitary pulmonary nodule; Z95.1 Presence of aortocoronary bypass graft; Z90.49 Acquired absence of other specified parts of digestive tract; Z87.891 Personal history of nicotine dependence; Z20.822 Contact with and (suspected) exposure to COVID-19; Z79.82 Long term (current) use of aspirin; Z79.02 Long term (current) use of antithrombotics/antiplatelets
CPT/HCPCS: 36415; 71045; 71046; 71250; 71275; 80053; 83605; 83880; 84132; 84484; 85025; 87040; 87637; 87641; 93005; 94618; 94640; 96365; 96367; 96372; 96375; 96376; 97110; 97161; 97165; 97530; 97535; 99285; A9270; G0378; J0456; J0696; J1650; J1938; J2919; J7050; Q9967